=== PATIENT | female | born 1955 | race Caucasian/White ===

== ENCOUNTER 2018-02-05 01:43 | Emergency (ER) | payer OTHER ==
[~2018-02-05] VITALS: Ht 152.4 cm; Wt 68.0 kg
[~2018-02-05 01:43] MED LIST: DEXILANT60 MG PO
--- OUTSIDE RECORDS SUMMARY | 2018-02-05 01:46 | XMS REPORT | Clinical Summary ---
Author Author [facility] Organization [facility] Address Unknown Phone Unavailable Care Team Providers Care Early Morning Name Role Phone Javad Wagner MD PCP Allergies Active Allergy Reactions Severity Noted Date Comments Penicillins Hives High 06/10/2012 Rash Current Medications Prescription Sig. Disp. Refills Start End Date Status Date amLODIPine (NORVASC) 5 mg Take 1 tablet (5 mg 30 tablet 11 11/16/19 11/16/19 Active tabletIndications: total) by mouth daily. 18 19 Essential hypertension ergocalciferol (VITAMIN Take 1 capsule (50,000 4 capsule 1 12/20/19 12/20/19 Active D2) 50,000 unit Units total) by mouth 18 19 capsuleIndications: once a week. Vitamin D deficiency aspirin (ECOTRIN) 81 MG Take 81 mg by mouth Active enteric coated tablet daily. esomeprazole (NexIUM) 40 Take 1 capsule (40 mg 90 capsule 1 01/21/20 01/21/20 Active MG capsuleIndications: total) by mouth daily 18 19 Gastroesophageal reflux before breakfast. disease without esophagitis VITAMIN D2 50,000 unit Take 50,000 Units by 0 09/22/20 12/20/19 Discontin capsule mouth once a week. 17 18 ued FLUCELVAX QUAD [id number], TO BE ADMINISTERED BY 0 08/25/20 10/20/20 Discontin PF, 60 mcg (15 mcg x PHARMACIST FOR 17 17 ued 4)/0.5 mL syringe IM IMMUNIZATION Injection PROCTOSOL HC 2.5 % rectal APPLY TO AFFECTED RECTAL 0 10/08/20 Discontin cream AREA TWICE A DAY 17 18 ued ranitidine (ZANTAC) 150 Take 150 mg by mouth 2 2 09/15/20 10/20/20 Discontin MG tablet (two) times a day. 17 17 ued ranitidine (ZANTAC) 150 Take 1 capsule (150 mg 60 capsule 11 10/20/20 11/16/19 Discontin MG capsule total) by mouth 2 (two) 17 18 ued times a day. amLODIPine (NORVASC) 10 Take 0.5 tablets (5 mg 3 tablet 0 11/11/19 11/16/19 Discontin mg tablet total) by mouth daily for 18 18 ued 5 days. famotidine (PEPCID) 20 MG Take 1 tablet (20 mg 60 tablet 11 12/22/19 01/29/20 Discontin tabletIndications: total) by mouth 2 (two) 18 18 ued Gastroesophageal reflux times a day. disease with esophagitis pyridoxine, vitamin B6, Take 100 mg by mouth 01/21/20 Discontin (B-6) 100 MG tablet daily. 18 ued GAMMA-AMINOBUTYRIC ACID, 325 mg. 02/01/20 Discontin BULK, MISC 18 ued MULTIVITAMIN,STRESS Take by mouth. 02/02/20 Discontin FORMULA (STRESS/BIOTIN 18 ued ORAL) lamoTRIgine (LaMICtal) 25 Take 1 tablet (25 mg 01/21/20 01/29/20 Discontin MG tabletIndications: total) by mouth daily. 18 18 ued Bipolar affective disorder, remission status unspecified famotidine (PEPCID) 20 MG Take 20 mg by mouth 2 02/02/20 Discontin tablet (two) times a day. 18 ued Active Problems Problem Noted Date Dyspepsia 01/11/2018 Other dysphagia 01/11/2018 Atypical chest pain 12/22/2017 Gastroesophageal reflux disease with esophagitis 12/22/2017 Palpitations 11/16/2017 Essential hypertension 11/16/2017 Gastroesophageal reflux disease 10/20/2017 Vitamin D deficiency 10/20/2017 Hormone imbalance 10/20/2017 Screening, lipid 10/20/2017 Pain of right lower extremity 10/20/2017 Resolved Problems Problem Noted Date Resolved Date History of suicide attempt 10/20/2017 11/16/2017 Encounters Date Type Specialty Care Team Description 02/01/2018 Office Visit Family Medicine Chad Wagner MD Esophageal dysphagia (Primary Dx); Gastroesophageal reflux disease, esophagitis presence not specified 01/31/2018 [facility] Encounter disease with esophagitis; Dyspepsia; Other dysphagia 01/31/2018 Anesthesia Gastroenterology Primo Butt MD Event 01/31/2018 Procedure Pass Gastroenterology 01/31/2018 Surgery Gastroenterology José Miguel Godinez MD ESOPHAGOGASTRODUODENOSCOP Y (EGD) with bx 01/24/2018 Hospital Radiology José Miguel Godinez MD Gastroesophageal reflux Encounter disease with esophagitis; Dyspepsia; Other dysphagia 01/24/2018 Telephone Gastroenterology Mary Shannon LPN 01/20/2018 Office Visit Family Medicine Chad Wagner MD Routine check-up (Primary Dx); Bipolar affective disorder, remission status unspecified; Post-menopausal; Gastroesophageal reflux disease without esophagitis 01/11/2018 Office Visit Gastroenterology José Miguel Godinez MD Gastroesophageal reflux disease with esophagitis (Primary Dx); Dyspepsia; Other dysphagia 12/22/2017 Office Visit Family Medicine Chad Wagner MD Gastroesophageal reflux disease with esophagitis (Primary Dx); Atypical chest pain; Essential hypertension 12/20/2017 Orders Only Family Medicine Chad Wagner MD Vitamin D deficiency (Primary Dx) 12/17/2017 Orders Only Family Medicine Chad Wagner MD 11/16/2017 Office Visit Family Chad Pool MD Essential hypertension (Primary Dx); Palpitations 11/11/2017 Emergency Emergency Medicine Andrey Pickard Secondary hypertension (Primary Dx) 11/03/2017 Telephone Family Chad Pool MD 10/20/2017 Office Visit Family Chad Pool MD Gastroesophageal reflux disease, esophagitis presence not specified (Primary Dx); Vitamin D deficiency; Hormone imbalance; Screening, lipid; Pain of right lower extremity; History of suicide attempt after 02/04/2017 Family History Medical History Relation Name Comments Hypertension Father Heart disease Mother Hypertension Mother Kidney disease Mother No Known Problems Sister Relation Name Status Comments Father Alive Mother Alive Sister Alive Social History Tobacco Use Types Packs/Day Years Used Date Never Smoker Smokeless Tobacco: Never Used Alcohol Use Drinks/Week oz/Week Comments No Sex Assigned at Date Recorded Not on file Last Filed Vital Signs Vital Sign Reading Time Taken Blood Pressure 117/80 02/01/2018 11:14 AM CDT Pulse 64 02/01/2018 11:14 AM CDT Temperature 36.8 C (98.2 F) 02/01/2018 11:14 AM CDT Respiratory Rate 20 02/01/2018 11:14 AM CDT Oxygen Saturation 99% 02/01/2018 11:14 AM CDT Inhaled Oxygen - - Concentration Weight 67.1 kg (148 lb) 02/01/2018 11:14 AM CDT Height 152.4 cm (5') 02/01/2018 11:14 AM CDT Body Mass Index 28.9 02/01/2018 11:14 AM CDT Plan of Treatment Date Type Specialty Care Team Description 02/14/2018 Appoint[place] [address] [place] [address] 02/25/2018 Office Visit Gastroenterology José Miguel Godinez MD [address] [facility] [address] [place] [address] [phone] 04/27/2018 Office Visit Cardiology JoseGwendolyn Kimble MD [address] [facility] [address] [place] [address] Health Maintenance Due Date Last Done Comments MAMMOGRAM 07/09/2019 07/09/2017 PAP SMEAR 08/09/2020 08/09/2017 COLONOSCOPY 11/08/2024 11/08/2014 ZOSTER VACCINE Completed 11/08/2013 INFLUENZA VACCINE Completed 09/08/2017 Procedures Procedure Name Priority Date/Time Associated Diagnosis Comments ESOPHAGOGASTRODUODENOSCOP 01/31/2018 Gastroesophageal reflux Y (EGD) with bx 7:30 AM CDT disease with esophagitis after 02/04/2017 Results * Surgical pathology request (01/31/2018 10:06 AM) Component Value Ref Range Surgical pathology report See link below for PDF Lab Report Result status This is Final Report to [id number] Specimen Performing Laboratory [facility] DEPARTMENT OF PATHOLOGY AND GENOMIC MEDICINE [address] [place] [id number] * [place] Esophagram Complete (01/24/2018 11:34 AM) Specimen Performing Laboratory [address] [address] Narrative PROCEDURE:FL ESOPHAGRAM COMPLETE CLINICAL HISTORY:K21.0 Gastro-esophageal reflux disease with esophagitis, R10.13 Epigastric pain, dysphagia COMPARISON:None. TECHNIQUE: Patient was given air crystals as well as thick and thin barium for a double contrast examination of the esophagus. Only an esophagram was performed as requested. A total kV of96, mA of2.4, and fluoroscopic time of1.3 minutes was used for the procedure. The DAP (dose absorbed product) is: 3 mGy-cm^2. Number of fluoroscopic spot images: 30. FINDINGS: Following administration of barium orally a normal swallowing mechanism is demonstrated. No hiatus hernia is seen. Minimal GE reflux is present. IMPRESSION: Minimal GE reflux. [id number] . Procedure Note Hm Interface, Radiology Results Incoming - 01/24/2018 12:30 PM CDT PROCEDURE: FL ESOPHAGRAM COMPLETE CLINICAL HISTORY: K21.0 Gastro-esophageal reflux disease with esophagitis, R10.13 Epigastric pain, dysphagia COMPARISON: None. TECHNIQUE: Patient was given air crystals as well as thick and thin barium for a double contrast examination of the esophagus. Only an esophagram was performed as requested. A total kV of 96, mA of 2.4, and fluoroscopic time of 1.3 minutes was used for the procedure. The DAP (dose absorbed product) is: 3 mGy-cm^2. Number of fluoroscopic spot images: 30. FINDINGS: Following administration of barium orally a normal swallowing mechanism is demonstrated. No hiatus hernia is seen. Minimal GE reflux is present. IMPRESSION: Minimal GE reflux. [id number] . * POC glycosylated hemoglobin (Hb A1C) (01/20/2018 9:48 AM) Component Value Ref Range POC Hemoglobin A1C 5.1 % Specimen Performing Laboratory Blood * LIPID PANEL WITH REFLEX TO DIRECT LDL (12/17/2017 9:11 AM) Component Value Ref Range Cholesterol, total 206 (H) <200 mg/dL HDL cholesterol 66 >50 mg/dL Triglycerides 90 <150 mg/dL LDL cholesterol 121 (H) mg/dL (calc) calculated Comment: Reference range: <100 Desirable range <100 mg/dL for patients with CHD or diabetes and <70 mg/dL for diabetic patients with known heart disease. LDL-C is now calculated using the Raffi calculation, which is a validated novel method providing better accuracy than the Friedewald equation in the estimation of LDL-C. Jered MOTT et al. BLANCA. 2013;310(19): 4552-7075 (http://education.GBS.Crave.com/faq/UGJ148) Cholesterol/HDL ratio 3.1 <5.0 (calc) Non-HDL cholesterol 140 (H) <130 mg/dL (calc) Comment: For patients with diabetes plus 1 major ASCVD risk factor, treating to a non-HDL-C goal of <100 mg/dL (LDL-C of <70 mg/dL) is considered a therapeutic option. Specimen Performing Laboratory [facility] * Helicobacter pylori breath test (12/17/2017 9:11 AM) Component Value Ref Range H. pylori breath test NOT DETECTED NOT DETECTED Comment: Antimicrobials, proton pump inhibitors, and bismuth preparations are known to suppress H. pylori, and ingestion of these prior to H. pylori diagnostic testing may lead to false negative results. If clinically indicated, the test may be repeated on a new specimen obtained two weeks after discontinuing treatment. However, a positive result is still clinically valid. Specimen Performing Laboratory [facility] * Vitamin D 25 hydroxy level (12/17/2017 9:11 AM) Component Value Ref Range Vitamin D, 25-hydroxy 40 30 - 100 ng/mL Comment: Vitamin D Status 25-OH Vitamin D: Deficiency: <20 ng/mL Insufficiency: 20 - 29 ng/mL Optimal: > or=30 ng/mL For 25-OH Vitamin D testing on patients on D2-supplementation and patients for whom quantitation of D2 and D3 fractions is required, the QuestAssureD(TM) 25-OH VIT D, (D2,D3), LC/MS/MS is recommended: order code 75788 (patients >2yrs). For more information on this test, go to: http://education.better..Crave.com/faq/WDY838 (This link is being provided for informational/educational purposes only.) Specimen Performing Laboratory [facility] * CBC with platelet and differential (12/17/2017 9:11 AM) Only the most recent of 2 results within the time period is included. Component Value Ref Range WBC 5.4 3.8 - 10.8 Thousand/uL RBC 4.87 3.80 - 5.10 Million/uL HGB 14.9 11.7 - 15.5 g/dL HCT 43.8 35.0 - 45.0 % MCV 89.9 80.0 - 100.0 fL MCH 30.6 27.0 - 33.0 pg MCHC 34.0 32.0 - 36.0 g/dL RDW 12.1 11.0 - 15.0 % Platelet count 274 140 - 400 Thousand/uL MPV 11.1 7.5 - 12.5 fL Neutrophils, absolute 3,386 1,500 - 7,800 cells/uL Lymphocytes, absolute 1,577 850 - 3,900 cells/uL Monocytes, absolute 308 200 - 950 cells/uL Eosinophils, absolute 97 15 - 500 cells/uL Basophils, absolute 32 0 - 200 cells/uL Neutrophils 62.7 % Lymphocytes 29.2 % Monocytes 5.7 % Eosinophils 1.8 % Basophils + RC 0.6 % Specimen Performing Laboratory [facility] * Thyroid stimulating hormone (12/17/2017 9:11 AM) Component Value Ref Range TSH 1.46 0.40 - 4.50 mIU/L Specimen Performing Laboratory [facility] * Comprehensive metabolic panel (12/17/2017 9:11 AM) Only the most recent of 2 results within the time period is included. Component Value Ref Range Glucose 88 65 - 99 mg/dL Comment: Fasting reference interval BUN, whole blood 14 7 - 25 mg/dL Creatinine 0.66 0.50 - 0.99 mg/dL Comment: For patients >49 years of age, the reference limit for Creatinine is approximately 13% higher for people identified as -Eritrean. EGFR Non-Afr. Eritrean 93 > OR=60 mL/min/1.73m2 EGFR 108 > OR=60 mL/min/1.73m2 BUN/creatinine ratio NOT APPLICABLE 6 - 22 (calc) Sodium 139 135 - 146 mmol/L Potassium 4.4 3.5 - 5.3 mmol/L Chloride 105 98 - 110 mmol/L CO2 26 20 - 31 mmol/L Calcium 9.7 8.6 - 10.4 mg/dL Protein 7.1 6.1 - 8.1 g/dL Albumin, S 4.4 3.6 - 5.1 g/dL Globulin, total 2.7 1.9 - 3.7 g/dL (calc) Albumin/globulin ratio 1.6 1.0 - 2.5 (calc) Total bilirubin 0.5 0.2 - 1.2 mg/dL Alkaline phosphatase 86 33 - 130 U/L AST 23 10 - 35 U/L ALT 27 6 - 29 U/L Specimen Performing Laboratory [facility] * ECG ED Preliminary Interpretation - NOT AN ORDER (11/11/2017 12:01 PM) Swathi Pickard MD 11/11/2017 12:01 PM ECG ED Preliminary Interpretation - Not an Order Performed by: ZANE PICKARD Authorized by: ZANE PICKARD ECG reviewed by ED Physician in the absence of a cosmetic sales advisor: yes Interpretation: Interpretation: normal Rate: ECG rate:74 ECG rate assessment: normal Rhythm: Rhythm: sinus rhythm Ectopy: Ectopy: none QRS: QRS axis:Normal Conduction: Conduction: normal ST segments: ST segments:Normal T waves: T waves: normal * Estimated GFR (11/11/2017 9:44 AM) Component Value Ref Range GFR Non Af Amer >90 mL/min/1.73 m2 GFR Af Amer >90 mL/min/1.73 m2 Comment: Chronic kidney disease: <60 mL/min/1.73m2 Kidney failure: <15 mL/min/1.73m2 The estimated GFR is calculated from the IDMS-traceable Modification of Diet in Renal Disease Equation. The accuracy of the calculation is poor when the creatinine is normal. Calculated values >90 mL/min/1.73m2 are not reported. This equation has not been validated in children (<18 years), women, the elderly (>70 years), or ethnic groups other than Caucasians and Americans. Specimen Performing Laboratory Plasma specimen [facility] PATHOLOGY AND [employer] [address] [place] [address] * Troponin (11/11/2017 9:44 AM) Component Value Ref Range Troponin <0.300 0.000 - 0.300 ng/mL Comment: 0.30 - 1.49 ng/ml May indicate increased risk of acute coronary syndrome. >=1.5 ng/ml Consistent with acute myocardial infarction. The diagnostic value of a single normal or non-diagnostic result is questionable. Serial samples at 2-6 hour intervals are required to rule out acute myocardial injury. Specimen Performing Laboratory Plasma specimen [facility] DEPARTMENT OF PATHOLOGY AND [employer] [address] [place] [address] * B natriuretic peptide (11/11/2017 9:44 AM) Component Value Ref Range BNP 10 0 - 100 pg/mL Specimen Performing Laboratory Blood [facility] DEPARTMENT OF PATHOLOGY AND GENOMIC MEDICINE [address] [place] [address] * Creatine kinase, total (CPK) (11/11/2017 9:44 AM) Component Value Ref Range Creatine kinase 218 (H) 26 - 192 U/L Specimen Performing Laboratory Plasma specimen [facility] DEPARTMENT OF PATHOLOGY AND GENOMIC MEDICINE [address] [place] [address] * XR Chest 2 Vw (11/11/2017 9:33 AM) [facility] [address] [place] [address] Narrative EXAMINATION:XR CHEST 2 VW CLINICAL HISTORY:Chest Pain COMPARISON:None IMPRESSION: The lungs are clear. The mediastinal contours and cardiac silhouette are unremarkable. Atherosclerotic disease. The bones are unremarkable. [facility]-[id number] Procedure Note Hm Interface, Radiology Results Incoming - 11/11/2017 9:37 AM HEALTHCARE SPECIALIST EXAMINATION: XR CHEST 2 VW CLINICAL HISTORY: Chest Pain COMPARISON: None IMPRESSION: The lungs are clear. The mediastinal contours and cardiac silhouette are unremarkable. Atherosclerotic disease. The bones are unremarkable. [facility]-[id number] * ECG 12 lead (11/11/2017 9:09 AM) Component Value Ref Range Ventricular rate 74 Atrial rate 74 LA interval 162 QRSD interval 74 QT interval 384 QTC interval 426 P axis 1 72 QRS axis 1 27 T wave axis 38 EKG impression Normal sinus rhythm-Normal ECG-No previous ECGs available- Specimen Performing Laboratory [facility] [address] [place] [address] after 02/04/2017 Insurance Payer Benefit Subscriber ID Type Phone Address Plan / Group [employer] xxxxxxxxx O [facility]
--- OUTSIDE RECORDS SUMMARY | 2018-02-05 01:46 | XMS REPORT ---
Author Author [facility] Address Unknown Phone Unavailable Care Team Providers Care Economic Forecaster Name Role Phone KATHY ALAN Unavailable Unavailable HANNAH HUANG Unavailable Unavailable Problems This patient has no known problems. Allergies, Adverse Reactions, Alerts This patient has no known allergies or adverse reactions. Medications This patient has no known medications. Results Test Description Test Time Test Comments Text Results Atomic Results Result Comments MRI BRAIN WO [place] [address] Patient Name: JULIO PEOPLES MR #: [id number] : 1955 Age/Sex: 62/F Req #: [id number] Adm Physician: KATHY ALAN MD Ordered by: JAMES MENA MD Report #: [id number] Location: MED/SURG Room/Bed: [facility] ____ Procedure: [id number] MRI/MRI BRAIN WO Exam Date: 09/11/17 Exam Time: 0955 REPORT STATUS: Signed Examination: MRI BRAIN WITHOUT CONTRAST History: Syncope Comparison studies: Head CT performed September 10, 2017. Technique: Sagittal T2; axial DWI, FLAIR, GRE or SWI, T1, Coronal FLAIR. Intravenous contrast: None Findings: Scalp: No abnormal signal. No masses. Bone marrow: Normal in signal intensity. Brain volume: Adequate for age. No volume loss. Ventricles: Normal in size and configuration. No hydrocephalus. Extra-axial spaces : No abnormalities. Parenchyma: No masses, hemorrhage, or acute or chronic vascular insults. Suprasellar and sellar region: No abnormalities. Craniocervical junction: No abnormalities. The foramen magnum is patent. No Chiari malformations. Vessels: Normal flow-voids in the arteries and sinuses. Additional findings:Mild inflammatory mucosal thickening of the left ethmoid air cells. IMPRESSION: No acute intracranial abnormalities. No change from prior head CT performed September 10, 2017 when accounting for differences in technique. Signed by: Dr. Dede Ricardo M.D. on 09/11/2017 11:22 AM Dictated By: DEDE LAWTON MD 112 Transcribed By: LOY on 09/11/171121 COPY TO: JAMES MENA MD CHEST SINGLE (PORTABLE) [place] [address] Patient Name: JULIO PEOPLES MR #: [id number] : 1955 Age/Sex: 62/F Req #: [id number] Adm Physician: Ordered by: JAMES MENA MD Report #: [id number] Location: ER Room/Bed: Procedure: [id number] DX/CHEST SINGLE (PORTABLE) Exam Date: 09/10/17 Exam Time: 2200 REPORT STATUS: Signed CHEST SINGLE ( PORTABLE), 09/10/2017 9:58 PM Technique: CHEST SINGLE (PORTABLE) Comparison: 07/28/2017. Clinical history: Syncope Findings: Unremarkable appearance of the heart, mediastinum, lungs and pleural spaces. Impression: 1. Lines/Tubes: None 2. No acute abnormality. Signed by : Dr Ya Quarles MD on 09/10/2017 10:27 PM Dictated By: YA QUARLES MD 26 Transcribed By: LOY on 09/10/172226 COPY TO: JAMES MENA MD CT BRAIN WO [place] [address] Patient Name: JULIO PEOPLES MR #: [id number] : 1955 Age/Sex: 62/F Req #: [id number] Adm Physician: Ordered by: JAMES MENA MD Report #: [id number] Location: ER Room/Bed: Procedure: [id number] CT/CT BRAIN WO Exam Date: Exam Time: REPORT STATUS: Signed EXAMINATION: Head CT without contrast. HISTORY: Syncope. COMPARISON:None. TECHNIQUE: Multidetector axial images were obtained from the foramen magnum to the vertex without contrast. The images were reconstructed using brain and bone algorithms. Thin section brain images were reformatted into coronal and sagittal planes. Intravenous contrast: None IMAGE QUALITY: Acceptable. FINDINGS: Skull/ scalp: No abnormality. Parenchyma: No abnormal density. No acute hemorrhage, mass or acute major vascular territorial infarct. Arteries: No density suggestive of thrombosis. Dural sinuses: No abnormal density suggestive of thrombosis. Ventricles: No hydrocephalus or displacement. Extra-axial spaces: No abnormal density. Brain volume: Normal for age. Craniocervical junction: No mass, Chiari malformation, or basilar invagination. Sella: No mass. Paranasal/ mastoid sinuses: Imaged portions unremarkable. IMPRESSION: No intracranial abnormality. Signed by: Dr. Helen Amador M.D. on 2016 9:43 PM Dictated By: HELEN AMADOR MD 42 Transcribed By: LOY on 09/10/172142 COPY TO: JAMES MENA MD CT ABDOMEN/PELVIS W [place] [address] Patient Name: JULIO PEOPLES MR #: [id number] : 1955 Age/Sex: 62/F Req # : [id number] Adm Physician: Ordered by: JAMES MENA MD Report # : [id number] Location: ER Room/Bed: Procedure: [id number] CT/CT ABDOMEN/PELVIS W Exam Date: 09/10/17 Exam Time: 2099 REPORT STATUS: Signed EXAM: CT ABDOMEN/PELVIS W DATE : 09/10/2017 8:57 PM INDICATION: Syncope, pain in esophagus, prior EGD and biopsy COMPARISON: None TECHNIQUE: The abdomen and pelvis were scanned using a multidetector helical scanner. Coronal and sagittal reformations were obtained. Routine protocol performed. IV Contrast: 100 ml Isovue 370 FINDINGS: LOWER THORAX: No consolidations LIVER/BILIARY: Hepatic steatosis with peripheral wedge-shaped enhancement in segment 7 which may be perfusional.. No ductal dilatation. GALLBLADDER: Unremarkable SPLEEN: Unremarkable PANCREAS: Unremarkable ADRENALS: No nodules KIDNEYS: Symmetric perfusion. No enhancing masses. No hydronephrosis. GI TRACT: There is slight irregular thickening and enhancement of the gastric cardia ( image 11). No evidence of bowel obstruction. Normal appendix. VESSELS: Unremarkable PERITONEUM/RETROPERITONEUM: No free air or fluid LYMPH NODES: No lymphadenopathy REPRODUCTIVE ORGANS/BLADDER: Unremarkable BONES: Moderate L4-S1 facet arthrosis. IMPRESSION: 1. Mild thickening/ enhancement of the gastric cardia. Correlate with recent EGD. 2. No acute abnormality in the abdomen or pelvis. Signed by: Dr Ya Quarles MD on 10:03 PM Dictated By: YA QUARLES MD 02 Transcribed By: LOY on 09/10/172202 COPY TO: JAMES MENA MD CHEST SINGLE (PORTABLE) [place] [address] Patient Name: JULIO PEOPLES MR #: [id number] : 1955 Age/Sex: 62/F Req #: [id number] Adm Physician: Ordered by: HANNAH HUANG MD Report # : [id number] Location: ER Room/Bed: Procedure: [id number] DX/CHEST SINGLE (PORTABLE) Exam Date: 07/28/17 Exam Time: 904 REPORT STATUS: Signed PROCEDURE: CHEST SINGLE ( PORTABLE) COMPARISON: None. INDICATIONS: CHEST PAIN MID STERNUM TODAY FINDINGS: LUNGS: No consolidations or edema. PLEURA: No effusions or pneumothorax. HEART T MEDIASTINUM: The heart is within normal size-limits. BONES T SOFT TISSUES: No acute findings. CONCLUSION: No acute thoracic abnormality. Dictated by: Tom Freitas M.D. on 07/28/2017 at 10:04 Electronically approved by: Tom Freitas M.D. on 07/28/2017 at 10:04 Dictated By: TOM FREITAS MD 03 Transcribed By: EMILI on 07/28/171003 COPY TO: HANNAH HUANG MD
== END 2018-02-05 02:35 | disposition home or self-care (01) ==
LOC: FSED 01:43
DX: K21.0 Gastro-esophageal reflux disease with esophagitis (principal); I10 Essential (primary) hypertension
CPT/HCPCS: 99282

== ENCOUNTER 2019-05-20 16:32 | Emergency (ER) | payer MEDICARE, OTHER ==
[~2019-05-20] VITALS: Ht 180.3 cm; Wt 68.0 kg
--- OUTSIDE RECORDS SUMMARY | 2019-05-20 16:40 | XMS REPORT | Clinical Summary ---
Author Author [facility] Organization [facility] Address Unknown Phone Unavailable Care Team Providers Care Instrument Repairer Name Role Phone Chad Wagner MD PCP Allergies Comments Active Allergy Reactions Severity Noted Date Latex, Natural Rubber Esomeprazole Magnesium Rash High 11/18/2018 Cefdinir Rash High 07/25/2018 Rash Rash Penicillins Hives High 06/10/2012 Ranitidine Mood disorder Ranitidine Hcl Palpitations Low 04/01/2018 Sertraline Rash Low 12/29/2018 Medications End Date Status Medication Sig Dispensed Refills Start Date Active GAMMA-AMINOBUTYRIC ACID, Take 1 0 BULK, MISC capsule by mouth every evening. Active multivitamin with Take 1 tablet 0 minerals (HAIR,SKIN AND by mouth NAILS) tablet daily. Active benztropine (COGENTIN) 1 TAKE 1 TABLET 0 MG tablet BY MOUTH AT 8 BEDTIME FOR EPS PROPHYLAXIS. Active b complex vitamins Take 1 0 capsule capsule by mouth daily. 12/13/2019 Active ergocalciferol (VITAMIN Take 1 12 capsule 3 D2) 50,000 unit capsule capsule 9 (50,000 Units total) by mouth once a week. 12/14/2019 Active ezetimibe (ZETIA) 10 mg Take 1 tablet 30 tablet 11 tabletIndications: Mixed (10 mg total) 9 hyperlipidemia by mouth daily. Active ginkgo biloba 40 mg Take 60 mg by 0 tablet mouth every morning. Active MAGNESIUM ORAL Take by mouth 0 every other day. Active omega-3 fatty acids (FISH Take by mouth 0 OIL CONCENTRATE ORAL) every morning. Active sertraline (ZOLOFT) 50 MG TAKE 1/2 0 03/25/201 tablet TABLET BY 9 MOUTH EVERY BEDTIME Active traZODone (DESYREL) 50 MG TAKE 1/2 0 tablet TABLET AT 9 BEDTIME FOR SLEEP. 02/03/2020 Active potassium chloride Take 1 tablet 60 tablet 1 (K-DUR) 20 MEQ CR (20 mEq 9 tabletIndications: total) by Hypokalemia mouth 2 (two) times a day. 10/12/2018 Discontinued amLODIPine (NORVASC) 5 mg Take 1 tablet 30 tablet 11 tabletIndications: (5 mg total) 8 Essential hypertension by mouth daily. 06/10/2018 Discontinued perphenazine 2 MG tablet Take 1 tablet 1 by mouth 3 8 (three) times a day. 05/24/2018 Discontinued aspirin (ECOTRIN) 81 MG Take 81 mg by 0 enteric coated tablet mouth daily. 11/16/2018 Discontinued pravastatin (PRAVACHOL) TAKE 1 TABLET 30 tablet 0 40 MG tablet BY MOUTH 8 EVERY DAY 06/17/2018 pantoprazole (PROTONIX) TAKE 1 TABLET 30 tablet 0 40 MG EC tablet (40 MG TOTAL) 8 BY MOUTH DAILY FOR 30 DAYS. 11/16/2018 Discontinued perphenazine 4 MG tablet Take 4 mg by 0 mouth 3 (three) times a day. TAKEN AT : MORNING, 1PM, AND 6PM 11/16/2018 Discontinued benztropine (COGENTIN) 2 Take 2 mg by 0 MG tablet mouth nightly - one time. 06/20/2018 cefdinir (OMNICEF) 300 MG Take 1 20 capsule 0 capsuleIndications: Ear capsule (300 8 infection, Lymphadenitis mg total) by mouth 2 (two) times a day for 10 days. 06/20/2018 indomethacin SR (INDOCIN Take 1 20 capsule 0 SR) 75 mg CR capsule (75 8 capsuleIndications: mg total) by Lymphadenitis mouth 2 (two) times a day with meals for 10 days. 07/26/2018 Discontinued esomeprazole (NexIUM) 40 Take 1 30 capsule 11 MG capsuleIndications: capsule (40 8 Gastroesophageal reflux mg total) by disease without mouth daily esophagitis before breakfast. 12/08/2018 Discontinued amLODIPine (NORVASC) 5 mg Take 1 tablet 90 tablet 3 12/06/201 tabletIndications: (5 mg total) 8 Essential hypertension by mouth daily for 90 days. 10/24/2018 doxycycline (VIBRAMYCIN) Take 1 6 capsule 0 100 MG capsule capsule (100 8 mg total) by mouth 2 (two) times a day for 3 days. 12/08/2018 Discontinued azelastine (ASTELIN) 137 1 spray into 30 mL 12 mcg (0.1 %) nasal each nostril 9 sprayIndications: Nasal 2 (two) times congestion a day. Use in each nostril as directed 04/05/2019 Discontinued perphenazine 4 MG tablet Take 4 mg by 0 mouth daily. 9 TAKEN AT : MORNING, 1PM, AND 6PM 11/18/2018 Discontinued benztropine (COGENTIN) 2 Take 0.5 0 MG tablet tablets (1 mg 9 total) by mouth nightly - one time. 11/18/2018 Discontinued [id number] Administer 2 5 mL 0 nium (CORTISPORIN-TC) drops to the 9 3.3-3-10-0.5 mg/mL right ear drops,suspensionIndicatio every 6 (six) ns: Impacted cerumen of hours. right ear 12/29/2018 Discontinued ascorbic acid/collagen Take 1 tablet 0 hydr (COLLAGEN PLUS by mouth. VITAMIN C ORAL) 11/29/2018 [id number] Administer 3 0.91 mL 0 (CORTISPORIN) drops into 9 3.5-10,000-1 both ears 3 mg/mL-unit/mL-% otic (three) times solution a day for 10 days. 12/23/2018 Discontinued ibuprofen (ADVIL,MOTRIN) Take 1 tablet 20 tablet 0 600 MG tablet (600 mg 9 total) by mouth every 6 (six) hours as needed for mild pain for up to 30 days. 11/26/2018 acetaminophen-codeine Take 1 tablet 5 tablet 0 (TYLENOL WITH CODEINE #3) by mouth 9 300-30 mg per tablet every 4 (four) hours as needed for moderate pain for up to 2 days. 12/29/2018 Discontinued azelastine (ASTELIN) 137 1 spray into 90 mL 3 mcg (0.1 %) nasal each nostril 9 sprayIndications: Nasal 2 (two) times congestion a day. Use in each nostril as directed 03/08/2019 amLODIPine (NORVASC) 5 mg Take 1 tablet 90 tablet 3 tabletIndications: (5 mg total) 9 Essential hypertension by mouth daily for 90 days. 01/11/2019 keTOROlac (TORadol) 10 mg Take 1 tablet 20 tablet 0 tablet (10 mg total) 9 by mouth every 6 (six) hours as needed for moderate pain for up to 5 days. Active Problems Problem Noted Date Hernia, hiatal 12/14/2018 Overview: Added automatically from request for surgery [id number] Acute intractable headache 12/13/2018 Nasal congestion 11/16/2018 Cyst of left kidney 06/29/2018 Ovarian mass 06/29/2018 Chest pain 04/25/2018 Impacted cerumen of right ear 03/01/2018 Dyspepsia 01/11/2018 Oropharyngeal dysphagia 01/11/2018 Atypical chest pain 12/22/2017 Gastroesophageal reflux disease with esophagitis 12/22/2017 Palpitations 11/16/2017 Essential hypertension 11/16/2017 Vitamin D deficiency 10/20/2017 Hormone imbalance 10/20/2017 Screening, lipid 10/20/2017 Pain of right lower extremity 10/20/2017 Resolved Problems Problem Noted Date Resolved Date Hiatal hernia 02/25/2018 03/15/2019 Gastroesophageal reflux disease 10/20/2017 03/15/2019 Encounters Care Team Description Date Type Specialty Chad Wagner MD Visual changes (Primary Dx) 04/26/2019 Office Visit Family Medicine Dmitri Lopez MD Hernia, hiatal (Primary Dx); Gastroesophageal reflux disease with esophagitis 04/05/2019 Office Visit General Surgery Chad aWgner MD Essential hypertension (Primary Dx); Dehydration; Screening for endocrine disorder; Mixed hyperlipidemia 04/05/2019 Office Visit Family Medicine Elizabeth Vivas MA 03/30/2019 Telephone General Surgery Ninoska Spears RN 03/30/2019 Telephone Access Ninoska Spears RN 03/30/2019 Nurse Triage Access Dmitri Lopez MD Gastroesophageal reflux disease, esophagitis presence not specified 03/21/2019 Hospital Radiology Encounter Dmitri Lopez MD Surgery follow-up examination (Primary Dx); Essential hypertension; Hernia, hiatal; Gastroesophageal reflux disease with esophagitis 03/15/2019 Office Visit General Surgery Elizabeth Vivas MA Gastroesophageal reflux disease, esophagitis presence not specified (Primary Dx) 03/15/2019 Orders Only General Surgery Chad Wagner MD Hypokalemia 02/28/2019 Refill Family Medicine Al Bennett MD 02/10/2019 Transcribe Access Orders Chad Wagner MD Hypokalemia (Primary Dx) 02/03/2019 Office Visit Family Medicine William Jacobson DO Medication side effect, initial encounter (Primary Dx) 01/28/2019 [facility] Tele[facility] General Surgery Dmitri Lopez MD Gastroesophageal reflux disease with esophagitis (Primary Dx); Hiatal hernia 01/18/2019 Office Visit General Surgery Chad Wagner MD Anxiety and depression (Primary Dx); Behavior disturbance 01/17/2019 Office Visit Family Medicine Maryjane Rodgers MA 01/16/2019 Telephone General Surgery Coleman Márquez CRNA 01/05/2019 Anesthesia General Surgery Event Dmitri Lopez MD LAPAROSCOPIC PARAESOPHAGEAL HERNIA REPAIR WITH LINX, INTRA- OPERATIVE ENDOSCOPY. 01/05/2019 Surgery General Surgery Dmitri Lopez MD Gastroesophageal reflux disease with esophagitis; Hernia, hiatal; Essential hypertension 01/05/2019 Hospital General Surgery - Encounter 01/06/2019 Dmitri Lopez MD 12/29/2018 Hospital Radiology Encounter Dmitri Lopez MD Preoperative testing (Primary Dx) 12/29/2018 Pre-Admit Pre-Admission Testing Testing Appointment Doreen Wiggins MA 12/27/2018 Telephone Family Medicine Chad Wagner MD Other complicated headache syndrome (Primary Dx) 12/23/2018 Office Visit Family Medicine Chad Wagner MD Acute intractable headache, unspecified headache type 12/21/2018 Hospital Radiology Encounter Dmitri Lopez MD Hernia, hiatal (Primary Dx); Gastroesophageal reflux disease with esophagitis; Essential hypertension; Hiatal hernia 12/14/2018 Office Visit General Surgery Chad Wagner MD Mixed hyperlipidemia (Primary Dx) 12/14/2018 Orders Only Family Medicine Chad Wagner MD Acute intractable headache, unspecified headache type (Primary Dx); Essential hypertension; Lipid screening; Screening for endocrine disorder 12/13/2018 Office Visit Family Medicine Sheri Soto MA 12/13/2018 Refill Internal Medicine Sheri Soto MA Nasal congestion; Essential hypertension 12/08/2018 Telephone Internal Medicine Al Bennett MD Examination following surgery (Primary Dx) 12/07/2018 Office Visit Obstetrics and Gynecology Al Bennett MD 11/30/2018 Telephone Obstetrics and Gynecology Al Bennett MD 11/29/2018 Telephone Obstetrics and Gynecology Jesse Ortiz MD 11/24/2018 Anesthesia Event Al Bennett MD HYSTEROSCOPY, WITH DILATION AND CURETTAGE W/ TRUECLEAR POLYPECTOMY 11/24/2018 Surgery Al Bennett MD 11/24/2018 Hospital Encounter Reagan Patel MD Cyst of left kidney 11/22/2018 Office Visit Urology Al Bennett MD Uterine polyp (Primary Dx) 11/18/2018 Office Visit Obstetrics and Gynecology Sheri Soto MA 11/18/2018 Telephone Internal Medicine Chad Wagner MD Nasal congestion (Primary Dx); Impacted cerumen of right ear; Essential hypertension; Bipolar 1 disorder (HCC) 11/16/2018 Office Visit Family Medicine Al Bennett MD 10/25/2018 Telephone Obstetrics and Gynecology Al Bennett MD 10/24/2018 Telephone Obstetrics and Gynecology Al Bennett MD Thickened endometrium 10/21/2018 Ancillary Obstetrics and Gynecology Procedure Al Bennett MD Thickened endometrium (Primary Dx); Uterine polyp 10/21/2018 Procedure visit Obstetrics and Gynecology Sheri Soto MA Essential hypertension 10/12/2018 Refill Internal Medicine Chad Wagner MD Cyst of left kidney (Primary Dx) 09/05/2018 Orders Only Family Medicine Doreen Wiggins MA 09/05/2018 Telephone Family Medicine Al Bennett MD 08/24/2018 Hospital Radiology Encounter Al Bennett MD 08/24/2018 Hospital Radiology Encounter Daryl Burkett MD 08/24/2018 Anesthesia Gastroenterology Event Kaden Irvin MD EGD, EGD WITH SEXTON 08/24/2018 Surgery Gastroenterology Kaden Irvin MD 08/24/2018 Hospital Gastroenterology Encounter Al Bennett MD Thickened endometrium (Primary Dx) 08/23/2018 Office Visit Obstetrics and Gynecology Al Bennett MD 08/22/2018 Telephone Obstetrics and Gynecology Delma Shine MA 08/19/2018 Telephone Obstetrics and Gynecology Dlema Shine MA 08/19/2018 Telephone Obstetrics and Gynecology Al Bennett MD Ovarian mass; Left ovarian cyst; Breast pain, right 08/17/2018 Hospital Radiology Encounter Al Bennett MD Breast pain 08/17/2018 Hospital Radiology Encounter Al Bennett MD Ovarian mass; Left ovarian cyst; Breast pain, right 08/17/2018 Hospital Radiology Encounter Doreen Wiggins MA 07/27/2018 Telephone Family Medicine Chad Wagner MD Muscle spasm (Primary Dx); Impacted cerumen of right ear 07/26/2018 Office Visit Family Medicine Al Bennett MD Breast pain (Primary Dx) 07/23/2018 Transcribe Access Orders Al Bennett MD Left ovarian cyst (Primary Dx); Ovarian mass; Breast pain, right; Cervical cancer screening 07/22/2018 Office Visit Obstetrics and Gynecology José Miguel Godinez MD Gastroesophageal reflux disease with esophagitis (Primary Dx); Gastroesophageal reflux disease, esophagitis presence not specified; Dyspepsia; Hiatal hernia 07/01/2018 Office Visit Gastroenterology Chad Wagner MD Ovarian mass (Primary Dx); Gastroesophageal reflux disease without esophagitis; Benign cyst of left kidney 06/29/2018 Office Visit Family Medicine Robbi Sal PA-C de Ochoa, Christopher Jon, MD Generalized abdominal pain (Primary Dx) 06/28/2018 Emergency Emergency Medicine Jewels Belcher RN 06/28/2018 Nurse Triage Access Harrison Dangelo MA 06/14/2018 Orders Only General Surgery Chad Wagner MD Ear infection (Primary Dx); Lymphadenitis 06/10/2018 Office Visit Family Medicine Doreen Wiggins MA Behavior concern (Primary Dx); Memory loss 06/10/2018 Telephone Family Medicine Antonia Bergeron MA 06/07/2018 Telephone General Surgery Dmitri Lopez MD Gastroesophageal reflux disease with esophagitis (Primary Dx); Hiatal hernia; Essential hypertension; Palpitations 05/24/2018 Office Visit General Surgery after 05/19/2018 Family History Medical History Relation Name Comments Hypertension Father Heart disease Mother Hypertension Mother Kidney disease Mother No Known Problems Sister Relation Name Status Comments Father Alive Maternal Grandfather Maternal Grandmother Mother Alive Paternal Grandfather Paternal Grandmother Sister Alive Social History Date Tobacco Use Types Packs/Day Years Used Never Smoker Smokeless Tobacco: Never Used Tobacco Cessation: Counseling Given: No Alcohol Use Drinks/Week oz/Week Comments No Sex Assigned at Date Recorded Not on file Industry Job Start Date Occupation Not on file Not on file Not on file Travel End Travel History Travel Start No recent travel history available. Last Filed Vital Signs Time Taken Vital Sign Reading 04/26/2019 12:41 PM CDT Blood Pressure 108/66 04/26/2019 12:41 PM CDT Pulse 71 04/26/2019 12:41 PM CDT Temperature 37.1 C (98.7 F) 04/26/2019 12:41 PM CDT Respiratory Rate 20 04/26/2019 12:41 PM CDT Oxygen Saturation 97% - Inhaled Oxygen - Concentration 04/26/2019 12:41 PM CDT Weight 62.8 kg (138 lb 6.4 oz) 04/26/2019 12:41 PM CDT Height 152.4 cm (5') 04/26/2019 12:41 PM CDT Body Mass Index 27.03 Plan of Treatment Care Team Description Date [place] [address] [place] [address] 05/24/2019 Office Visit Family Medicine Dmitri Lopez MD [address] [facility] [address] [place] [address] 07/03/2019 Office Visit General Surgery Nish Hung MD [address] [facility] [address] [place] [id number] 09/20/2019 Office Visit Ophthalmology Health Maintenance Due Date Last Done Comments SHINGLES VACCINES (#1) 2003 65+ PNEUMOCOCCAL VACCINE 2018 (1 of 2 - PCV13) INFLUENZA VACCINE 06/08/2019 09/08/2017 BREAST CANCER SCREENING 08/17/2020 08/17/2018, 08/17/2018, 07/09/2017 COLONOSCOPY SCREENING 11/08/2024 11/08/2014 Implants Device Identifier Shelf Expiration Date Model / Serial / Lot Implanted Type Area Manufactur er 02/22/2019 FGS 0312 / / [id number] Capsule Ph W/ Ds [place]xton - [id number] Surgical N/A: N/A GIVEN Implanted: Qty: 1 on 08/24/2018 by Implants; IMAGING Kaden Irvin MD Expanders; Extenders; Surgical Wires 05/30/2022 [id number] / / [id number] Linx Reflux Mangmt System 14 Bead - Surgical N/A: N/A TORAX [id number] Implants; MEDICAL Implanted: 01/06/2019 (Quantity not Expanders; INC on file) Extenders; Surgical Wires Procedures Comments Procedure Name Priority Date/Time Associated Diagnosis PHOSPHORUS LEVEL Routine 04/05/2019 Dehydration 12:13 PM CDT MAGNESIUM LEVEL Routine 04/05/2019 Dehydration 12:13 PM CDT THYROID STIMULATING Routine 04/05/2019 Essential hypertension HORMONE 12:13 PM CDT Screening for endocrine disorder HEMOGLOBIN A1C Routine 04/05/2019 Screening for endocrine 12:13 PM CDT disorder LIPID PANEL WITH REFLEX Routine 04/05/2019 Mixed hyperlipidemia TO DIRECT LDL 12:13 PM CDT CBC WITH PLATELET AND Routine 04/05/2019 Essential hypertension DIFFERENTIAL 12:13 PM CDT Dehydration Screening for endocrine disorder COMPREHENSIVE METABOLIC Routine 04/05/2019 Essential hypertension PANEL 12:13 PM CDT Dehydration Screening for endocrine disorder FL GISELLEI W MANIB Routine 03/21/2019 Gastroesophageal reflux 8:30 AM CDT disease, esophagitis presence not specified BASIC METABOLIC PANEL Routine 02/13/2019 Hypokalemia 10:32 AM CDT GRAM STAIN STAT 01/28/2019 2:34 PM CDT URINE CULTURE STAT 01/28/2019 2:34 PM CDT ESTIMATED GFR STAT 01/28/2019 1:45 PM CDT TROPONIN STAT 01/28/2019 1:45 PM CDT B NATRIURETIC PEPTIDE STAT 01/28/2019 1:45 PM CDT CREATINE KINASE, TOTAL STAT 01/28/2019 (CPK) 1:45 PM CDT MAGNESIUM LEVEL STAT 01/28/2019 1:45 PM CDT COMPREHENSIVE METABOLIC STAT 01/28/2019 PANEL 1:45 PM CDT PHOSPHORUS LEVEL STAT 01/28/2019 1:45 PM CDT URINALYSIS SCREEN AND STAT 01/28/2019 MICROSCOPY, WITH REFLEX 1:45 PM CDT TO CULTURE PARTIAL THROMBOPLASTIN STAT 01/28/2019 TIME (PTT) 1:45 PM CDT PROTHROMBIN TIME WITH INR STAT 01/28/2019 1:45 PM CDT HC COMPLETE BLD COUNT STAT 01/28/2019 W/AUTO DIFF 1:45 PM CDT INSERTION, LINX 01/05/2019 Gastroesophageal reflux ANTIREFLUX DEVICE, 10:40 AM [employer] disease with esophagitis LAPAROSCOPIC Hernia, hiatal XR CHEST 2 VW Routine 12/29/2018 Preoperative testing 3:20 PM [employer] HC COMPLETE BLD COUNT Routine 12/29/2018 Preoperative testing W/AUTO DIFF 2:50 PM [employer] ECG 12-LEAD Routine 12/29/2018 Preoperative testing 2:47 PM [employer] MRI BRAIN WO CONTRAST Routine 12/21/2018 Acute intractable 2:43 PM [employer] headache, unspecified headache type SEDIMENTATION RATE Routine 12/13/2018 Acute intractable 9:15 AM [employer] headache, unspecified headache type Essential hypertension C-REACTIVE PROTEIN Routine 12/13/2018 Acute intractable 9:15 AM [employer] headache, unspecified headache type Essential hypertension THYROID STIMULATING Routine 12/13/2018 Acute intractable HORMONE 9:15 AM [employer] headache, unspecified headache type Screening for endocrine disorder Essential hypertension LIPID PANEL WITH REFLEX Routine 12/13/2018 Acute intractable TO DIRECT LDL 9:15 AM [employer] headache, unspecified headache type Lipid screening CBC WITH PLATELET AND Routine 12/13/2018 Acute intractable DIFFERENTIAL 9:15 AM [employer] headache, unspecified headache type Screening for endocrine disorder COMPREHENSIVE METABOLIC Routine 12/13/2018 Acute intractable PANEL 9:15 AM [employer] headache, unspecified headache type Screening for endocrine disorder SURGICAL PATHOLOGY Routine 11/24/2018 REQUEST 12:32 PM [employer] AR AN ELECTIVE Routine 11/24/2018 SUPRAGLOTTIC AIRWAY 12:29 PM [employer] Procedure Note - Jesse Ortiz MD - 11/24/2018 12:29 PM [employer] ANESTHESIA INTUBATION Date/Time: 11/24/2018 12:16 PM Performed by: Jesse Ortiz MD Authorized by: Jesse Ortiz MD Location: OR Urgency: Elective Difficult Airway: No Anesthesio logist: Jesse Ortiz MD Preoxygena milly with 100% O2: Yes C-spine Precaution s Maintained Throughout : Yes Mask Ventilatio n: Easy mask Final Airway Type: Supraglott ic airway Final LMA: Unique LMA Size: 4 Number of Attempts at Approach: 1 HYSTEROSCOPY, WITH 11/24/2018 UTERINE POLYPS, THICKENED DILATION AND CURETTAGE OF 12:00 PM [employer] ENDOMETRIUM UTERUS N84.0, N85.00 Special Needs Spoke with Inderjit regarding TureClear machine. He will have it here by . HGB & HCT I-STAT Routine 11/24/2018 10:50 AM [employer] US GUIDED INTRAOPERATIVE Routine 10/21/2018 Thickened endometrium 11:16 AM [employer] SURGICAL PATHOLOGY Routine 10/21/2018 Thickened endometrium REQUEST 11:00 AM [employer] Uterine polyp TISSUE, SPECIMEN A Routine 10/21/2018 11:00 AM [employer] SURGICAL PATHOLOGY Routine 08/24/2018 REQUEST 7:42 AM CDT ESOPHAGOGASTRODUODENOSCOP 08/24/2018 CHEST PAIN, HEARTBURN, Y (EGD) 7:15 AM CDT HIATAL HERNIA, DYSPHAGIA ECG 12-LEAD Routine 08/24/2018 6:32 AM CDT US PELVIC TRANSABDOMINAL Routine 08/17/2018 Ovarian mass 10:33 AM CDT Left ovarian cyst Breast pain, right US PELVIC TRANSVAGINAL Routine 08/17/2018 Ovarian mass 10:33 AM CDT Left ovarian cyst Breast pain, right US BREAST COMPLETE Routine 08/17/2018 Breast pain BILATERAL 9:40 AM CDT MAMMO BREAST DIAGNOSTIC Routine 08/17/2018 Ovarian mass TOMOSYNTHESIS BILATERAL 9:12 AM CDT Left ovarian cyst Breast pain, right CHLAMYDIA/N. GONORRHOEAE Routine 07/22/2018 RNA, TMA 12:25 PM CDT HPV MRNA E6/E7 REFLEX Routine 07/22/2018 HPV 16, 18/45 (REFLEX) 12:25 PM CDT THINPREP TIS PAP Routine 07/22/2018 12:25 PM CDT PAP W/AGE BASED SCREENING Routine 07/22/[address]/NG 12:25 PM CDT Left ovarian cyst Breast pain, right Cervical cancer screening ECG ED PRELIMINARY Routine 06/28/2018 INTERPRETATION 5:[address] ABDOMEN PELVIS W STAT 06/28/2018 CONTRAST 4:49 PM CDT ZZESTIMATED GFR STAT 06/28/2018 3:00 PM CDT TROPONIN STAT 06/28/2018 3:00 PM CDT CREATINE KINASE, TOTAL STAT 06/28/2018 (CPK) 3:00 PM CDT LIPASE LEVEL STAT 06/28/2018 3:00 PM CDT COMPREHENSIVE METABOLIC STAT 06/28/2018 PANEL 3:00 PM CDT URINALYSIS SCREEN AND STAT 06/28/2018 MICROSCOPY, WITH REFLEX 3:00 PM CDT TO CULTURE PARTIAL THROMBOPLASTIN STAT 06/28/2018 TIME (PTT) 3:00 PM CDT PROTHROMBIN TIME WITH INR STAT 06/28/2018 3:00 PM CDT HC COMPLETE BLD COUNT STAT 06/28/2018 W/AUTO DIFF 3:00 PM CDT URINE CULTURE STAT 06/28/2018 3:00 PM CDT ECG 12-LEAD STAT 06/28/2018 2:22 PM CDT AMB REFERRAL TO GENERAL Routine 05/24/2018 Gastroesophageal reflux SURGERY 5:29 PM CDT disease with esophagitis Hiatal hernia after 05/19/2018 Results * LIPID PANEL WITH REFLEX TO DIRECT LDL (04/05/2019 12:13 PM CDT) Only the most recent of 2 results within the time period is included. Pathologist Juan C Cholesterol, 176 <200 mg/dL [facility] [place] HDL cholesterol 49 (L) >50 mg/dL [facility] [place] Triglycerides 171 (H) <150 mg/dL [facility] [place] LDL cholesterol 100 (H) mg/dL (calc) [facility] calculated Comment: DI[facility]NOST[facility] Reference range: <100 [place] Desirable range <100 mg/dL for primary prevention; <70 mg/dL for patients with CHD or diabetic patients with > or=2 CHD risk factors. LDL-C is now calculated using the Raffi calculation, which is a validated novel method providing better accuracy than the Friedewald equation in the estimation of LDL-C. Jered SS et al. BLANCA. 2013;310(04): 2571-9638 (http://education.nothingGrinder.GID Group/faq/UUT864) Cholesterol/HDL 3.6 <5.0 (calc) [facility] [place] Non-HDL 127 <130 mg/dL (calc) [facility] cholesterol Comment: DIAGNOSTICS For patients with diabetes [place] plus 1 major ASCVD risk factor, treating to a non-HDL-C goal of <100 mg/dL (LDL-C of <70 mg/dL) is considered a therapeutic option. Specimen Narrative Performed At FASTING:NO [facility] FASTING: NO Resulting Agency Comment Performing Organization Information: Site ID: [id number] Name: [facility] Address: [address] [place] [id number] Director: Lisa Mcghee Performing Organization Address City/State/Zipcode Phone Number [facility] [place] [phone] * CBC with platelet and differential (04/05/2019 12:13 PM CDT) Only the most recent of 5 results within the time period is included. WBC 8.0 3.8 - 10.8 [facility] Thousand/[facility]L [facility] [place] RBC 4.67 3.80 - 5.10 [facility] Million/uL [facility] [place] HGB 15.1 11.7 - 15.5 g/dL [facility] [place] HCT 42.8 35.0 - 45.0 % [facility] [place] MCV 91.6 80.0 - 100.0 fL [facility] [place] MCH 32.3 27.0 - 33.0 pg [facility] [place] MCHC 35.3 32.0 - 36.0 g/dL [facility] [place] RDW 13.2 11.0 - 15.0 % [facility] [place] Platelet count 235 140 - 400 [facility] Thousand/uL [facility] [place] MPV 11.7 7.5 - 12.5 fL [facility] [place] Neutrophils, 5,760 1,500 - 7,800 [facility] absolute cells/uL [facility] [place] Lymphocytes, 1,568 850 - 3,900 cells/uL [facility] [place] Monocytes, 424 200 - 950 cells/uL [facility] [place] Eosinophils, 200 15 - 500 cells/uL [facility] absolute [facility] [place] Basophils, 48 0 - 200 cells/uL [facility] [place] Neutrophils 72 % [facility] Lymphocytes 19.6 % [facility] Monocytes 5.3 % [facility] [place] Eosinophils 2.5 % [facility] [place] Basophils + RC 0.6 % [facility] C[facility]R [place] Specimen Blood Narrative Performed At FASTING:NO [facility] FASTING: NO Resulting Agency Comment Performing Organization Information: Site ID: A Name: [facility] Address: [address] [place] [address] Director: Lias Mcghee Performing Organization Address City/[facility] Phone Number [facility] [place] [address] * Thyroid stimulating hormone (04/05/2019 12:13 PM CDT) Only the most recent of 2 results within the time period is included. TSH 1.09 0.40 - 4.50 mIU/L [facility] [place] Specimen Blood Narrative Performed At FASTING:NO [facility] FASTING: NO Resulting Agency Comment Performing Organization Information: Site ID: A Name: [facility] Address: [address] [place] [address] Director: Lisa Mcghee Performing Organization Address [facility] Phone Number [facility] [place] [address] * Phosphorus level (04/05/2019 12:13 PM CDT) Only the most recent of 2 results within the time period is included. Phosphorus 3.9 2.1 - 4.3 mg/dL [facility] [place] Specimen Blood Narrative Performed At FASTING:NO [facility] FASTING: NO Resulting Agency Comment Performing Organization Information: Site ID: A Name: [facility] Address: [address] [place] [phone] Director: Lisa Mcghee Performing Organization Address [facility] Phone Number [facility] [place] [address] * Magnesium level (04/05/2019 12:13 PM CDT) Only the most recent of 2 results within the time period is included. Magnesium 2.4 1.5 - 2.5 mg/dL [facility] [place] Specimen Blood Narrative Performed At FASTING:NO [facility] FASTING: NO Resulting Agency Comment Performing Organization Information: Site ID: [facility] Name: [facility] Address: [address] [place] [phone] Director: Lisa Mcghee Performing Organization Address [facility] Phone Number ZACHARIAH [facility] [address] [phone] * Hemoglobin A1c (04/05/2019 12:13 PM CDT) Hemoglobin A1C 4.9 <5.7 % of total Hgb [facility] Comment: DIAGNOSTICS For the purpose of screening [place] for the presence of diabetes: <5.7% Consistent with the absence of diabetes 5.7-6.4%Consistent with increased risk for diabetes (predi abetes) > or=6.5%Consistent with diabetes This assay result is consistent with a decreased risk of diabetes. Currently, no consensus exists regarding use of hemoglobin A1c for diagnosis of diabetes in children. According to [place] Diabetes Association (ADA) guidelines, hemoglobin A1c <7.0% represents optimal control in non- diabetic patients. Different metrics may apply to specific patient populations. Standards of Medical Care in Diabetes(ADA). Specimen Blood Narrative Performed At FASTING:NO [facility] FASTING: NO Resulting Agency Comment Performing Organization Information: Site ID: [facility] Name: [facility] Address: [address] [place] [phone] Director: Lisa Mcghee Performing Organization Address [facility] Phone Number [facility] [address] [address] * Comprehensive metabolic panel (04/05/2019 12:13 PM CDT) Only the most recent of 4 results within the time period is included. Glucose 86 65 - 139 mg/dL [facility] Comment: DIAGNOSTICS Non-fasting [place] reference interval BUN, whole 8 7 - 25 mg/dL [facility] blood CÜR [place] Creatinine 0.56 0.50 - 0.99 mg/dL [facility] Comment: DIAGNOSTICS For patients >49 years of age, [place] the reference limit for Creatinine is approximately 13% higher for people identified as -[place]. EGFR Non-Afr. 98 > OR=60 [facility] [place] mL/min/1.73m2 [facility] EGFR 113 > OR=60 [facility] [place] mL/min/1.73m2 DIAGNOSTICS [place] BUN/creatinine NOT APPLICABLE 6 - 22 (calc) [facility] ratio DIAGNOSTICS [place] Sodium 137 135 - 146 mmol/L [facility] [place] Potassium 4.5 3.5 - 5.3 mmol/L [facility] [place] Chloride 103 98 - 110 mmol/L [facility] DIAGNOSTICS [place] CO2 27 20 - 32 mmol/L [facility] [place] Calcium 9.6 8.6 - 10.4 mg/dL [facility] [place] Protein 6.7 6.1 - 8.1 g/dL [facility] [place] Albumin, S 4.1 3.6 - 5.1 g/dL [facility] [place] Globulin, total 2.6 1.9 - 3.7 g/dL [facility] (calc) DIAGNOSTICS [place] Albumin/globuli 1.6 1.0 - 2.5 (calc) [facility] n ratio DIAGNOSTICS [place] Total bilirubin 0.5 0.2 - 1.2 mg/dL [facility] DIAGNOSTICS [place] Alkaline 90 33 - 130 U/L [facility] phosphatase [facility] AST 29 10 - 35 U/L [facility] DIAGNOSTICS [place] ALT 42 (H) 6 - 29 U/L [facility] DIAGNOSTICS [place] Specimen Blood Narrative Performed At FASTING:NO [facility] FASTING: NO Resulting Agency Comment Performing Organization Information: Site ID: RGA Name: [facility] Address: [address] [place] [phone] Director: Lisa Mcghee Performing Organization Address City/State/Zipcode Phone Number [facility] [place] [address] * FL UGI W KUB (03/21/2019 8:30 AM CDT) Specimen Narrative Performed At EXAMINATION:FL UGI W KUB [facility] CLINICAL HISTORY:K21.9 Gastro-esophageal reflux disease without esophagitis, Esophageal reflux COMPARISON:None. TECHNIQUE: Single contrast upper GI series was performed with barium. Total fluoroscopy time: 1 minute 11 seconds Total number of fluoroscopic images: 7 FINDINGS: The esophagus demonstrates normal contour and distention. No mucosal abnormality was seen. A Linx device at the GE junction is at appropriate position. During the initial swallows, part of the contrast immediately traversed the Linx device and passed into the stomach. A little less than half of the swallowed bolus remained above the Linx device in the distal esophagus. There were frequent tertiary nonpropulsive contractions, and some to and fro movement of the contrast within the mid to distal esophagus. Transient substernal discomfort was reported by the patient, which then passed, but this did not correspond with the tertiary contractions. The patient had one additional swallow of contrast, with most of this also remaining in the esophagus, and only small volume intermittent jets of contrast passing Linx device to the stomach. During approximately 3 minutes of subsequent intermittent fluoroscopy, the esophageal contrast remained without significant passage into the stomach. The contrast that passed into the stomach readily passed the pylorus into the duodenum. Upright chest radiographs were then obtained 5 minutes and 10 minutes after the fluoroscopic portion of the examination. At 5 minutes, there was a persistent contrast column approximately 10 cm above the Linx device. At 10 minutes, nearly the entire esophageal contrast passed into the stomach and proximal small bowel. IMPRESSION: Appropriate position of Linx device, with moderate liquid contrast retention in the esophagus and delay in esophageal emptying of 10 to 15 minutes as detailed above. [id number] Procedure Note Hm Interface, Radiology Results Incoming - 03/21/2019 9:55 AM CDT EXAMINATION: FL UGI W KUB CLINICAL HISTORY: K21.9 Gastro-esophageal reflux disease without esophagitis, Esophageal reflux COMPARISON: None. TECHNIQUE: Single contrast upper GI series was performed with barium. Total fluoroscopy time: 1 minute 11 seconds Total number of fluoroscopic images: 7 FINDINGS: The esophagus demonstrates normal contour and distention. No mucosal abnormality was seen. A Linx device at the GE junction is at appropriate position. During the initial swallows, part of the contrast immediately traversed the Linx device and passed into the stomach. A little less than half of the swallowed bolus remained above the Linx device in the distal esophagus. There were frequent tertiary nonpropulsive contractions, and some to and fro movement of the contrast within the mid to distal esophagus. Transient substernal discomfort was reported by the patient, which then passed, but this did not correspond with the tertiary contractions. The patient had one additional swallow of contrast, with most of this also remaining in the esophagus, and only small volume intermittent jets of contrast passing Linx device to the stomach. During approximately 3 minutes of subsequent intermittent fluoroscopy, the esophageal contrast remained without significant passage into the stomach. The contrast that passed into the stomach readily passed the pylorus into the duodenum. Upright chest radiographs were then obtained 5 minutes and 10 minutes after the fluoroscopic portion of the examination. At 5 minutes, there was a persistent contrast column approximately 10 cm above the Linx device. At 10 minutes, nearly the entire esophageal contrast passed into the stomach and proximal small bowel. IMPRESSION: Appropriate position of Linx device, with moderate liquid contrast retention in the esophagus and delay in esophageal emptying of 10 to 15 minutes as detailed above. [id number] Performing Organization Address City/State/Zipcode Phone Number [facility] [address] [place] [address] * Basic metabolic panel (02/13/2019 10:32 AM CDT) Glucose 91 65 - 139 mg/dL [facility] Comment: DIAGNOSTICS Non-fasting [place] reference interval BUN, whole 6 (L) 7 - 25 mg/dL [facility] blood DIAGNOSTICS [place] Creatinine 0.78 0.50 - 0.99 mg/dL [facility] Comment: DIAGNOSTICS For patients >49 years of age, [place] the reference limit for Creatinine is approximately 13% higher for people identified as -[place]. EGFR Non-Afr. 80 > OR=60 [facility] [place] mL/min/1.73m2 [facility] EGFR 92 > OR=60 [facility] [place] mL/min/1.73m2 DIAGNOSTICS [place] BUN/creatinine 8 6 - 22 (calc) [facility] ratio DIAGNOSTICS [place] Sodium 141 135 - 146 mmol/L [facility] [place] Potassium 4.8 3.5 - 5.3 mmol/L [facility] [place] Chloride 105 98 - 110 mmol/L [facility] [place] CO2 27 20 - 32 mmol/L [facility] [place] Calcium 9.6 8.6 - 10.4 mg/dL [facility] DIAGNOSTICS [place] Specimen Blood Narrative Performed At FASTING:NO [facility] FASTING: NO Resulting Agency Comment Performing Organization Information: Site ID: RGA Name: [facility] Address: [address] [place] [address] Director: Lisa Mcghee Performing Organization Address [facility]/Zipcode Phone Number [facility] [address] [address] * Gram stain (01/28/2019 2:34 PM CDT) Pathologist [facility] Gram stain No WBC's or organisms seen. [place] result Comment: ROMAN CATHOLIC Specimen Information HOSPITAL Specimen Source: Urine Specimen Site: Clean catch Specimen Urine Performing Organization Address City/[facility]/Zipcode Phone Number [facility] DEPARTMENT OF [address] [place] [address] PATHOLOGY AND GENOMIC MEDICINE [address] * Urine culture (01/28/2019 2:34 PM CDT) Only the most recent of 2 results within the time period is included. [facility] Urine culture Mixed rodolfo <=10-3 col/cc [place] isolate Comment: ROMAN CATHOLIC Specimen Information HOSPITAL Specimen Source: Urine Specimen Site: Clean catch Specimen Urine Performing Organization Address City/[facility] Phone Number [facility] DEPARTMENT [address] [place] [address] PATHOLOGY AND [facility] MEDICINE [address] * Urinalysis screen and microscopy, with reflex to culture (01/28/2019 1:45 PM CDT) Only the most recent of 2 results within the time period is included. Specimen site Clean catch [facility] Color, UA Colorless [facility] Appearance, UA Clear [facility] Specific 1.001 1.001 - 1.035 [place] gravity, UA [facility] pH, UA 7.0 5.0 - 8.5 [facility] Protein, UA Negative Negative [facility] Glucose, UA Negative Negative [facility] Ketones, UA Negative Negative [facility] Bilirubin, UA Negative Negative [facility] Blood, UA Negative Negative [facility] Nitrite, UA Negative Negative [facility] Urobilinogen, Negative <2.0 [facility] Leukocyte Trace (A) Negative [place] esterase, [facility] WBC, UA None seen 0 - 4 /HPF [facility] RBC, UA 0-5 0 - 5 /HPF [facility] Bacteria, UA Trace None seen [facility] Yeast, UA None seen [facility] Yeast with None seen [place] [facility] Specimen Urine Performing Organization Address City/[facility]/Zipcode Phone Number [facility] DEPARTMENT [address] [place] [id number] PATHOLOGY AND GENOMIC MEDICINE [address] * Estimated GFR (01/28/2019 1:45 PM CDT) [facility] Estimated GFR >=90 mL/min/1.73 m2 [place] Comment: [facility] Reji[facility]UnitsNov[facility] Cent[facility] rpretation G1 >=90 Normal or high G2 60-89Mildly decreased [id number] Mildly to moderately decreased [id number] Moderately to severely decreased G4 15-29Severely decreased G5 <15Kidney failure The eGFR was calculated using the Chronic Kidney Disease Epidemiology Collaboration (CKD-EPI) equation. Interpretation is based on recommendations of the National Kidney Foundation-Kidney Disease Outcomes Quality Initiative (NKF-KDOQI) published in 2014. Specimen Plasma specimen Performing Organization Address [facility] Phone Number [address] [place] [address] PATHOLOGY AND [facility] MEDICINE [address] * Troponin (01/28/2019 1:45 PM CDT) Only the most recent of 2 results within the time period is included. [facility] Troponin <0.300 0.000 - 0.300 ng/mL [place] Comment: [facility] 0.30 - 1.49 [facility] ng/mlMay indicate increased risk of acute coronary syndrome. >=1.5 ng/ml Consistent with acute myocardial infarction. The diagnostic value of a single normal or non-diagnostic result is questionable.Serial samples at 2-6 hour intervals are required to rule out acute myocardial injury. Specimen Plasma specimen Performing Organization Address [facility] Phone Number [address] [place] [address] PATHOLOGY AND [facility] MEDICINE [address] * Partial thromboplastin time, activated (01/28/2019 1:45 PM CDT) Only the most recent of 2 results within the time period is included. [facility] PTT 34.5 23.0 - 36.0 sec [place] Comment: [facility] PTT therapeutic range for [facility] unfractionated heparin is 61.0-112.0 seconds which corresponds to Anti-Xa 0.3-0.7 U/ml. Specimen Blood Performing Organization Address [facility]/Zipcode Phone Number [facility] DEPARTMENT OF [address] [place] [address] [place] [address] PATHOLOGY AND GENOMIC MEDICINE [address] * Prothrombin time with INR (01/28/2019 1:45 PM CDT) Only the most recent of 2 results within the time period is included. Prothrombin 13.5 11.5 - 14.5 sec [facility] INR 1.1 [place] Comment: [facility] [employer] Normalized [facility] Ratio (INR) is a therapeutic monitoring tool for patients who are stable on oral anticoagulant therapy. An INR of 2.0-3.0 is suggested for deep vein thrombosis/pulmonary embolism. Specimen Blood Performing Organization Address [facility] Phone Number [facility] DEPARTMENT [address] [place] [address] PATHOLOGY AND [facility] MEDICINE [address] * B natriuretic peptide (01/28/2019 1:45 PM CDT) BNP 15 0 - 100 pg/mL [facility] Specimen Blood Performing Organization Address [facility] Phone Number [address] [place] [address] PATHOLOGY AND [facility] MEDICINE [address] * Creatine kinase, total (CPK) (01/28/2019 1:45 PM CDT) Only the most recent of 2 results within the time period is included. Creatine kinase 159 26 - 192 U/L [facility] Specimen Plasma specimen Performing Organization Address [facility] Phone Number [address] [place] [address] PATHOLOGY AND [facility] MEDICINE [address] * XR Chest 2 Vw (12/29/2018 3:20 PM [facility] [employer]) Specimen Narrative Performed At EXAMINATION:XR CHEST 2 VW HM [facility] CLINICAL HISTORY:Z01.818 Encounter for other preprocedural examination, PREOP COMPARISON:April 25, 2018 chest IMPRESSION: No acute abnormality 2 view chest The lungs are clear. The heart is not enlarged. Atherosclerotic changes in the aorta Mild scoliotic curvature of the spine [id number] Procedure Note Hm Interface, Radiology Results Incoming - 12/29/2018 3:32 PM [facility] [employer] EXAMINATION: XR CHEST 2 VW CLINICAL HISTORY: Z01.818 Encounter for other preprocedural examination, PREOP COMPARISON: April 25, 2018 chest IMPRESSION: No acute abnormality 2 view chest The lungs are clear. The heart is not enlarged. Atherosclerotic changes in the aorta Mild scoliotic curvature of the spine [id number] Performing Organization Address [facility] Phone Number [facility] [address] [place] [address] * ECG 12 lead (12/29/2018 2:47 PM [facility] [employer]) Only the most recent of 3 results within the time period is included. Ventricular 71 [facility] rate Atrial rate 71 [facility] AR interval 178 [facility] QRSD interval 72 [facility] QT interval 410 [facility] QTC interval 445 [facility] P axis 1 72 [facility] QRS axis 1 36 [facility] T wave axis 39 [facility] EKG impression Normal sinus rhythm-Low [facility] voltage QRS-Borderline ECG-In automated comparison with ECG of 24-AUG-2018 06:32,-aberrant conduction is no longer present- Specimen Narrative Performed At Performing Organization Address [facility] Phone Number [facility] MUSE [address] [place] [address] * MRI Brain Wo Contrast (12/21/2018 2:43 PM [facility] [employer]) Specimen Narrative Performed At EXAMINATION: MRI BRAIN WO CONTRAST [facility] CLINICAL HISTORY: R51 Headache, intractable headache COMPARISON:None TECHNIQUE: Multiplanar and multisequence MRI imaging of the brain was obtained without contrast. FINDINGS: No T2 or T2 FLAIR signal abnormalities identified. No susceptibility identified to suggest hemosiderin deposition from prior hemorrhage. No restricted diffusion identified to indicate recent infarct. No intra or extra-axial fluid collections identified. No mass, mass effect, or midline shift is seen. The basal ganglia, thalami, midbrain, melissa and cervicomedullary junction are unremarkable. The ventricles and sulci are unremarkable for patient's age.Sella turcica is normal in appearance. The basal cisterns are patent. The calvarium appears intact. The major intracranial vascular flow voids are present. The orbital contents are symmetric and unremarkable. The paranasal sinuses are unremarkable. The mastoid air cells and middle ear cavities are clear. IMPRESSION: No anatomic or acute intracranial abnormality identified. [facility]-[id number] Procedure Note Hm Interface, Radiology Results Incoming - 12/21/2018 2:48 PM [facility] [employer] EXAMINATION: MRI BRAIN WO CONTRAST CLINICAL HISTORY: R51 Headache, intractable headache COMPARISON: None TECHNIQUE: Multiplanar and multisequence MRI imaging of the brain was obtained without contrast. FINDINGS: No T2 or T2 FLAIR signal abnormalities identified. No susceptibility identified to suggest hemosiderin deposition from prior hemorrhage. No restricted diffusion identified to indicate recent infarct. No intra or extra-axial fluid collections identified. No mass, mass effect, or midline shift is seen. The basal ganglia, thalami, midbrain, melissa and cervicomedullary junction are unremarkable. The ventricles and sulci are unremarkable for patient's age. Sella turcica is normal in appearance. The basal cisterns are patent. The calvarium appears intact. The major intracranial vascular flow voids are present. The orbital contents are symmetric and unremarkable. The paranasal sinuses are unremarkable. The mastoid air cells and middle ear cavities are clear. IMPRESSION: No anatomic or acute intracranial abnormality identified. [facility]-[id number] Performing Organization Address [facility] Phone Number [facility] [address] [place] [address] * Sedimentation rate (12/13/2018 9:15 AM [facility] [employer]) Sedimentation 19 < OR=30 mm/h [employer] [place] Specimen Blood Narrative Performed At FASTING:YES [facility] FASTING: YES Resulting Agency Comment Performing Organization Information: Site ID: RGA Name: [facility] Address: [address] [place] [address] Director: Lisa Mcghee Performing Organization Address [facility] Phone Number [facility] [place] [address] [place] [address] * C-reactive protein (12/13/2018 9:15 AM [facility] [employer]) CRP 4.0 <8.0 mg/L ZACHARIAH CÜR [place] Specimen Blood Narrative Performed At FASTING:YES [facility] FASTING: YES Resulting Agency Comment Performing Organization Information: Site ID: RGA Name: [facility] Address: [address] [place] [address] Director: Lisa Mcghee Performing Organization Address City/[facility]/Zipcode Phone Number ZACHARIAH [facility] [place] [address] [place], [place] [id number] * Surgical pathology request (11/24/2018 12:32 PM [facility] [employer]) Only the most recent of 3 results within the time period is included. Pathologist [facility] DEPARTMENT OF PATHOLOGY AND GENOMIC MEDICINE Surgical See link below for PDF Lab [facility] pathology Report DEPARTMENT OF report PATHOLOGY AND GENOMIC MEDICINE Result status This is Final Report for [facility] [id number] DEPARTMENT OF PATHOLOGY AND GENOMIC MEDICINE Specimen Performing Organization Address [facility] [facility] [place] Phone Number [facility] DEPARTMENT OF [address] [place] [address] [place] [address] PATHOLOGY AND GENOMIC MEDICINE * HGB & HCT I-Stat (11/24/2018 10:50 AM WELDER FIRST CLASS) Pathologist [facility] Hematocrit, 46.0 36.0 - 50.0 % [facility] Hemoglobin, 15.6 (H) 11.0 - 15.0 g/dL [facility] Specimen Plasma specimen Performing Organization Address [facility] [place] Phone Number [facility] DEPARTMENT OF [address] [place] [address] [place] [address] PATHOLOGY AND GENOMIC MEDICINE [address] * US Guided Intraoperative (10/21/2018 11:16 AM [facility] [employer]) Specimen Narrative Performed At [facility] ENDO ULTRASOUND GUIDED ENDOMETRIAL BIOPSY UTERUS: 6.1 X 2.8 X 3.8CM ENDO: 2.8MM POLYPS SEEN IN ENDOMETRIUM RIGHT OVARY SEEN LEFT OVARY SEEN LS Performing Organization Address City/[facility]/Zipcode Phone Number [facility] [address] [place] [address] * TISSUE, SPECIMEN A (10/21/2018 11:00 AM [facility] FIRST CLASS) Pathologist [facility] Source Comment: Endometrium [facility] Procedure Comment: Biopsy [facility] Gross Comment: [facility] description: EMB, received in formalin, [facility] verified as to the patient's name and consists of transparent mucus and soft tissue forming a loose aggregate measuring 0.5 x 0.5 x 0.1 cm. May not survive processing.TS, one block. CW 10/24/2018 Gross exam(s) performed at: [address] [address] Riverboat Captain: LISA MCGHEE MD Micro Comment: [facility] description Microscopic examination [facility] supports the above diagnosis. Diagnosis Comment: [facility] Strips of benign endometrial [facility] lining epithelium with isolated glands and stroma. No evidence of malignancy. 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 Specimen Resulting Agency Comment Performing Organization Information: Site ID: [id number] Name: [facility], Address: [address] [place], [place] [id number] Director: Lisa Mcghee MD Performing Organization Address City/State/Zipcode Phone Number [facility] [place] [phone] [facility] * US Pelvic Transabdominal (08/17/2018 10:33 AM CDT) Specimen Narrative Performed At EXAMINATION:US PELVIC TRANSABDOMINAL HM [facility] CLINICAL HISTORY:N83.9 Noninflammatory disorder of ovaryfallopian tube and broad ligamentunspecified, N83.202 Unspecified ovarian cystleft side, small left ovarian cyst seen on CT 11 mm. COMPARISON:None. TECHNIQUE:Transabdominal and endovaginal sonographic images of the pelvis were obtained. Grayscale, color Doppler, and spectral waveform analysis of the ovarian vessels was performed. FINDINGS: Atrophy of the uterus is seen. There is no evidence of uterine mass. The uterus measures 6.6 x 3 x 4.5 cm.. A small amount of free fluid is seen within the endometrial cavity. 2 nonvascular echogenic structures are seen within the fundal region of the endometrial cavity with the larger one measuring approximately 0.7 x 0.5 x 1 cm. The endometrial stripe is otherwise unremarkable and measures 4 mm. An approximately 1.5 x 1.1 x 1 cm left ovarian cyst is seen. Scattered calcifications are seen of the ovaries. The ovaries otherwise unremarkable.. The right ovary measures 2.2 x 0.9 x 1.4 cm. Normal Doppler flow was present. The left ovary measures 2.9 x 1.2 x 1.3 cm. Normal Doppler flow was present. There is no fluid in the pelvic cul-de-sac. Impression: 2 nonvascular echogenic structures within the fundal region of the endometrial cavity. Endometrial polyps are a consideration. Recommend clinical correlation and appropriate follow-up. Nonspecific small free fluid within the endometrial cavity. Approximately 1.5 cm left ovarian cyst. Unremarkable exam otherwise. [id number] Procedure Note Hm Interface, Radiology Results Incoming - 08/17/2018 11:41 AM CDT EXAMINATION: US PELVIC TRANSABDOMINAL CLINICAL HISTORY: N83.9 Noninflammatory disorder of ovary fallopian tube and broad ligament unspecified, N83.202 Unspecified ovarian cyst left side, small left ovarian cyst seen on CT 11 mm. COMPARISON: None. TECHNIQUE:Transabdominal and endovaginal sonographic images of the pelvis were obtained. Grayscale, color Doppler, and spectral waveform analysis of the ovarian vessels was performed. FINDINGS: Atrophy of the uterus is seen. There is no evidence of uterine mass. The uterus measures 6.6 x 3 x 4.5 cm.. A small amount of free fluid is seen within the endometrial cavity. 2 nonvascular echogenic structures are seen within the fundal region of the endometrial cavity with the larger one measuring approximately 0.7 x 0.5 x 1 cm. The endometrial stripe is otherwise unremarkable and measures 4 mm. An approximately 1.5 x 1.1 x 1 cm left ovarian cyst is seen. Scattered calcifications are seen of the ovaries. The ovaries otherwise unremarkable.. The right ovary measures 2.2 x 0.9 x 1.4 cm. Normal Doppler flow was present. The left ovary measures 2.9 x 1.2 x 1.3 cm. Normal Doppler flow was present. There is no fluid in the pelvic cul-de-sac. Impression: 2 nonvascular echogenic structures within the fundal region of the endometrial cavity. Endometrial polyps are a consideration. Recommend clinical correlation and appropriate follow-up. Nonspecific small free fluid within the endometrial cavity. Approximately 1.5 cm left ovarian cyst. Unremarkable exam otherwise. [id number] Performing Organization Address City/State/Zipcode Phone Number [facility] [address] [place] [address] * US Pelvic Transvaginal (08/17/2018 10:33 AM CDT) Specimen Narrative Performed At EXAMINATION:US PELVIC TRANSVAGINAL RADIBANNER CLINICAL HISTORY:N83.9 Noninflammatory disorder of ovaryfallopian tube and broad ligamentunspecified, N83.202 Unspecified ovarian cystleft side, small left ovarian cyst seen on CT 11 mm. COMPARISON:None. TECHNIQUE:Transabdominal and endovaginal sonographic images of the pelvis were obtained. Grayscale, color Doppler, and spectral waveform analysis of the ovarian vessels was performed. FINDINGS: Atrophy of the uterus is seen. There is no evidence of uterine mass. The uterus measures 6.6 x 3 x 4.5 cm.. A small amount of free fluid is seen within the endometrial cavity. 2 nonvascular echogenic structures are seen within the fundal region of the endometrial cavity with the larger one measuring approximately 0.7 x 0.5 x 1 cm. The endometrial stripe is otherwise unremarkable and measures 4 mm. An approximately 1.5 x 1.1 x 1 cm left ovarian cyst is seen. Scattered calcifications are seen of the ovaries. The ovaries otherwise unremarkable.. The right ovary measures 2.2 x 0.9 x 1.4 cm. Normal Doppler flow was present. The left ovary measures 2.9 x 1.2 x 1.3 cm. Normal Doppler flow was present. There is no fluid in the pelvic cul-de-sac. Renal survey demonstrates no evidence of hydronephrosis. Impression: 2 nonvascular echogenic structures within the fundal region of the endometrial cavity. Endometrial polyps are a consideration. Recommend clinical correlation and appropriate follow-up. Nonspecific small free fluid within the endometrial cavity. Approximately 1.5 cm left ovarian cyst. Unremarkable exam otherwise. [id number] Procedure Note Interface, Radiology Results Incoming - 08/17/2018 11:41 AM CDT EXAMINATION: US PELVIC TRANSVAGINAL CLINICAL HISTORY: N83.9 Noninflammatory disorder of ovary fallopian tube and broad ligament unspecified, N83.202 Unspecified ovarian cyst left side, small left ovarian cyst seen on CT 11 mm. COMPARISON: None. TECHNIQUE:Transabdominal and endovaginal sonographic images of the pelvis were obtained. Grayscale, color Doppler, and spectral waveform analysis of the ovarian vessels was performed. FINDINGS: Atrophy of the uterus is seen. There is no evidence of uterine mass. The uterus measures 6.6 x 3 x 4.5 cm.. A small amount of free fluid is seen within the endometrial cavity. 2 nonvascular echogenic structures are seen within the fundal region of the endometrial cavity with the larger one measuring approximately 0.7 x 0.5 x 1 cm. The endometrial stripe is otherwise unremarkable and measures 4 mm. An approximately 1.5 x 1.1 x 1 cm left ovarian cyst is seen. Scattered calcifications are seen of the ovaries. The ovaries otherwise unremarkable.. The right ovary measures 2.2 x 0.9 x 1.4 cm. Normal Doppler flow was present. The left ovary measures 2.9 x 1.2 x 1.3 cm. Normal Doppler flow was present. There is no fluid in the pelvic cul-de-sac. Renal survey demonstrates no evidence of hydronephrosis. Impression: 2 nonvascular echogenic structures within the fundal region of the endometrial cavity. Endometrial polyps are a consideration. Recommend clinical correlation and appropriate follow-up. Nonspecific small free fluid within the endometrial cavity. Approximately 1.5 cm left ovarian cyst. Unremarkable exam otherwise. [id number] Performing Organization Address City/State/Zipcode Phone Number [facility] [address] [place] [address] * US Breast Complete Bilateral (08/17/2018 9:40 AM CDT) Specimen Addenda Addendum by Torres Burgos MD on 08/24/2018 5:23 PM ADDENDUM #1 Addendum: Previous outside mammograms from September 2017 and August 2015 are now available for comparison. There is no significant interval change identified. IMPRESSION: Benign. No finding is seen to suggest breast carcinoma. Clinical follow-up is recommended for the right breast pain. Annual mammography is recommended. BI-RADS 2:BENIGN Narrative Performed At PROCEDURE: MAMMO BREAST DIAGNOSTIC TOMOSYNTHESIS BILATERAL, US BREAST COMPLETE RADIBANNER BILATERAL Computer aided detection was utilized for the interpretation of the digital diagnostic mammogram with tomosynthesis. Bilateral real-time whole breast sonography included all four quadrants and the retroareolar regions under close supervision by the radiologist. HISTORY:The patient reports pain in the right outer breast. COMPARISON EXAMS: No prior exams are currently available for comparison. DENSITY:The breast tissue is heterogeneously dense, which may obscure small masses. FINDINGS: Bilateral diagnostic mammogram was performed with tomosynthesis.There are scattered benign-appearing calcifications. The breast tissue in the upper outer quadrants is dense and nodular. There are multiple oval masses with obscured margins bilaterally, which may represent cysts. Bilateral breast ultrasound exam was performed. There are multiple small scattered simple and mildly complicated cysts and grouped microcysts in both breasts, which correspond with the mammographic findings and measure 1.6 cm and less. There is no solid suspicious mass. The patient indicates the area of pain at the lower outer right breast 8:00 position, and a small 6 mm simple cyst is seen at this site. The patient also indicates pain during scanning over multiple cysts in the upper outer right breast at the 10:00 position. IMPRESSION: Probably benign. To document stability in the appearance of both breasts, follow-up bilateral diagnostic mammogram and ultrasound exam is recommended in six months. Clinical follow-up is recommended for the right breast pain. Comparison to the previous outside mammograms would be helpful to evaluate stability of the appearance. We will attempt to obtain the prior outside mammograms for comparison. If these exams are received, an addendum will be added to this report at that time. These exam results and recommendation were discussed with the patient and she was instructed to follow-up with her physician. BI-RADS 3:PROBABLY BENIGN.Short interval follow-up or continued surveillance mammography. This facility is accredited by the [employer] for Mammography. A negative x-ray report should not delay biopsy if a dominant or clinically suspicious mass is present.Not all cancers are identified by x-ray. [id number] Performing Organization Address City/State/Zipcode Phone Number [facility] [address] [place] [address] * Mammo Breast Diagnostic Tomosynthesis Bilateral (08/17/2018 9:12 AM CDT) Specimen Addenda Addendum by Torres Burgos MD on 08/24/2018 5:23 PM ADDENDUM #1 Addendum: Previous outside mammograms from September 2017 and August 2015 are now available for comparison. There is no significant interval change identified. IMPRESSION: Benign. No finding is seen to suggest breast carcinoma. Clinical follow-up is recommended for the right breast pain. Annual mammography is recommended. BI-RADS 2:BENIGN Narrative Performed At PROCEDURE: MAMMO BREAST DIAGNOSTIC TOMOSYNTHESIS BILATERAL, US BREAST COMPLETE DANIEL BILATERAL Computer aided detection was utilized for the interpretation of the digital diagnostic mammogram with tomosynthesis. Bilateral real-time whole breast sonography included all four quadrants and the retroareolar regions under close supervision by the radiologist. HISTORY:The patient reports pain in the right outer breast. COMPARISON EXAMS: No prior exams are currently available for comparison. DENSITY:The breast tissue is heterogeneously dense, which may obscure small masses. FINDINGS: Bilateral diagnostic mammogram was performed with tomosynthesis.There are scattered benign-appearing calcifications. The breast tissue in the upper outer quadrants is dense and nodular. There are multiple oval masses with obscured margins bilaterally, which may represent cysts. Bilateral breast ultrasound exam was performed. There are multiple small scattered simple and mildly complicated cysts and grouped microcysts in both breasts, which correspond with the mammographic findings and measure 1.6 cm and less. There is no solid suspicious mass. The patient indicates the area of pain at the lower outer right breast 8:00 position, and a small 6 mm simple cyst is seen at this site. The patient also indicates pain during scanning over multiple cysts in the upper outer right breast at the 10:00 position. IMPRESSION: Probably benign. To document stability in the appearance of both breasts, follow-up bilateral diagnostic mammogram and ultrasound exam is recommended in six months. Clinical follow-up is recommended for the right breast pain. Comparison to the previous outside mammograms would be helpful to evaluate stability of the appearance. We will attempt to obtain the prior outside mammograms for comparison. If these exams are received, an addendum will be added to this report at that time. These exam results and recommendation were discussed with the patient and she was instructed to follow-up with her physician. BI-RADS 3:PROBABLY BENIGN.Short interval follow-up or continued surveillance mammography. This facility is accredited by the [employer] for Mammography. A negative x-ray report should not delay biopsy if a dominant or clinically suspicious mass is present.Not all cancers are identified by x-ray. [id number] Performing Organization Address City/State/Zipcode Phone Number DANIEL [address] [place] [address] * HPV mRNA E6/E7 REFLEX HPV 16, 18/45 (07/22/2018 12:25 PM CDT) Pathologist [facility] HPV mRNA e6/e7 Not Detected Not Detected [facility] Comment: DIAGNOSTICS This test was performed using [place] the APTIMA HPV Assay ([employer] This assay detects E6/E7 viral messenger RNA (mRNA) from 14 high-risk HPV types (16,18,31,33,35,39,45,51,52,56 ,58,59,66,68). The analytical performance characteristics of this assay have been determined by [employer]. The modifications have not been cleared or approved by the FDA. This assay has been validated pursuant to the CLIA regulations and is used for clinical purposes. Specimen Resulting Agency Comment Performing Organization Information: Site ID: [id number] [facility]: [facility] Address: [address] [place] [id number] Director: Lisa Mcghee Performing Organization Address City/[facility]/Zipcode Phone Number [facility] [address] [address] * PAP W/AGE BASED SCREENING PLUS CT/NG (07/22/2018 12:25 PM CDT) Pathologist [facility] Comment Comment: [facility] This order for age-based DIAGNOSTICS-MIAN cervical cancer and STI ING II screening follows ACOG guidelines(PB 168, 140, RDG541). See individual assays for performing site location. Specimen Swab Resulting Agency Comment Performing Organization Information: Site ID: [id number] Name: [facility] Address: [address] [place] [id number] Director: Dr. Cirilo Eddy Performing Organization Address City/[facility]/Zipcode Phone Number [facility] [place] [address] II * CHLAMYDIA/N. GONORRHOEAE RNA, [facility] (07/22/2018 12:25 PM CDT) Pathologist [facility] Chlamydia NOT DETECTED NOT DETECTED [facility] trachomatis DIAGNOSTICS RNA, [facility] Neisseria NOT DETECTED NOT DETECTED [facility] gonorrhoeae DIAGNOSTICS RNA, [facility] (Always Comment: [facility] message) This test was performed using DIAGNOSTICS the APTIMA COMBO2 Assay [place] ([employer] The analytical performance characteristics of this assay, when used to test [employer] specimens have been determined by [employer]. Specimen Resulting Agency Comment Performing Organization Information: Site ID: [id number] Name: [facility] Address: [address] [place] [id number] Director: Lisa Mcghee Performing Organization Address [facility] [place] [address] * THINPREP TIS PAP (07/22/2018 12:25 PM CDT) Clinical None given [facility] information DIAGNOSTICS [place] Date of last NONE GIVEN [facility] menstrual DIAGNOSTICS period [place] Prev. pap: NONE GIVEN [facility] [place] Prev. bx: NONE GIVEN [facility] [place] Source None given [facility] [place] Statement of Comment: [facility] adequacy Satisfactory for evaluation. DIAGNOSTICS Endocervical/transformation [place] zone component present. Interpretation/ Comment: [facility] result: Negative for intraepithelial DIAGNOSTICS lesion or malignancy. [place] Atrophic pattern; predominantly parabasal cells Comment Comment: [facility] This Pap test has been DIAGNOSTICS evaluated with computer VALLE assisted technology. [employer] Comment: [facility] t KXJ, CT(ASCP) DIAGNOSTICS CT screening location: [place] [address] Comment Comment: [facility] EXPLANATORY NOTE: DIAGNOSTICS The Pap is a screening test PELAHATCHIE for cervical cancer. It is not a diagnostic test and is subject to false negative and false positive results. It is most reliable when a satisfactory sample, regularly obtained, is submitted with relevant clinical findings and history, and when the Pap result is evaluated along with historic and current clinical information. Specimen Resulting Agency Comment Performing Organization Information: Site ID: [id number] Name: [facility] Address: [address] [place] [phone] Director: Lisa Mcghee Performing Organization Address [facility] [address] * ECG ED Preliminary Interpretation - NOT AN ORDER (06/28/2018 5:45 PM CDT) Narrative Performed At Nav Graham MD 06/28/2018 11:19 PM ECG ED Preliminary Interpretation - Not an Order Performed by: ROBBI SAL Authorized by: ROBBI SAL ECG reviewed by ED Physician in the absence of a profile grinder: yes Previous ECG: Previous ECG:Unavailable Interpretation: Interpretation: normal Rate: ECG rate:71 ECG rate assessment: normal Rhythm: Rhythm: sinus rhythm QRS: QRS axis:Normal QRS intervals:Normal Conduction: Conduction: normal ST segments: ST segments:Normal T waves: T waves: normal * CT Abdomen Pelvis W Contrast (06/28/2018 4:49 PM CDT) Specimen Narrative Performed At EXAMINATION:CT ABDOMEN PELVIS W CONTRAST RADIANT CLINICAL HISTORY: 62 yearsFemale abdominal pain TECHNIQUE: Multiple axial images of the abdomen and pelvis were obtained following intravenous administration of iodinated contrast. Sagittal and coronal computerized reformatted images were also obtained. CT imaging was performed with iterative reconstruction techniques and/or automated exposure control to reduce radiation dose. COMPARISON:None. Findings: The liver demonstrates mild diffuse fatty infiltration. The spleen appears normal in size and texture. The adrenal glands pancreas and gallbladder appear within normal limits. The kidneys are not obstructed no calculi are identified. A small anterior lower pole cyst on the left measuring 3 to 4 mm is present not definitively characterized but without worrisome features. The appendix appears normal. There are no inflammatory changes identified involving bowel. The uterus and ovaries appear within normal limits. A small follicle associated with the left ovary measuring 11 to 12 mm is noted. There is a large volume of stool present in the colon. There is a mild scoliosis of the lumbar spine convex to the left IMPRESSION: 1. Diffuse fatty infiltration of the liver mild in degree. 2. No acute findings in the abdomen or pelvis are identified. 3. Moderately large volume of stool present in the colon 4. Small approximately 11 to 12 mm follicle left ovary. [id number] Procedure Note Interface, Radiology Results [facility] - 06/28/2018 5:06 PM CDT EXAMINATION: CT ABDOMEN PELVIS W CONTRAST CLINICAL HISTORY: 62 yearsFemale abdominal pain TECHNIQUE: Multiple axial images of the abdomen and pelvis were obtained following intravenous administration of iodinated contrast. Sagittal and coronal computerized reformatted images were also obtained. CT imaging was performed with iterative reconstruction techniques and/or automated exposure control to reduce radiation dose. COMPARISON: None. Findings: The liver demonstrates mild diffuse fatty infiltration. The spleen appears normal in size and texture. The adrenal glands pancreas and gallbladder appear within normal limits. The kidneys are not obstructed no calculi are identified. A small anterior lower pole cyst on the left measuring 3 to 4 mm is present not definitively characterized but without worrisome features. The appendix appears normal. There are no inflammatory changes identified involving bowel. The uterus and ovaries appear within normal limits. A small follicle associated with the left ovary measuring 11 to 12 mm is noted. There is a large volume of stool present in the colon. There is a mild scoliosis of the lumbar spine convex to the left IMPRESSION: 1. Diffuse fatty infiltration of the liver mild in degree. 2. No acute findings in the abdomen or pelvis are identified. 3. Moderately large volume of stool present in the colon 4. Small approximately 11 to 12 mm follicle left ovary. [id number] Performing Organization Address City/[facility]/Zipcode Phone Number DANIEL [address] [place] [address] * Estimated GFR (06/28/2018 3:00 PM CDT) GFR Non Af Amer >90 mL/min/1.[address] [facility] DEPARTMENT OF PATHOLOGY AND GENOMIC MEDICINE GFR Af Amer >90 mL/min/1.[address] [facility] Comment: DEPARTMENT OF Chronic kidney disease: <60 PATHOLOGY AND mL/min/1.73m2 GENOMIC Kidney failure: <15 MEDICINE mL/min/1.73m2 The estimated GFR is calculated from the IDMS-traceable Modification of Diet in Renal Disease Equation. The accuracy of the calculation is poor when the creatinine is normal. Calculated values >90 mL/min/1.73m2 are not reported. This equation has not been validated in children (<18 years), women, the elderly (>70 years), or ethnic groups other than Caucasians and Americans. Specimen Plasma specimen Performing Organization Address [facility] Phone Number [address] [place] [address] PATHOLOGY AND GENOMIC MEDICINE * Lipase level (06/28/2018 3:00 PM CDT) Lipase 44 13 - 60 U/L [facility] DEPARTMENT OF PATHOLOGY AND ETARGET [facility] Specimen Plasma specimen Performing Organization Address [facility] Phone Number [address] [place] [address] PATHOLOGY AND GENOMIC MEDICINE * Ambulatory referral to General Surgery (05/24/2018 5:29 PM CDT) after 05/19/2018 Insurance Type Payer Benefit Subscriber ID Effective Phone Address Plan / Dates Group Medicare MEDICARE MEDICARE xxxxxxxxxxx 2015-P [place], PART A AND resent [place] B Commercial COMMERCIAL MISC MISC xxxxxxxxxx 2018- COMMERCIAL Present Advance Directives Patient has advance care planning documents, and code status on file. For more i nformation, please contact: Leonadr Mustafa [address] [place] [address] Date Inactivated Comments Code Status Date Activated 01/06/2019 5:56 PM Full Code 01/05/2019 4:08 PM Code Status decision reached by: Patient
--- OUTSIDE RECORDS SUMMARY | 2019-05-20 16:44 | XMS REPORT | Continuity of Care Document ---
Author Author [facility] Organization [facility] Address Unknown Phone Unavailable Care Team Providers Care Director Of Training Name Role Phone [employer] Unavailable Unavailable Problems Problem Status Onset Date Classification Date Reported Comments Source Gastro-esophageal reflux disease without esophagitis 11/17/2018 05/02/2019 [facility] UNK Active 08/10/2018 [facility] Poisoning by other antipsychotics and neuroleptics, intentional self-harm, initial encounter 02/25/2018 05/21/2018 [facility] INTENTIONAL OVERDOSE Active 02/11/2018 [facility] SCREENING MAMMOGRAM Active 08/23/2017 [facility] Z12.31 - ENCNTR SCREEN MAMMOGRAM FOR MA Active 02/24/2017 [facility] [place] Discharge Diagnosis: SOB 01/02/2017 01/05/2017 [facility] SLURRED SPEECH Active 01/01/2017 [facility] M25.571 - PAIN IN RIGHT ANKLE AND JOINTS Active 10/23/2016 [facility] M25.561 - PAIN IN RIGHT KNEE Active 01/13/2016 [facility] [place] Bipolar affective disorder Active 11/08/2015 Problem 05/02/2019 [facility] Dysphagia Resolved Problem 05/02/2019 [facility] GERD (Confirmed) Resolved Problem 05/02/2019 [facility] Hiatal hernia Resolved Problem 05/02/2019 [facility] HTN with goal to be determined(Confirmed) Active Problem 05/02/2019 [facility] Dysphagia, unspecified 05/02/2019 [facility] Diaphragmatic hernia without obstruction or gangrene 05/02/2019 [facility] Chest pain, unspecified 05/02/2019 [facility] Heartburn 05/02/2019 [facility] Obesity, unspecified 05/02/2019 [facility] Body mass index 32.0-32.9, adult 05/02/2019 [facility] Allergy status to penicillin 05/02/2019 [facility] Slurred speech 05/21/2018 [facility] Bipolar disorder, unspecified 05/21/2018 [facility] Underdosing of other antipsychotics and neuroleptics, initial encounter 05/21/2018 [facility] Essential hypertension 05/21/2018 [facility] Patient's intentional underdosing of medication regimen for other reason 05/21/2018 [facility] Chronic meniscal tear of knee Active Problem 09/23/2017 [facility] Acute right ankle pain Active Problem 09/23/2017 [facility] Right knee pain Active Problem 09/23/2017 [facility] Depression with anxiety Active Problem 09/23/2017 [facility] Other chest pain Active Problem 09/23/2017 [facility] Anxiety disorder, unspecified Active Problem 09/23/2017 [facility] Anxiety Active Problem 09/23/2017 [facility] Obesity Active Problem 09/23/2017 [facility] Gastroesophageal reflux disease without esophagitis Active Problem 09/23/2017 [facility] Short-term memory loss Active Problem 09/23/2017 [facility] BMI 30.0-30.9,adult Active Problem 09/23/2017 [facility] Atrophic vaginitis Active Problem 09/23/2017 [facility] Hormone disturbance Active Diagnosis 05/22/2017 [facility] Low vitamin D level Active Problem 09/23/2017 [facility] Hyperlipidemia Active Problem 09/23/2017 [facility] Osteoporosis screening Active Diagnosis 08/11/2017 [facility] Breast cancer screening Active Diagnosis 08/11/2017 [facility] Breast cancer screening Active Diagnosis 01/09/2017 [facility] Syncope Active Problem 02/05/2018 [facility] UTI Active Problem 02/05/2018 [facility] Medications Medication Details Route Status Patient Instructions Ordering Provider Order Date Source Unknown Home Medication 10 mg=, PO, Daily, Refill(s) 0 Active 10/13/2018 [facility] Vitamin B6 PO, Daily, 0 Refill(s) Active 10/13/2018 [facility] Gingko Biloba oral tablet 60 mg=, PO, Daily, 0 Refill(s) Active 10/13/2018 [facility] Vitamin B12 PO, Daily, 0 Refill(s) Active 10/13/2018 [facility] Multiple Vitamins oral tablet 1 tab, PO, Daily, # 30 tab, 0 Refill(s) Active 10/13/2018 [facility] Unknown Home Medication 500 mg=, PO, Daily, Refill(s) 0 Active 10/13/2018 [facility] perphenazine 4 mg oral tablet 8 mg=2 tab, PO, QPM, 0 Refill(s) Active 10/13/2018 [facility] Esomeprazole 40 mg, PO, Daily, 0 Refill(s) No Longer Active 09/20/2018 [facility] perphenazine 4 mg oral tablet 4 mg=1 tab, PO, Daily, 0 Refill(s) Active 09/20/2018 [facility] benztropine mesylate 2 MG Oral Tablet 2 mg=1 tab, PO, Bedtime, 0 Refill(s) Active 09/20/2018 [facility] Amlodipine 5 mg, PO, Daily, 0 Refill(s) Active 02/12/2018 [facility] Ergocalciferol 1 capsule Orally Active 80775 UNIT Orally once a week [facility] 09/22/2017 [facility] Sucralfate 10 ml Orally Active 1 GM/10ML Orally once a day as needed [facility] 07/28/2017 [facility] Sucralfate 10 ml Orally Active 1 GM/10ML Orally once a day as needed [facility] 07/28/2017 [facility] Pantoprazole Sodium 1 tablet Orally Active 40 MG Orally Once a day [facility] 07/13/2017 [facility] Omeprazole 1 capsule Orally Active 40 MG Orally Once a day [facility] 03/02/2017 [facility] Ergocalciferol 1 capsule Orally Active 10808 UNIT Orally Once a week [facility] 01/11/2017 [facility] Meloxicam 1 tablet Orally Active 15 MG Orally Once a day [facility] 10/21/2016 [facility] Ergocalciferol 1 capsule Orally Active 08497 UNIT Orally Once a week [facility] 07/10/2016 [facility] Ergocalciferol 1 capsule Orally Active 87445 UNIT Orally Once a week [facility] 05/19/2016 [facility] Meloxicam 1 tablet Orally Active 15 MG Orally Once a day [facility] 01/13/2016 [facility] Ergocalciferol 1 capsule Orally Active 92270 UNIT Orally once a week [facility] 09/13/2015 [facility] Atorvastatin Calcium 1 tablet Orally Active 40 mg Orally Once a day [facility] 09/13/2015 [facility] Atorvastatin Calcium 1 tablet Orally Active 40 mg Orally Once a day [facility] Seroquel 1 tablet at bedtime Orally Active 25 MG Orally Once a day [facility] Ergocalciferol 1 capsule Orally Active 12309 UNIT Orally Once a week [facility] Escitalopram Oxalate 1 tablet Orally Active 5 MG Orally Once a day [facility] Atorvastatin Calcium 1 tablet Orally Active 40 mg Orally Once a day [facility] Levsin 1 tablet before meals as needed Orally Active 0.125 MG Orally [facility] Pantoprazole Sodium 1 tablet Orally Active 40 MG Orally Once a day [facility] Pantoprazole Sodium 1 tablet Orally Active 40 MG Orally Once a day [facility] Levsin 1 tablet before meals as needed Orally Active 0.125 MG Orally [facility] Escitalopram Oxalate 1 tablet Orally Active 5 MG Orally Once a day [facility] Omeprazole 1 capsule Orally Active 40 MG Orally Once a day [facility] Benztropine Mesylate 1 tablet Orally Active 0.5 MG Orally twice a day (bid) [facility] Risperidone 1 tablet Orally Active 2 MG Orally twice a day (bid) [facility] Resperal 1 tablet Orally Active 5-1.25-5-5 MG/5ML Orally daily [facility] Dexlansoprazole (Dexilant) 60 Mg Hector. Daily Active THERAPEUTIC INTERCHANGE WITH PROTONIX PER [facility] Allergies, Adverse Reactions, Alerts Substance Category Reaction Severity Reaction type Status Date Reported Comments Source N.K.D.A. Adverse Reaction Info Not Available Adverse Reaction Active 05/12/2016 [facility] Penicillin HIVES Mild Allergy to Substance Active 07/28/2017 [facility] penicillin Adverse Reaction rash Adverse Reaction Active 09/21/2017 [facility] penicillins Assertion Drug allergy Active [facility] Ranitidine Hydrochloride<sup>1</sup> Assertion Drug allergy Active rash [facility] Bandaids Assertion Drug allergy Active [facility] Immunizations No Data Provided for This Section Results Order Name Results Value Reference Range Date Interpretation Comments Source DRUG SCREEN U Opiate Scr Negative *NA* (02/11/18 6:23 PM) Negative 02/11/2018 [facility] DRUG SCREEN UDS Note See Note *NA* (02/11/18 6:23 PM) 02/11/2018 [facility] DRUG SCREEN U Phencyc Scr Negative *NA* (02/11/18 6:23 PM) Negative 02/11/2018 [facility] DRUG SCREEN U Cocaine Scr Negative *NA* (02/11/18 6:23 PM) Negative 02/11/2018 [facility] DRUG SCREEN U Cannab Scr Negative *NA* (02/11/18 6:23 PM) Negative 02/11/2018 [facility] DRUG SCREEN U Benzodia Scr Negative *NA* (02/11/18 6:23 PM) Negative 02/11/2018 [facility] DRUG SCREEN U Amph Scr Negative *NA* (02/11/18 6:23 PM) Negative 02/11/2018 [facility] DRUG SCREEN U Ramona Scr Negative *NA* (02/11/18 6:23 PM) Negative 02/11/2018 [facility] URINE AND STOOL UA Urobilinogen <=1.0 mg/dL 0.1 - 1.0 02/11/2018 [facility] URINE AND STOOL UA Color Colorless 02/11/2018 [facility] URINE AND STOOL UA Blood Negative (02/11/18 6:23 PM) Negative 02/11/2018 [facility] URINE AND STOOL UA Sq Epi Occasional /LPF Few /LPF 02/11/2018 [facility] URINE AND STOOL UA Protein Negative mg/dL Negative mg/dL 02/11/2018 [facility] URINE AND STOOL UA pH 6.0 5.0 - 8.0 02/11/2018 [facility] URINE AND STOOL UA Spec Grav 1.001 <=1.030 02/11/2018 [facility] URINE AND STOOL UA Glucose Negative mg/dL Negative mg/dL 02/11/2018 [facility] URINE AND STOOL UA Ketones Negative mg/dL Negative mg/dL 02/11/2018 [facility] URINE AND STOOL UA WBC <1 0 - 5 02/11/2018 [facility] URINE AND STOOL UA RBC 2 0 - 2 02/11/2018 [facility] URINE AND STOOL UA Turbidity Clear (02/11/18 6:23 PM) Clear 02/11/2018 [facility] URINE AND STOOL UA Bili Negative *NA* (02/11/18 6:23 PM) Negative 02/11/2018 [facility] URINE AND STOOL UA Leuk Est Trace *ABN* (02/11/18 6:23 PM) Negative 02/11/2018 [facility] URINE AND STOOL UA Nitrite Negative (02/11/18 6:23 PM) Negative 02/11/2018 [facility] Culture: Urine <10,000 CFU/mL Skin Shani 02/11/2018 [facility] ELECTROLYTES AGAP 6.6 10.0 - 20.0 02/11/2018 [facility] ELECTROLYTES Globulin 3.9 2.7 - 4.2 02/11/2018 [facility] ELECTROLYTES B/C Ratio 11 6 - 25 02/11/2018 [facility] ELECTROLYTES A/G Ratio 0.9 0.7 - 1.6 02/11/2018 [facility] ELECTROLYTES eGFR 99 02/11/2018 Result Comment: The eGFR is calculated using the CKD-EPI formula. In most young, healthy individuals the eGFR will be >90 mL/min/1.73m2. The eGFR declines with age. An eGFR of 60-89 may be normal in some populations, particularly the elderly, for whom the CKD-EPI formula has not been extensively validated. Use of the eGFR is not recommended in the following populations:

Individuals with unstable creatinine concentrations, including patients and those with serious co-morbid conditions.

Patients with extremes in muscle mass or diet.

The data above are obtained from the National Kidney Disease Education Program (NKDEP) which additionally recommends that when the eGFR is used in patients with extremes of body mass index for purposes of drug dosing, the eGFR should be multiplied by the estimated BMI. [facility] ELECTROLYTES AST 16 0 - 37 02/11/2018 [facility] ELECTROLYTES Bili Total 0.3 0.2 - 1.3 02/11/2018 [facility] ELECTROLYTES Alk Phos 100 39 - 136 02/11/2018 [facility] ELECTROLYTES Albumin Lvl 3.7 3.5 - 5.0 02/11/2018 [facility] ELECTROLYTES ALT 26 0 - 65 02/11/2018 [facility] ELECTROLYTES Total Protein 7.6 6.4 - 8.4 02/11/2018 [facility] ELECTROLYTES Calcium Lvl 9.1 8.5 - 10.5 02/11/2018 [facility] ELECTROLYTES CO2 29 24 - 32 02/11/2018 [facility] ELECTROLYTES Sodium Lvl 139 135 - 145 02/11/2018 [facility] ELECTROLYTES Chloride Lvl 107 95 - 109 02/11/2018 [facility] ELECTROLYTES Potassium Lvl 3.6 3.5 - 5.1 02/11/2018 [facility] ELECTROLYTES Creatinine Lvl 0.57 0.50 - 1.40 02/11/2018 [facility] ELECTROLYTES Glucose Lvl 83 70 - 99 02/11/2018 [facility] BUN 6 7 - 22 02/11/2018 [facility] HEMATOLOGY MPV 9.0 7.4 - 10.4 02/11/2018 [facility] HEMATOLOGY RDW 12.9 11.5 - 14.5 02/11/2018 [facility] HEMATOLOGY Platelet 215 133 - 450 02/11/2018 [facility] MCH 31.2 27.0 - 31.0 02/11/2018 [facility] MCHC 34.2 32.0 - 36.0 02/11/2018 [facility] Hgb 14.8 12.0 - 16.0 02/11/2018 [facility] Hct 43.2 36.0 - 48.0 02/11/2018 [facility] WBC 6.4 3.7 - 10.4 02/11/2018 [facility] RBC 4.75 4.20 - 5.40 02/11/2018 [facility] MCV 91.1 80.0 - 98.0 02/11/2018 [facility] Lymphocytes 30.3 20.0 - 40.0 02/11/2018 [facility] Segs 61.9 45.0 - 75.0 02/11/2018 [facility] Monocytes 4.8 2.0 - 12.0 02/11/2018 [facility] Eosinophils 2.4 0.0 - 4.0 02/11/2018 [facility] Lymphocytes # 1.9 1.0 - 5.5 02/11/2018 [facility] Basophils 0.6 0.0 - 1.0 02/11/2018 [facility] Segs-Bands # 4.0 1.5 - 8.1 02/11/2018 [facility] Monocytes # 0.3 0.0 - 0.8 02/11/2018 [facility] Eosinophils # 0.2 0.0 - 0.5 02/11/2018 [facility] Acetaminoph Lvl 5 10 - 20 02/11/2018 [facility] TOXICOLOGY Ethanol Lvl <3 02/11/2018 [facility] TOXICOLOGY Etoh (%) <0.003 02/11/2018 [facility] Salicylate Lvl <1.7 0.0 - 30.0 02/11/2018 [facility] Serum or plasma creatine kinase MB measurement (mass/volume) Serum or plasma creatine kinase MB measurement (mass/volume) 1.40 0.00 - 5.00 09/11/2017 [facility] Serum or plasma creatine kinase measurement (enzymatic activity/volume) Serum or plasma creatine kinase measurement (enzymatic activity/volume) 176 29 - 168 09/11/2017 [facility] Troponin I measurement by highly sensitive enzyme immunoassay Troponin I measurement by highly sensitive enzyme immunoassay 0.023 0 - 0.300 09/11/2017 [facility] Automated urine sediment leukocyte count by microscopy (number/high power field) Automated urine sediment leukocyte count by microscopy (number/high power field) <20 0 - 5 09/10/2017 [facility] Bacteria detection in urine sediment by light microscopy Bacteria detection in urine sediment by light microscopy FEW NONE 09/10/2017 [facility] Epithelial cells detection in urine sediment by light microscopy Epithelial cells detection in urine sediment by light microscopy RARE NONE 09/10/2017 [facility] Erythrocytes detection in urine sediment by light microscopy Erythrocytes detection in urine sediment by light microscopy <5 0 - 5 09/10/2017 [facility] Specific gravity of Urine by Test strip Specific gravity of Urine by Test strip 1.010 1.010 - 1.025 09/10/2017 [facility] Urine clarity Urine clarity CLEAR CLEAR 09/10/2017 [facility] Urine color determination Urine color determination YELLOW YELLOW 09/10/2017 [facility] Urine erythrocytes detection Urine erythrocytes detection NEGATIVE NEGATIVE 09/10/2017 [facility] Urine glucose detection Urine glucose detection NEGATIVE NEGATIVE 09/10/2017 [facility] Urine ketones detection by automated test strip Urine ketones detection by automated test strip NEGATIVE NEGATIVE 09/10/2017 [facility] Urine leukocyte esterase detection by dipstick Urine leukocyte esterase detection by dipstick 2+ NEGATIVE 09/10/2017 [facility] Urine nitrite detection Urine nitrite detection NEGATIVE NEGATIVE 09/10/2017 [facility] Urine pH measurement by automated test strip Urine pH measurement by automated test strip 8 5 - 7 09/10/2017 [facility] Urine protein measurement by test strip (mass/volume) Urine protein measurement by test strip (mass/volume) NEGATIVE NEGATIVE 09/10/2017 [facility] Urine total bilirubin measurement (mass/volume) Urine total bilirubin measurement (mass/volume) NEGATIVE NEGATIVE 09/10/2017 [facility] Urine urobilinogen measurement by test strip (mass/volume) Urine urobilinogen measurement by test strip (mass/volume) 0.2 0.2 - 1 09/10/2017 [facility] Automated blood basophil count (count/volume) Automated blood basophil count (count/volume) 0.0 0.0 - 0.1 09/10/2017 [facility] Automated blood basophil count as percentage of total leukocytes Automated blood basophil count as percentage of total leukocytes 0.4 0.0 - 1.0 09/10/2017 [facility] Automated blood eosinophil count Automated blood eosinophil count 0.2 0.0 - 0.4 09/10/2017 [facility] Automated blood eosinophil count as percentage of total leukocytes Automated blood eosinophil count as percentage of total leukocytes 2.4 0.0 - 6.0 09/10/2017 [facility] Automated blood hematocrit (volume fraction) Automated blood hematocrit (volume fraction) 41.3 34.2 - 44.1 09/10/2017 [facility] Automated blood lymphocyte count as percentage ot total leukocytes Automated blood lymphocyte count as percentage ot total leukocytes 28.3 18.0 - 39.1 09/10/2017 [facility] Automated blood monocyte count as percentage of total leukocytes Automated blood monocyte count as percentage of total leukocytes 5.9 4.4 - 11.3 09/10/2017 [facility] Automated blood neutrophil count Automated blood neutrophil count 5.0 2.1 - 6.9 09/10/2017 [facility] Automated blood platelet count (count/volume) Automated blood platelet count (count/volume) 231 140 - 360 09/10/2017 [facility] Automated blood segmented neutrophil count as percentage of total leukocytes Automated blood segmented neutrophil count as percentage of total leukocytes 62.9 38.7 - 80.0 09/10/2017 [facility] Automated erythrocyte mean corpuscular hemoglobin (mass per erythrocyte) Automated erythrocyte mean corpuscular hemoglobin (mass per erythrocyte) 32.0 28 - 32 09/10/2017 [facility] Automated erythrocyte mean corpuscular hemoglobin concentration measurement (mass/volume) Automated erythrocyte mean corpuscular hemoglobin concentration measurement (mass/volume) 34.6 31 - 35 09/10/2017 [facility] Automated erythrocyte mean corpuscular volume Automated erythrocyte mean corpuscular volume 92.4 81 - 99 09/10/2017 [facility] Blood erythrocytes automated count (number/volume) Blood erythrocytes automated count (number/volume) 4.47 3.6 - 5.1 09/10/2017 [facility] Blood hemoglobin measurement (moles/volume) Blood hemoglobin measurement (moles/volume) 14.3 12.0 - 16.0 09/10/2017 [facility] Blood leukocytes automated count (number/volume) Blood leukocytes automated count (number/volume) 7.99 4.8 - 10.8 09/10/2017 [facility] Blood lymphocytes count (number/volume) Blood lymphocytes count (number/volume) 2.3 1.0 - 3.2 09/10/2017 [facility] Blood monocytes automated count (number/volume) Blood monocytes automated count (number/volume) 0.5 0.2 - 0.8 09/10/2017 [facility] Estimated glomerular filtration rate (GFR) determination Estimated glomerular filtration rate (GFR) determination >60 60 09/10/2017 [facility] Glucose measurement Glucose measurement 91 74 - 118 09/10/2017 [facility] Plasma globulin measurement (mass/volume) Plasma globulin measurement (mass/volume) 4.1 2.3 - 3.5 09/10/2017 [facility] Serum or plasma alanine aminotransferase measurement (enzymatic activity/volume) Serum or plasma alanine aminotransferase measurement (enzymatic activity/volume) 31 0 - 55 09/10/2017 [facility] Serum or plasma albumin measurement (mass/volume) Serum or plasma albumin measurement (mass/volume) 3.8 3.5 - 5.0 09/10/2017 [facility] Serum or plasma albumin/globulin mass ratio Serum or plasma albumin/globulin mass ratio 0.9 0.8 - 2.0 09/10/2017 [facility] Serum or plasma alkaline phosphatase measurement (enzymatic activity/volume) Serum or plasma alkaline phosphatase measurement (enzymatic activity/volume) 91 40 - 150 09/10/2017 [facility] Serum or plasma anion gap Serum or plasma anion gap 15.6 8 - 16 09/10/2017 [facility] Serum or plasma calcium measurement (mass/volume) Serum or plasma calcium measurement (mass/volume) 9.0 8.4 - 10.2 09/10/2017 [facility] Serum or plasma carbon dioxide, total measurement (moles/volume) Serum or plasma carbon dioxide, total measurement (moles/volume) 23 22 - 29 09/10/2017 [facility] Serum or plasma chloride measurement (moles/volume) Serum or plasma chloride measurement (moles/volume) 107 98 - 107 09/10/2017 [facility] Serum or plasma creatinine measurement (mass/volume) Serum or plasma creatinine measurement (mass/volume) 0.78 0.57 - 1.11 09/10/2017 [facility] Serum or plasma potassium measurement (moles/volume) Serum or plasma potassium measurement (moles/volume) 4.6 3.5 - 5.1 09/10/2017 [facility] Serum or plasma protein measurement (mass/volume) Serum or plasma protein measurement (mass/volume) 7.9 6.5 - 8.1 09/10/2017 [facility] Serum or plasma sodium measurement (moles/volume) Serum or plasma sodium measurement (moles/volume) 141 136 - 145 09/10/2017 [facility] Serum or plasma total bilirubin measurement (mass/volume) Serum or plasma total bilirubin measurement (mass/volume) 0.3 0.2 - 1.2 09/10/2017 [facility] Serum or plasma urea nitrogen measurement (mass/volume) Serum or plasma urea nitrogen measurement (mass/volume) 12 7 - 26 09/10/2017 [facility] Serum or plasma urea nitrogen/creatinine mass ratio Serum or plasma urea nitrogen/creatinine mass ratio 15 6 - 25 09/10/2017 [facility] Red Cell Distribution Width 12.9 11.7 - 14.4 09/10/2017 [facility] IM GRANULOCYTES % 0.1 0.0 - 1.0 09/10/2017 [facility] Absolute Immature Granulocyte (auto 0.01 0 - 0.1 09/10/2017 [facility] Aspartate Amino Transf (AST/SGOT) 32 5 - 34 09/10/2017 [facility] Activated partial thromboplastin time (aPTT) in platelet poor plasma bycoagulation assay Activated partial thromboplastin time (aPTT) in platelet poor plasma bycoagulation assay 28.7 23.8 - 35.5 07/28/2017 [facility] INR in Platelet poor plasma by Coagulation assay INR in Platelet poor plasma by Coagulation assay 0.87 07/28/2017 [facility] Prothrombin time (PT) in platelet poor plasma by coagulation assay Prothrombin time (PT) in platelet poor plasma by coagulation assay 12.3 11.9 - 14.5 07/28/2017 [facility] B-Type Natriuretic Peptide 15.7 0 - 100 07/28/2017 [facility] CARDIAC ENZYMES CK MB Index 0.5 0.0 - 2.5 01/02/2017 [facility] CARDIAC ENZYMES Total CK 343 12 - 191 01/02/2017 [facility] CARDIAC ENZYMES Troponin-I 0.03 0.00 - 0.40 01/02/2017 [facility] CARDIAC ENZYMES CK MB 1.6 0.5 - 3.6 01/02/2017 [facility] ELECTROLYTES CO2 25 24 - 32 01/02/2017 [facility] ELECTROLYTES Calcium Lvl 8.9 8.5 - 10.5 01/02/2017 [facility] ELECTROLYTES AGAP 13.7 10.0 - 20.0 01/02/2017 [facility] ELECTROLYTES eGFR 100 01/02/2017 Result Comment: The eGFR is calculated using the CKD-EPI formula. In most young, healthy individuals the eGFR will be >90 mL/min/1.73m2. The eGFR declines with age. An eGFR of 60-89 may be normal in some populations, particularly the elderly, for whom the CKD-EPI formula has not been extensively validated. Use of the eGFR is not recommended in the following populations:

Individuals with unstable creatinine concentrations, including patients and those with serious co-morbid conditions.

Patients with extremes in muscle mass or diet.

The data above are obtained from the National Kidney Disease Education Program (NKDEP) which additionally recommends that when the eGFR is used in patients with extremes of body mass index for purposes of drug dosing, the eGFR should be multiplied by the estimated BMI. [facility] ELECTROLYTES Creatinine Lvl 0.55 0.50 - 1.40 01/02/2017 [facility] ELECTROLYTES BUN 12 7 - 22 01/02/2017 [facility] ELECTROLYTES Glucose Lvl 88 70 - 99 01/02/2017 [facility] ELECTROLYTES Chloride Lvl 108 95 - 109 01/02/2017 [facility] ELECTROLYTES Potassium Lvl 3.7 3.5 - 5.1 01/02/2017 [facility] ELECTROLYTES Sodium Lvl 143 135 - 145 01/02/2017 [facility] HEMATOLOGY PTT 29.0 22.9 - 35.8 01/02/2017 [facility] HEMATOLOGY INR 0.96 0.85 - 1.17 01/02/2017 [facility] PT 13.0 12.0 - 14.7 01/02/2017 [facility] Hct 41.4 36.0 - 48.0 01/02/2017 [facility] Hgb 14.2 12.0 - 16.0 01/02/2017 [facility] RBC 4.50 4.20 - 5.40 01/02/2017 [facility] WBC 7.3 3.7 - 10.4 01/02/2017 [facility] MPV 9.6 7.4 - 10.4 01/02/2017 [facility] Platelet 188 133 - 450 01/02/2017 [facility] MCHC 34.4 32.0 - 36.0 01/02/2017 [facility] RDW 13.2 11.5 - 14.5 01/02/2017 [facility] MCH 31.6 27.0 - 31.0 01/02/2017 [facility] MCV 92.0 80.0 - 98.0 01/02/2017 [facility] Lymphocytes 31.9 20.0 - 40.0 01/02/2017 [facility] HEMATOLOGY Segs 57.4 45.0 - 75.0 01/02/2017 [facility] Monocytes # 0.5 0.0 - 0.8 01/02/2017 [facility] HEMATOLOGY Eosinophils # 0.2 0.0 - 0.5 01/02/2017 [facility] HEMATOLOGY Segs-Bands # 4.2 1.5 - 8.1 01/02/2017 [facility] HEMATOLOGY Monocytes 6.9 2.0 - 12.0 01/02/2017 [facility] HEMATOLOGY Basophils 0.5 0.0 - 1.0 01/02/2017 [facility] HEMATOLOGY Lymphocytes # 2.3 1.0 - 5.5 01/02/2017 [facility] HEMATOLOGY Eosinophils 3.3 0.0 - 4.0 01/02/2017 [facility] Pathology Reports No Data Provided for This Section Diagnostic Reports Report Value Date Source Breast Mammo Scrn CHASE incl CAD MA BILATERAL DIGITAL SCREENING MAMMOGRAM WITH CAD: 09/17/2017 CLINICAL: /Routine. Current study was evaluated with a Computer Aided Detection (CAD) system. COMPARISON:Comparison is made to exams dated: 06/19/2014 mammogram, 04/26/2013 mammogram, and 07/09/2011 mammogram - [place]. TECHNIQUE: Mammographic views were obtained using digital acquisition. [employer] Version 1.3 was utilized for computer aided detection. There are scattered fibroglandular densities in both breasts. FINDINGS: There are benign appearing calcifications and masses in both breasts. No significant masses, calcifications, or other findings are seen in either breast. There has been no significant interval change. IMPRESSION: BENIGN RECOMMENDATION:There is no mammographic evidence of malignancy. A 1 year screening mammogram is recommended.(09/18/2018) This exam was interpreted at [id number] for [facility]. Cortez conde/carrierad:09/17/2017 15:56:37 Talent Acquisition Lead(s): Vonda Wilson [facility] letter sent: BI-RADS 1/2 Mammogram BI-RADS: 2 Benign 09/17/2017 [facility] Ankle 3 views DX EXAM: Ankle 3 views DX HISTORY: M25.571 Pain in right ankle and joints of right foot COMPARISON: 12/25/2016 3 views of the right ankle. IMPRESSION: 1. Interval callus formation without residual fracture lucency of the distal fibular fracture. Mild residual soft tissue swelling. 2. Linear focus of mineralization along the medial aspect of the base of the right medial malleolus which may represent stripping of the medial retinaculum, unchanged. 3. No new abnormality. Small plantar calcaneal spur again noted. 02/01/2017 [facility] Chest 2 views DX Clinical Indication: Dyspnea Comparison: June 04, 2008 FINDINGS: The PA and lateral chest radiographs shows normal lung volumes without interstitial or airspace opacities, pleural effusions or pneumothorax. The cardiomediastinal contours are normal for the age of the patient with aortic tortuosity. There are degenerative changes in the spine. IMPRESSION: No chest radiographic evidence of acute cardiopulmonary disease. SL: 82 01/02/2017 [facility] Ankle 3 views DX EXAMINATION: Right ankle 3 views HISTORY: Distal right fibula fracture; FINDINGS: 3 view nonweightbearing examination of the right ankle is performed and compared to 11/26/2016. Oblique, nondisplaced fracture of the distal right fibula is redemonstrated, best visualized in the lateral projection. There is also a linear focus of mineralization along the medial aspect of the base of the medial malleolus which may represent stripping of the medial retinaculum, similar to the prior examination. There are no new fractures or dislocations. The ankle mortise is symmetric. There is no widening of the distal tibiofibular syndesmosis. The joint spaces are normal. There is a plantar calcaneal spur. IMPRESSION: 1. Oblique, nondisplaced distal right fibular fracture redemonstrated without appreciable interval change. 2. Linear focus of mineralization along the medial aspect of the base of the right medial malleolus which may represent stripping of the medial retinaculum, also not definitely changed. 12/25/2016 [facility] Ankle 3 views DX EXAMINATION: Right ankle 3 views HISTORY: M25.571 Pain in right ankle and joints of right foot; right distal fibular fracture FINDINGS: 3 view nonweightbearing examination of the right ankle is performed without comparison. There is persistent soft tissue swelling at the right ankle. Oblique, mildly displaced fracture of the distal fibula is redemonstrated with unchanged mild posterior displacement of the distal fracture fragment, best visualized on the lateral projection. There is also unchanged linear foci of mineralization along the medial aspect of the base of the medial malleolus which may represent stripping of the medial retinaculum, unchanged. The ankle mortise is symmetric. There is no widening of the distal tibiofibular syndesmosis. The joint spaces are normal. There is a small plantar calcaneal spur. Our no radiopaque foreign bodies. IMPRESSION: 1. Oblique, mildly displaced fracture of the distal right fibula redemonstrated with unchanged mild posterior displacement of the distal fracture fragment. 2. Unchanged linear foci of mineralization along the medial aspect of the base of the right medial malleolus which may represent stripping of the medial retinaculum, unchanged. 3. Persistent soft tissue swelling at the right ankle. 11/26/2016 [facility] Ankle 3 views DX EXAMINATION: Right ankle 3 views HISTORY: Distal right fibula fracture FINDINGS: 3 view nonweightbearing examination of the right ankle is performed and compared to 10/21/2016. There is an oblique fracture of the distal fibula extending distally to the level of the tibial plafond redemonstrated, only visualized on the lateral view. There is 3 mm of posterior displacement along the proximal aspect of the fracture site, possibly new displacement compared to the prior examination versus difference in projection. Linear foci of mineralization is redemonstrated along the medial aspect of the base of the medial malleolus, which again may represent stripping of the medial retinaculum, but is unchanged. There is soft tissue swelling at the ankle. The mortise is symmetric. There is no widening of the distal tibiofibular syndesmosis. The joint spaces are normal. There is a small plantar calcaneal spur. IMPRESSION: 1. Oblique fracture of the distal right fibula extending distally near the level of the tibial plafond, only visualized on the lateral view. There is 3 mm of posterior displacement along the proximal aspect of the fracture site, possibly new displacement compared to the prior examination versus difference in projection. 2. Redemonstration of linear foci of mineralization along the medial aspect of the base of the right medial malleolus which may represent stripping of the medial retinaculum, but is unchanged. Recommend correlation with focal point tenderness within this region. 10/29/2016 [facility] Ankle 3 views DX EXAMINATION: Right ankle 3 views HISTORY: Right ankle pain status post fall; distal right fibula fracture FINDINGS: 3 view nonweightbearing examination of the right ankle is performed without comparison. There is a nondisplaced, oblique fracture involving the distal fibula extending distally near the level of the tibial plafond, only visualized on the lateral view. There is also mineralization noted along the medial aspect of the base of the medial malleolus which may represent stripping of the medial retinaculum. There are no additional fractures or dislocations identified. The ankle mortise is symmetric. There is no widening of the distal tibiofibular syndesmosis. Soft tissue swelling is noted anteriorly, medially, and laterally at the ankle. There is a plantar calcaneal spur. The joint spaces are normal. IMPRESSION: 1. Nondisplaced, oblique fracture involving the distal right fibula extending distally near the level of the tibial plafond, only visualized on the lateral view. 2. Mineralization noted along the medial aspect of the base of the medial malleolus which may represent stripping of the medial retinaculum. 3. Soft tissue swelling noted anteriorly, medially, and laterally at the right ankle. 10/21/2016 [facility] Knee 1-2 Views Bilateral DX EXAMINATION: Bilateral knees 1 to 2 views each. HISTORY: Bilateral knee pain; right knee osteoarthritis; left knee medial compartment joint space narrowing FINDINGS: Frontal weightbearing view of both knees and lateral views of each knee are performed and compared to 01/23/2016. There are no fractures. There is mild medial and patellofemoral compartment, bicompartmental right knee osteoarthritis with a small right knee effusion. There is minimal medial joint space narrowing of the left knee with normal lateral and patellofemoral joint spaces. There is no left knee effusion. IMPRESSION: 1. Mild medial and patellofemoral compartment, bicompartmental right knee arthritis with a small right knee effusion. 2. Minimal medial compartment joint space narrowing of the left knee. 06/18/2016 [facility] Knee wo contrast MRI Exam: MRI of the right knee without contrast Reason for Exam: M23.91 Unspecified internal derangement of right knee Comparison Exam: Right knee x-ray 01/23/2016 Technique: Multiplanar and multisequence imaging was performed of the right knee. Proton density weighted images were acquired without injection of gadolinium IV. Discussion: Bones and marrow: No acute bony abnormalities identified. No destructive intraosseous lesions. Medial compartment: Complex tear seen within the body of the medial meniscus with mild displacement against the medial collateral ligament. Overall, the medial collateral ligament appears intact. The articulating cartilage and subchondral bone are unremarkable. Intercondylar notch: Anterior cruciate ligament and posterior cruciate ligament are intact. The meniscal roots are also intact. Lateral compartment: No acute tear seen within the lateral meniscus. The articulating cartilage and subchondral bone are unremarkable. The lateral collateral ligament complex and popliteal tendon appear intact. Anterior compartment: Mild chondromalacia seen within the medial patellar facet. Physiologic amount of fluid seen within the suprapatellar fossa. Extensor mechanisms: The patella tendon and quadriceps tendon are intact. Posterior compartment: Posterior compartment is unremarkable. No Daniel's cyst identified Impression: 1. Complex tear seen within the body of the medial meniscus with mild displacement against the medial collateral ligament. 02/07/2016 [facility] Knee 3 Views Bilateral DX EXAM: Knee 3 Views Bilateral DX HISTORY: pain in right knee, pain in left knee COMPARISON: None 3 views of each knee. No fracture. No dislocation. Trace right effusion. Mild medial tibiofemoral joint space narrowing on the right. IMPRESSION: Degenerative change as above. 01/23/2016 [facility] Digital Mammo Screening [place] [facility] - DIGITAL MAMMO SCREENING CHASE MA BILATERAL DIGITAL SCREENING MAMMOGRAM WITH CAD: 08/16/2015 CLINICAL: Routine. Current study was evaluated with a Computer Aided Detection (CAD) system. Comparison is made to exams dated: 07/09/2011 mammogram, 04/26/2013 mammogram and 06/19/2014 mammogram - [place]. The tissue of both breasts is heterogeneously dense, which could obscure detection of small masses. Multiple bilateral circumscribed masses are present which is a benign pattern. Note is made that diagnostic imaging is still advised for any true palpable abnormality. There are benign calcifications in the left breast. No significant masses, calcifications, or other findings are seen in either breast. There has been no significant interval change. IMPRESSION: BENIGN There is no mammographic evidence of malignancy. A 1 year screening mammogram is recommended. Rolo talavera/carrierad:08/23/2015 07:24:33 Talent Acquisition Lead: [facility] This exam was dictated and interpreted by [id number] for THALIA Fiore. letter sent: Normal exam Mammogram BI-RADS: 2 Benign 08/16/2015 [facility] Consultation Notes No Data Provided for This Section Discharge Summaries No Data Provided for This Section History and Physicals No Data Provided for This Section Vital Signs Vital Sign Value Date Comments Source Systolic (mm Hg) 129 10/13/2018 [facility] Diastolic (mm Hg) 85 10/13/2018 [facility] Temperature Oral (F) 97.6 F 10/13/2018 [facility] Heart Rate 72 10/13/2018 [facility] Respitory Rate 17 10/13/2018 [facility] BMI Calculated 32.38 10/12/2018 [facility] Weight 72.727 10/12/2018 [facility] Height 149.86 cm 10/12/2018 [facility] Height 152.4 cm 06/10/2018 [facility] BMI Calculated 29.36 06/10/2018 [facility] Weight 68.182 06/10/2018 [facility] Temperature Oral (F) 98.1 F 02/12/2018 [facility] Systolic (mm Hg) 112 02/12/2018 [facility] Diastolic (mm Hg) 74 02/12/2018 [facility] Heart Rate 85 02/12/2018 [facility] Respitory Rate 18 02/12/2018 [facility] Respitory Rate 16 02/12/2018 [facility] Systolic (mm Hg) 99 02/12/2018 [facility] Diastolic (mm Hg) 50 02/12/2018 [facility] Heart Rate 68 02/12/2018 [facility] Temperature Oral (F) 98.4 F 02/12/2018 [facility] Systolic (mm Hg) 100 02/12/2018 [facility] Diastolic (mm Hg) 67 02/12/2018 [facility] Temperature Oral (F) 98 F 02/12/2018 [facility] Heart Rate 75 02/12/2018 [facility] Respitory Rate 14 02/12/2018 [facility] BMI Calculated 28.38 02/11/2018 [facility] Weight 65.909 02/11/2018 [facility] Height 152.4 cm 02/11/2018 [facility] Weight 149.7 09/21/2017 [facility] Height 60 09/21/2017 [facility] Temperature Oral (F) 97.7 F 09/21/2017 [facility] Heart Rate 66 09/21/2017 [facility] Diastolic (mm Hg) 92 09/21/2017 [facility] Systolic (mm Hg) 144 09/21/2017 [facility] Weight 150.0 08/10/2017 [facility] Height 60 08/10/2017 [facility] Temperature Oral (F) 98.1 F 08/10/2017 [facility] Heart Rate 80 08/10/2017 [facility] Diastolic (mm Hg) 76 08/10/2017 [facility] Systolic (mm Hg) 107 08/10/2017 [facility] Weight 149.5 07/28/2017 [facility] Height 60 07/28/2017 [place] Temperature Oral (F) 98.6 F 07/28/2017 [facility] Heart Rate 61 07/28/2017 [facility] Diastolic (mm Hg) 88 07/28/2017 [facility] Systolic (mm Hg) 144 07/28/2017 [facility] Weight 152.7 07/13/2017 [facility] Height 60 07/13/2017 [facility] Temperature Oral (F) 97.8 F 07/13/2017 [facility] Heart Rate 73 07/13/2017 [facility] Diastolic (mm Hg) 85 07/13/2017 [facility] Systolic (mm Hg) 125 07/13/2017 [facility] Weight 153.9 05/21/2017 [facility] Height 60 05/21/2017 [facility] Temperature Oral (F) 98.5 F 05/21/2017 [facility] Heart Rate 83 05/21/2017 [facility] Diastolic (mm Hg) 87 05/21/2017 [facility] Systolic (mm Hg) 146 05/21/2017 [facility] Weight 155.9 03/02/2017 [facility] Height 60 03/02/2017 [facility] Temperature Oral (F) 98.1 F 03/02/2017 [facility] Heart Rate 61 03/02/2017 [facility] Diastolic (mm Hg) 82 03/02/2017 [facility] Systolic (mm Hg) 128 03/02/2017 [facility] Weight 159.2 01/13/2017 [facility] Height 60 01/13/2017 [facility] Temperature Oral (F) 98.0 F 01/13/2017 [facility] Heart Rate 66 01/13/2017 [facility] Diastolic (mm Hg) 76 01/13/2017 [facility] Systolic (mm Hg) 109 01/13/2017 [facility] Weight 160.1 01/08/2017 [facility] Height 60 01/08/2017 [facility] Temperature Oral (F) 97.8 F 01/08/2017 [facility] Heart Rate 66 01/08/2017 [facility] Diastolic (mm Hg) 81 01/08/2017 [facility] Systolic (mm Hg) 128 01/08/2017 [facility] Temperature Oral (F) 97.9 F 01/02/2017 [facility] Heart Rate 66 01/02/2017 [facility] Respitory Rate 14 01/02/2017 [facility] Systolic (mm Hg) 122 01/02/2017 [facility] Diastolic (mm Hg) 89 01/02/2017 [facility] Systolic (mm Hg) 130 01/02/2017 [facility] Diastolic (mm Hg) 73 01/02/2017 [facility] Height 149.86 cm 01/02/2017 [facility] Heart Rate 64 01/02/2017 [facility] Respitory Rate 18 01/02/2017 [facility] Systolic (mm Hg) 137 01/02/2017 [facility] Diastolic (mm Hg) 79 01/02/2017 [facility] Temperature Oral (F) 97.6 F 01/02/2017 [facility] BMI Calculated 32.38 01/02/2017 [facility] Weight 72.727 01/02/2017 [facility] Weight 165.3 10/21/2016 [facility] Height 60 10/21/2016 [facility] Temperature Oral (F) 98.1 F 10/21/2016 [facility] Heart Rate 84 10/21/2016 [facility] Diastolic (mm Hg) 84 10/21/2016 [facility] Systolic (mm Hg) 121 10/21/2016 [facility] Weight 163.2 07/10/2016 [facility] Height 60 07/10/2016 [facility] Temperature Oral (F) 98.1 F 07/10/2016 [facility] Heart Rate 76 07/10/2016 [facility] Diastolic (mm Hg) 82 07/10/2016 [facility] Systolic (mm Hg) 144 07/10/2016 [facility] Weight 163.1 05/12/2016 [facility] Height 60 05/12/2016 [facility] Temperature Oral (F) 98.0 F 05/12/2016 [facility] Heart Rate 80 05/12/2016 [facility] Diastolic (mm Hg) 85 05/12/2016 [facility] Systolic (mm Hg) 129 05/12/2016 [facility] Weight 164.2 03/09/2016 [facility] Height 60 03/09/2016 [facility] Temperature Oral (F) 98.6 F 03/09/2016 [facility] Heart Rate 77 03/09/2016 [facility] Diastolic (mm Hg) 90 03/09/2016 [facility] Systolic (mm Hg) 130 03/09/2016 [facility] Weight 164.3 01/13/2016 [facility] Height 60 01/13/2016 [facility] Temperature Oral (F) 98.4 F 01/13/2016 [facility] Heart Rate 76 01/13/2016 [facility] Diastolic (mm Hg) 84 01/13/2016 [facility] Systolic (mm Hg) 129 01/13/2016 [facility] Weight 165.4 01/08/2016 [facility] Height 60 01/08/2016 [facility] Temperature Oral (F) 98.6 F 01/08/2016 [facility] Heart Rate 76 01/08/2016 [facility] Diastolic (mm Hg) 84 01/08/2016 [facility] Systolic (mm Hg) 137 01/08/2016 [facility] Weight 158.6 09/13/2015 [facility] Height 60 09/13/2015 [facility] Temperature Oral (F) 98.6 F 09/13/2015 [facility] Heart Rate 85 09/13/2015 [facility] Diastolic (mm Hg) 83 09/13/2015 [facility] Systolic (mm Hg) 119 09/13/2015 [facility] Encounters Location Location Details Encounter Type Encounter Number Reason For Visit Attending Provider ADM Date DC Date Status Source [facility] [place] patient here for NITISH [id number] 08/14/2015 08/14/2015 [facility] New patient here for NITISH [id number] 08/14/2015 08/14/2015 [facility] New patient here for NITISH [id number] 08/14/2015 08/14/2015 [facility] New patient here for NITISH [id number] 08/14/2015 08/14/2015 [facility] New patient here for NITISH [id number] 08/14/2015 08/14/2015 [facility] New patient here for NITISH [id number] 08/14/2015 08/14/2015 [facility] New patient here for WWE [id number] 08/14/2015 08/14/2015 [facility] New patient here for WWE [id number] 08/14/2015 08/14/2015 [facility] New patient here for WWE [id number] 08/14/2015 08/14/2015 [facility] New patient here for WWE [id number] 08/14/2015 08/14/2015 [facility] New patient here for WWE [id number] 08/14/2015 08/14/2015 [facility] New patient here for WWE [id number] 08/14/2015 08/14/2015 [facility] [place] [facility] [id number] Marybelsophia Daviesmar 08/16/2015 08/17/2015 [facility] patient to follow up on labs [id number] 09/13/2015 09/13/2015 [facility] patient to follow up on labs [id number] 09/13/2015 09/13/2015 [facility] patient to follow up on labs [id number] 09/13/2015 09/13/2015 [facility] patient to follow up on labs [id number] 09/13/2015 09/13/2015 [facility] patient to follow up on labs [id number] 09/13/2015 09/13/2015 [facility] patient to follow up on labs [id number] 09/13/2015 09/13/2015 [facility] patient to follow up on labs [id number] 09/13/2015 09/13/2015 [facility] patient to follow up on labs [id number] 09/13/2015 09/13/2015 [facility] patient to follow up on labs [id number] 09/13/2015 09/13/2015 [facility] patient to follow up on labs [id number] 09/13/2015 09/13/2015 [facility] patient to follow up on labs [id number] 09/13/2015 09/13/2015 [facility] patient to follow up on labs [id number] 09/13/2015 09/13/2015 [facility] patient here to follow up on medication [id number] 01/08/2016 01/08/2016 [facility] patient here to follow up on medication [id number] 01/08/2016 01/08/2016 [facility] patient here to follow up on medication [id number] 01/08/2016 01/08/2016 [facility] patient here to follow up on medication [id number] 01/08/2016 01/08/2016 [facility] patient here to follow up on medication [id number] 01/08/2016 01/08/2016 [facility] patient here to follow up on medication [id number] 01/08/2016 01/08/2016 [facility] patient here to follow up on medication [id number] 01/08/2016 01/08/2016 [facility] patient here to follow up on medication [id number] 01/08/2016 01/08/2016 [facility] patient here to follow up on medication [id number] 01/08/2016 01/08/2016 [facility] patient here to follow up on medication [id number] 01/08/2016 01/08/2016 [facility] patient here to follow up on medication [id number] 01/08/2016 01/08/2016 [facility] Patient here with Right knee pain [id number] 01/13/2016 01/13/2016 [facility] Patient here with Right knee pain [id number] 01/13/2016 01/13/2016 [facility] Patient here with Right knee pain [id number] 01/13/2016 01/13/2016 [facility] Patient here with Right knee pain [id number] 01/13/2016 01/13/2016 [facility] Patient here with Right knee pain [id number] 01/13/2016 01/13/2016 [facility] Patient here with Right knee pain [id number] 01/13/2016 01/13/2016 [facility] Patient here with Right knee pain [id number] 01/13/2016 01/13/2016 [facility] Patient here with Right knee pain [id number] 01/13/2016 01/13/2016 [facility] Patient here with Right knee pain [id number] 01/13/2016 01/13/2016 [facility] Patient here with Right knee pain [id number] 01/13/2016 01/13/2016 [facility] [place] [facility] [id number] Stevan Knutson 01/23/2016 01/24/2016 [facility] [place] [facility] [place] [facility] [id number] Stevan Knutson 02/07/2016 02/08/2016 [facility] [place] [facility] patient here to follow up [id number] 03/09/2016 03/09/2016 [facility] patient here to follow up [id number] 03/09/2016 03/09/2016 [facility] patient here to follow up [id number] 03/09/2016 03/09/2016 [facility] patient here to follow up [id number] 03/09/2016 03/09/2016 [facility] patient here to follow up [id number] 03/09/2016 03/09/2016 [facility] patient here to follow up [id number] 03/09/2016 03/09/2016 [facility] patient here to follow up [id number] 03/09/2016 03/09/2016 [facility] patient here to follow up [id number] 03/09/2016 03/09/2016 [facility] patient here to follow up [id number] 03/09/2016 03/09/2016 [facility] patient here to follow up with cholesterol; and vit d [id number] 05/12/2016 05/12/2016 [facility] patient here to follow up with cholesterol; and vit d [id number] 05/12/2016 05/12/2016 [facility] patient here to follow up with cholesterol; and vit d [id number] 05/12/2016 05/12/2016 [facility] patient here to follow up with cholesterol; and vit d [id number] 05/12/2016 05/12/2016 [facility] patient here to follow up with cholesterol; and vit d [id number] 05/12/2016 05/12/2016 [facility] patient here to follow up with cholesterol; and vit d [id number] 05/12/2016 05/12/2016 [facility] patient here to follow up with cholesterol; and vit d [id number] 05/12/2016 05/12/2016 [facility] patient here to follow up with cholesterol; and vit d [id number] 05/12/2016 05/12/2016 [facility] Unknown [id number] 05/19/2016 05/19/2016 [facility] Unknown [id number] 05/19/2016 05/19/2016 [facility] Unknown [id number] 05/19/2016 05/19/2016 [facility] Unknown [id number] 05/19/2016 05/19/2016 [facility] Unknown [id number] 05/19/2016 05/19/2016 [facility] Unknown [id number] 05/19/2016 05/19/2016 [facility] Unknown [id number] 05/19/2016 05/19/2016 [facility] [place] [facility] [id number] Stevan Knutson 06/18/2016 06/19/2016 [facility] patient here to go over medications [id number] 07/10/2016 07/10/2016 [facility] patient here to go over medications [id number] 07/10/2016 07/10/2016 [facility] patient here to go over medications [id number] 07/10/2016 07/10/2016 [facility] patient here to go over medications [id number] 07/10/2016 07/10/2016 [facility] patient here to go over medications [id number] 07/10/2016 07/10/2016 [facility] patient here to go over medications [id number] 07/10/2016 07/10/2016 [facility] update flu vaccination [id number] 08/31/2016 08/31/2016 [facility] update flu vaccination [id number] 08/31/2016 08/31/2016 [facility] update flu vaccination [id number] 08/31/2016 08/31/2016 [facility] update flu vaccination [id number] 08/31/2016 08/31/2016 [facility] update flu vaccination [id number] 08/31/2016 08/31/2016 [facility] Patient here with right ankle pain [id number] 10/21/2016 10/21/2016 [facility] Patient here with right ankle pain [id number] 10/21/2016 10/21/2016 [facility] Patient here with right ankle pain [id number] 10/21/2016 10/21/2016 [facility] Patient here with right ankle pain [id number] 10/21/2016 10/21/2016 [facility] [place] [facility] [id number] Marybel Tigre 10/21/2016 10/22/2016 [facility] [place] [facility] [place] [facility] [id number] Stevan Knutson 10/29/2016 10/30/2016 [facility] [place] [facility] [place] [facility] [id number] Stevan Knutson 11/26/2016 11/27/2016 [facility] [place] [facility] [place] [facility] [id number] Stevan Knutson 12/25/2016 12/26/2016 [facility] [place] [facility] Emergency [id number] Sivan Friedman 01/02/2017 01/02/2017 [facility] physical and labs [id number] 01/08/2017 01/08/2017 [facility] physical and labs [id number] 01/08/2017 01/08/2017 [facility] physical and labs [id number] 01/08/2017 01/08/2017 [facility] Unknown [id number] 01/11/2017 01/11/2017 [facility] Unknown [id number] 01/11/2017 01/11/2017 [facility] patient here for a follow up [id number] 01/13/2017 01/13/2017 [facility] [place] [facility] [id number] Stevan Knutson 02/01/2017 02/02/2017 [facility] Room [id number] HANNAH HUANG MD 07/28/2017 07/28/2017 [facility] Discharged Inpatient (obs) [id number] KATHY ALAN MD 09/11/2017 09/11/2017 [facility] Outpatient [id number] Marybel Tirge 09/17/2017 09/18/2017 [facility] Departed Emergency Room [id number] JON CAMILO MD 02/05/2018 02/05/2018 [facility] Emergency [id number] Enrique Sadaf 02/11/2018 02/12/2018 [facility] Outpatient [id number] Dmitri Lopez 06/15/2018 06/15/2018 [facility] Bed[facility] Outpatient [id number] Kaden Irvin 10/13/2018 10/13/2018 [facility] Procedures Procedure Code Date Perfomer Comments Source Magnetic resonance imaging of brain without contrast [id number] 09/11/2017 [facility] Esophagogastroduodenoscopy [id number] 09/10/2017 [facility] Computed tomography of brain without radiopaque contrast [id number] 09/10/2017 [facility] Computed tomography of abdomen and pelvis with contrast [id number] 09/10/2017 [facility] Esophagogastroduodenoscopy [id number] 06/03/2015 [facility] Tubal ligation [id number] 11/08/1980 [facility] Colonoscopy [id number] [facility] Delivery care<sup>1</sup> [id number] vaginal delivery x, 1976, 1977, 1981 [facility] Esophagogastroduodenoscopy [id number] [facility] Assessment and Plan No Data Provided for This Section Plan of Care Plan of Care Date Source Discharge Date 02/05/18 2:35am Disposition HOME, SELF-CARE Condition at Discharge Stable Forms Provided Work/School Excuse Prescriptions See Medication Section Referrals NEVIN JORDAN M.D. Address: [address] [place] [address] [phone] Additional Instructions/Education Use positioning with whichever pillows you have available to find a position of comfort. You may take a dose of Pepcid tonight. Call tomorrow to schedule a follow up appt with your doctor to discuss possible medication adjustment if symtpoms continue. 02/05/2018 [facility] Social History Social History Date Source Social History TypeResponse Substance Abuse Use: None. Alcohol Never Smoking Status Never smoker; Exposure to Tobacco Smoke None; Cigarette Smoking Last 365 Days No; Reg Smoking Cessation Counseling No entered on: 10/13/18 10/12/2018 [facility] Social History Problem Response Recorded Date/Time Onset Date Status Hx Psychiatric Problems No 09/11/2017 1:39am Not Applicable Not Applicable Hx Eating Disorder No 09/11/2017 1:39am Not Applicable Not Applicable Hx Substance Use Disorder No 09/11/2017 1:39am Not Applicable Not Applicable Hx Depression Y - Antidepressants x2-3 weeks, no longer takes medication 09/11/2017 1:39am Not Applicable Not Applicable Hx Alcohol Use No 09/11/2017 1:39am Not Applicable Not Applicable Hx Substance Use Treatment No 09/11/2017 1:39am Not Applicable Not Applicable Hx Physical Abuse No 09/11/2017 1:39am Not Applicable Not Applicable Smoking Status Start Date Stop Date Never Smoker 02/05/2018 [facility] Social History ElementQualifiersDate Reported Tobacco Use: . Are you a: never smoker January 13, 2017 Use of recreational / street drugs? . Answer: No January 13, 2017 Alcohol Screening: . Points: 0, Interpretation: Negative January 13, 2017 Smoke Exposure: . Second Hand Smoke Exposure: No January 13, 2017 Do you have pets? . Status: No January 13, 2017 Marital Status: . January 13, 2017 Caffeine intake? . Status: No January 13, 2017 New since last visit: none. January 13, 2017 Do you exercise? . Answer: No January 13, 2017 Do you drink alcohol? . Status: No January 13, 2017 01/13/2017 [facility] Social History TypeResponse Smoking Status Never smoker; Exposure to Tobacco Smoke None; Cigarette Smoking Last 365 Days No; Reg Smoking Cessation Counseling No 01/02/2017 [facility] Family History Value Date Source QualifierDescriptionCommentDate Reported Maternal Grandmother Comment not available January 13, 2017 Paternal Grandmother Comment not available January 13, 2017 Siblings Comment not available January 13, 2017 Maternal Grandfather Comment not available January 13, 2017 Children Comment not available January 13, 2017 Father alive Comment not available January 13, 2017 Paternal Grandfather Comment not available January 13, 2017 Mother alive bad kidney, small heart attack January 13, 2017 Other: Comment not available January 13, 2017 01/14/2017 [facility] QualifierDescriptionCommentDate Reported Maternal Grandmother Comment not available Jul 10, 2016 Paternal Grandmother Comment not available Jul 10, 2016 Siblings Comment not available Jul 10, 2016 Maternal Grandfather Comment not available Jul 10, 2016 Children Comment not available Jul 10, 2016 Father alive Comment not available Jul 10, 2016 Paternal Grandfather Comment not available Jul 10, 2016 Mother alive bad kidney, small heart attack Jul 10, 2016 Other: Comment not available Jul 10, 2016 07/11/2016 [facility] Advance Directives Order Name Results Value Date Source Advance Directives Advance Directives Directive Response Recorded Date/Time Does the patient have an advance directive? No 09/11/17 1:39am If yes, is advance directive on file with [facility]? No 07/28/17 8:59am If not on file with [facility] will patient provide a copy? No 07/28/17 8:59am 02/05/2018 [facility] Functional Status No Data Provided for This Section
--- OUTSIDE RECORDS SUMMARY | 2019-05-20 16:45 | XMS REPORT | Summary of Care ---
Author Author [facility] Organization [facility] Address Unknown Phone Unavailable Encounter HQ Milly(FIN) [id number] Date(s): 06/15/18 - 06/15/18 [facility] [address] [place] [address]- [phone] Attending Physician: Physician, Non Associated MD Referring Physician: Dmitri Lopez MD Vital Signs Most recent to 1 oldest [Reference Range]: Height 152.4 cm (06/10/18 2:01 PM) Weight 68.182 kg (06/10/18 2:01 PM) Body Mass Index 29.36 m2 (06/10/18 2:01 PM) Problem List Condition Effective Dates Status Health Status Informant Bipolar affective 2016 Active disorder(Confirmed) Dysphagia(Confirmed) Resolved GERD Resolved (gastroesophageal reflux disease)(Confirmed) Hiatal Resolved hernia(Confirmed) HTN (hypertension) Active with goal to be determined(Confirmed ) Allergies, Adverse Reactions, Alerts Substance Reaction Severity Status penicillins Active Ranitidine Hydrochloride1 Active Bandaids Active 1rash Medications No data available for this section Results No data available for this section Immunizations No data available for this section Procedures Procedure Date Related Diagnosis Body Site Status Esophagogastroduodenoscopy 09/10/17 Completed Esophagogastroduodenoscopy 06/03/15 Completed Tubal ligation 1980 Completed Colonoscopy Completed Delivery care1 Completed Esophagogastroduodenoscopy Completed 1vaginal delivery x, 1976, 1977, 1981 Social History Social History Type Response Substance Abuse Use: None. Alcohol Never Smoking Status Never smoker; Exposure to Tobacco Smoke None; Cigarette Smoking Last 365 Days No; Reg Smoking Cessation Counseling No entered on: 10/13/18 Assessment and Plan No data available for this section
--- OUTSIDE RECORDS SUMMARY | 2019-05-20 16:46 | XMS REPORT | Summary of Care ---
Author Author [facility] Organization [facility] Address Unknown Phone Unavailable Encounter HQ Milly(MARLA) [id number] Date(s): 02/11/18 - 02/12/18 [facility] [address] [place] [address]- [phone] Encounter Diagnosis Poisoning by other antipsychotics and neuroleptics, intentional self-harm, initi al encounter (Final) - 02/24/18 Slurred speech (Final) - Bipolar disorder, unspecified (Final) - Underdosing of other antipsychotics and neuroleptics, initial encounter (Final) - Essential (primary) hypertension (Final) - Patient's intentional underdosing of medication regimen for other reason (Final) - Discharge Disposition: DC/TF To Psych Hosp Attending Physician: Enrique Talavera MD Vital Signs 1 2 3 Most recent to oldest [Reference Range]: 152.4 cm (02/11/18 4:00 PM) Height 98.1 DegF (02/12/18 11:35 AM) 98.4 DegF (02/12/18 7:20 AM) 98 DegF (02/12/18 3:52 AM) Temperature Oral [96.4-99.1 DegF] 112/74 mmHg (02/12/18 11:35 AM) 99/50 mmHg (02/12/18 7:20 AM) 100/67 mmHg (02/12/18 3:52 AM) Blood Pressure [90-140/60-90 mmHg] 18 BRMIN (02/12/18 11:35 AM) 16 BRMIN (02/12/18 7:20 AM) 14 BRMIN (02/12/18 3:52 AM) Respiratory Rate [14-20 BRMIN] 85 bpm (02/12/18 11:35 AM) 68 bpm (02/12/18 7:20 AM) 75 bpm (02/12/18 3:52 AM) Peripheral Pulse Rate [60-100 bpm] 65.909 kg (02/11/18 4:00 PM) Weight 28.38 m2 (02/11/18 4:00 PM) Body Mass Index Problem List No data available for this section Allergies, Adverse Reactions, Alerts Substance Reaction Severity Status penicillins Active Medications amLODIPine 5 mg, PO, Daily, 0 Refill(s) Start Date: 02/12/18 Status: Ordered Results ELECTROLYTES Most recent to 1 oldest [Reference Range]: Sodium Lvl [135-145 139 mEq/L mEq/L] (02/11/18 5:32 PM) Potassium Lvl 3.6 mEq/L [3.5-5.1 mEq/L] (02/11/18 5:32 PM) Chloride Lvl [95-109 107 mEq/L mEq/L] (02/11/18 5:32 PM) CO2 [24-32 mEq/L] 29 mEq/L (02/11/18 5:32 PM) AGAP [10.0-20.0 6.6 mEq/L mEq/L] *LOW* (02/11/18 5:32 PM) CHEM PANEL Most recent to 1 oldest [Reference Range]: Creatinine Lvl 0.57 mg/dL [0.50-1.40 mg/dL] (02/11/18 5:32 PM) eGFR 99 mL/min/1.73m2 1 *NA* (02/11/18 5:32 PM) BUN [7-22 mg/dL] 6 mg/dL *LOW* (02/11/18 5:32 PM) B/C Ratio [6-25] 11 (02/11/18 5:32 PM) Glucose Lvl [70-99 83 mg/dL mg/dL] (02/11/18 5:32 PM) Total Protein 7.6 g/dL [6.4-8.4 g/dL] (02/11/18 5:32 PM) Albumin Lvl [3.5-5.0 3.7 g/dL g/dL] (02/11/18 5:32 PM) Globulin [2.7-4.2 3.9 g/dL g/dL] (02/11/18 5:32 PM) A/G Ratio [0.7-1.6] 0.9 (02/11/18 5:32 PM) Calcium Lvl 9.1 mg/dL [8.5-10.5 mg/dL] (02/11/18 5:32 PM) ALT [0-65 unit/L] 26 unit/L (02/11/18 5:32 PM) AST [0-37 unit/L] 16 unit/L (02/11/18 5:32 PM) Alk Phos [39-136 100 unit/L unit/L] (02/11/18 5:32 PM) Bili Total [0.2-1.3 0.3 mg/dL mg/dL] (02/11/18 5:32 PM) 1Result Comment: The eGFR is calculated using the [...] from the National Kidney Disease Education Program ( NKDEP) which additionally recommends that when the eGFR is used in patients with extremes of body mass index for purposes of drug dosing, the eGFR should be mul tiplied by the estimated BMI. DRUG SCREEN Most recent to 1 oldest [Reference Range]: U Amph Scr Negative [Negative] *NA* (02/11/18 6:23 PM) U Ramona Scr Negative [Negative] *NA* (02/11/18 6:23 PM) U Benzodia Scr Negative [Negative] *NA* (02/11/18 6:23 PM) U Cocaine Scr Negative [Negative] *NA* (02/11/18 6:23 PM) U Opiate Scr Negative [Negative] *NA* (02/11/18 6:23 PM) U Phencyc Scr Negative [Negative] *NA* (02/11/18 6:23 PM) U Cannab Scr Negative [Negative] *NA* (02/11/18 6:23 PM) UDS Note See Note *NA* (02/11/18 6:23 PM) TOXICOLOGY Most recent to 1 oldest [Reference Range]: Acetaminoph Lvl 5 ug/ml [10-20 ug/ml] *LOW* (02/11/18 5:32 PM) Salicylate Lvl <1.7 mg/dL [0.0-30.0 mg/dL] (02/11/18 5:32 PM) Etoh (%) <.003 % *NA* (02/11/18 5:32 PM) Ethanol Lvl <3 mg/dL *NA* (02/11/18 5:32 PM) URINE AND STOOL Most recent to 1 oldest [Reference Range]: UA Turbidity [Clear] Clear (02/11/18 6:23 PM) UA Color Colorless *NA* (02/11/18 6:23 PM) UA pH [5.0-8.0] 6.0 (02/11/18 6:23 PM) UA Spec Grav 1.001 [<=1.030] (02/11/18 6:23 PM) UA Glucose [Negative Negative mg/dL mg/dL] *NA* (02/11/18 6:23 PM) UA Blood [Negative] Negative (02/11/18 6:23 PM) UA Ketones [Negative Negative mg/dL mg/dL] *NA* (02/11/18 6:23 PM) UA Protein [Negative Negative mg/dL mg/dL] (02/11/18 6:23 PM) UA Urobilinogen <=1.0 mg/dL [0.1-1.0 mg/dL] *NA* (02/11/18 6:23 PM) UA Bili [Negative] Negative *NA* (02/11/18 6:23 PM) UA Leuk Est Trace [Negative] *ABN* (02/11/18 6:23 PM) UA Nitrite Negative [Negative] (02/11/18 6:23 PM) UA WBC [0-5 /HPF] <1 /HPF (02/11/18 6:23 PM) UA RBC [0-2 /HPF] 2 /HPF (02/11/18 6:23 PM) UA Sq Epi [Few /LPF] Occasional /LPF *NA* (02/11/18 6:23 PM) HEMATOLOGY Most recent to 1 oldest [Reference Range]: WBC [3.7-10.4 K/CMM] 6.4 K/CMM (02/11/18 5:32 PM) RBC [4.20-5.40 4.75 M/CMM M/CMM] (02/11/18 5:32 PM) Hgb [12.0-16.0 g/dL] 14.8 g/dL (02/11/18 5:32 PM) Hct [36.0-48.0 %] 43.2 % (02/11/18 5:32 PM) MCV [80.0-98.0 fL] 91.1 fL (02/11/18 5:32 PM) MCH [27.0-31.0 pg] 31.2 pg *HI* (02/11/18 5:32 PM) MCHC [32.0-36.0 34.2 g/dL g/dL] (02/11/18 5:32 PM) RDW [11.5-14.5 %] 12.9 % (02/11/18 5:32 PM) MPV [7.4-10.4 fL] 9.0 fL (02/11/18 5:32 PM) Platelet [133-450 215 K/CMM K/CMM] (02/11/18 5:32 PM) Segs [45.0-75.0 %] 61.9 % (02/11/18 5:32 PM) Lymphocytes 30.3 % [20.0-40.0 %] (02/11/18 5:32 PM) Monocytes [2.0-12.0 4.8 % %] (02/11/18 5:32 PM) Eosinophils [0.0-4.0 2.4 % %] (02/11/18 5:32 PM) Basophils [0.0-1.0 0.6 % %] (02/11/18 5:32 PM) Segs-Bands # 4.0 K/CMM [1.5-8.1 K/CMM] (02/11/18 5:32 PM) Lymphocytes # 1.9 K/CMM [1.0-5.5 K/CMM] (02/11/18 5:32 PM) Monocytes # [0.0-0.8 0.3 K/CMM K/CMM] (02/11/18 5:32 PM) Eosinophils # 0.2 K/CMM [0.0-0.5 K/CMM] (02/11/18 5:32 PM) Microbiology Reports TEST: Culture: Urine STATUS: Auth (Verified) BODY SITE: SOURCE: Urine, Clean Catch COLLECTED DATE/TIME: 02/11/18 6:23 PM FINAL REPORT <10,000 CFU/mL Skin Shani Immunizations No data available for this section Procedures No data available for this section Social History Social History Type Response Smoking Status Never smoker; Ready to change: No; Concerns about tobacco use in household: No; Exposure to Tobacco Smoke None; Cigarette Smoking Last 365 Days No; Reg Smoking Cessation Counseling No entered on: 02/11/18 Assessment and Plan No data available for this section
--- OUTSIDE RECORDS SUMMARY | 2019-05-20 16:46 | XMS REPORT | Summary of Care ---
Author Author [facility] [place] Organization [facility] [place] Address Unknown Phone Unavailable Encounter HQ Senthil_anthony([facility]) [id number] Date(s): 08/16/15 - 08/16/15 [facility] [place] [address] [place] [address] [facility] [phone] Discharge Disposition: Home Attending Physician: Marybel Landeros MD Vital Signs No data available for this section Problem List No data available for this section Allergies, Adverse Reactions, Alerts No data available for this section Medications No data available for this section Results No data available for this section Immunizations No data available for this section Procedures No data available for this section Social History No data available for this section Assessment and Plan No data available for this section
--- OUTSIDE RECORDS SUMMARY | 2019-05-20 16:46 | XMS REPORT | Summary of Care ---
Author Author [facility] [place] Organization [facility] [place] Address Unknown Phone Unavailable Encounter HQ Encntr_alias(FIN) [id number] Date(s): 06/18/16 - 06/18/16 [facility] [place] [address] [place] [address] [phone] Discharge Disposition: Home or Self Care Attending Physician: Stevan Knutson MD Vital Signs No data available for [...]
--- OUTSIDE RECORDS SUMMARY | 2019-05-20 16:46 | XMS REPORT | Summary of Care ---
Author Author [facility] [place] Organization [facility] [place] Address Unknown Phone Unavailable Encounter HQ Encntr_alias(FIN) [id number] Date(s): 02/07/16 - 02/07/16 [facility] [place] [address] [place] [address]- [facility] [phone] Discharge Disposition: Home Attending Physician: Stevan Knutson MD Vital Signs [...]
--- OUTSIDE RECORDS SUMMARY | 2019-05-20 16:46 | XMS REPORT | Summary of Care ---
Author Author [facility] [place] Organization [facility] [place] Address Unknown Phone Unavailable Encounter HQ Encntr_alias(FIN) [id number] Date(s): 01/23/16 - 01/23/16 [facility] [place] [address] [place] [address]- [facility] [phone] Discharge Disposition: Home Attending Physician: Stevan Knutson [...]
--- OUTSIDE RECORDS SUMMARY | 2019-05-20 16:46 | XMS REPORT | Summary of Care ---
Author Author [facility] Organization [facility] Address Unknown Phone Unavailable Encounter HQ Kariner_ramosteddy(FIN) [id number] Date(s): 09/17/17 - 09/17/17 [facility] [address] [place] [address]- [phone] Discharge Disposition: Home or Self Care Attending Physician: Marybel Landeros MD Referring Physician: Marybel Landeros MD Vital Signs No data available for this section Problem List No data available for this section Allergies, Adverse Reactions, Alerts Substance Reaction Severity Status penicillins Active Medications No data available for this section Results No data available for this section Immunizations No data available for this section Procedures No data available for this section Social History Social History Type Response Smoking Status Never smoker; Exposure to Tobacco Smoke None; Cigarette Smoking Last 365 Days No; Reg Smoking Cessation Counseling No Assessment and Plan No data available for this section
--- OUTSIDE RECORDS SUMMARY | 2019-05-20 16:46 | XMS REPORT | Summary of Care ---
Author Author [facility] Organization [facility] Address Unknown Phone Unavailable Encounter DAIANA Atkins(MARLA) [id number] Date(s): 10/13/18 - 10/13/18 [facility] [address] [place] [address]- [phone] Encounter Diagnosis Gastro-esophageal reflux disease without esophagitis (Final) - 11/16/18 Dysphagia, unspecified (Final) - Diaphragmatic hernia without obstruction or gangrene (Final) - Chest pain, unspecified (Final) - Heartburn (Final) - Obesity, unspecified (Final) - Body mass index (BMI) 32.0-32.9, adult (Final) - Allergy status to penicillin (Final) - Discharge Disposition: Home or Self Care Attending Physician: Kaden Irvin MD Referring Physician: Kaden Irvin MD Vital Signs Most recent to 1 oldest [Reference Range]: Height 149.86 cm (10/12/18 3:02 PM) Temperature Oral 97.6 DegF [96.4-99.1 DegF] (10/13/18 10:21 AM) Blood Pressure 129/85 mmHg [90-140/60-90 mmHg] (10/13/18 10:21 AM) Respiratory Rate 17 BRMIN [14-20 BRMIN] (10/13/18 10:21 AM) Peripheral Pulse 72 bpm Rate [60-100 bpm] (10/13/18 10:21 AM) Weight 72.727 kg (10/12/18 3:02 PM) Body Mass Index 32.38 m2 (10/12/18 3:02 PM) Problem List Condition Effective Dates Status Health Status Informant Bipolar affective 2016 Active disorder(Confirmed) Dysphagia(Confirmed) Resolved GERD Resolved (gastroesophageal reflux disease)(Confirmed) Hiatal Resolved hernia(Confirmed) HTN (hypertension) Active with goal to be determined(Confirmed ) Allergies, Adverse Reactions, Alerts Substance Reaction Severity Status penicillins Active Ranitidine Hydrochloride1 Active Bandaids Active 1rash Medications benztropine 2 mg oral tablet 2 mg=1 tab, PO, Bedtime, 0 Refill(s) Start Date: 09/20/18 Status: Ordered esomeprazole 40 mg, PO, Daily, 0 Refill(s) Start Date: 09/20/18 Stop Date: 10/13/18 Status: Completed Gingko Biloba oral tablet 60 mg=, PO, Daily, 0 Refill(s) Start Date: 10/13/18 Status: Ordered Multiple Vitamins oral tablet 1 tab, PO, Daily, # 30 tab, 0 Refill(s) Start Date: 10/13/18 Status: Ordered perphenazine 4 mg oral tablet 4 mg=1 tab, PO, Daily, 0 Refill(s) Start Date: 09/20/18 Status: Ordered perphenazine 4 mg oral tablet 8 mg=2 tab, PO, QPM, 0 Refill(s) Start Date: 10/13/18 Status: Ordered Unknown Home Medication 10 mg=, PO, Daily, Refill(s) 0 Start Date: 10/13/18 Status: Ordered Unknown Home Medication 500 mg=, PO, Daily, Refill(s) 0 Start Date: 10/13/18 Status: Ordered Vitamin B12 PO, Daily, 0 Refill(s) Start Date: 10/13/18 Status: Ordered Vitamin B6 PO, Daily, 0 Refill(s) Start Date: 10/13/18 Status: Ordered Results No data available for this section [...]
--- OUTSIDE RECORDS SUMMARY | 2019-05-20 16:47 | XMS REPORT ---
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 Active Problem Anxiety disorder, unspecified F41.9 Active Problem Other chest pain R07.89 Active Problem Depression with anxiety F41.8 Active Problem Anxiety F41.9 Active Problem Obesity (BMI 30-39.9) E66.9 Active Problem Gastroesophageal reflux disease without esophagitis K21.9 Active Problem Short-term memory loss R41.3 Active Problem Obesity E66.9 Active Problem Hyperlipidemia E78.5 Active Problem Low vitamin D level E55.9 Active Problem BMI 30.0-30.9,adult Z68.30 Active Problem Atrophic vaginitis N95.2 Active Medications Medication Code System Code Instructions Start Date End Date Status Dosage Ergocalciferol [facility] [id number] UNIT Orally once a week Sep 22, 2017 Oct 22, 2017 Active 1 capsule Results No Known Results Summary Purpose [employer] Submission
--- OUTSIDE RECORDS SUMMARY | 2019-05-20 16:47 | XMS REPORT | Summary of Care ---
Author Author [facility] [place] Organization [facility] [place] Address Unknown Phone Unavailable Encounter HQ Encntr_alias(FIN) [id number] Date(s): 11/26/16 - 11/26/16 [facility] [place] [address] [place] [address] [phone] Discharge Disposition: Home or Self Care Attending [...]
--- OUTSIDE RECORDS SUMMARY | 2019-05-20 16:47 | XMS REPORT | Summary of Care ---
Author Author [facility] [place] Organization [facility] [place] Address Unknown Phone Unavailable Encounter HQ Encntr_alias(FIN) [id number] Date(s): 10/29/16 - 10/29/16 [facility] [place] [address] [place] [address] [phone] Discharge Disposition: Home or Self Care Attending [...]
--- OUTSIDE RECORDS SUMMARY | 2019-05-20 16:47 | XMS REPORT | Summary of Care ---
Author Author [facility] [place] Organization [facility] [place] Address Unknown Phone Unavailable Encounter HQ Encntr_alias(FIN) [id number] Date(s): 12/25/16 - 12/25/16 [facility] [place] [address] [place] [address]- [phone] Discharge Disposition: Home or Self Care Attending [...]
--- OUTSIDE RECORDS SUMMARY | 2019-05-20 16:47 | XMS REPORT ---
Author Author Marybel Landeros Organization [employer] Address Unknown Phone Unavailable Care Team Providers Care Knot Bumper Name Role Phone Marybel Landeros Unavailable Allergies, Adverse Reactions, Alerts Substance Reaction Event Type penicillin rash Drug Allergy Problems Problem Type Condition Code Onset Dates Condition Status Problem Chronic meniscal tear of knee M23.209 Active Problem Acute right ankle pain M25.571 Active Problem Right knee pain M25.561 Active Problem Depression with anxiety F41.8 Active Problem Other chest pain R07.89 Active Problem Anxiety disorder, unspecified F41.9 Active Problem Anxiety F41.9 Active Problem Obesity (BMI 30-39.9) E66.9 Active Problem Gastroesophageal reflux disease without esophagitis K21.9 Active Problem Short-term memory loss R41.3 Active Problem BMI 30.0-30.9,adult Z68.30 Active Problem Atrophic vaginitis N95.2 Active Assessment Hormone disturbance E34.9 Active Problem Low vitamin D level E55.9 Active Problem Obesity E66.9 Active Problem Hyperlipidemia E78.5 Active Medications Medication Code System Code Instructions Start Date End Date Status Dosage Atorvastatin Calcium [facility] [id number] 40 mg Orally Once a day Active 1 tablet Seroquel [facility] [address]-80 25 MG Orally Once a day Active 1 tablet at bedtime Ergocalciferol [facility] [id number] [address]5726 UNIT Orally Once a week Active 1 capsule Omeprazole [facility] [address]-16 40 MG Orally Once a day March 02, 2017 Active 1 capsule Vital Signs Date/Time: May 21, 2017 BMI 30.05 Index Weight 153.9 lbs Height 60 in Temperature 98.5 F Cardiac Monitoring Heart Rate 83 /min Blood Pressure Diastolic 87 mm Hg Blood Pressure Systolic 146 mm Hg Results No Known Results Summary Purpose [employer] Submission
--- OUTSIDE RECORDS SUMMARY | 2019-05-20 16:47 | XMS REPORT | Summary of Care ---
Author Author [facility] [place] Organization [facility] [place] Address Unknown Phone Unavailable Encounter HQ Kariner_anthony([facility]) [id number] Date(s): 10/21/16 - 10/21/16 [facility] [place] [address] [place] [phone] Discharge Disposition: Home or Self Care Attending Physician: Marybel Landeros MD Vital Signs [...]
--- OUTSIDE RECORDS SUMMARY | 2019-05-20 16:47 | XMS REPORT | Summary of Care ---
Author Author [facility] [place] Organization [facility] [place] Address Unknown Phone Unavailable Encounter HQ Encntr_alias(FIN) [id number] Date(s): 02/01/17 - 02/01/17 [facility] [place] [address] [place] [address]- [phone] Discharge Disposition: Home or Self Care Attending [...]
--- OUTSIDE RECORDS SUMMARY | 2019-05-20 16:47 | XMS REPORT | Summary of Care ---
Author Author [facility] Organization [facility] Address Unknown Phone Unavailable Encounter DAIANA Atkins(MARLA) [id number] Date(s): 01/02/17 - 01/02/17 [facility] [address] [place] [address]- Discharge Diagnosis: SOB (shortness of breath) Discharge Disposition: Home or Self Care Attending Physician: Sivan Friedman MD Vital Signs 1 2 3 Most recent to oldest [Reference Range]: 149.86 cm (01/02/17 1:23 AM) Height 97.9 DegF (01/02/17 4:22 AM) 97.6 DegF (01/02/17 1:23 AM) Temperature Oral [96.4-99.1 DegF] 122/89 mmHg (01/02/17 4:22 AM) 130/73 mmHg (01/02/17 2:07 AM) 137/79 mmHg (01/02/17 1:23 AM) Blood Pressure [90-140/60-90 mmHg] 14 BRMIN (01/02/17 4:22 AM) 18 BRMIN (01/02/17 1:23 AM) Respiratory Rate [14-20 BRMIN] 66 bpm (01/02/17 4:22 AM) 64 bpm (01/02/17 1:23 AM) Peripheral Pulse Rate [60-100 bpm] 72.727 kg (01/02/17 1:23 AM) Weight 32.38 m2 (01/02/17 1:23 AM) Body Mass Index Problem List No data available for this section Allergies, Adverse Reactions, Alerts Substance Reaction Severity Status penicillins Active Medications No data available for this section Results ELECTROLYTES Most recent to 1 oldest [Reference Range]: Sodium Lvl [135-145 143 mEq/L mEq/L] (01/02/17 3:10 AM) Potassium Lvl 3.7 mEq/L [3.5-5.1 mEq/L] (01/02/17 3:10 AM) Chloride Lvl [95-109 108 mEq/L mEq/L] (01/02/17 3:10 AM) CO2 [24-32 mEq/L] 25 mEq/L (01/02/17 3:10 AM) AGAP [10.0-20.0 13.7 mEq/L mEq/L] (01/02/17 3:10 AM) CHEM PANEL Most recent to 1 oldest [Reference Range]: Creatinine Lvl 0.55 mg/dL [0.50-1.40 mg/dL] (01/02/17 3:10 AM) eGFR 100 mL/min/1.73m2 1 *NA* (01/02/17 3:10 AM) BUN [7-22 mg/dL] 12 mg/dL (01/02/17 3:10 AM) Glucose Lvl [70-99 88 mg/dL mg/dL] (01/02/17 3:10 AM) Calcium Lvl 8.9 mg/dL [8.5-10.5 mg/dL] (01/02/17 3:10 AM) 1Result Comment: The eGFR is calculated using [...] be mul tiplied by the estimated BMI. CARDIAC ENZYMES Most recent to 1 oldest [Reference Range]: Total CK [12-191 343 unit/L unit/L] *HI* (01/02/17 3:10 AM) CK MB [0.5-3.6 1.6 ng/mL ng/mL] (01/02/17 3:10 AM) CK MB Index 0.5 [0.0-2.5] (01/02/17 3:10 AM) Troponin-I 0.03 ng/mL [0.00-0.40 ng/mL] (01/02/17 3:10 AM) HEMATOLOGY Most recent to 1 oldest [Reference Range]: WBC [3.7-10.4 K/CMM] 7.3 K/CMM (01/02/17 3:10 AM) RBC [4.20-5.40 4.50 M/CMM M/CMM] (01/02/17 3:10 AM) Hgb [12.0-16.0 g/dL] 14.2 g/dL (01/02/17 3:10 AM) Hct [36.0-48.0 %] 41.4 % (01/02/17 3:10 AM) MCV [80.0-98.0 fL] 92.0 fL (01/02/17 3:10 AM) MCH [27.0-31.0 pg] 31.6 pg *HI* (01/02/17 3:10 AM) MCHC [32.0-36.0 34.4 g/dL g/dL] (01/02/17 3:10 AM) RDW [11.5-14.5 %] 13.2 % (01/02/17 3:10 AM) Platelet [133-450 188 K/CMM K/CMM] (01/02/17 3:10 AM) MPV [7.4-10.4 fL] 9.6 fL (01/02/17 3:10 AM) Segs [45.0-75.0 %] 57.4 % (01/02/17 3:10 AM) Lymphocytes 31.9 % [20.0-40.0 %] (01/02/17 3:10 AM) Monocytes [2.0-12.0 6.9 % %] (01/02/17 3:10 AM) Eosinophils [0.0-4.0 3.3 % %] (01/02/17 3:10 AM) Basophils [0.0-1.0 0.5 % %] (01/02/17 3:10 AM) Segs-Bands # 4.2 K/CMM [1.5-8.1 K/CMM] (01/02/17 3:10 AM) Lymphocytes # 2.3 K/CMM [1.0-5.5 K/CMM] (01/02/17 3:10 AM) Monocytes # [0.0-0.8 0.5 K/CMM K/CMM] (01/02/17 3:10 AM) Eosinophils # 0.2 K/CMM [0.0-0.5 K/CMM] (01/02/17 3:10 AM) PT [12.0-14.7 13.0 seconds seconds] (01/02/17 3:10 AM) INR [0.85-1.17] 0.96 (01/02/17 3:10 AM) PTT [22.9-35.8 29.0 seconds seconds] (01/02/17 3:10 AM) Immunizations No data available for this section Procedures No data available for this section Social History Social History Type Response Smoking Status Never smoker; Exposure to Tobacco Smoke None; Cigarette Smoking Last 365 Days No; Reg Smoking Cessation Counseling No Assessment and Plan No data available for this section
--- OUTSIDE RECORDS SUMMARY | 2019-05-20 16:47 | XMS REPORT ---
Author Author Marybel Landeros Organization [employer] Address Unknown Phone Unavailable Care Team Providers Care Radio Communications Superintendent Name Role Phone Marybel Landeros Unavailable Allergies, Adverse Reactions, Alerts Substance Reaction Event Type penicillin rash Drug Allergy Problems Problem Type Condition Code Onset Dates Condition Status Problem Right knee pain M25.561 Active Problem Acute right ankle pain M25.571 Active Problem Chronic meniscal tear of knee M23.209 Active Problem Anxiety disorder, unspecified F41.9 Active Assessment BMI 30.0-30.9,adult Z68.30 Active Problem Other chest pain R07.89 Active Problem Depression with anxiety F41.8 Active Problem Anxiety F41.9 Active Problem Obesity (BMI 30-39.9) E66.9 Active Problem Gastroesophageal reflux disease without esophagitis K21.9 Active Problem Short-term memory loss R41.3 Active Assessment Low vitamin D level E55.9 Active Assessment Hyperlipidemia E78.5 Active Assessment Obesity (BMI 30-39.9) E66.9 Active Assessment Depression with anxiety F41.8 Active Problem Obesity E66.9 Active Problem Hyperlipidemia E78.5 Active Assessment Gastroesophageal reflux disease without esophagitis K21.9 Active Problem Low vitamin D level E55.9 Active Problem BMI 30.0-30.9,adult Z68.30 Active Problem Atrophic vaginitis N95.2 Active Medications Medication Code System Code Instructions Start Date End Date Status Dosage Escitalopram Oxalate ND 00507963112 5 MG Orally Once a day Active 1 tablet Atorvastatin Calcium ND 55460030046 40 mg Orally Once a day Active 1 tablet Levsin [facility] 18464926399 0.125 MG Orally Active 1 tablet before meals as needed Pantoprazole Sodium ND 38332223302 40 MG Orally Once a day Active 1 tablet Vital Signs Date/Time: Sep 21, 2017 BMI 29.23 Index Weight 149.7 lbs Height 60 in Temperature 97.7 F Cardiac Monitoring Heart Rate 66 /min Blood Pressure Diastolic 92 mm Hg Blood Pressure Systolic 144 mm Hg Results No Known Results Summary Purpose eClinicalWorks Submission
--- OUTSIDE RECORDS SUMMARY | 2019-05-20 16:48 | XMS REPORT ---
Author Author Marybel Landeros Organization [employer] Address Unknown Phone Unavailable Care Team Providers Care High Worker Name Role Phone Marybel Landeros Unavailable Allergies, [...] Problem Short-term memory loss R41.3 Active Assessment Osteoporosis screening Z13.820 Active Assessment Breast cancer screening Z12.31 Active Problem Obesity E66.9 Active Problem Hyperlipidemia E78.5 Active Assessment Well woman exam Z01.419 Active Problem Low vitamin D level E55.9 Active Problem BMI 30.0-30.9,adult Z68.30 Active Problem Atrophic vaginitis N95.2 Active Medications Medication Code System Code Instructions Start Date End Date Status Dosage Pantoprazole Sodium [facility] 09011092909 40 MG Orally Once a day Active 1 tablet Sucralfate [facility] 37029528616 1 GM/10ML Orally once a day as needed Jul 28, 2017 Aug 27, 2017 Active 10 ml Escitalopram Oxalate ND 25991595399 5 MG Orally Once a day Active 1 tablet Atorvastatin Calcium ND 79109843059 40 mg Orally Once a day Active 1 tablet Levsin [facility] 99765954992 0.125 MG Orally Active 1 tablet before meals as needed Vital Signs Date/Time: Aug 10, 2017 BMI 29.29 Index Weight 150.0 lbs Height 60 in Temperature 98.1 F Cardiac Monitoring Heart Rate 80 /min Blood Pressure Diastolic 76 mm Hg Blood Pressure Systolic 107 mm Hg Results No Known Results Summary Purpose eClinicalWorks Submission
--- OUTSIDE RECORDS SUMMARY | 2019-05-20 16:48 | XMS REPORT ---
Author Author Marybel Landeros [facility] eClinicalWorks Address Unknown Phone Unavailable Care Team Providers Care Computer Project Manager Name Role Phone Marybel Landeros Unavailable Allergies, Adverse Reactions, Alerts Substance Reaction Event Type penicillin rash Drug Allergy Problems Problem Type Condition Code Onset Dates Condition Status Problem Chronic meniscal tear of knee M23.209 Active Problem Acute right ankle pain M25.571 Active Problem Right knee pain M25.561 Active Problem Depression with anxiety F41.8 Active Assessment BMI 30.0-30.9,adult Z68.30 Active Problem [...] Assessment Depression with anxiety F41.8 Active Problem BMI 30.0-30.9,adult Z68.30 Active Problem Atrophic vaginitis N95.2 Active Assessment Gastroesophageal reflux disease without esophagitis K21.9 Active Problem Low vitamin D level E55.9 Active Problem Obesity E66.9 Active Problem Hyperlipidemia E78.5 Active Medications Medication Code System Code Instructions Start Date End Date Status Dosage Atorvastatin Calcium [facility] [address]-30 40 mg Orally Once a day Active 1 tablet Ergocalciferol [facility] 13281244117 59907 UNIT Orally Once a week Active 1 capsule Seroquel [facility] [address]-26 25 MG Orally Once a day Active 1 tablet at bedtime Pantoprazole Sodium [facility] [address]-99 40 MG Orally Once a day Jul 13, 2017 Active 1 tablet Omeprazole [facility] [address]-15 40 MG Orally Once a day Inactive 1 capsule Vital Signs Date/Time: Jul 13, 2017 BMI 29.82 Index Weight 152.7 lbs Height 60 in Temperature 97.8 F Cardiac Monitoring Heart Rate 73 /min Blood Pressure Diastolic 85 mm Hg Blood Pressure Systolic 125 mm Hg Results No Known Results Summary Purpose eClinicalWorks Submission
--- OUTSIDE RECORDS SUMMARY | 2019-05-20 16:48 | XMS REPORT ---
Author Author Marybel Landeros Organization [employer] Address Unknown Phone Unavailable Care Team Providers Care Drum Drier Operator Name Role Phone Marybel Landeros Unavailable Allergies, Adverse Reactions, Alerts Substance Reaction Event Type N.K.D.A. Info Not Available Non Drug Allergy Encounters Encounter Location Date Patient here with Right knee pain [facility] January 13, 2016 New patient here for WWE [facility] Aug 14, 2015 patient to follow up on labs [facility] Sep 13, 2015 patient here to follow up on medication [facility] January 08, 2016 Problems Problem Type Condition ICD-9 Code Onset Dates Condition Status Problem Low vitamin D level E55.9 Active Problem Atrophic vaginitis N95.2 Active Problem Hyperlipidemia E78.5 Active Assessment Right knee pain M25.561 Active Assessment Hyperlipidemia E78.5 Active Problem BMI 30.0-30.9,adult Z68.30 Active Problem Obesity E66.9 Active Medications Medication Code System Code Instructions Start Date End Date Status Dosage Atorvastatin Calcium [facility] [address]-48 40 mg Orally Once a day Sep 13, 2015 Active 1 tablet Meloxicam [facility] [address]-46 15 MG Orally Once a day January 13, 2016 March 13, 2016 Active 1 tablet Social History Social History Element Qualifiers Date Reported Tobacco Use: . Are you a: never smoker January 13, 2016 Use of recreational / street drugs? . Answer: No January 13, 2016 Alcohol Screening: . Points: 0, Interpretation: Negative January 13, 2016 Do you have pets? . Status: No January 13, 2016 Marital Status: . January 13, 2016 Caffeine intake? . Status: Yes January 13, 2016 New since last visit: none. January 13, 2016 Do you exercise? . Answer: No January 13, 2016 Do you drink alcohol? . Status: No January 13, 2016 Vital Signs Date/Time: January 13, 2016 Weight 164.3 lbs Height 60 in Temperature 98.4 F Cardiac Monitoring Heart Rate 76 /min Blood Pressure Diastolic 84 mm Hg Blood Pressure Systolic 129 mm Hg Summary Purpose eClinicalWorks Submission
--- OUTSIDE RECORDS SUMMARY | 2019-05-20 16:48 | XMS REPORT ---
Author Author Marybel Landeros Organization [employer] Address Unknown Phone Unavailable Care Team Providers Care Rumper Name Role Phone Marybel Landeros Unavailable Allergies, Adverse Reactions, Alerts Substance Reaction Event Type N.K.D.A. Info Not Available Non Drug Allergy Encounters Encounter Location Date Patient here with Right knee pain [facility] January 13, 2016 patient here to follow up [facility] March 09, 2016 New patient here for WWE [facility] Aug 14, 2015 patient to follow up on labs [facility] Sep 13, 2015 patient here to follow up on medication [facility] January 08, 2016 Problems Problem Type Condition ICD-9 Code Onset Dates Condition Status Assessment Right knee pain M25.561 Active Assessment Hyperlipidemia E78.5 Active Assessment Low vitamin D level E55.9 Active Assessment Chronic meniscal tear of knee M23.209 Active Problem Chronic meniscal tear of knee M23.209 Active Problem Hyperlipidemia E78.5 Active Problem Right knee pain M25.561 Active Problem BMI 30.0-30.9,adult Z68.30 Active Problem Obesity E66.9 Active Problem Low vitamin D level E55.9 Active Problem Atrophic vaginitis N95.2 Active Medications Medication Code System Code Instructions Start Date End Date Status Dosage Atorvastatin Calcium [facility] [address]-67 40 mg Orally Once a day Sep 13, 2015 Active 1 tablet Meloxicam [facility] [address]-84 15 MG Orally Once a day January 13, 2016 March 13, 2016 Active 1 tablet Social History Social History Element Qualifiers Date Reported Tobacco Use: . Are you a: never smoker March 09, 2016 Use of recreational / street drugs? . Answer: No March 09, 2016 Alcohol Screening: . Points: 0, Interpretation: Negative March 09, 2016 Do you have pets? . Status: No March 09, 2016 Marital Status: . March 09, 2016 Caffeine intake? . Status: Yes March 09, 2016 New since last visit: none. March 09, 2016 Do you exercise? . Answer: No March 09, 2016 Do you drink alcohol? . Status: No March 09, 2016 Vital Signs Date/Time: March 09, 2016 Weight 164.2 lbs Height 60 in Temperature 98.6 F Cardiac Monitoring Heart Rate 77 /min Blood Pressure Diastolic 90 mm Hg Blood Pressure Systolic 130 mm Hg Summary Purpose eClinicalWorks Submission
--- OUTSIDE RECORDS SUMMARY | 2019-05-20 16:48 | XMS REPORT ---
Author Author Marybel Landeros Organization [employer] Address Unknown Phone Unavailable Care Team Providers Care Pharmacist In Charge Name Role Phone TigreMarybel CP Unavailable Allergies, Adverse Reactions, Alerts Substance Reaction Event Type N.K.D.A. Info Not Available Non Drug Allergy Encounters Encounter Location Date New patient here for WWE [facility] Aug 14, 2015 patient to follow up on labs [facility] Sep 13, 2015 patient here to follow up on medication [facility] January 08, 2016 Problems Problem Type Condition ICD-9 Code Onset Dates Condition Status Assessment Obesity E66.9 Active Assessment Low vitamin D level E55.9 Active Assessment BMI 30.0-30.9,adult Z68.30 Active Problem Low vitamin D level E55.9 Active Problem Atrophic vaginitis N95.2 Active Problem Hyperlipidemia E78.5 Active Assessment Annual physical exam Z00.00 Active Assessment Hyperlipidemia E78.5 Active Problem BMI 30.0-30.9,adult Z68.30 Active Problem Obesity E66.9 Active Medications Medication Code System Code Instructions Start Date End Date Status Dosage Atorvastatin Calcium [facility] [address]-66 40 mg Orally Once a day Sep 13, 2015 Active 1 tablet Social History Social History Element Qualifiers Date Reported Tobacco Use: . Are you a: never smoker January 08, 2016 Use of recreational / street drugs? . Answer: No January 08, 2016 Alcohol Screening: . Points: 0, Interpretation: Negative January 08, 2016 Do you have pets? . Status: No January 08, 2016 Marital Status: . January 08, 2016 Caffeine intake? . Status: Yes January 08, 2016 New since last visit: none. January 08, 2016 Do you exercise? . Answer: No January 08, 2016 Do you drink alcohol? . Status: No January 08, 2016 Vital Signs Date/Time: January 08, 2016 Weight 165.4 lbs Height 60 in Temperature 98.6 F Cardiac Monitoring Heart Rate 76 /min Blood Pressure Diastolic 84 mm Hg Blood Pressure Systolic 137 mm Hg Summary Purpose eClinicalWorks Submission
--- OUTSIDE RECORDS SUMMARY | 2019-05-20 16:48 | XMS REPORT ---
Author Author Marybel Landeros [facility] eClinicalWorks Address Unknown Phone Unavailable Care Team Providers Care Java Lead Developer Name Role Phone Marybel Landeros Unavailable Allergies, [...] Instructions Start Date End Date Status Dosage Sucralfate [facility] [address]-77 1 GM/10ML Orally once a day as needed Jul 28, 2017 Aug 27, 2017 Active 10 ml Pantoprazole Sodium [facility] [address]-17 40 MG Orally Once a day Active 1 tablet Seroquel [facility] [address]-69 25 MG Orally Once a day Active 1 tablet at bedtime Levsin [facility] [address]-92 0.125 MG Orally Active 1 tablet before meals as needed Escitalopram Oxalate [facility] [address]-03 5 MG Orally Once a day Active 1 tablet Atorvastatin Calcium [facility] [address]-48 40 mg Orally Once a day Active 1 tablet Vital Signs Date/Time: Jul 28, 2017 BMI 29.19 Index Weight 149.5 lbs Height 60 in Temperature 98.6 F Cardiac Monitoring Heart Rate 61 /min Blood Pressure Diastolic 88 mm Hg Blood Pressure Systolic 144 mm Hg Results No Known Results Summary Purpose eClinicalWorks Submission
--- OUTSIDE RECORDS SUMMARY | 2019-05-20 16:48 | XMS REPORT ---
Author Author Marybel Landeros Organization [employer] Address Unknown Phone Unavailable Care Team Providers Care General Farm Hand Name Role Phone Tigre, Marybel CP Unavailable Allergies, Adverse Reactions, Alerts Substance Reaction Event Type N.K.D.A. Info Not Available Non Drug Allergy Encounters Encounter Location Date New patient here for WWE [facility] Aug 14, 2015 patient to follow up on labs [facility] Sep 13, 2015 Problems Problem Type Condition ICD-9 Code Onset Dates Condition Status Assessment Atrophic vaginitis N95.2 Active Problem Low vitamin D level E55.9 Active Problem Atrophic vaginitis N95.2 Active Problem Hyperlipidemia E78.5 Active Assessment Hyperlipidemia E78.5 Active Assessment Low vitamin D level E55.9 Active Problem BMI 30.0-30.9,adult Z68.30 Active Problem Obesity E66.9 Active Medications Medication Code System Code Instructions Start Date End Date Status Dosage [facility]ifer[facility] [address]-95 98469 UNIT Orally once a week Sep 13, 2015 Dec 12, 2015 Active [address] [facility] [address]-10 40 mg Orally Once a day Sep 13, 2015 Active 1 tablet Social History Social History Element Qualifiers Date Reported Tobacco Use: . Are you a: never smoker Sep 13, 2015 Use of recreational / street drugs? . Answer: No Sep 13, 2015 Do you have pets? . Status: No Sep 13, 2015 Marital Status: . Sep 13, 2015 Caffeine intake? . Status: Yes Sep 13, 2015 New since last visit: none. Sep 13, 2015 Do you exercise? . Answer: No Sep 13, 2015 Do you drink alcohol? . Status: No Sep 13, 2015 Vital Signs Date/Time: Sep 13, 2015 Weight 158.6 lbs Height 60 in Temperature 98.6 F Cardiac Monitoring Heart Rate 85 /min Blood Pressure Diastolic 83 mm Hg Blood Pressure Systolic 119 mm Hg Summary Purpose eClinicalWorks Submission
--- OUTSIDE RECORDS SUMMARY | 2019-05-20 16:49 | XMS REPORT ---
Author Author Marybel Landeros Organization [employer] Address Unknown Phone Unavailable Care Team Providers Care Retirement Specialist Name Role Phone Marybel Landeros Unavailable Encounters Encounter Location Date Patient here with Right knee pain [facility] January 13, 2016 patient here to follow up [facility] March 09, 2016 patient here to follow up with cholesterol; and vit d [facility] May 12, 2016 Unknown [facility] May 19, 2016 New patient here for WWE [facility] Aug 14, 2015 patient to follow up on labs [facility] Sep 13, 2015 patient here to follow up on medication [facility] January 08, 2016 patient here to go over medications [facility] Jul 10, 2016 update flu vaccination [facility] Aug 31, 2016 Problems Problem Type Condition ICD-9 Code Onset Dates Condition Status Problem Chronic meniscal tear of knee M23.209 Active Problem Hyperlipidemia E78.5 Active Problem Right knee pain M25.561 Active Problem BMI 30.0-30.9,adult Z68.30 Active Problem Obesity E66.9 Active Problem Low vitamin D level E55.9 Active Problem Atrophic vaginitis N95.2 Active Social History Social History Element Qualifiers Date Reported Tobacco Use: . Are you a: never smoker Jul 10, 2016 Use of recreational / street drugs? . Answer: No Jul 10, 2016 Alcohol Screening: . Points: 0, Interpretation: Negative Jul 10, 2016 Smoke Exposure: . Second Hand Smoke Exposure: No Jul 10, 2016 Do you have pets? . Status: No Jul 10, 2016 Marital Status: . Jul 10, 2016 Caffeine intake? . Status: No Jul 10, 2016 New since last visit: none. Jul 10, 2016 Do you exercise? . Answer: No Jul 10, 2016 Do you drink alcohol? . Status: No Jul 10, 2016 Summary Purpose eClinicalWorks Submission
--- OUTSIDE RECORDS SUMMARY | 2019-05-20 16:49 | XMS REPORT ---
Author Author Marybel Landeros [facility] eClinicalWorks Address Unknown Phone Unavailable Care Team Providers Care Site Leasing Agent Name Role Phone Marybel Landeros Unavailable Allergies, Adverse Reactions, Alerts Substance Reaction Event Type penicillin rash Drug Allergy Encounters Encounter Location Date Patient here with Right knee pain [facility] January 13, 2016 patient here to follow up [facility] March 09, 2016 patient here to follow up with cholesterol; and vit d [facility] May 12, 2016 Unknown [facility] May 19, 2016 New patient here for WWE [facility] Aug 14, 2015 patient to follow up on labs [facility] Sep 13, 2015 patient here to follow up on medication [facility] January 08, 2016 patient here to go over medications [facility] Jul 10, 2016 Problems Problem Type Condition ICD-9 Code Onset Dates Condition Status Assessment Hyperlipidemia E78.5 Active Assessment Low vitamin D level E55.9 Active Problem Chronic meniscal tear of knee M23.209 Active Problem Hyperlipidemia E78.5 Active Problem Right knee pain M25.561 Active Problem BMI 30.0-30.9,adult Z68.30 Active Problem Obesity E66.9 Active Problem Low vitamin D level E55.9 Active Problem Atrophic vaginitis N95.2 Active Medications Medication Code System Code Instructions Start Date End Date Status Dosage [facility]ropine [facility] [address]-09 0.5 MG Orally twice a day (bid) Active 1 tablet [facility] [address]-05 52436 UNIT Orally Once a week Jul 10, 2016 Oct 08, 2016 Active 1 capsule Risperidone [facility] [address]-84 2 MG Orally twice a day (bid) Active 1 tablet Atorvastatin Calcium [facility] [address]-85 40 mg Orally Once a day Active 1 tablet Social History Social History [...] alcohol? . Status: No Jul 10, 2016 Family history Qualifier Description Comment Date Reported Maternal Grandmother Comment not available Jul [...] Other: Comment not available Jul 10, 2016 Vital Signs Date/Time: Jul 10, 2016 Weight 163.2 lbs Height 60 in Temperature 98.1 F Cardiac Monitoring Heart Rate 76 /min Blood Pressure Diastolic 82 mm Hg Blood Pressure Systolic 144 mm Hg Summary Purpose eClinicalWorks Submission
--- OUTSIDE RECORDS SUMMARY | 2019-05-20 16:49 | XMS REPORT ---
Author Author Marybel Landeros Organization e[employer] Address Unknown Phone Unavailable Care Team Providers Care Room Clerk Name Role Phone Marybel Landeros Unavailable Encounters Encounter Location Date Patient here with Right knee pain [facility] January 13, 2016 patient here to follow up [facility] March 09, 2016 patient here to follow up with cholesterol; and vit d [facility] May 12, 2016 Unknown [facility] May 19, 2016 New patient here for WWE [facility] Aug 14, 2015 patient to follow up on labs [facility] Sep 13, 2015 patient here to follow up on medication [facility] January 08, 2016 Problems Problem [...] Start Date End Date Status Dosage Ergocalciferol [facility] [address]-44 97564 UNIT Orally Once a week May 19, 2016 Jun 18, 2016 Active 1 capsule Social History Social History Element Qualifiers Date Reported Tobacco Use: . Are you a: never smoker May 12, 2016 Use of recreational / street drugs? . Answer: No May 12, 2016 Alcohol Screening: . Points: 0, Interpretation: Negative May 12, 2016 Smoke Exposure: . Second Hand Smoke Exposure: No May 12, 2016 Do you have pets? . Status: No May 12, 2016 Marital Status: . May 12, 2016 Caffeine intake? . Status: Yes May 12, 2016 New since last visit: none. May 12, 2016 Do you exercise? . Answer: No May 12, 2016 Do you drink alcohol? . Status: No May 12, 2016 Summary Purpose eClinicalWorks Submission
--- OUTSIDE RECORDS SUMMARY | 2019-05-20 16:49 | XMS REPORT ---
Author Author Marybel Landeros [facility] eClinicalWorks Address Unknown Phone Unavailable Care Team Providers Care Band Salvager Name Role Phone Marybel Landeros Unavailable Allergies, Adverse Reactions, Alerts Substance Reaction Event Type penicillin rash Drug Allergy Encounters Encounter Location Date Patient here with Right knee pain [facility] January 13, 2016 patient here to follow up [facility] March 09, 2016 patient here to follow up with cholesterol; and vit d [facility] May 12, 2016 Unknown [facility] May 19, 2016 New patient here for WWE [facility] Aug 14, 2015 physical and labs [facility] January 08, 2017 patient to follow up on labs [facility] Sep 13, 2015 patient here to follow up on medication [facility] January 08, 2016 Patient here with right ankle pain [facility] Oct 21, 2016 patient here to go over medications [facility] Jul 10, 2016 update flu vaccination [facility] Aug 31, 2016 Problems Problem Type Condition ICD-9 Code Onset Dates Condition Status Problem Obesity E66.9 Active Problem Atrophic vaginitis N95.2 Active Problem BMI 30.0-30.9,adult Z68.30 Active Problem Obesity (BMI 30-39.9) E66.9 Active Problem Acute right ankle pain M25.571 Active Problem Anxiety F41.9 Active Problem Hyperlipidemia E78.5 Active Problem Low vitamin D level E55.9 Active Problem Right knee pain M25.561 Active Problem Chronic meniscal tear of knee M23.209 Active Assessment Obesity (BMI 30-39.9) E66.9 Active Assessment Low vitamin D level E55.9 Active Assessment Hyperlipidemia E78.5 Active Assessment BMI 30.0-30.9,adult Z68.30 Active Assessment Breast cancer screening Z12.39 Active Assessment Anxiety F41.9 Active Assessment Annual physical exam Z00.00 Active Medications Medication Code System Code Instructions Start Date End Date Status D[facility] [address]-15 25 MG Orally Once a day Active 1 tablet at bedtime Risperidone [facility] [address]-82 2 MG Orally twice a day (bid) Active 1 tablet Benztropine Mesylate [facility] [address]-42 0.5 MG Orally twice a day (bid) Active 1 tablet Atorvastatin Calcium [facility] [address]-26 40 mg Orally Once a day Active 1 tablet Social History Social History Element Qualifiers Date Reported Tobacco Use: . Are you a: never smoker January 08, 2017 Use of recreational / street drugs? . Answer: No January 08, 2017 Alcohol Screening: . Points: 0, Interpretation: Negative January 08, 2017 Smoke Exposure: . Second Hand Smoke Exposure: No January 08, 2017 Do you have pets? . Status: No January 08, 2017 Marital Status: . January 08, 2017 Caffeine intake? . Status: No January 08, 2017 New since last visit: none. January 08, 2017 Do you exercise? . Answer: No January 08, 2017 Do you drink alcohol? . Status: No January 08, 2017 Vital Signs Date/Time: January 08, 2017 Weight 160.1 lbs Height 60 in Temperature 97.8 F Cardiac Monitoring Heart Rate 66 /min Blood Pressure Diastolic 81 mm Hg Blood Pressure Systolic 128 mm Hg Summary Purpose eClinicalWorks Submission
--- OUTSIDE RECORDS SUMMARY | 2019-05-20 16:49 | XMS REPORT ---
Author Author Marybel Landeros Organization eClinicalWorks Address Unknown Phone Unavailable Care Team Providers Care Outbound Sales Consultant Name Role Phone Marybel Landeros Unavailable Allergies, Adverse Reactions, Alerts Substance Reaction Event Type N.K.D.A. Info Not Available Non Drug Allergy Encounters Encounter Location Date Patient here with Right knee pain [facility] January 13, 2016 patient here to follow up [facility] March 09, 2016 patient here to follow up with cholesterol; and vit d [facility] May 12, 2016 New patient here for WWE [facility] Aug 14, 2015 patient to follow up on labs [facility] Sep 13, 2015 patient here to follow up on medication [facility] January 08, 2016 Problems Problem Type Condition ICD-9 Code Onset Dates Condition Status Assessment Chronic meniscal tear of knee M23.209 Active Assessment Hyperlipidemia E78.5 Active Assessment Low vitamin D level E55.9 Active Problem Chronic meniscal tear of knee M23.209 Active Problem Hyperlipidemia E78.5 Active Problem Right knee pain M25.561 Active Problem BMI 30.0-30.9,adult Z68.30 Active Problem Obesity E66.9 Active Problem Low vitamin D level E55.9 Active Problem Atrophic vaginitis N95.2 Active Medications Medication Code System Code Instructions Start Date End Date Status Dosage Resperal Unknown 0 5-1.25-5-5 MG/5ML Orally daily Active 1 tablet [facility]or[facility]atin [facility] [address]-26 40 mg Orally Once a day Active [...] alcohol? . Status: No May 12, 2016 Vital Signs Date/Time: May 12, 2016 Weight 163.1 lbs Height 60 in Temperature 98.0 F Cardiac Monitoring Heart Rate 80 /min Blood Pressure Diastolic 85 mm Hg Blood Pressure Systolic 129 mm Hg Summary Purpose eClinicalWorks Submission
--- OUTSIDE RECORDS SUMMARY | 2019-05-20 16:49 | XMS REPORT ---
Author Author Marybel Landeros [facility] eClinicalWorks Address Unknown Phone Unavailable Care Team Providers Care Early Intervention Specialist Name Role Phone Marybel Landeros Unavailable Allergies, Adverse Reactions, Alerts Substance Reaction Event Type penicillin rash Drug Allergy Encounters Encounter Location Date Patient here with Right knee pain [facility] January 13, 2016 patient here to follow up [facility] March 09, 2016 patient here to follow up with cholesterol; and vit d [facility] May 12, 2016 Unknown [facility] May 19, 2016 New patient here for WWE [facility] Aug 14, 2015 patient to follow up on labs [facility] Sep 13, 2015 patient here to follow up on medication [facility] January 08, 2016 Patient here with right ankle pain [facility] Oct 21, 2016 patient here to go over medications [facility] Jul 10, 2016 update flu vaccination [facility] Aug 31, 2016 Problems Problem Type Condition ICD-9 Code Onset Dates Condition Status Problem Obesity E66.9 Active Assessment Acute right ankle pain M25.571 Active Problem Right knee pain M25.561 Active Problem Chronic meniscal tear of knee M23.209 Active Problem Acute right ankle pain M25.571 Active Problem Atrophic vaginitis N95.2 Active Problem BMI 30.0-30.9,adult Z68.30 Active Problem Hyperlipidemia E78.5 Active Problem Low vitamin D level E55.9 Active Medications Medication Code System Code Instructions Start Date End Date Status Dosage Atorvastatin Calcium [facility] [address]-11 40 mg Orally Once a day Active 1 tablet Benztropine Mesylate [facility] [address]-60 0.5 MG Orally twice a day (bid) Active 1 tablet Meloxicam [facility] [address]-98 15 MG Orally Once a day Oct 21, 2016 Nov 20, 2016 Active 1 tablet Risperidone [facility] [address]-76 2 MG Orally twice a day (bid) Active 1 tablet Social History Social History Element Qualifiers Date Reported Tobacco Use: . Are you a: never smoker Oct 21, 2016 Use of recreational / street drugs? . Answer: No Oct 21, 2016 Alcohol Screening: . Points: 0, Interpretation: Negative Oct 21, 2016 Smoke Exposure: . Second Hand Smoke Exposure: No Oct 21, 2016 Do you have pets? . Status: No Oct 21, 2016 Marital Status: . Oct 21, 2016 Caffeine intake? . Status: No Oct 21, 2016 New since last visit: none. Oct 21, 2016 Do you exercise? . Answer: No Oct 21, 2016 Do you drink alcohol? . Status: No Oct 21, 2016 Vital Signs Date/Time: Oct 21, 2016 Weight 165.3 lbs Height 60 in Temperature 98.1 F Cardiac Monitoring Heart Rate 84 /min Blood Pressure Diastolic 84 mm Hg Blood Pressure Systolic 121 mm Hg Summary Purpose eClinicalWorks Submission
--- OUTSIDE RECORDS SUMMARY | 2019-05-20 16:50 | XMS REPORT ---
Author Author Marybel Landeros Organization eClinicalWorks Address Unknown Phone Unavailable Care Team Providers Care Rn Manager Name Role Phone Marybel Landeros Unavailable Encounters Encounter Location Date Patient here with Right knee pain [facility] January 13, 2016 patient here to follow up [facility] March 09, 2016 patient here to follow up with cholesterol; and vit d [facility] May 12, 2016 Unknown [facility] May 19, 2016 New patient here for WWE [facility] Aug 14, 2015 physical and labs [facility] January 08, 2017 patient to follow up on labs [facility] Sep 13, 2015 Unknown [facility] January 11, 2017 patient here to follow up on medication [facility] January 08, 2016 Patient here with right ankle pain [facility] Oct 21, 2016 patient here to go over medications [facility] Jul 10, 2016 update flu vaccination [facility] Aug 31, 2016 Problems Problem Type Condition [...] Chronic meniscal tear of knee M23.209 Active Medications Medication Code System Code Instructions Start Date End Date Status Dosage Ergocalciferol [facility] [address]-36 42293 UNIT Orally Once a week January 11, 2017 February 10, 2017 Active 1 capsule Social History Social History [...] alcohol? . Status: No January 08, 2017 Summary Purpose eClinicalWorks Submission
--- OUTSIDE RECORDS SUMMARY | 2019-05-20 16:50 | XMS REPORT ---
Author Author Marybel Landeros [facility] eClinicalWorks Address Unknown Phone Unavailable Care Team Providers Care Binder Technician Name Role Phone Marybel Landeros Unavailable Allergies, Adverse Reactions, Alerts Substance Reaction Event Type penicillin rash Drug Allergy Encounters Encounter Location Date Patient here with Right knee pain [facility] January 13, 2016 patient here to follow up [facility] March 09, 2016 patient here to follow up with cholesterol; and vit d [facility] May 12, 2016 Unknown [facility] May 19, 2016 New patient here for WWE [facility] Aug 14, 2015 patient to follow up on labs [facility] Sep 13, 2015 patient here to follow up on medication [facility] January 08, 2016 Patient here with right ankle pain [facility] Oct 21, 2016 patient here to go over medications [facility] Jul 10, 2016 update flu vaccination [facility] Aug 31, 2016 patient here for a follow up [facility] January 13, 2017 physical and labs [facility] January 08, 2017 Unknown [facility] January 11, 2017 Problems Problem Type Condition ICD-9 Code Onset Dates Condition Status Problem BMI 30.0-30.9,adult Z68.30 Active Problem Low vitamin D level E55.9 Active Problem Atrophic vaginitis N95.2 Active Problem Anxiety F41.9 Active Problem Obesity (BMI 30-39.9) E66.9 Active Problem Short-term memory loss R41.3 Active Problem Chronic meniscal tear of knee M23.209 Active Problem Hyperlipidemia E78.5 Active Problem Acute right ankle pain M25.571 Active Problem Right knee pain M25.561 Active Assessment Short-term memory loss R41.3 Active Assessment Anxiety F41.9 Active Assessment Low vitamin D level E55.9 Active Assessment Obesity (BMI 30-39.9) E66.9 Active Assessment Hyperlipidemia E78.5 Active Assessment BMI 30.0-30.9,adult Z68.30 Active Problem Obesity E66.9 Active Medications Medication Code System Code Instructions Start Date End Date Status Dosage Seroquel [facility] [address]-04 25 MG Orally Once a day Active 1 tablet at bedtime Atorvastatin Calcium [facility] [address]-41 40 mg Orally Once a day Active 1 tablet Ergocalciferol [facility] [address]-56 54773 UNIT Orally Once a week January 11, [...] alcohol? . Status: No January 13, 2017 Family history Qualifier Description Comment Date Reported Maternal Grandmother Comment not available January [...] Other: Comment not available January 13, 2017 Vital Signs Date/Time: January 13, 2017 Weight 159.2 lbs Height 60 in Temperature 98.0 F Cardiac Monitoring Heart Rate 66 /min Blood Pressure Diastolic 76 mm Hg Blood Pressure Systolic 109 mm Hg Summary Purpose eClinicalWorks Submission
--- OUTSIDE RECORDS SUMMARY | 2019-05-20 16:50 | XMS REPORT ---
Author Author [facility] Address Unknown Phone Unavailable Care Team Providers Care Fruit Rancher Name Role Phone KATHY ALAN Unavailable Unavailable Macrina HUANG Unavailable Unavailable Problems This patient has no known problems. Allergies, Adverse Reactions, Alerts This patient has no known allergies or adverse reactions. Medications This patient has no known medications. Results Test Description Test Time Test Comments Text Results Atomic Results Result Comments MRI BRAIN WO [place] [address] Patient Name: JULIO PEOPLES MR #: [id number] : 1955 Age/Sex: 62/F Req #: [id number] [facility] Physician: KATHY ALAN MD Ordered by: JAMES MENA MD Report #: [id number] Location: MED/SURG Room/Bed: [facility] Procedure: [id number] MRI/MRI BRAIN WO Exam Date: 09/11/17 Exam [...] in size and configuration. No hydrocephalus. Extra-axial spaces: No abnormalities. Parenchyma: No masses, hemorrhage, or [...] TO: JAMES MENA MD CHEST SINGLE (PORTABLE) [place] [address] Patient Name: JULIO PEOPLES MR #: [id number] : 1955 Age/Sex: 62/F Req #: [id number] Adm Physician: Ordered by: JAMES MENA MD Report #: [id number] Location: ER Room/Bed: Procedure: [id number] DX/CHEST SINGLE (PORTABLE) Exam Date: 09/10/17 Exam Time: 2200 REPORT STATUS: Signed CHEST SINGLE (PORTABLE), 09/10/2017 9:58 PM Technique: CHEST SINGLE (PORTABLE) Comparison: 07/28/2017. Clinical history: Syncope Findings: Unremarkable appearance of the heart, mediastinum, lungs and pleural spaces. Impression: 1. Lines/Tubes: None 2. No acute abnormality. Signed by: Dr Ya Quarles MD on 09/10/2017 10:27 PM Dictated By: YA QUARLES MD 26 Transcribed By: LOY on 09/10/172226 COPY TO: JAMES MENA MD CT BRAIN WO [place] [address] Patient Name: JULIO PEOPLES MR #: [id number] : 1955 Age/Sex: 62/F Req #: [id number] Adm Physician: Ordered by: JAMES MENA MD Report #: [id number] Location: ER Room/Bed: Procedure: [id number] CT/CT BRAIN WO Exam Date: Exam Time: REPORT STATUS: Signed EXAMINATION: Head CT without contrast. HISTORY:Syncope. COMPARISON:None. TECHNIQUE: Multidetector axial images were obtained from the foramen magnum to the vertex without contrast. The images were reconstructed using brain and bone algorithms. Thin section brain images were reformatted into coronal and sagittal planes. Intravenous contrast: None IMAGE QUALITY: Acceptable. FINDINGS: Skull/scalp: No abnormality. Parenchyma: No abnormal density. No acute hemorrhage, mass or acute major vascular territorial infarct. Arteries: No density suggestive of thrombosis. Dural sinuses: No abnormal density suggestive of thrombosis. Ventricles: No hydrocephalus or displacement. Extra-axial spaces: No abnormal density. Brain volume: Normal for age. Craniocervical junction: No mass, Chiari malformation, or basilar invagination. Sella: No mass. Paranasal/mastoid sinuses: Imaged portions unremarkable. IMPRESSION: No intracranial abnormality. Signed by: Dr. Helen Amador M.D. on 09/10/2017 9:43 PM Dictated By: HELEN AMADOR MD 42 Transcribed By: LOY on 09/10/172142 COPY TO: JAMES MENA MD CT ABDOMEN/PELVIS W [place] [address] Patient Name: JULIO PEOPLES MR #: [id number] : 1955 Age/Sex: 62/F Req #: [id number] Adm Physician: Ordered by: JAMES MENA MD Report #: [id number] Location: ER Room/Bed: Procedure: [id number] CT/CT ABDOMEN/PELVIS W Exam Date: 09/10/17 Exam Time: 2100 REPORT STATUS: Signed EXAM: CT ABDOMEN/PELVIS W DATE: 09/10/2017 8:57 PM INDICATION: Syncope, pain in esophagus, prior EGD and biopsy COMPARISON: None TECHNIQUE: The abdomen and pelvis were scanned using a multidetector helical scanner. Coronal and sagittal reformations were obtained. Routine protocol performed. IV Contrast: 100 ml Isovue 370 FINDINGS: LOWER THORAX: No consolidations LIVER/BILIARY: Hepatic steatosis with peripheral wedge- shaped enhancement in segment 7 which may be perfusional.. No ductal dilatation. GALLBLADDER: Unremarkable SPLEEN: Unremarkable PANCREAS: Unremarkable ADRENALS: No nodules KIDNEYS: Symmetric perfusion. No enhancing masses. No hydronephrosis. GI TRACT: There is slight irregular thickening and enhancement of the gastric cardia (image 11). No evidence of bowel obstruction. Normal appendix. VESSELS: Unremarkable PERITONEUM/RETROPERITONEUM: No free air or fluid LYMPH NODES: No lymphadenopathy REPRODUCTIVE ORGANS/BLADDER: Unremarkable BONES: Moder ate L4-S1 facet arthrosis. IMPRESSION: 1. Mild thickening/enhancement of the gastric cardia. Correlate with recent EGD. 2. No acute abnormality in the abdomen or pelvis. Signed by: Dr Ya Quarles MD on 09/10/2017 10:03 PM Dictated By: YA QUARLES MD 02 Transcribed By: LOY on 09/10/172202 COPY TO: JAMES MENA MD CHEST SINGLE (PORTABLE) [place] [address] Patient Name: JULIO PEOPLES MR #: [id number] : 1955 Age/Sex: 62/F Req #: [id number] Adm Physician: Ordered by: HANNAH HUANG MD Report #: [id number] Location: ER Room/Bed: Procedure: [id number] DX/CHEST SINGLE (PORTABLE) Exam Date: 07/28/17 Exam Time: 904 REPORT STATUS: Signed PROCEDURE: CHEST SINGLE (PORTABLE) COMPARISON: None. INDICATIONS: CHEST PAIN MID STERNUM [...]
--- OUTSIDE RECORDS SUMMARY | 2019-05-20 16:50 | XMS REPORT ---
Author Author Marybel Landeros [facility] eClinicalWorks Address Unknown Phone Unavailable Care Team Providers Care Apparel Machinery Instructor Name Role Phone Marybel Landeros Unavailable Allergies, Adverse Reactions, Alerts Substance Reaction Event Type penicillin rash Drug Allergy Problems Problem Type Condition Code Onset Dates Condition Status Problem Chronic meniscal tear of knee M23.209 Active Problem Acute right ankle pain M25.571 Active Problem Right knee pain M25.561 Active Problem Depression with anxiety F41.8 Active Assessment Depression with anxiety F41.8 Active Problem Other chest pain R07.89 Active Assessment Obesity (BMI 30-39.9) E66.9 Active Assessment BMI 30.0-30.9,adult Z68.30 Active Problem Anxiety disorder, unspecified F41.9 Active Problem Anxiety F41.9 Active Problem Obesity (BMI 30-39.9) E66.9 Active Problem Gastroesophageal reflux disease without esophagitis K21.9 Active Problem Short-term memory loss R41.3 Active Assessment Hyperlipidemia E78.5 Active Assessment Gastroesophageal reflux disease without esophagitis K21.9 Active Assessment Short-term memory loss R41.3 Active Assessment Low vitamin D level E55.9 Active Problem BMI 30.0-30.9,adult Z68.30 Active Problem Atrophic vaginitis N95.2 Active Assessment Other chest pain R07.89 Active Problem Low vitamin D level E55.9 Active Problem Obesity E66.9 Active Problem Hyperlipidemia E78.5 Active Medications Medication Code System Code Instructions Start Date End Date Status Dosage Atorvastatin Calcium [facility] [address]-03 40 mg Orally Once a day Active 1 tablet Seroquel [facility] [address]-11 25 MG Orally Once a day Active 1 tablet at bedtime Omeprazole [facility] [address]-02 40 MG Orally Once a day March 02, 2017 Active 1 capsule Vital Signs Date/Time: March 02, 2017 BMI 30.44 Index Weight 155.9 lbs Height 60 in Temperature 98.1 F Cardiac Monitoring Heart Rate 61 /min Blood Pressure Diastolic 82 mm Hg Blood Pressure Systolic 128 mm Hg Results No Known Results Summary Purpose eClinicalWorks Submission
[2019-05-20] MEDS ORDERED: AMLODIPINE BESYL5 MG PO (18:32)
[2019-05-20] MEDS ORDERED: SERTRALINE HCL50 MG PO (18:32)
[2019-05-20] MEDS ORDERED: ZETIA10 MG PO (18:32)
--- NOTE | 2019-05-20 18:37 | Diagnostic Imaging Report ---
CT BRAIN WO HISTORY: Headaches COMPARISON: Report from MRI brain 09/11/[address] 09/10/2017 TECHNIQUE: Noncontrast axial scans were obtained from skull base to the vertex. Coronal and sagittal reconstructions obtained from the axial data. One or more of the following dose reduction techniques were used: Automated exposure control, adjustment of the mA and/or kV according to patient size, and/or utilization of iterative reconstruction technique. DISCUSSION: Scalp/Skull: Unremarkable. Brain sulci: Appropriate for patient's age. Ventricles: Normal in size and configuration. No hydrocephalus. Extra-axial spaces: No masses or fluid collections. Parenchyma: Mild carotid siphon calcifications are present. No mass, hemorrhage, or large vascular territory acute infarct. Dural sinuses: No abnormal densities. Sellar/Suprasellar region: Intact. Skull base: Intact. Incidental findings: None. IMPRESSION: No acute intracranial abnormalities. Signed by: Dr. Tony Will M.D. on 05/20/2019 6:34 PM
== END 2019-05-20 18:52 | disposition home or self-care (01) ==
LOC: ER 16:32
DX: G44.221 Chronic tension-type headache, intractable (principal); F41.9 Anxiety disorder, unspecified; F32.9 Major depressive disorder, single episode, unspecified; K21.9 Gastro-esophageal reflux disease without esophagitis
CPT/HCPCS: 70450; 99283

== ENCOUNTER 2019-09-18 18:57 | Emergency (ER) | payer MEDICARE, OTHER ==
[~2019-09-18] VITALS: Ht 180.3 cm; Wt 68.0 kg
[~2019-09-18 18:57] MED LIST changes: +AMLODIPINE BESYL5 MG PO; +SERTRALINE HCL50 MG PO; +ZETIA10 MG PO
[2019-09-18] MEDS ORDERED: KETOROLAC TROMETHAMINE 30 MG/ML VIAL IV ONE (19:26)
[2019-09-18] MEDS ORDERED: DIAZEPAM 5 MG TAB PO ONE (19:30)
[2019-09-18 19:40] LABS: BASOPHILS % 0.3 % (0.0-1.0); EOSINOPHILS # (AUTO) 0.2 (0.0-0.4); EOSINOPHILS % 3.5 % (0.0-6.0); HEMATOCRIT 41.4 % (34.2-44.1); HEMOGLOBIN 14.1 g/dL (12.0-16.0); LYMPHOCYTES # (AUTO) 1.8 (1.0-3.2); LYMPHOCYTES % 27.6 % (18.0-39.1); MEAN CORPUSCULAR HEMOGLOBIN 31.8 pg (28-32); MEAN CORPUSCULAR HGB CONC 34.1 g/dL (31-35); MEAN CORPUSCULAR VOLUME 93.5 fL (81-99); MONOCYTES # (AUTO) 0.3 (0.2-0.8); MONOCYTES % 4.7 % (4.4-11.3); NEUTROPHILS # (AUTO) 4.2 (2.1-6.9); NEUTROPHILS % 63.6 % (38.7-80.0); PLATELET COUNT 234 x10e3/uL (140-360); RED BLOOD COUNT 4.43 x10e6/uL (3.6-5.1); RED CELL DISTRIBUTION WIDTH 12.4 % (11.7-14.4)
[2019-09-18 19:57] LABS: ALANINE AMINOTRANSFERASE 17 IU/L (0-55); ALBUMIN 3.6 g/dL (3.5-5.0); ALBUMIN/GLOBULIN RATIO 1.2 (0.8-2.0); ALKALINE PHOSPHATASE 92 IU/L (40-150); ANION GAP 10.5 mmol/L (8-16); BLOOD UREA NITROGEN 9 mg/dL (7-26); BUN/CREATININE RATIO 12 (6-25); CALCIUM 9.1 mg/dL (8.4-10.2); CARBON DIOXIDE 27 mmol/L (22-29); CHLORIDE 106 mmol/L (98-107); CREATINE KINASE 162 IU/L (29-168); CREATININE, SERUM 0.73 mg/dL (0.57-1.11); EST GLOMERULAR FILTRATION RATE > 60 ML/MIN (60-); GLUCOSE 127 mg/dL (74-118); POTASSIUM 3.5 mmol/L (3.5-5.1); SODIUM 140 mmol/L (136-145)
--- NOTE | 2019-09-18 20:36 | Diagnostic Imaging Report ---
CT BRAIN WO HISTORY: Fall COMPARISON: Head CT 05/20/2019 Technique: Noncontrast axial scans were obtained from skull base to the vertex. Coronal and sagittal reconstructions obtained from the axial data. One or more of the following dose reduction techniques were used: Automated exposure control, adjustment of the mA and/or kV according to patient size, and/or utilization of iterative reconstruction technique. DISCUSSION: Scalp/Skull: Unremarkable. Brain sulci: Mildly prominent. Ventricles: Compensatory dilatation. Extra-axial spaces: No masses or fluid collections. Carotid siphon calcifications are present. Parenchyma: No abnormal densities. No masses, hemorrhage, or large vascular territory acute infarct. Dural sinuses: No abnormal densities. Sellar/Suprasellar region: Intact. Skull base: Intact. Incidental findings: None. IMPRESSION: 1. No acute intracranial abnormalities. 2. Mild generalized cerebral volume loss. Signed by: Dr. Tony Will M.D. on 09/18/2019 8:32 PM
--- NOTE | 2019-09-18 20:38 | Diagnostic Imaging Report ---
EXAMINATION: PA and lateral views of the chest. COMPARISON: None CLINICAL HISTORY: Fall DISCUSSION: Lines/tubes: None. Lungs: The lungs are well inflated and clear. No pneumonia or pulmonary edema. Pleura: No pleural effusion or pneumothorax. Heart and mediastinum: The cardiomediastinal silhouette is normal. Bones and soft tissues: No acute bony abnormalities. IMPRESSION: No acute cardiopulmonary abnormalities. Signed by: Dr. Nish Lynch M.D. on 09/18/2019 8:34 PM
--- NOTE | 2019-09-18 20:41 | Diagnostic Imaging Report ---
CT CERVICAL SPINE WO HISTORY: Fall COMPARISON: Concurrent head CT TECHNIQUE: CT of the cervical spine without contrast. Sagittal and coronal reformations were created. One or more of the following dose reduction techniques were used: Automated exposure control, adjustment of the mA and/or kV according to patient size, and/or utilization of iterative reconstruction technique. FINDINGS: Cervical lordosis is straightened. There is no significant scoliosis or subluxation. No fractures, compression deformity, or destructive osseous lesions are seen. The craniocervical junction is intact. No gross spinal canal masses are seen. The paravertebral and paraspinal soft tissues are unremarkable. Mild to moderate multilevel spondylotic changes are most prominent at C5-C6 and C6-C7. There is at least mild canal stenosis at C5-C6 due to posterior disc osteophyte complex. Multilevel bilateral e foraminal stenoses due to uncovertebral and facet arthrosis are present - moderate on the right at C4-C5, C5-C6, and C6-C7. IMPRESSION: 1. No acute osseous abnormalities. 2. Mild to moderate multilevel spondylosis, most prominent at C5-C6 and C6-C7. Signed by: Dr. Tony Will M.D. on 09/18/2019 8:38 PM
[2019-09-18 21:15] VITALS: BP 112/76
== END 2019-09-18 21:17 | disposition home or self-care (01) ==
LOC: ER 18:57
DX: R42 Dizziness and giddiness (principal); S06.0X0A Concussion without loss of consciousness, initial encounter; S40.211A Abrasion of right shoulder, initial encounter; W18.30XA Fall on same level, unspecified, initial encounter
CPT/HCPCS: 36415; 70450; 71046; 72125; 80053; 82550; 82553; 84484; 85025; 93005; 96374; 99284; J1885

== ENCOUNTER 2020-04-13 06:53 | Emergency (ER) | payer MEDICARE, OTHER ==
[~2020-04-13] VITALS: Ht 149.9 cm; Wt 56.7 kg
--- OUTSIDE RECORDS SUMMARY | 2020-04-13 06:57 | XMS REPORT | Continuity of Care Document ---
Author Author Rosibel Agosto [employer], JULIO Harden [employer] Address Unknown Phone Unavailable Care Team Providers Care Dial Painter Name Role Phone [id number] Information Exchange Unavailable Un available Problems Problem Status Onset Date Classification Date Reported Comments Source Gastro-esophageal reflux disease without esophagitis 11/17/2018 05/02/2019 [facility] UNK Active 1 [facility] Poisoning by other antipsychotics and ne uroleptics, intentional self-harm, initial encounter 02/25/2018 05/21/2018 [facility] INTENTIONAL OVERDOSE Active 02/11/2018 [facility] SCREENING MAMMOGRAM Active 08/23/2017 [facility] Z12.31 - ENCNTR SCREEN MAMMOGRAM FOR MA Active 02/24/2017 ML Salgado Discharge Diagnosis: SOB (shortness of breath) 01/02/2017 01/05/2017 [facility] SLURRED SPEECH Active 01/01/2017 [facility] M25.571 - PAIN IN RIGHT ANKLE AND JOINTS [facility]25.561 - PAIN IN RIGHT KNEE A ctive 01/13/2016 ML Salgado Bipolar disorder (disorder) Ac tive 11/08/2015 Problem 05/02/2019 [facility] Dysphagia (disorder) Resolved Problem 05/02/2019 [facility] Gastroesophageal reflux disease (disorder) Resolved Problem 05/02/2019 [facility] Hiatal hernia (disorder) Resol devyn Problem [facility] Hypertensive disorder, systemic arterial (disorder) Active Problem 05/02/2019 [facility] Dysphagia, unspecified 05/02/2019 [facility] Diaphragmatic hernia without obstruction or gangrene 05/02/2019 [facility] Chest pain, unspecified 05/02/2019 [facility] Heartburn 05/02/2019 [facility] Obesity, unspecified 05/02/2019 [facility] Body mass index (BMI) 32.0-32.9, adult 05/02/2019 [facility] Allergy status to penicillin 05/02/2019 [facility] Slurred speech 05/21/2018 [facility] Bipolar disorder, unspecified 05/21/2018 [facility] Underdosing of other antipsychotics and neuroleptics, initial encounter 05/21/2018 [facility] Essential (primary) hypertension 05/21/2018 [facility] Patient's intentional underdosing of med ication regimen for other reason 05/21/2018 [facility] Right knee pain Active Problem 09/23/2017 [facility] Acute right ankle pain Active Problem 09/23/2017 [facility] Chronic meniscal tear of knee Active Problem [facility] Anxiety disorder, unspecified Active Problem [facility] Other chest pain Active Problem 09/23/2017 [facility] Depression with anxiety Active Problem 09/23/2017 [facility] Anxiety Active Problem 09/23/2017 [facility] Obesity (BMI 30-39.9) Active Problem 09/23/2017 [facility] Gastroesophageal reflux disease without esophagitis Active Problem 09/23/2017 [facility] Short-term memory loss Active Problem 09/23/2017 [facility] Obesity Active Problem 09/23/2017 [facility] Hyperlipidemia Active Problem 09/23/2017 [facility] Low vitamin D level Active Problem 09/23/2017 [facility] BMI 30.0-30.9,adult Active Problem 09/23/2017 [facility] Atrophic vaginitis Active Problem 09/23/2017 [facility] Hormone disturbance Active Diagnosis 05/22/2017 [facility] Osteoporosis screening Active Diagnosis 08/11/2017 [facility] Breast cancer screening Active Diagnosis 08/11/2017 [facility] Breast cancer screening Active Diagnosis 01/09/2017 [facility] Medications Medication Details Route Status Patient Instructions Ordering Provider Order Date Source Unknown Home Medication 10 mg =, PO, Daily, Refill(s) 0 Active 10/13/2018 [facility] Vitamin B6 PO, Daily, 0 Refill (s) Active 10/13/2018 [facility] Gingko Biloba oral tablet 60 m g =, PO, Daily, 0 Refill(s) Active 10/13/2018 [facility] Vitamin B12 PO, Daily, 0 Refil l(s) Active 10/13/2018 [facility] Multiple Vitamins oral tablet 1 tab, PO, Daily, # 30 tab, 0 Refill(s) Active 10/13/2018 [facility] Unknown Home Medication 500 mg =, PO, Daily, Refill(s) 0 Active 10/13/2018 [facility] perphenazine 4 mg oral tablet 8 mg = 2 tab, PO, QPM, 0 Refill(s) Active 10/13/2018 [facility] Esomeprazole 40 mg, PO, Daily, 0 Refill(s) No Longer Active 09/20/2018 [facility] perphenazine 4 mg oral tablet 4 mg = 1 tab, PO, Daily, 0 Refill(s) Active 09/20/2018 [facility] benztropine mesylate 2 MG Oral Tablet 2 mg = 1 tab, PO, Bedtime, 0 Refill(s) Active 09/20/2018 [facility] Amlodipine 5 mg, PO, Daily, 0 Refill(s) Active 02/12/2018 [facility] Ergocalciferol 1 capsule Orally Active 28956 UNIT Orally once a week [facility] 09/22/2017 [facility] Sucralfate 10 ml Orally Active 1 GM/10ML Orally once a day as needed [facility] 07/28/2017 [facility] Sucralfate 10 ml Orally Active 1 GM/10ML Orally once a day as needed [facility] 07/28/2017 [facility] Pantoprazole Sodium 1 tablet Orally Active 40 MG Orally Once a day [facility] 07/13/2017 [facility] Omeprazole 1 capsule Orally Active 40 MG Orally Once a day [facility] 03/02/2017 [facility] Ergocalciferol 1 capsule Orally Active 86275 UNIT Orally Once a week [facility] 01/11/2017 [facility] Meloxicam 1 tablet Orally Active 15 MG Orally Once a day [facility] 10/21/2016 [facility] Ergocalciferol 1 capsule Orally Active 86719 UNIT Orally Once a week [facility] 07/10/2016 [facility] Ergocalciferol 1 capsule Orally Active 76619 UNIT Orally Once a week [facility] 05/19/2016 [facility] Meloxicam 1 tablet Orally Active 15 MG Orally Once a day [facility] 01/13/2016 [facility] Ergocalciferol 1 capsule Orally Active 98738 UNIT Orally once a week [facility] 09/13/2015 [facility] Atorvastatin Calcium 1 tablet Orally Active 40 mg Orally Once a day [facility] 09/13/2015 [facility] Atorvastatin Calcium 1 tablet Orally Active 40 mg Orally Once a day [facility] Seroquel 1 tablet at bedtime Orally Active 25 MG Orally Once a day [facility] Ergocalciferol 1 capsule Orally Active 43410 UNIT Orally Once a week [facility] Omeprazole 1 capsule Orally Active 40 MG Orally Once a day [facility] Escitalopram Oxalate 1 tablet Orally Active 5 MG Orally Once a day [facility] Atorvastatin Calcium 1 tablet Orally Active 40 mg Orally Once a day [facility] Levsin 1 tablet before meals a s needed Orally Active 0.125 MG Orally [facility] Pantoprazole Sodium 1 tablet Orally Active 40 MG Orally Once a day [facility] Pantoprazole Sodium 1 tablet Orally Active 40 MG Orally Once a day [facility] Levsin 1 tablet before meals a s needed Orally Active 0.125 MG Orally [facility] Escitalopram Oxalate 1 tablet Orally Active 5 MG Orally Once a day [facility] Benztropine Mesylate 1 tablet Orally Active 0.5 MG Orally twice a day (bid) [facility] Risperidone 1 tablet Orally Active 2 MG Orally twice a day (bid) [facility] Resperal 1 tablet Orally Active 5-1.25-5-5 MG/5ML Orall y daily [facility] Allergies, Adverse Reactions, Alerts Substance Category Reaction Severity Reaction type Status Date Reported Comments Source N.K.D.A. Adverse Reaction Info Not Available Adverse Reaction Active 05/12/2016 [facility] penicillin Adverse Reaction rash Adverse Reaction Active 09/21/2017 [facility] penicillins Assertion Drug allergy Active [facility] Ranitidine Hydrochloride<sup>1</sup> Assertion Drug aller gy Active rash [facility] Bandaids Assertion Drug allergy Active [facility] Immunizations No Data Provided for This Section Results Order Name Results Value Reference Range Date Interpretation Comments Source DRUG SCREEN U Opiate Scr Nega tive *NA* (02/11/18 6:23 PM) Negative 02/11/2018 [facility] DRUG SCREEN UDS Note See Note *NA* (02/11/18 6:23 PM) 02/11/2018 [facility] DRUG SCREEN U Phencyc Scr Nega tive *NA* (02/11/18 6:23 PM) Negative 02/11/2018 [facility] DRUG SCREEN U Cocaine Scr Nega tive *NA* (02/11/18 6:23 PM) Negative 02/11/2018 [facility] DRUG SCREEN U Cannab Scr Nega tive *NA* (02/11/18 6:23 PM) Negative 02/11/2018 [facility] DRUG SCREEN U Benzodia Scr Nega tive *NA* (02/11/18 6:23 PM) Negative 02/11/2018 [facility] DRUG SCREEN U Amph Scr Nega tive *NA* (02/11/18 6:23 PM) Negative 02/11/2018 [facility] DRUG SCREEN U Ramona Scr Nega tive *NA* (02/11/18 6:23 PM) Negative 02/11/2018 [facility] URINE AND STOOL UA Urobilinogen <=1.0 mg/dL 0.1 - 1.0 02/11/2018 [facility] URINE AND STOOL UA Color Colorless 02/11/2018 [facility] URINE AND STOOL UA Blood Negative (02/11/18 6:23 PM) Negative 02/11/2018 [facility] URINE AND STOOL UA Sq Epi Occasional /LPF Few /LPF 02/11/2018 [facility] URINE AND STOOL UA Protein Negative mg/dL Negative mg/dL 02/11/2018 [facility] URINE AND STOOL UA pH 6.0 5.0 - 8.0 02/11/2018 [facility] URINE AND STOOL UA Spec Grav 1.001 <=1.030 02/11/2018 [facility] URINE AND STOOL UA Glucose Negative mg/dL Negative mg/dL 02/11/2018 [facility] URINE AND STOOL UA Ketones Negative mg/dL Negative mg/dL 02/11/2018 [facility] URINE AND STOOL UA WBC <1 0 - 5 02/11/2018 [facility] URINE AND STOOL UA RBC 2 0 - 2 02/11/2018 [facility] URINE AND STOOL UA Turbidity Clear (02/11/18 6:23 PM) Clear 02/11/2018 [facility] URINE AND STOOL UA Bili Negative *NA* (02/11/18 6:23 PM) Negative 02/11/2018 [facility] URINE AND STOOL UA Leuk Est Trace *ABN* (02/11/18 6:23 PM) Negative 02/11/2018 [facility] URINE AND STOOL UA Nitrite Negative (02/11/18 6:23 PM) Negative 02/11/2018 [facility] Culture: Urine <10,000 CFU/mL Skin Shani 02/11/2018 [facility] ELECTROLYTES AGAP 6.6 10.0 - 20.0 02/11/2018 [facility] ELECTROLYTES Globulin 3.9 2.7 - 4.2 02/11/2018 [facility] ELECTROLYTES B/C Ratio 11 6 - 25 02/11/2018 [facility] ELECTROLYTES A/G Ratio 0.9 0.7 - 1.6 02/11/2018 [facility] ELECTROLYTES eGFR 99 02/11/2018 Result Comment: [...] should be multiplied by the estimated BMI. [facility] ELECTROLYTES AST 16 0 - 37 02/11/2018 [facility] ELECTROLYTES Bili Total 0.3 0.2 - 1.3 02/11/2018 [facility] ELECTROLYTES Alk Phos 100 39 - 136 02/11/2018 [facility] ELECTROLYTES Albumin Lvl 3.7 3.5 - 5.0 02/11/2018 [facility] ELECTROLYTES ALT 26 0 - 65 02/11/2018 [facility] ELECTROLYTES Total Protein 7.6 6.4 - 8.4 02/11/2018 [facility] ELECTROLYTES Calcium Lvl 9.1 8.5 - 10.5 02/11/2018 [facility] ELECTROLYTES CO2 29 24 - 32 02/11/2018 [facility] ELECTROLYTES Sodium Lvl 139 135 - 145 02/11/2018 [facility] ELECTROLYTES Chloride Lvl 107 95 - 109 02/11/2018 [facility] ELECTROLYTES Potassium Lvl 3.6 3.5 - 5.1 02/11/2018 [facility] ELECTROLYTES Creatinine Lvl 0.5 7 0.50 - 1.40 02/11/2018 [facility] ELECTROLYTES Glucose Lvl 83 70 - 99 02/11/2018 [facility] BUN 6 7 - 22 02/11/2018 [facility] HEMATOLOGY MPV 9.0 7.4 - 10.4 02/11/2018 [facility] HEMATOLOGY RDW 12.9 11.5 - 14.5 02/11/2018 [facility] HEMATOLOGY Platelet 215 133 - 450 02/11/2018 [facility] HEMATOLOGY MCH 31.2 27.0 - 31.0 02/11/2018 [facility] HEMATOLOGY MCHC 34.2 32.0 - 36.0 02/11/2018 [facility] HEMATOLOGY Hgb 14.8 12.0 - 16.0 02/11/2018 [facility] HEMATOLOGY Hct 43.2 36.0 - 48.0 02/11/2018 [facility] HEMATOLOGY WBC 6.4 3.7 - 10.4 02/11/2018 [facility] HEMATOLOGY RBC 4.75 4.20 - 5.40 02/11/2018 [facility] HEMATOLOGY MCV 91.1 80.0 - 98.0 02/11/2018 [facility] HEMATOLOGY Lymphocytes 30.3 20.0 - 40.0 02/11/2018 [facility] HEMATOLOGY Segs 61.9 45.0 - 75.0 02/11/2018 [facility] HEMATOLOGY Monocytes 4.8 2.0 - 12.0 02/11/2018 [facility] HEMATOLOGY Eosinophils 2.4 0.0 - 4.0 02/11/2018 [facility] HEMATOLOGY Lymphocytes # 1.9 1.0 - 5.5 02/11/2018 [facility] HEMATOLOGY Basophils 0.6 0.0 - 1.0 02/11/2018 [facility] HEMATOLOGY Segs-Bands # 4.0 1.5 - 8.1 02/11/2018 [facility] HEMATOLOGY Monocytes # 0.3 0.0 - 0.8 02/11/2018 [facility] HEMATOLOGY Eosinophils # 0.2 0.0 - 0.5 02/11/2018 [facility] TOXICOLOGY Acetaminoph Lvl 5 10 - 20 02/11/2018 [facility] TOXICOLOGY Ethanol Lvl <3 02/11/2018 [facility] TOXICOLOGY Etoh (%) <0.003 02/11/2018 [facility] TOXICOLOGY Salicylate Lvl <1.7 0.0 - 30.0 02/11/2018 [facility] CARDIAC ENZYMES CK MB Index 0.5 0.0 - 2.5 01/02/2017 [facility] CARDIAC ENZYMES Total CK 343 12 - 191 01/02/2017 [facility] CARDIAC ENZYMES Troponin-I 0.03 0.00 - 0.40 01/02/2017 [facility] CARDIAC ENZYMES CK MB 1.6 0.5 - 3.6 01/02/2017 [facility] ELECTROLYTES CO2 25 24 - 32 01/02/2017 [facility] ELECTROLYTES Calcium Lvl 8.9 8.5 - 10.5 01/02/2017 [facility] ELECTROLYTES AGAP 13.7 10.0 - 20.0 01/02/2017 [facility] ELECTROLYTES eGFR 100 01/02/2017 Result Comment: [...] should be multiplied by the estimated BMI. [facility] ELECTROLYTES Creatinine Lvl 0.5 5 0.50 - 1.40 01/02/2017 [facility] ELECTROLYTES BUN 12 7 - 22 01/02/2017 [facility] ELECTROLYTES Glucose Lvl 88 70 - 99 01/02/2017 [facility] ELECTROLYTES Chloride Lvl 108 95 - 109 01/02/2017 [facility] ELECTROLYTES Potassium Lvl 3.7 3.5 - 5.1 01/02/2017 [facility] ELECTROLYTES Sodium Lvl 143 135 - 145 01/02/2017 [facility] PTT 29.0 22.9 - 35.8 01/02/2017 [facility] INR 0.96 0.85 - 1.17 01/02/2017 [facility] PT 13.0 12.0 - 14.7 01/02/2017 [facility] Hct 41.4 36.0 - 48.0 01/02/2017 [facility] Hgb 14.2 12.0 - 16.0 01/02/2017 [facility] RBC 4.50 4.20 - 5.40 01/02/2017 [facility] WBC 7.3 3.7 - 10.4 01/02/2017 [facility] MPV 9.6 7.4 - 10.4 01/02/2017 [facility] Platelet 188 133 - 450 01/02/2017 [facility] MCHC 34.4 32.0 - 36.0 01/02/2017 [facility] RDW 13.2 11.5 - 14.5 01/02/2017 [facility] MCH 31.6 27.0 - 31.0 01/02/2017 [facility] HEMATOLOGY MCV 92.0 80.0 - 98.0 01/02/2017 [facility] Lymphocytes 31.9 20.0 - 40.0 01/02/2017 [facility] Segs 57.4 45.0 - 75.0 01/02/2017 [facility] Monocytes # 0.5 0.0 - 0.8 01/02/2017 [facility] Eosinophils # 0.2 0.0 - 0.5 01/02/2017 [facility] Segs-Bands # 4.2 1.5 - 8.1 01/02/2017 [facility] Monocytes 6.9 2.0 - 12.0 01/02/2017 [facility] Basophils 0.5 0.0 - 1.0 01/02/2017 [facility] Lymphocytes # 2.3 1.0 - 5.5 01/02/2017 [facility] Eosinophils 3.3 0.0 - 4.0 01/02/2017 [facility] Pathology Reports No Data Provided for This Section Diagnostic Reports Report Value Date Source Breast Mammo Scrn CHASE incl CAD MA BILATERAL DIGITAL SCREENING MAMMOGRAM WITH CAD: 09/17/2017 CLINICAL: /Routine. Current study was evaluated with a Computer Aided Detection (CAD) system. COMPARISON:Comparison is made to exams dated: 06/19/2014 mammogram, 04/26/2013 mammogram, and 07/09/2011 mammogram - [facility]. TECHNIQUE: Mammographic views were obtained using digital acquisition. Diagnostic [employer] Version 1.3 was utilized for computer aided [...] is recommended.(09/18/2018) This exam was interpreted at [id number] for [facility]. Cortez conde/gold:09/17/2017 15:56:37 Purification Director(s): Vonda Wilson [facility] letter sent: BI-RADS 1/2 Mammogram BI-RADS: 2 Benign 09/17/2017 [facility] Ankle 3 views DX EXAM: Ankle 3 views DX HISTORY: M25.571 Pain in right ankle and joints of right foot COMPARISON: 12/25/2016 3 views of the right ankle. IMPRESSION: 1. Interval callus formation without res idual fracture lucency of the distal fibular fracture. Mild residual soft tissue swelling. 2. Linear focus of mineralization along the medial aspect of the base of the right medial malleolus which may represent stripping of the medial retinaculum, unchanged. 3. No new abnormality. Small plantar oly caneal spur again noted. 02/01/2017 ML Salgado Chest 2 views DX Clinical So cation: Dyspnea Comparison: June 04, 2008 FINDINGS: The PA and lateral chest radiographs shows normal lung volumes without interstitial or airspace opacities, pleural effusions or pneumothorax. The cardiomediastinal contours are normal for the age of the patient with aortic tortuosity. There are degenerative changes in the spine. IMPRESSION: No chest radiographic evidence of acute cardiopulmonary disease. SL: 82 01/02/2017 [facility] Ankle 3 views DX EXAMINATION: Right [...] spur. IMPRESSION: 1. Oblique, nondisplaced distal right fi bular fracture redemonstrated without appreciable interval change. 2. Linear focus of mineralization along the medial aspect of the base of the right medial malleolus which may represent stripping of the medial retinaculum, also not definitely changed. 12/25/2016 ML Salgado Ankle 3 views DX EXAMINATION: [...] fracture fragment. 2. Unchanged linear foci of mineralizati on along the medial aspect of the base of the right medial malleolus which may represent stripping of the medial retinaculum, unchanged. 3. Persistent soft tissue swelling at th e right ankle. 11/26/2016 ML Salgado Ankle 3 [...] projection. 2. Redemonstration of linear foci of min eralization along the medial aspect of the base [...] are normal. IMPRESSION: 1. Nondisplaced, oblique fracture involv ing the distal right fibula extending distally near the level of the tibial plafond, only visualized on the lateral view. 2. Mineralization noted along the medial aspect of the base of the medial malleolus which may represent stripping of the medial retinaculum. 3. Soft tissue swelling noted anteriorly , medially, and laterally at the right ankle. 10/21/2016 ML Salgado Knee 1-2 Views Bilateral DX EX AMINATION: Bilateral knees 1 to 2 views each. [...] effusion. IMPRESSION: 1. Mild medial and patellofemoral compar tment, bicompartmental right knee arthritis with a small right knee effusion. 2. Minimal medial compartment joint spac e narrowing of the left knee. 06/18/2016 ML [...] ML Salgado Knee 3 Views Bilateral DX EXAM : Knee 3 Views Bilateral DX HISTORY: pain in right knee, pain in left knee COMPARISON: None 3 views of each knee. No fracture. No di slocation. Trace right effusion. Mild medial tibiofemoral joint [...] mammogram, 04/26/2013 mammogram and 06/19/2014 mammogram - [facility]. The tissue of both breasts is heterogeneously [...] 1 year screening mammogram is recommended. Rolo talavera/gold:08/23/2015 07:24:33 Purification Director: Genet Chan [facility] This exam was dictated and interpreted by [id number] for Aakash Fiore. letter sent: Normal exam Mammogram BI-RADS: 2 Benign 08/16/2015 ML Salgado Consultation Notes No Data Provided for This Section Discharge Summaries No Data Provided for This Section History and Physicals No Data Provided for This Section Vital Signs Vital Sign Value Date Comments Source Systolic (mm Hg) 129 10/13/2018 [facility] Diastolic (mm Hg) 85 10/13/2018 [facility] Temperature Oral (F) 97.6 F 10/13/2018 [facility] Heart Rate 72 10/13/2018 [facility] Respitory Rate 17 10/13/2018 [facility] BMI Calculated 32.38 10/12/2018 [facility] Weight 72.727 10/12/2018 [facility] Height 149.86 cm 10/12/2018 [facility] Height 152.4 cm 06/10/2018 [facility] BMI Calculated 29.36 06/10/2018 [facility] Weight 68.182 06/10/2018 [facility] Temperature Oral (F) 98.1 F 02/12/2018 [facility] Systolic (mm Hg) 112 02/12/2018 [facility] Diastolic (mm Hg) 74 02/12/2018 [facility] Heart Rate 85 02/12/2018 [facility] Respitory Rate 18 02/12/2018 [facility] Respitory Rate 16 02/12/2018 [facility] Systolic (mm Hg) 99 02/12/2018 [facility] Diastolic (mm Hg) 50 02/12/2018 [facility] Heart Rate 68 02/12/2018 [facility] Temperature Oral (F) 98.4 F 02/12/2018 [facility] Systolic (mm Hg) 100 02/12/2018 [facility] Diastolic (mm Hg) 67 02/12/2018 [facility] Temperature Oral (F) 98 F 02/12/2018 [facility] Heart Rate 75 02/12/2018 [facility] Respitory Rate 14 02/12/2018 [facility] BMI Calculated 28.38 02/11/2018 [facility] Weight 65.909 02/11/2018 [facility] Height 152.4 cm 02/11/2018 [facility] Weight 149.7 09/21/2017 [facility] Height 60 1 11/21/2016 [facility] Temperature Oral (F) 97.7 F 09/21/2017 [facility] Heart Rate 66 09/21/2017 [facility] Diastolic (mm Hg) 92 09/21/2017 [facility] Systolic (mm Hg) 144 09/21/2017 [facility] Weight 150.0 08/10/2017 [facility] Height 60 1 [facility] Temperature Oral (F) 98.1 F 08/10/2017 [facility] Heart Rate 80 08/10/2017 [facility] Diastolic (mm Hg) 76 08/10/2017 [facility] Systolic (mm Hg) 107 08/10/2017 [facility] Weight 149.5 07/28/2017 [facility] Primary Height 60 0 07/28/2017 [facility] Temperature Oral (F) 98.6 F 07/28/2017 [facility] Heart Rate 61 07/28/2017 [facility] Diastolic (mm Hg) 88 07/28/2017 [facility] Systolic (mm Hg) 144 07/28/2017 [facility] Weight 152.7 07/13/2017 [facility] Height 60 0 07/13/2017 [facility] Temperature Oral (F) 97.8 F 07/13/2017 [facility] Heart Rate 73 07/13/2017 [facility] Diastolic (mm Hg) 85 07/13/2017 [facility] Systolic (mm Hg) 125 07/13/2017 [facility] Weight 153.9 05/21/2017 [facility] Height 60 0 05/21/2017 [facility] Temperature Oral (F) 98.5 F 05/21/2017 [facility] Heart Rate 83 05/21/2017 [facility] Diastolic (mm Hg) 87 05/21/2017 [facility] Systolic (mm Hg) 146 05/21/2017 [facility] Weight 155.9 03/02/2017 [facility] Height 60 0 03/02/2017 [facility] Temperature Oral (F) 98.1 F 03/02/2017 [facility] Heart Rate 61 03/02/2017 [facility] Diastolic (mm Hg) 82 03/02/2017 [facility] Systolic (mm Hg) 128 03/02/2017 [facility] Weight 159.2 01/13/2017 [facility] Height 60 0 01/13/2017 [facility] Temperature Oral (F) 98.0 F 01/13/2017 [facility] Heart Rate 66 01/13/2017 [facility] Diastolic (mm Hg) 76 01/13/2017 [facility] Systolic (mm Hg) 109 01/13/2017 [facility] Weight 160.1 01/08/2017 [facility] Primary Height 60 0 01/08/2017 [facility] Temperature Oral (F) 97.8 F 01/08/2017 [facility] Heart Rate 66 01/08/2017 [facility] Diastolic (mm Hg) 81 01/08/2017 [facility] Systolic (mm Hg) 128 01/08/2017 [facility] Temperature Oral (F) 97.9 F 01/02/2017 [facility] Heart Rate 66 01/02/2017 [facility] Respitory Rate 14 01/02/2017 [facility] Systolic (mm Hg) 122 01/02/2017 [facility] Diastolic (mm Hg) 89 01/02/2017 [facility] Systolic (mm Hg) 130 01/02/2017 [facility] Diastolic (mm Hg) 73 01/02/2017 [facility] Height 149.86 cm 01/02/2017 [facility] Heart Rate 64 01/02/2017 [facility] Respitory Rate 18 01/02/2017 [facility] Systolic (mm Hg) 137 01/02/2017 [facility] Diastolic (mm Hg) 79 01/02/2017 [facility] Temperature Oral (F) 97.6 F 01/02/2017 [facility] BMI Calculated 32.38 01/02/2017 [facility] Weight 72.727 01/02/2017 [facility] Weight 165.3 10/21/2016 [facility] Height 60 1 12/22/2015 [facility] Temperature Oral (F) 98.1 F 10/21/2016 [facility] Heart Rate 84 10/21/2016 [facility] Diastolic (mm Hg) 84 10/21/2016 [facility] Systolic (mm Hg) 121 10/21/2016 [facility] Weight 163.2 07/10/2016 [facility] Primary Height 60 0 07/10/2016 [facility] Temperature Oral (F) 98.1 F 07/10/2016 [facility] Heart Rate 76 07/10/2016 [facility] Diastolic (mm Hg) 82 07/10/2016 [facility] Systolic (mm Hg) 144 07/10/2016 [facility] Weight 163.1 05/12/2016 [facility] Primary Height 60 0 05/12/2016 [facility] Temperature Oral (F) 98.0 F 05/12/2016 [facility] Heart Rate 80 05/12/2016 [facility] Diastolic (mm Hg) 85 05/12/2016 [facility] Systolic (mm Hg) 129 05/12/2016 [facility] Weight 164.2 03/09/2016 [facility] Primary Height 60 0 03/09/2016 [facility] Temperature Oral (F) 98.6 F 03/09/2016 [facility] Heart Rate 77 03/09/2016 [facility] Diastolic (mm Hg) 90 03/09/2016 [facility] Systolic (mm Hg) 130 03/09/2016 [facility] Weight 164.3 01/13/2016 [facility] Primary Height 60 0 01/13/2016 [facility] Temperature Oral (F) 98.4 F 01/13/2016 [facility] Heart Rate 76 01/13/2016 [facility] Diastolic (mm Hg) 84 01/13/2016 [facility] Systolic (mm Hg) 129 01/13/2016 [facility] Weight 165.4 01/08/2016 [facility] Primary Height 60 0 01/08/2016 [facility] Temperature Oral (F) 98.6 F 01/08/2016 [facility] Heart Rate 76 01/08/2016 [facility] Diastolic (mm Hg) 84 01/08/2016 [facility] Systolic (mm Hg) 137 01/08/2016 [facility] Weight 158.6 09/13/2015 [facility] Height 60 1 11/13/2014 [facility] Temperature Oral (F) 98.6 F 09/13/2015 [facility] Heart Rate 85 09/13/2015 [facility] Diastolic (mm Hg) 83 09/13/2015 [facility] Systolic (mm Hg) 119 09/13/2015 [facility] Primary Encounters Location Location Details Encounter Type Encounter Number Reason For Visit Attending Provider ADM Date DC Date Status Source [facility] Primary Care New patient here for WWE [id number] 08/14/2015 08/14/2015 [facility] Primary Care New patient here for WWE [id number] 08/14/2015 08/14/2015 [facility] Primary Care New patient here for WWE [id number] 08/14/2015 08/14/2015 [facility] Primary Care New patient here for WWE [id number] 08/14/2015 08/14/2015 [facility] Primary Care New patient here for WWE [id number] 08/14/2015 08/14/2015 [facility] Primary Care New patient here for WWE [id number] 08/14/2015 08/14/2015 [facility] Primary Care New patient here for WWE [id number] 08/14/2015 08/14/2015 [facility] Primary Care New patient here for WWE [id number] 08/14/2015 08/14/2015 [facility] Primary Care New patient here for WWE [id number] 08/14/2015 08/14/2015 [facility] Primary Care New patient here for WWE [id number] 08/14/2015 08/14/2015 [facility] Primary Care New patient here for WWE [id number] 08/14/2015 08/14/2015 [facility] Primary Care New patient here for WWE [id number] 08/14/2015 08/14/2015 [facility] [id number] Marybel Landeros 08/16/2015 08/17/2015 [facility] Primary Care patient to follow up on labs [id number] 09/13/2015 09/13/2015 [facility] Primary Care patient to follow up on labs [id number] 09/13/2015 09/13/2015 [facility] Primary Care patient to follow up on labs [id number] 09/13/2015 09/13/2015 [facility] Primary Care patient to follow up on labs [id number] 09/13/2015 09/13/2015 [facility] Primary Care patient to follow up on labs [id number] 09/13/2015 09/13/2015 [facility] Primary Care patient to follow up on labs [id number] 09/13/2015 09/13/2015 [facility] Primary Care patient to follow up on labs [id number] 09/13/2015 09/13/2015 [facility] Primary Care patient to follow up on labs [id number] 09/13/2015 09/13/2015 [facility] Primary Care patient to follow up on labs [id number] 09/13/2015 09/13/2015 [facility] Primary Care patient to follow up on labs [id number] 09/13/2015 09/13/2015 [facility] Primary Care patient to follow up on labs [id number] 09/13/2015 09/13/2015 [facility] Primary Care patient to follow up on labs [id number] 09/13/2015 09/13/2015 [facility] Primary Care patient here to follow up on medication [id number] 01/08/2016 01/08/2016 [facility] Primary Care patient here to follow up on medication [id number] 01/08/2016 01/08/2016 [facility] Primary Care patient here to follow up on medication [id number] 01/08/2016 01/08/2016 [facility] Primary Care patient here to follow up on medication [id number] 01/08/2016 01/08/2016 [facility] Primary Care patient here to follow up on medication [id number] 01/08/2016 01/08/2016 [facility] Primary Care patient here to follow up on medication [id number] 01/08/2016 01/08/2016 [facility] Primary Care patient here to follow up on medication [id number] 01/08/2016 01/08/2016 [facility] Primary Care patient here to follow up on medication [id number] 01/08/2016 01/08/2016 [facility] Primary Care patient here to follow up on medication [id number] 01/08/2016 01/08/2016 [facility] Primary Care patient here to follow up on medication [id number] 01/08/2016 01/08/2016 [facility] Primary Care patient here to follow up on medication [id number] 01/08/2016 01/08/2016 [facility] Primary Care Patient here with Right knee pain [id number] 01/13/2016 01/13/2016 [facility] Primary Care Patient here with Right knee pain [id number] 01/13/2016 01/13/2016 [facility] Primary Care Patient here with Right knee pain [id number] 01/13/2016 01/13/2016 [facility] Primary Care Patient here with Right knee pain [id number] 01/13/2016 01/13/2016 [facility] Primary Care Patient here with Right knee pain [id number] 01/13/2016 01/13/2016 [facility] Primary Care Patient here with Right knee pain [id number] 01/13/2016 01/13/2016 [facility] Primary Care Patient here with Right knee pain [id number] 01/13/2016 01/13/2016 [facility] Primary Care Patient here with Right knee pain [id number] 01/13/2016 01/13/2016 [facility] Primary Care Patient here with Right knee pain [id number] 01/13/2016 01/13/2016 [facility] Primary Care Patient here with Right knee pain [id number] 01/13/2016 01/13/2016 [facility] [id number] Stevan Knutson 01/23/2016 01/24/2016 THALIA Salgado [facility] [id number] Stevan Knutson 02/07/2016 02/08/2016 [facility] Primary Care patient here to follow up [id number] 03/09/2016 03/09/2016 [facility] Primary Care patient here to follow up [id number] 03/09/2016 03/09/2016 [facility] Primary Care patient here to follow up [id number] 03/09/2016 03/09/2016 [facility] Primary Care patient here to follow up [id number] 03/09/2016 03/09/2016 [facility] Primary Care patient here to follow up [id number] 03/09/2016 03/09/2016 [facility] Primary Care patient here to follow up [id number] 03/09/2016 03/09/2016 [facility] Primary Care patient here to follow up [id number] 03/09/2016 03/09/2016 [facility] Primary Care patient here to follow up [id number] 03/09/2016 03/09/2016 [facility] Primary Care patient here to follow up [id number] 03/09/2016 03/09/2016 [facility] Primary Care patient here to follow up with cholesterol; and vit d [id number] 05/12/2016 05/12/2016 [facility] Primary Care patient here to follow up with cholesterol; and vit d [id number] 05/12/2016 05/12/2016 [facility] Primary Care patient here to follow up with cholesterol; and vit d [id number] 05/12/2016 05/12/2016 [facility] Primary Care patient here to follow up with cholesterol; and vit d [id number] 05/12/2016 05/12/2016 [facility] Primary Care patient here to follow up with cholesterol; and vit d [id number] 05/12/2016 05/12/2016 [facility] Primary Care patient here to follow up with cholesterol; and vit d [id number] 05/12/2016 05/12/2016 [facility] Primary Care patient here to follow up with cholesterol; and vit d [id number] 05/12/2016 05/12/2016 [facility] Primary Care patient here to follow up with cholesterol; and vit d [id number] 05/12/2016 05/12/2016 [facility] Care Unknown [id number] 05/19/20 16 05/19/2016 [facility] Care Unknown [id number] 05/19/20 16 05/19/2016 [facility] Care Unknown [id number] 05/19/20 16 05/19/2016 [facility] Care Unknown [id number] 05/19/20 16 05/19/2016 [facility] Care Unknown [id number] 05/19/20 16 05/19/2016 [facility] Care Unknown [id number] 05/19/20 16 05/19/2016 [facility] Care Unknown [id number] 05/19/20 16 05/19/2016 [facility] [id number] Stevan Zenia 06/18/2016 06/19/2016 [facility] Primary Care patient here to go over medications [id number] 07/10/2016 07/10/2016 [facility] Primary Care patient here to go over medications [id number] 07/10/2016 07/10/2016 [facility] Primary Care patient here to go over medications [id number] 07/10/2016 07/10/2016 [facility] Primary Care patient here to go over medications [id number] 07/10/2016 07/10/2016 [facility] Primary Care patient here to go over medications [id number] 07/10/2016 07/10/2016 [facility] Primary Care patient here to go over medications [id number] 07/10/2016 07/10/2016 [facility] Care update flu vaccination [id number] 08/31/2016 08/31/2016 [facility] Care update flu vaccination [id number] 08/31/2016 08/31/2016 [facility] Primary Care update flu vaccination [id number] 08/31/2016 08/31/2016 [facility] Primary Care update flu vaccination [id number] 08/31/2016 08/31/2016 [facility] Primary Care update flu vaccination [id number] 08/31/2016 08/31/2016 [facility] Primary Care Patient here with right ankle pain [id number] 10/21/2016 10/21/2016 [facility] Primary Care Patient here with right ankle pain [id number] 10/21/2016 10/21/2016 [facility] Primary Care Patient here with right ankle pain [id number] 10/21/2016 10/21/2016 [facility] Primary Care Patient here with right ankle pain [id number] 10/21/2016 10/21/2016 [facility] [id number] Marybel Tigre 10/21/2016 10/22/2016 [facility] [place] [facility] [id number] Stevan Knutson 10/29/2016 10/30/2016 [facility] [place] [facility] [id number] Stevan Knutson 11/26/2016 11/27/2016 [facility] [place] [facility] [place] [facility] [id number] Stevan Knutson 12/25/2016 12/26/2016 [facility] [place] Emergency [id number] Sivan Friedman 01/02/2017 01/02/2017 [facility] Primary Care physical and labs [id number] 01/08/2017 01/08/2017 [facility] Primary Care physical and labs [id number] 01/08/2017 01/08/2017 [facility] Primary Care physical and labs [id number] 01/08/2017 01/08/2017 [facility] Primary Care Unknown [id number] 01/12/2001/11/2017 [facility] Care Unknown [id number] 01/12/2001/11/2017 [facility] Primary Care patient here for a follow up [id number] 01/13/2017 01/13/2017 [facility] [id number] Stevan Knutson 02/01/2017 02/02/2017 [facility] Outpatient [id number] Marybel Daviesmar 09/17/2017 09/18/2017 [facility] Emergency [id number] Enrique Talavera 02/11/2018 02/12/2018 [facility] Bed[facility] Outpatient [id number] Dmitri Lopez 06/15/2018 06/15/2018 [facility] Bed[facility] Outpatient [id number] Kaden Irvin 10/13/2018 10/13/2018 [facility] Procedures Procedure Code Date Perfomer Comments Source Tubal ligation [id number] 11/08/1980 [facility] Colonoscopy [id number] [facility] Delivery care<sup>1</sup> [phone] vaginal de livery x, 1976, 1977, 1981 [facility] Esophagogastroduodenoscopy [phone] [facility] Assessment and Plan No Data Provided for This Section Plan of Care No Data Provided for This Section Social History Social History Date Source Social History TypeResponse Substance Abuse Use: None. Alcohol Never Smoking Status Never smoker; Exposure to Tobacco Smoke None; Cigarette Smoking Last 365 Days No; Reg Smoking Cessation Counseling No entered on: 10/13/18 10/12/2018 [facility] Social History ElementQualifiersDate Rep orted Tobacco Use: . Are you a: never [...] . Status: No January 13, 2017 01/13/2017 [facility] Social History TypeResponse Smoking Status Never smoker; Exposure to Tobacco Smoke None; Cigarette Smoking Last 365 Days No; Reg Smoking Cessation Counseling No 01/02/2017 [facility] Family History Value Date S ource QualifierDescriptionCommentDate Reported Maternal Grandmother Comment not available [...] Comment not available January 13, 2017 01/14/2017 [facility] Primary QualifierDescriptionCommentDate Reported Maternal Grandmother Comment not [...] Comment not available Jul 10, 2016 07/11/2016 [facility] Primary Advance Directives No Data Provided for This Section Functional Status No Data Provided for This Section
--- OUTSIDE RECORDS SUMMARY | 2020-04-13 06:57 | XMS REPORT | Clinical Summary ---
Author Author [facility] Organization [facility] Address Unknown Phone Unavailable Care Team Providers Care Airflight Attendants Supervisor Name Role Phone Chad Wagner MD PCP Allergies Comments Active Allergy Reactions Severity Noted Date Latex, Natural Rubber Esomeprazole Magnesium Rash High 019 Cefdinir Rash High 07/25/2018 Other reaction(s): rash Penicillin 09/21/2017 Rash Rash Penicillins Hives High 06/10/2012 Ranitidine Mood disorder Ranitidine Hcl Palpitations Low 04/01/2018 Sertraline Rash Low 12/29/2018 Medications End Date Status Medication Sig Dispensed Refills Start Date Active multivit-min/ferrous Take by 0 fumarate (MULTI VITAMIN mouth. ORAL) Active niacin 500 MG tablet Take 500 mg 0 by mouth daily with breakfast. Active amLODIPine (NORVASC) 5 mg Take 1 tablet 90 tablet 1 tabletIndications: (5 mg total) 0 Essential hypertension by mouth daily. 06/22/2019 Discontinued GAMMA-AMINOBUTYRIC ACID, Take 1 0 BULK, MISC capsule by mouth every evening. 05/26/2019 Discontinued (Med List Clean up) multivitamin with Take 1 tablet 0 minerals (HAIR,SKIN AND by mouth NAILS) tablet daily. 06/22/2019 Discontinued benztropine (COGENTIN) 1 TAKE 1 TABLET 0 10/20 MG tablet BY MOUTH AT 8 BEDTIME FOR EPS PROPHYLAXIS. 06/22/2019 Discontinued b complex vitamins Take 1 0 capsule capsule by mouth daily. 10/09/2019 Discontinued ergocalciferol (VITAMIN Take 1 12 capsule 3 D2) 50,000 unit capsule capsule 9 (50,000 Units total) by mouth once a week. 08/11/2019 Discontinued (Reorder) ezetimibe (ZETIA) 10 mg Take 1 tablet 30 tablet 11 tabletIndications: Mixed (10 mg total) 9 hyperlipidemia by mouth daily. 06/22/2019 Discontinued ginkgo biloba 40 mg Take 60 mg by 0 tablet mouth every morning. 06/22/2019 Discontinued MAGNESIUM ORAL Take by mouth 0 every other day. 05/26/2019 Discontinued (Med List Clean up) omega-3 fatty acids (FISH Take by mouth 0 OIL CONCENTRATE ORAL) every morning. 06/22/2019 Discontinued sertraline (ZOLOFT) 50 MG TAKE 1/2 0 /2 tablet TABLET BY 9 MOUTH EVERY BEDTIME 05/26/2019 Discontinued (Med List Clean up) traZODone (DESYREL) 50 MG TAKE 1/2 0 01/06 tablet TABLET AT 9 BEDTIME FOR SLEEP. 05/26/2019 Discontinued (Med List Clean up) potassium chloride Take 1 tablet 60 tablet 1 02/03 (K-DUR) 20 MEQ CR (20 mEq 9 tabletIndications: total) by Hypokalemia mouth 2 (two) times a day. 02/13/2020 Discontinued (Reorder) amLODIPine (NORVASC) 5 mg TAKE 1 TABLET 3 tablet BY MOUTH 9 EVERY DAY FOR 90 DAYS 07/06/2019 Discontinued (Discontinued b y another clinician) SUMAtriptan (IMITREX) 25 Take 1 tablet 9 tablet 1 MG tabletIndications: (25 mg total) 9 Intractable migraine by mouth once without aura and with as needed for status migrainosus migraine for up to 1 dose. 07/06/2019 Discontinued (Discontinued b y another clinician) topiramate (TOPAMAX) 25 Take 1 tablet 60 tablet 1 MG tabletIndications: (25 mg total) 9 Intractable migraine by mouth 2 without aura and with (two) times a status migrainosus day. 09/04/2019 Discontinued atorvastatin (LIPITOR) 40 atorvastatin 0 MG tablet 40 mg tablet 09/04/2019 Discontinued magnesium oxide 250 mg Take 250 mg 0 magnesium tablet by mouth daily. 09/04/2019 Discontinued omega-3s/dha/epa/fish oil Take by 0 (OMEGA 3 ORAL) mouth. 09/04/2019 Discontinued B infantis/B ani/B cici/B Take by 0 bifid (PROBIOTIC mouth. DIGESTIVE CARE ORAL) 09/04/2019 Discontinued SUMAtriptan (IMITREX) 25 Take 1 tablet 9 tablet 3 MG tabletIndications: (25 mg total) 9 Intractable migraine by mouth once without aura and with as needed for status migrainosus migraine for up to 1 dose. 08/28/2019 Discontinued (Side effects) ezetimibe (ZETIA) 10 mg Take 1 tablet 30 tablet 11 tabletIndications: Mixed (10 mg total) 9 hyperlipidemia by mouth every morning. 09/04/2019 Discontinued topiramate (TOPAMAX) 25 0 MG tablet 9 10/09/2019 Discontinued multivitamin with Take 1 tablet 0 minerals tablet by mouth daily. 02/13/2020 Discontinued (Side effects) ezetimibe (ZETIA) 10 mg Take 10 mg by 0 tablet mouth daily. Active Problems Problem Noted Date History of repair of hiatal hernia 10/09/2019 Hernia, hiatal 12/14/2018 Overview: [id number] Acute intractable headache 12/13/2018 Nasal congestion 11/16/2018 Cyst of left kidney 06/29/2018 Ovarian mass 06/29/2018 Chest pain 04/25/2018 Impacted cerumen of right ear 03/01/2018 Dyspepsia 01/11/2018 Oropharyngeal dysphagia 01/11/2018 Atypical chest pain 12/22/2017 Gastroesophageal reflux disease with esophagitis Palpitations 11/16/2017 Essential hypertension 11/16/2017 Vitamin D deficiency 10/20/2017 Hormone imbalance 10/20/2017 Pure hypercholesterolemia 10/20/2017 Pain of right lower extremity 10/20/2017 Encounters Care Team Description Date Type Specialty Kenzie Woodward MA Suicidal ideation (Primary Dx); Evaluation by psychiatric service required 04/05/2020 Telephone Internal Medicine Doreen Wiggins MA 03/07/2020 Telephone Family Medicine Doreen Wiggins MA 02/15/2020 Telephone Family Medicine Chad Wagner MD Essential hypertension (Primary Dx) 02/13/2020 Telephone Family Medicine Consult 02/13/2020 Travel Chad Wagner MD 02/13/2020 Refill Internal Medicine Chad Wagner MD 12/01/2019 Telephone Family Medicine Cathy Chakraborty MD Palpitations (Primary Dx); Sleep apnea in adult; Essential hypertension; Pure hypercholesterolemia 10/16/2019 Office Visit Cardiology Dmitri Lopez MD History of repair of hiatal hernia (Prim andrew Dx); Gastroesophageal reflux disease with esophagitis 10/09/2019 Office Visit General Surgery Elizabeth Vivas MA 09/20/2019 Telephone General Surgery Daron Verduzco MD Chamsi-Pasha, Mohammed, MD Palpitations (Primary Dx); Family history of early CAD; Essential hypertension; Pure hypercholesterolemia 09/04/2019 Office Visit Cardiology Chad Wagner MD Worm infestation (Primary Dx); Suspected exposure to benzene 08/28/2019 Office Visit Family Medicine Emily Tillman RN 08/23/2019 Telephone Access Emily Tillman RN 08/23/2019 Nurse Triage Access Paty Rao MA Mixed hyperlipidemia 08/11/2019 Refill Family Medicine Chad Wagner MD Needs flu shot (Primary Dx); Encounter for immunization 07/20/2019 Office Visit Family Medicine Tenisha Driscoll MD Intractable migraine without aura and wi th status migrainosus 07/14/2019 Refill Neurology Chad Wagner MD Long-term use of high-risk medication (P rimary Dx); Intractable migraine without aura and with status migrainosus; Mixed hyperlipidemia; Essential hypertension 07/06/2019 Office Visit Family Medicine Deborah Roman MA 07/05/2019 Telephone Neurology Tenisha Driscoll MD Intractable migraine without aura and wi th status migrainosus (Primary Dx); Chronic tension-type headache, intractable; Eye pain, bilateral 06/22/2019 Office Visit Neurology Deborah Roman MA 06/22/2019 Telephone Neurology Dmitri Lpoez MD Hernia, hiatal (Primary Dx); Gastroesophageal reflux disease, esophagitis presence not specified 06/21/2019 Office Visit General Surgery Dmitri Lopez MD Reflux esophagitis 06/21/2019 Hospital Radiology Encounter Doreen Wiggins MA Essential hypertension (Primary Dx) 06/21/2019 Telephone Family Medicine Elizabeth Vivas MA 06/20/2019 Telephone General Surgery Elizabeth Vivas MA Reflux esophagitis (Primary Dx) 06/19/2019 Orders Only General Surgery Doreen Wiggins MA 06/06/2019 Telephone Family Medicine Chad Wagner MD Intractable migraine without aura and wi th status migrainosus (Primary Dx); Visual changes 05/26/2019 Office Visit Family Medicine Chad Wagner MD Visual changes (Primary Dx) 04/26/2019 Office Visit Family Medicine after 04/13/2019 Immunizations Name Administration Dates Next Due FLUBLOK QUAD PF 07/20/2019 Pneumococcal Conjugate 03/24/2019 13-Valent Family History Medical History Relation Name Comments Hypertension Father Heart disease Maternal Grandmother Heart disease Mother Hypertension Mother Kidney disease Mother No Known Problems Sister Relation Name Status Comments Father Alive Maternal Grandfather Maternal Grandmother Mother Alive Paternal Grandfather Paternal Grandmother Sister Alive Social History Date Tobacco Use Types Packs/Day Years Used Never Smoker Smokeless Tobacco: Never Used Tobacco Cessation: Counseling Given: No Drinks/Week oz/Week Comments Alcohol Use No Sex Assigned at Date Recorded Female 04/01/2020 6:59 AM CDT Industry Job Start Date Occupation Not on file Not on file Not on file Travel End Travel History Travel Start No recent travel history available. 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 Pulse 36.7 C (98 F) 10/09/2019 11:23 AM MAGNETIC TAPE TYPEWRITER OPERATOR Temperature 20 08/28/2019 10:51 AM CDT Respiratory Rate 98% 08/28/2019 10:51 AM CDT Oxygen Saturation - - Inhaled Oxygen Concentration 56.7 kg (125 lb) 02/13/2020 3:05 PM CDT Weight 152.4 cm (5') 02/13/2020 3:05 PM CDT Height 24.41 02/13/2020 3:05 PM CDT Body Mass Index Plan of Treatment Health Maintenance Due Date Last Done Comments SHINGLES VACCINES (#1) 2003 65+ PNEUMOCOCCAL VACCINE 03/24/2020 03/24/2019 (2 of 2 - PPSV23) INFLUENZA VACCINE 06/08/2020 07/20/2019, 09/08/2017 BREAST CANCER SCREENING 08/17/2020 08/17/2018, 08/17/2018, 07/09/2017 COLONOSCOPY SCREENING 11/08/2024 11/08/2014 Implants Device Identifier Shelf Expiration Date Model / Serial / L ot Implanted Type Area Manufactur er 02/22/2019 FGS [id number] / / [id number] Capsule Ph W/ Ds [place] - [id number] Surgical N/A: N/A GIVEN Implanted: Qty: 1 on 08/24/2018 by Implants; GIRMA Kaden Lara MD at [facility] Expanders; HOSPITAL Extenders; Surgical Wires 05/30/2022 [id number] / / [id number] Linx Reflux Mangmt System 14 Bead - Surgical N/A: N/A TORAX [id number] Implants; MEDICAL Implanted: 01/06/2019 at [facility] Expanders; [facility] (Quantity not on file) Extenders; Surgical Wires Procedures Comments Procedure Name Priority Date/Time Associated Diag nosis CV CARDIAC EVENT MONITOR Routine 10/04/2019 TEST IN QUESTION - NO Routine 09/13/2019 TEST FOR CONTAINER 3:01 PM MAGNETIC TAPE TYPEWRITER OPERATOR OVA & PARASITES, Routine 09/13/2019 CONCENTRATED EXAMINATION 3:01 PM MAGNETIC TAPE TYPEWRITER OPERATOR VA AND PARASITES, STOOL, Routine 09/13/2019 Worm infestation CONC/PERM SMEAR, 2 SPEC 3:01 PM MAGNETIC TAPE TYPEWRITER OPERATOR ECG 12-LEAD Routine 09/04/2019 Family history of early 10:12 AM CDT CAD BENZENE, BLOOD Routine 08/28/2019 Suspected expos ure to 11:28 AM CDT benzene FLUBLOK QUAD PF (0.5ML Routine 07/20/2019 Encount er for SYRINGE) 4:40 PM CDT immunization URINALYSIS, COMPLETE, Routine 07/06/2019 Essentia l hypertension WITH REFLEX TO CULTURE 3:23 PM CDT THYROID STIMULATING Routine 07/06/2019 Long-term use of HORMONE 3:09 PM CDT high-risk medicatio n CBC WITH PLATELET AND Routine 07/06/2019 Long-ter m use of DIFFERENTIAL 3:09 PM CDT high-risk medicatio n COMPREHENSIVE METABOLIC Routine 07/06/2019 Long-t erm use of PANEL 3:09 PM CDT high-risk medicatio n Mixed hyperlipidemia LIPID PANEL WITH REFLEX Routine 07/06/2019 Long-t erm use of TO DIRECT LDL 3:09 PM CDT high-risk medicatio n Mixed hyperlipidemia ZZFL UGI W KUB Routine 06/21/2019 Reflux esophagi tis 8:45 AM CDT after 04/13/2019 Results * CV Cardiac event monitor (10/04/2019) Narrative Performed At This result has an attachment that is n ot available. * OVA AND PARASITES, STOOL CONC/PERM SMEAR, 2 SPEC (09/13/2019 3:01 PM MAGNETIC TAPE TYPEWRITER OPERATOR) Ova & parasites Comment: [employer] concentrated OVA AND PARASITES, DIAGNOSTICS exam CONC/PERM SMEAR, 2 SPEC [place] MICRO NUMBER: [id number] TEST STATUS: FINAL SPECIMEN SOURCE: STOOL SPECIMEN QUALITY: INADEQUATE CONCENTRATION 1: Test not performed. No suitable specimen received. TRICHROME 1: Test not performed. CONCENTRATION 2: Test not performed. TRICHROME 2: Test not performed. Routine Ova and Parasite exam may not detect some parasites that occasionally cause diarrheal illness. Test code(s) 38557 (Cryptosporidium Ag., DFA) and/or 51789 (Cyclospora and Isospora Exam) may be ordered to detect these parasites. For additional information, please refer to https://education.[employer] Access[employer]/faq/KGJ592 (This link is being provided for informational/ educational purposes only.) Specimen Stool Resulting Agency Comment Performing Organization Information: Site ID: [id number] Name: [facility] Lab Address: [address] [place] [phone] Director: Cirilo Eddy Performing Organization Address City/State/Zipcode Ph one Number [id number] [address] 7[address] * TEST IN QUESTION - NO TEST FOR CONTAINER (09/13/2019 3:01 PM MAGNETIC TAPE TYPEWRITER OPERATOR) TEST IN Comment: [facility] QUESTION - NO NO TEST(S) ARE INDICATED ON DIAGNOSTI CS TEST FOR THE REQUISITION FOR THE [place] CONTAINER FOLLOWING SPECIMEN(S). SPECIMEN(S) 1 TOTAL FIX STOOL [facility] RECEIVED: [facility] [place] Comment Comment: [facility] To prevent further delays in DIAGNOSTICS testing, please complete MACIAS information above and fax to [phone] to resolve this order. Specimen Resulting Agency Comment Performing Organization Information: Site ID: LISA Name: [facility] Address: [address] [place] [phone] Director: Cirilo Eddy Performing Organization Address [facility] one Number ZACHARIAH [employer] [facility] [place] [address] [place] [address] * Ova & parasites, concentrated examination (09/13/2019 3:01 PM MAGNETIC TAPE TYPEWRITER OPERATOR) Ova & parasites SEE NOTE [facility] concentrated Comment: DIAGNOSTICS exam OVA AND PARASITES, [facility] AND [facility] PERM SMEAR MICRO NUMBER: [id number] TEST STATUS: FINAL SPECIMEN SOURCE: STOOL SPECIMEN QUALITY: ADEQUATE CONCENTRATION 1: No ova or parasites seen TRICHROME 1: No ova or parasites seen Routine Ova and Parasite exam may not detect some parasites that occasionally cause diarrheal illness. Test code(s) 16334 (Cryptosporidium Ag., DFA) and/or 97588 (Cyclospora and Isospora Exam) may be ordered to detect these parasites. One negative sample does not necessarily rule out the presence of a parasitic infection. For additional information, please refer to https://education.Mad[employer].Spotie/faq/GZC014 (This link is being provided for informational/ educational purposes only.) NO COLLECTION DATE RECEIVED. WE HAVE USED THE DATE THE SPECIMEN WAS RECEIVED BY THIS LABORATORY THE COLLECTION DATE. IF THIS IS INCORRECT, PLEASE CONTACT CLIENT SERVICES. PHONE NUMBER: [phone] Specimen Resulting Agency Comment Performing Organization Information: Site ID: LISA Name: [facility] Address: [address] [place] [phone] Director: Cirilo Eddy Performing Organization Address [facility] one Number ZACHARIAH [employer] [place] [address] [place] [address] * ECG 12 lead (09/04/2019 10:12 AM CDT) Ventricular 65 [facility] rate Atrial rate 65 [facility] MT interval 166 [facility] QRSD interval 74 [facility] QT interval 404 [facility] QTC interval 420 [facility] P axis 1 80 [facility] QRS axis 1 74 [facility] T wave axis 66 [facility] MUSE EKG impression Normal sinus rhythm-Low [facility] voltage QRS-Borderline ECG-In automated comparison with ECG of 29-DEC-2018 14:47,-No significant change was found- Specimen Narrative Performed At This result has an attachment that is n ot available. Performing Organization Address City/[facility] Ph one Number [facility] MUSE [address] [place] [address] * BENZENE, BLOOD (08/28/2019 11:28 AM CDT) BENZENE, BLOOD None Detected mcg/mL [facility] Comment: Reporting Limit: 0.050 mcg/mL Following exposure to 25 ppm in air for 2 hours: Approximately 0.2 mcg/mL. Analysis by Headspace Gas Chromatography (GC) Specimen Blood Narrative Performed At COLLECTION KIT GIVEN TO PATIENT. PATIENT ADVISED TO Gera GRANT [facility] Resulting Agency Comment Performing Organization Information: Site ID: [id number] Name: [facility] Labs Address: [address] [place] [address] HANY Perez [phone] Director: Cirilo Ross PH.D, F-ABFT Performing Organization Address City/State/[facility] Ph one Number [facility] * Flublok Quad PF (0.5mL Syringe) (07/20/2019 4:40 PM CDT) * URINALYSIS, COMPLETE, WITH REFLEX TO CULTURE (07/06/2019 3:23 PM CDT) Color, UA YELLOW YELLOW [facility] [place] Appearance CLEAR CLEAR [facility] [place] Specific 1.017 1.001 - 1.035 [facility] gravity, urine [facility] [place] pH, urine 5.5 5.0 - 8.0 [facility] [place] Glucose, urine NEGATIVE NEGATIVE [facility] [place] Bilirubin, UA NEGATIVE NEGATIVE [facility] [place] Ketones, UA NEGATIVE NEGATIVE [facility] [place] Occult blood, NEGATIVE NEGATIVE [facility] urine [facility] [place] Protein, UA NEGATIVE NEGATIVE [facility] [place] Nitrite, UA NEGATIVE NEGATIVE [facility] [place] Leukocyte NEGATIVE NEGATIVE [facility] esterase, UA [facility] [place] WBC, UA NONE SEEN < OR = 5 /HPF [facility] [place] RBC, UA NONE SEEN < OR = 2 /HPF [facility] [place] Squamous NONE SEEN < OR = 5 /HPF [facility] epithelial DIAGNOSTICS cells, UA [place] Bacteria, UA NONE SEEN NONE SEEN /HPF [facility] [place] Hyaline casts, NONE SEEN NONE SEEN /LPF [facility] UA [facility] [place] Reflex NO CULTURE INDICATED [facility] [place] Specimen Resulting Agency Comment Performing Organization Information: Site ID: [id number] Name: [facility] Address: [address] [place] [phone] Director: Cirilo Eddy Performing Organization Address [facility] Ph one Number [facility] [place] [address] [place] [address] * LIPID PANEL WITH REFLEX TO DIRECT LDL (07/06/2019 3:09 PM CDT) Pathologist [facility] Cholesterol, 171 <200 mg/dL [facility] total [facility]AG[facility] [place] HDL cholesterol 55 >50 mg/dL [facility] [place] Triglycerides 152 (H) <150 mg/dL [facility] [place] LDL cholesterol 91 mg/dL (calc) [facility] calculated Comment: DIAGNOSTICS Reference range: <100 [place] Desirable range <100 mg/dL for primary prevention; <70 mg/dL for patients with CHD or diabetic patients with > or = 2 CHD risk factors. LDL-C is now calculated using the Raffi calculation, which is a validated novel method providing better accuracy than the Friedewald equation in the estimation of LDL-C. Jered MOTT et al. BLANCA. 2013;310(19): 4458-8290 (http://education.Cloudstaff.Spotie/faq/UDF244) Cholesterol/HDL 3.1 <5.0 (calc) [facility] ratio DIAGNOSTICS [place] Non-HDL 116 <130 mg/dL (calc) [facility] cholesterol Comment: DIAGNOSTICS For patients with diabetes [place] plus 1 major ASCVD risk factor, treating to a non-HDL-C goal of <100 mg/dL (LDL-C of <70 mg/dL) is considered a therapeutic option. Specimen Narrative Performed At FASTING:NO [facility] FASTING: NO Resulting Agency Comment Performing Organization Information: Site ID: [id number] Name: [facility] Address: [address] [place] [phone] Director: Cirilo Eddy Performing Organization Address [facility] one Number [facility] [place] [address] [place] [phone] * CBC with platelet and differential (07/06/2019 3:09 PM CDT) Pathologist [facility] WBC 5.4 3.8 - 10.8 [facility] Thousand/uL DIAGNOSTICS [place] RBC 4.49 3.80 - 5.10 [facility] Million/uL [facility]STICS [place] HGB 13.9 11.7 - 15.5 g/dL [facility] [place] HCT 41.2 35.0 - 45.0 % [facility] [place] MCV 91.8 80.0 - 100.0 fL [facility] [place] MCH 31.0 27.0 - 33.0 pg [facility] [place] MCHC 33.7 32.0 - 36.0 g/dL [facility] [place] RDW 11.9 11.0 - 15.0 % [facility] [place] Platelet count 218 140 - 400 [facility] Thousand/uL DIAGNOSTICS [place] MPV 11.3 7.5 - 12.5 fL [facility] [place] Neutrophils, 2,943 1,500 - 7,800 [facility] absolute cells/uL DI[facility]STICS [place] Lymphocytes, 1,868 850 - 3,900 cells/uL [facility] absolute [facility] [place] Monocytes, 362 200 - 950 cells/uL [facility] absolute [facility] [place] Eosinophils, 194 15 - 500 cells/uL [facility] absolute [facility] [place] Basophils, 32 0 - 200 cells/uL [facility] absolute [facility] [place] Neutrophils 54.5 % [facility] [place] Lymphocytes 34.6 % [facility] [place] Monocytes 6.7 % [facility] [place] Eosinophils 3.6 % [facility] [place] Basophils + RC 0.6 % [facility] [place] Specimen Blood Narrative Performed At FASTING:NO [facility] FASTING: NO Resulting Agency Comment Performing Organization Information: Site ID: [id number] Name: [facility] Address: [address] [place] [phone] Director: Cirilo Eddy Performing Organization Address City/[facility] Ph one Number [id number] [address] [address] * Thyroid stimulating hormone (07/06/2019 3:09 PM CDT) TSH 1.63 0.40 - 4.50 mIU/L [employer] [place] Specimen Blood Narrative Performed At FASTING:NO [facility] FASTING: NO Resulting Agency Comment Performing Organization Information: Site ID: [id number] Name: [facility] Address: [address] [place] [phone] Director: Cirilo Eddy Performing Organization Address City/[facility] Ph one Number [email or web address] [address] [phone] * Comprehensive metabolic panel (07/06/2019 3:09 PM CDT) Glucose 77 65 - 139 mg/dL [facility] Comment: DIAGNOSTICS Non-fasting [place] reference interval BUN 11 7 - 25 mg/dL [facility] [place] Creatinine 0.59 0.50 - 0.99 mg/dL [facility] Comment: DIAGNOSTICS For patients >49 years of age, [place] the reference limit for Creatinine is approximately 13% higher for people identified as -Samoan. EGFR Non-Afr. 96 > OR = 60 [facility] Samoan mL/min/1.73m2 DIAGNOSTICS [place] EGFR 111 > OR = 60 [facility] Samoan mL/min/1.73m2 [facility]ICS [place] BUN/creatinine NOT APPLICABLE 6 - 22 (calc) [facility] ratio [facility] [place] Sodium 142 135 - 146 mmol/L [facility] [place] Potassium 4.8 3.5 - 5.3 mmol/L [facility] [place] Chloride 107 98 - 110 mmol/L [facility] [place] CO2 28 20 - 32 mmol/L [facility] [place] Calcium 9.1 8.6 - 10.4 mg/dL [facility] [place] Protein 6.8 6.1 - 8.1 g/dL [facility] [place] Albumin, S 4.0 3.6 - 5.1 g/dL [facility] [place] Globulin, total 2.8 1.9 - 3.7 g/dL [facility] (calc) DIAGNOSTICS [place] Albumin/globuli 1.4 1.0 - 2.5 (calc) [facility] n ratio [facility]AGNOSTICS [place] Total bilirubin 0.3 0.2 - 1.2 mg/dL [facility] [place] Alkaline 99 33 - 130 U/L [facility] phosphatase [facility] [place] AST 17 10 - 35 U/L [facility] [place] ALT 18 6 - 29 U/L [facility] [place] Specimen Blood Narrative Performed At FASTING:NO [facility] FASTING: NO Resulting Agency Comment Performing Organization Information: Site ID: [id number] Name: [facility] Address: [address] [place] [phone] Director: Cirilo Eddy Performing Organization Address City/State/Zipcode Ph one Number [facility] [employer] [address] [phone] * FL UGBelle W ASHLYN (06/21/2019 8:45 AM CDT) Specimen Narrative Performed At EXAMINATION: FL UGI W KUB HM RADIANT CLINICAL HISTORY: K21.0 Gastro-esopha geal reflux disease with esophagitis, Esophageal reflux COMPARISON: March 21, 2019 FINDINGS: Barium was given barium now to swallow and the esophagus, stomach, and duodenum evaluated under fluoroscopy. The Linx device is in stable position a t the level of the GE junction. The esophagus dilates to normal without div erticula, obvious ulcerations, or suspicious filling defects. The GE junc tion is in normal position. Since the prior exam, there is improved in transit time of contrast through the GE junction with complete emptying of the contrast from the esophagus 4.5 min utes. The risks minimal greater tertiary nonpropulsive contractions of the esoph abigail before 4 minutes. No gastroesophageal reflux. The stomach is without obvious strictur e or diverticula. There is normal passage of contrast from the stomach into the d uodenum. IMPRESSION: Improved transit time of contrast from the esophagus into the stomach now only 4.5 minutes. No gastroesophageal reflux . Fluoroscopy time 3 minutes 52 seconds, 11 images obtained. [id number] Procedure Note Hm Interface, Radiology Results Incoming - 06/21/2019 11:15 AM CDT EXAMINATION: [place] UGI W KUB CLINICAL HISTORY: K21.0 Gastro-esophageal reflux disease with esophagitis, Esophageal reflux COMPARISON: March 21, 2019 FINDINGS: Barium was given barium now to swallow and the esophagus, stomach, and duodenum evaluated under fluoroscopy. The Linx device is in stable position at the level of the GE junction. The esophagus dilates to normal without diverticula, obvious ulcerations, or suspicious filling defects. The GE junction is in normal position. Since the prior exam, there is improved in transit time of contrast through the GE junction with complete emptying of the contrast from the esophagus 4.5 minutes. The risks minimal greater tertiary nonpropulsive contractions of the esophagus before 4 minutes. No gastroesophageal reflux. The stomach is without obvious stricture or diverticula. There is normal passage of contrast from the stomach into the duodenum. IMPRESSION: Improved transit time of contrast from the esophagus into the stomach now only 4.5 minutes. No gastroesophageal reflux. Fluoroscopy time 3 minutes 52 seconds, 11 images obtained. 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
--- OUTSIDE RECORDS SUMMARY | 2020-04-13 06:58 | XMS REPORT | Continuity of Care Document ---
Author Author [facility] t Organization [facility] Address [address] [place] [id number] Phone Unavailable Care Team Providers Care Nursing Tech Name Role Phone NONSTAFF PCP Unavailable Kenzie Woodward MA Attphys Unavailable Gera Wiggins MAantha Attphys Unavailable Kristy SHAVER, Javad Bonilla Attphys Mylene SHAVER, Cathy Attphys [phone] Jessica SHAVER, Claudio Rizvi Attphys Ortega BENNETT, Gale Johnson Attphys Unavailable JOSIAS TORO Attphys Unavailable Daron Verduzco MD Attphys Layne SOUSA, Emily Attphys Unavailable Gera Rao MA Attphys Unavailable Yamila SHAVER, Tenisha Attphys Deborah Roman MA Attphys Unavailable Gale MEJIA Attphys Unavailable Reed Irvin Attphys Physician, Associated Non Attphys Unavailable Julian Talavera Attphys Javad Landeros Attphys KATHY ALAN Attphys Unavailable Macrina HUANG Attphys Unavailable Gale Knutson Attphys Swetha Friedman Attphys KATHY ALAN Admphys Unavailable Payers Payer Name Policy Type Policy Number Effective Date Expiration Date Gail parra MEDICAREMEDICARE PART A AND [id number]-PresentKULDIP LERNER TXMedicare xxxxxxxxxxx 2015 00:00:00 Leonard Mustafa [employer] INSURANCEN[employer] LIFE [id number] xxxxxxxxxx 2 00:00:00 Leonard Mustafa Medicare A & B [id number] 2015 00:00:00 C [facility] Miscellaneous Hmo [id number] [facility] Other Medicare Replacement [id number] [facility] [place] [id number] 2017 00:00:00 [facility] Problems Condition Name Condition Details Condition Category Status Onset Date Resolution Date Last Treatment Date Treating Clinician Comments Source History of repair of hiatal hernia History of repair of hiatal h ernia Disease Active 2019-10-09 00:00:00 Ana Luisa Mustafa Acute intractable headache Acute intractable headache Disease Active 2018-12-13 00:00:00 Leonard cross Nasal congestion Nasal congestion Disease Active 2018-11-16 00:00:00 Leonard Mustafa UNK UNK Active 08/10/2018 [facility] Diagnosis Active 2018-08-10 00:00:00 2018-10-17 13:58:00 [facility] Cyst of left kidney Cyst of left kidney Disease Active 2018-06-29 00:00 :00 Leonard Mustafa Ovarian mass Ovarian mass Disease Active 2018-06-29 00:00:00 Leonard Mustafa Chest pain Chest pain Disease Active 2018-04-25 00:00:00 Leonard Mustafa Impacted cerumen of right ear Impacted cerumen of right ear Disease Active 2018-03-01 00:00:00 Leonard Mustafa INTENTIONAL OVERDOSE INTE NTIONAL OVERDOSE Active 02/11/2018 [facility] Diagnosis Active 2018-02-11 00:00:00 2018-03-22 11:13:00 [facility] Dyspepsia Dyspepsia Disease Active 2018-01-11 00:00:00 Leonard Mustafa Oropharyngeal dysphagia Oropharyngeal dysphagia Disease Active 2018-01-11 00:00:00 Leonard cross Atypical chest pain Atypical chest pain Disease Active 2017-12-22 00:00 :00 Leonard Mustafa Gastroesophageal reflux disease with esophagitis Gastr oesophageal reflux disease with esophagitis Disease Active 2017-12-22 00:00:00 Leonard Mustafa Palpitations Palpitations Disease Active 2017-11-16 00:00:00 Leonard Mustafa Essential hypertension Essential hypertension Disease Active 2017-11-16 00:00:[address] Vitamin D deficiency Vitamin D deficiency Disease Active 00:00:00 Leonard Mustafa Hormone imbalance Hormone imbalance Disease Active 2017-10-20 00:00:00 Leonard Mustafa Pure hypercholesterolemia Pure hypercholesterolemia Disease Ac tive 2017-10-20 00:00:[address] Pain of right lower extremity Pain of right lower extremity Disease Active 2017-10-20 00:00:00 Leonard Mustafa SCREENING MAMMOGRAM SCRE ENING MAMMOGRAM Active 08/23/2017 [facility] Active 2017-08-23 00:00:00 2017-09-17 15:27:00 Rosibel Agosto Z12.31 - ENCNTR SCREEN MAMMOGRAM FOR MA Z12.31 - ENCNTR SCREEN MAMMOGRAM FOR MA Active 02/24/2017 [facility] [place] Diagnosis Active 2017-02-24 00:01:00 2017-05-11 15:27:00 M johnathan Agosto SLURRED SPEECH SLUR RED SPEECH Active 01/01/2017 [facility] Active 2017-01-01 00:00:00 2017-01-02 03:07:00 Rosibel Agosto M25.571 - PAIN IN RIGHT ANKLE AND JOINTS M25.571 - PAIN IN RIGHT ANKLE AND JOINTS Active 10/23/2016 [facility] [place] Diagnosis Active 2016-10-23 00:01:00 2016-11-28 15:58:00 M johnathan Agosto M25.561 - PAIN IN RIGHT KNEE M 25.561 - PAIN IN RIGHT KNEE Active 01/13/2016 [facility] [place] Diagnosis Active 2016-01-13 00:0 1:00 2016-01-23 07:46:00 Rosibel Agosto Bipolar disorder (disorder) Bi polar disorder (disorder) Active 11/08/2015 Problem 05/02/2019 [facility] Problem Active 2015-11-08 00:00:00 2019-05-02 14:05:09 Rosibel Agosto Syncope Syncope Problem Active [facility] Urinary tract infection UTI (urinary tract infection) Problem Active [facility] Dysphagia, unspecified Dysp hagia, unspecified 05/02/2019 [facility] Problem 2019-05-02 14:05:09 [facility] Surendra Diaphragmatic hernia without obstruction or gangrene Diaphragmatic hernia without obstruction or gangrene 05/02/2019 [facility] Problem 2019-05-02 14:05:09 [facility] Chest pain, unspecified Ches t pain, unspecified 05/02/2019 [facility] Problem 2019-05-02 14:05:09 [facility] Heartburn Hear tburn 05/02/2019 [facility] Problem 2019-05-02 14:05:09 [facility] devi Obesity, unspecified Obes ity, unspecified 05/02/2019 [facility] Problem 2019-05-02 14:05:09 Al main Agosto Body mass index (BMI) 32.0-32.9, adult Body mass index (BMI) 32.0-32.9, adult 05/02/2019 [facility] Problem 2019-05-02 14:05:09 [facility] Allergy status to penicillin A llergy status to penicillin 05/02/2019 [facility] Problem 2019-05-02 14 :05:09 [facility] Slurred speech Slur red speech 05/21/2018 [facility] Problem 2018-05-21 12:17:37 [facility] Bipolar disorder, unspecified Bipolar disorder, unspecified 05/21/2018 [facility] Problem 2018-05-21 1 2:17:37 [facility] Underdosing of other antipsychotics and neuroleptics, initial encounter Underdosing of other antipsychotics and neuroleptics, initial encounter 05/21/2018 [facility] Problem 2018-05-21 12: 17:37 [facility] Essential (primary) hypertension Essential (primary) hypertension 05/21/2018 [facility] Problem 2018-05-21 12:17:37 [facility] Patient's intentional underdosing of medication regime n for other reason Patient's intentional underdosing of medication regimen for other reason 05/21/2018 [facility] Problem 2018-05-21 12:17:37 [facility] Dysphagia (disorder) Dysp hagia (disorder) Resolved Problem 05/02/2019 [facility] Problem Resolved 2019-05-02 14:05: 09 [facility] Gastroesophageal reflux disease (disorder) Gastroesophageal reflux disease (disorder) Resolved Problem 05/02/2019 [facility] Problem Resolved 2019-05-02 14:05:09 Ophelia mann Surendra Hiatal hernia (disorder) Hiat al hernia (disorder) Resolved Problem 05/02/2019 [facility] Problem Resolved 2019-05-02 14: 05:09 Rosibel Agosto Hypertensive disorder, systemic arterial (disorder) Hypertensive disorder, systemic arterial (disorder) Active Problem 05/02/2019 [facility] Problem Active 2019-05-02 14:05:09 Rosibel Agosto Right knee pain Righ t knee pain Active Problem 09/23/2017 [facility] Primary Problem Active 2017-09-23 03:45:07 Rosibel Agosto Acute right ankle pain Acut e right ankle pain Active Problem 09/23/2017 [facility] Primary Problem Active 2017-09-23 03: 45:07 Rosibel Agosto Chronic meniscal tear of knee Chronic meniscal tear of knee Active Problem 09/23/2017 [facility] Primary Problem Active 2017-09-23 03:45:07 Rosibel Agosto Anxiety disorder, unspecified Anxiety disorder, unspecified Active Problem 09/23/2017 [facility] Primary Problem Active 2017-09-23 03:45:07 Rosibel Agosto Other chest pain Othe r chest pain Active Problem 09/23/2017 [facility] Primary Problem Active 2017-09-23 03:45:07 Rosibel Agosto Depression with anxiety Depr ession with anxiety Active Problem 09/23/2017 [facility] Primary Problem Active 2017-09-23 03: 45:07 Rosibel Agosto Short-term memory loss Shor t-term memory loss Active Problem 09/23/2017 [facility] Primary Problem Active 2017-09-23 03: 45:07 Rosibel Agosto Hyperlipidemia Hype rlipidemia Active Problem 09/23/2017 [facility] Primary Problem Active 2017-09-23 03:45:07 Rosibel Agosto Low vitamin D level Low vitamin D level Active Problem 09/23/2017 [facility] Primary Problem Active 2017-09-23 03:45:07 Rosibel Agosto BMI 30.0-30.9,adult BMI 30.0-30.9,adult Active Problem 09/23/2017 [facility] Primary Problem Active 2017-09-23 03:45:07 Rosibel Agosto Atrophic vaginitis Atro phic vaginitis Active Problem 09/23/2017 [facility] Primary Problem Active 2017-09-23 03:45:07 Rosibel Agosto Hormone disturbance Horm one disturbance Active Diagnosis 05/22/2017 [place] [facility] Diagnosis Active 2017-05-22 02:45:4 0 [facility] Osteoporosis screening Oste oporosis screening Active Diagnosis 08/11/2017 [facility] Primary Diagnosis Active 2017-08-11 0 2:45:58 [facility] Breast cancer screening [facility] cancer screening Active Diagnosis 08/11/2017 [facility] Primary Diagnosis Active 2017-08-11 02:45:58 [facility] Breast cancer screening [facility] cancer screening Active Diagnosis 01/09/2017 [facility] Primary Diagnosis Active 2017-01-09 03:56:16 [facility] Gastro-esophageal reflux disease without esophagitis Gastro-esophageal reflux disease without esophagitis 11/17/2018 05/02/2019 [facility] Problem 2018-11-17 04:25:08 2019-05-02 14:05:09 2019-04 14:05:09 [facility] Poisoning by other antipsychotics and ne uroleptics, intentional self-harm, initial encounter Poisoning by oth er antipsychotics and neuroleptics, intentional self-harm, initial encounter 02/25/2018 05/21/2018 [facility] Problem 2018-02-25 03:14:33 2018-05-21 12:17:37 2018-05 12:17:37 [facility] Discharge Diagnosis: SOB (shortness of breath) Discharge Diagnosis: SOB (shortness of breath) 01/02/2017 01/05/2017 [facility] Problem 2017-01-02 06:00:00 2017-01-05 03:41:55 2017-01-05 03:41:55 [facility] Allergies, Adverse Reactions, Alerts Allergy Name Allergy Type Status Severity Reaction(s) Onset Date Inacti ve Date Treating Clinician Comments Source Peanuts Allergy to Substance Active 2019-09-18 00:00:00 [facility] Sertraline Propensity to adverse reactions to drug Active Rash 2018-12-29 00:00:00 Leonard henderson Esomeprazole Magnesium Propensity to adverse reactions to drug Active Rash 2018-11-18 00:00:00 Leonard Pennington odist Cefdinir Propensity to adverse reactions to drug Active Rash 2018-07-25 00:00:00 Leonard henderson Ranitidine Hcl Propensity to adverse reactions to drug Active Palpitations 2018-04-01 00:00:00 Mood disorder Leonard Meth odist Penicillin Propensity to adverse reactions to drug Active 2017-09-21 00:00:00 Other reaction(s): rash Leonard Mustafa penicillin penicillin Active rash 2017-09-21 00:00:00 [facility] Surendra Penicillin Allergy to Substance Active Mild HIVES 2017-07-28 00:00:00 [facility] N.K.BeauA. NThomas Active Info Not Available 2016-05-12 00:00:00 [facility] Surendra Penicillins Propensity to adverse reactions to drug Active Hives 2012-06-10 00:00:00 Rash Rash Leonard Dwyeris t Latex, Natural Rubber Propensity to adverse reactions to drug Active Leonard Mustafa Ranitidine Propensity to adverse reactions to drug Active [facility] penicillins penicillins Active [facility] Ranitidine Hydrochloride<sup>1</sup> Ranitidine Hydrochlorid e<sup>1</sup> Active [facility] Caroline carlson Bandaids Bandaids Active Nicholas Hanna Family History Family Member Diagnosis Comments Start Date Stop Date Source Natural father Hypertension Leonard Mustafa Maternal grandmother Heart disease [place] [facility] Natural mother Heart disease Leonard Mustafa Natural mother Hypertension Leonard Dwyerist Natural mother Kidney disease [place] [facility] Natural sister No Known Problems Gasper Mustafa Social History Social Habit Start Date Stop Date Quantity Comments Source Sex Assigned At F Gasper Mustafa Alcohol intake 2020-02-13 00:00:00 2020-02-13 00:00:00 Current non-drinker of alcohol (finding) Leonard Mustafa Social History 2018-10-12 21:09:29 2018-10-12 21:09:29 [facility] TobaccoUse: 2017-01-13 00:00:00 2017-01-13 00:00:00 [facility] Smoking Status Start Date Stop Date Source Social History [facility] Medications Ordered Medication Name Filled Medication Name Start Date Stop Da te Current Medication? Ordering Clinician Indication Dosage Frequency Signature (SIG) Comments Components Source niacin 500 MG tablet 2020-02-13 15:05:58 Yes 500mg QD Take 500 mg by mouth daily with breakfast. Leonard Meth odist multivit-min/ferrous fumarate (MULTI VITAMIN ORAL) 2020-02 11:18:41 Yes Take by mouth. Ana Luisa on [facility] ezetimibe (ZETIA) 10 mg tablet 2020-02-13 11:18:41 2020-02-13 00 :00:00 No 10mg QD Take 10 mg by mouth daily. Caroline Mustafa amLODIPine (NORVASC) 5 mg tablet 2020-02-13 00:00:00 Yes Essential hypertension 5mg QD Take 1 tablet (5 mg total) by mouth daily. Leonard Mustafa multivitamin with minerals tablet 2019-10-09 11:25:17 2018 00:00:00 No 1{tbl} QD Take 1 tablet by mouth daily. Leonard Mustafa atorvastatin (LIPITOR) 40 MG tablet 2019-09-04 11:15:0 3 2019-09-04 00:00:00 No atorvastatin 40 mg tablet Leonard Mustafa magnesium oxide 250 mg magnesium tablet 11:15:03 2019-09-04 00:00:00 No 250mg QD Take 250 mg by mouth daily. Leonard Mustafa omega-3s/dha/epa/fish oil (OMEGA 3 ORAL) 2019-08 11:15:03 2019-09-04 00:00:00 No Take by mouth. Leonard Mustafa B infantis/B ani/B cici/B bifid (PROBIOTIC DIGESTIVE CARE ORA L) 2019-09-04 11:15:03 2019-09-04 00:00:00 No Take by mouth. Leonard Mustafa ezetimibe (ZETIA) 10 mg tablet 2019-08-11 00:00:00 2019-08-09 00:00:00 No Mixed hyperlipidemia 10mg QD Take 1 tablet (10 m g total) by mouth every morning. Leonard Mustafa topiramate (TOPAMAX) 25 MG tablet 2019-07-18 00:00:00 2018 00:00:00 No Leonard Perkins thodi SUMAtriptan (IMITREX) 25 MG tablet 2019-07-06 00:00:00 201 07-18-28 00:00:00 No Intractable migraine without aura and with status migrainosus 25 mg Take 1 tablet (25 mg total) by mouth once as needed for migraine for up to 1 dose. Leonard Mustafa MAGNESIUM ORAL 2019-06-22 13:19:2019-06-22 00:00:00 No Q2D Take by mouth every other day. Leonard Mustafa ginkgo biloba 40 mg tablet 2019-06-22 13:19:2019-06-22 00:00: 00 No 60mg QD Take 60 mg by mouth every morning. Leonard Mustafa GAMMA-AMINOBUTYRIC ACID, BULK, MISC 2019-06-22 13:19:0 1 2019-06-22 00:00:00 No 1{capsule} QD Take 1 capsule by mouth every evening . Leonard uMstafa b complex vitamins capsule 2019-06-22 13:18:54 2019-06-22 00:00: 00 No 1{capsule} QD Take 1 capsule by mouth daily. Leonard Mustafa topiramate (TOPAMAX) 25 MG tablet 2019-06-22 00:00:00 2018 00:00:00 No Intractable migraine without aura and with status migrainosus 25 mg Q.5D Take 1 tablet (25 mg total) by mouth 2 (two) times a day. Leonard Mustafa multivitamin with minerals (HAIR,SKIN AND NAILS) tablet 2019-05-26 11:41:46 2019-05-26 00:00:00 No 1{tbl} QD Take 1 tablet by tyree th daily. Leonard Mustafa omega-3 fatty acids (FISH OIL CONCENTRATE ORAL) 2019-05-26 11:41:46 2019-05-26 00:00:00 No QD Take by mouth every morning. Leonard Mustafa SUMAtriptan (IMITREX) 25 MG tablet 2019-05-26 00:00:00 201 07-16-29 00:00:00 No Intractable migraine without aura and with status migrainosus 25 mg Take 1 tablet (25 mg total) by mouth once as needed for migraine for up to 1 dose. Leonard Mustafa amLODIPine (NORVASC) 5 mg tablet 2019-05-08 00:00:00 2020-02 00:00:00 No TAKE 1 TABLET BY MOUTH EVERY DAY FOR 90 DAYS Leonard Mustafa potassium chloride (K-DUR) 20 MEQ CR tablet 2018 00:00:00 2019-05-26 00:00:00 No Hypokalemia 20meq Q.5D Take 1 tablet (20 mEq total) by mouth 2 (two) times a day. Leonard Mustafa sertraline (ZOLOFT) 50 MG tablet 2019-01-30 00:00:00 2019-06 00:00:00 No TAKE 1/2 TABLET BY MOUTH EVERY BEDTIME Leonard Mustafa traZODone (DESYREL) 50 MG tablet 2019-01-16 00:00:00 2019-05 00:00:00 No TAKE 1/2 TABLET AT BEDTIME FOR SLEEP. Leonard Mustafa ezetimibe (ZETIA) 10 mg tablet 2018-12-14 00:00:00 4 00:00:00 No Mixed hyperlipidemia 10mg QD Take 1 tablet (10 mg total) by mouth daily. Leonard Mustafa ergocalciferol (VITAMIN D2) 50,000 unit capsule 2018-12-13 00:00:00 2019-10-09 00:00:00 No 01263A Q7D Take 1 capsule (50,000 Units total) by mouth once a week. Leonard Mustafa benztropine (COGENTIN) 1 MG tablet 2018-10-20 00:00:00 201 07-16-15 00:00:00 No TAKE 1 TABLET BY MOUTH AT BEDTIME FOR EP S PROPHYLAXIS. Leonard Mustafa Unknown Home Medication 2018-10-13 17:54:00 Yes 10 mg =, PO, Daily, Refill(s) 0 [facility] Vitamin B6 2018-10-13 17:53:00 Yes PO, Daily , 0 Refill(s) [facility] Gingko Biloba oral tablet 2018-10-13 17:53:00 Yes 60 mg =, PO, Daily, 0 Refill(s) [facility] Vitamin B12 2018-10-13 17:52:00 Yes PO, Reuben y, 0 Refill(s) [facility] Multiple Vitamins oral tablet 2018-10-13 17:52:00 Yes 1 tab, PO, Daily, # 30 tab, 0 Refill(s) [facility] Unknown Home Medication 2018-10-13 17:51:00 Yes 500 mg =, PO, Daily, Refill(s) 0 [facility] perphenazine 4 mg oral tablet 2018-10-13 17:48:00 Yes 8 mg = 2 tab, PO, QPM, 0 Refill(s) [facility] Esomeprazole 2018-09-20 20:36:00 No 40 mg, PO, Daily, 0 Refill(s) [facility] perphenazine 4 mg oral tablet 2018-09-20 20:35:00 Yes 4 mg = 1 tab, PO, Daily, 0 Refill(s) [facility] benztropine mesylate 2 MG Oral Tablet 2018-09-20 20:34:00 Y es 2 mg = 1 tab, PO, Bedtime, 0 Refill(s) [facility] Amlodipine 2018-02-12 16:24:00 Yes 5 mg, PO, Daily, 0 Refill(s) [facility] Escitalopram Oxalate 2017-09-22 03:45:37 Yes Marybel Tigre 1 tablet [facility] Atorvastatin Calcium 2017-09-22 03:45:37 Yes Marybel Tigre 1 tablet [facility] Levsin 2017-09-22 03:45:37 Yes Marybel Tigre 1 tablet before meals as needed [facility] Pantoprazole Sodium 2017-09-22 03:45:37 Yes Marybel Tigre 1 tablet [facility] Ergocalciferol 2017-09-22 00:00:00 Yes Marybel Tigre 1 capsule [facility] Atorvastatin Calcium 2017-07-29 02:45:39 Yes Marybel Tigre 1 tablet [facility] Seroquel 2017-07-29 02:45:39 Yes Marybel Tigre 1 t ablet at bedtime [facility] Pantoprazole Sodium 2017-07-29 02:45:39 Yes Marybel Tigre 1 tablet [facility] Levsin 2017-07-29 02:45:39 Yes Marybel Tigre 1 tablet before meals as needed [facility] Escitalopram Oxalate 2017-07-29 02:45:39 Yes Marybel Tigre 1 tablet [facility] Sucralfate 2017-07-28 00:00:00 Yes Marybel Tigre 1 0 ml [facility] Sucralfate 2017-07-28 00:00:00 Yes Marybel Tigre 1 0 ml [facility] Ergocalciferol 2017-07-14 02:45:40 Yes Marybel Tigre 1 capsule [facility] Omeprazole 2017-07-14 02:45:40 Yes Marybel Tigre 1 capsule [facility] Pantoprazole Sodium 2017-07-13 00:00:00 Yes Marybel Tigre 1 tablet [facility] Omeprazole 2017-03-02 00:00:00 Yes Marybel Tigre 1 capsule [facility] Ergocalciferol 2017-01-11 00:00:00 Yes Marybel Tigre 1 capsule [facility] Benztropine Mesylate 2017-01-09 03:56:16 Yes Marybel Tigre 1 tablet [facility] Risperidone 2017-01-09 03:56:16 Yes Marybel Tigre 1 tablet [facility] Meloxicam 2016-10-21 00:00:00 Yes Marybel Tigre 1 tablet [facility] Ergocalciferol 2016-07-10 00:00:00 Yes Marybel Tigre 1 capsule [facility] Ergocalciferol 2016-05-19 00:00:00 Yes Marybel Tigre 1 capsule [facility] Resperal 2016-05-13 02:48:50 [facility]00 Yes Marybel Tigre 1 tablet [facility] Ergocalciferol 2015-09-13 00:00:00 Yes Marybel Tigre 1 capsule [facility] Atorvastatin Calcium 2015-09-13 00:00:00 Yes Marybel Tigre 1 tablet [facility] Amlodipine Besylate 5 Mg Tablet Amlodipine Besylate 5 Mg Tablet Yes 5 Daily [facility] Ezetimibe (Zetia) 10 Mg Tablet Ezetimibe (Zetia) 10 Mg Tablet Yes 10 Daily [facility] Sertraline Hcl 50 Mg Tablet Sertraline Hcl 50 Mg Tablet Yes [address] [facility] Dexlansoprazole (Dexilant) 60 Mg Cap., 60 Mg Oral Dexlansoprazole (Dexilant) 60 Mg Cap., 60 Mg Oral 2019-05-20 00:00:00 No 60 Daily [facility] Immunizations Ordered Immunization Name Filled Immunization Name Date Status Comments Source FLUBLOK QUAD PF 2019-07-20 00:00:00 Completed Leonard Mustafa Pneumococcal Conjugate 13-Valent 2019-03-24 00:00:00 Compl eted Leonard Mustafa Vital Signs Vital Name Observation Time Observation Value Comments Source Systolic blood pressure 2020-02-13 15:05:00 132 mm[Hg] Leonard Mustafa Diastolic blood pressure 2020-02-13 15:05:00 80 mm[Hg] Leonard Mustafa Body height 2020-02-13 15:05:00 152.4 cm Leonard Mustafa Body weight 2020-02-13 15:05:00 56.7 kg Leonard Mustafa BMI 2020-02-13 15:05:00 24.41 kg/m2 [facility] Heart rate 2019-10-16 10:57:00 73 /min [place] [facility] Body temperature 2019-10-09 11:23:00 36.67 Kristen [place] [facility] Respiratory rate 2019-08-28 10:51:00 20 /min [place] [facility] Oxygen saturation in Arterial blood by Pulse oximetry 2018-11 10:51:00 98 /min [place] [facility] Systolic (mm Hg) 2018-10-13 16:21:00 Jelani rial Surendra Diastolic (mm Hg) 2018-10-13 16:21:00 [facility] [place] Temperature Oral (F) 2018-10-13 16:21:00 97.6 F [facility] [place] Heart Rate 2018-10-13 16:21:00 [facility] Respitory Rate 2018-10-13 16:21:00 [facility] [place] BMI Calculated 2018-10-12 21:02:00 [facility] [place] Weight 2018-10-12 21:02:00 [facility] [place] Height 2018-10-12 21:02:00 149.86 cm [facility] [place] Height 2018-06-10 19:01:00 152.4 cm [facility] BMI Calculated 2018-06-10 19:01:00 Memori al Su[facility] Weight 2018-06-10 19:01:00 [facility] Temperature Oral (F) 2018-02-12 16:35:00 98.1 F [facility] [place] Systolic (mm Hg) 2018-02-12 16:35:00 Jelani rial Surendra Diastolic (mm Hg) 2018-02-12 16:35:00 Mem o[facility] Heart Rate 2018-02-12 16:35:00 [facility] Respitory Rate 2018-02-12 16:35:00 Memori al [facility] Respitory Rate 2018-02-12 12:20:00 Memori al [facility] Systolic (mm Hg) 2018-02-12 12:20:00 Jelani rial [place] Diastolic (mm Hg) 2018-02-12 12:20:00 Mem orial Su[facility]ra Heart Rate 2018-02-12 12:20:00 [facility] Temperature Oral (F) 2018-02-12 12:20:00 98.4 F [facility] [place] Systolic (mm Hg) 2018-02-12 08:52:00 Jelani rial Surendra Diastolic (mm Hg) 2018-02-12 08:52:00 [facility] [place] Temperature Oral (F) 2018-02-12 08:52:00 98 F [facility] [place] Heart Rate 2018-02-12 08:52:00 [facility] [place] Respitory Rate 2018-02-12 08:52:00 Asia[facility] al [facility] BMI Calculated 2018-02-11 21:00:00 [facility] Weight 2018-02-11 21:00:00 [facility] Height 2018-02-11 21:00:00 152.4 cm [facility] Weight 2017-09-21 17:15:00 [facility] Height 2017-09-21 17:15:00 [facility] Temperature Oral (F) 2017-09-21 17:15:00 97.7 F [facility] Heart Rate 2017-09-21 17:15:00 [facility] Diastolic (mm Hg) 2017-09-21 17:15:00 [facility] Systolic (mm Hg) 2017-09-21 17:15:00 [facility] Weight 2017-08-10 19:30:00 [facility] Height 2017-08-10 19:30:00 [facility] Temperature Oral (F) 2017-08-10 19:30:00 98.1 F [facility] Heart Rate 2017-08-10 19:30:00 [facility] Diastolic (mm Hg) 2017-08-10 19:30:00 [facility] Systolic (mm Hg) 2017-08-10 19:30:00 Jelani [facility] Weight 2017-07-28 16:45:00 [facility] Height 2017-07-28 16:45:00 [facility] Temperature Oral (F) 2017-07-28 16:45:00 98.6 F [facility] Heart Rate 2017-07-28 16:45:00 [facility] Diastolic (mm Hg) 2017-07-28 16:45:00 [facility] Systolic (mm Hg) 2017-07-28 16:45:00 Jelani rial [facility] Weight 2017-07-13 18:45:00 [facility] Height 2017-07-13 18:45:00 [facility] Temperature Oral (F) 2017-07-13 18:45:00 97.8 F [facility] Heart Rate 2017-07-13 18:45:00 [facility] Diastolic (mm Hg) 2017-07-13 18:45:00 [facility] Systolic (mm Hg) 2017-07-13 18:45:00 Jelani [facility] Weight 2017-05-21 18:30:00 [facility] Height 2017-05-21 18:30:00 [facility] Temperature Oral (F) 2017-05-21 18:30:00 98.5 F [facility] Heart Rate 2017-05-21 18:30:00 [facility] Diastolic (mm Hg) 2017-05-21 18:30:00 [facility] Systolic (mm Hg) 2017-05-21 18:30:00 [facility] Weight 2017-03-02 18:15:00 [facility] Height 2017-03-02 18:15:00 [facility] Temperature Oral (F) 2017-03-02 18:15:00 98.1 F [facility] Heart Rate 2017-03-02 18:15:00 [facility] Diastolic (mm Hg) 2017-03-02 18:15:00 [facility] Systolic (mm Hg) 2017-03-02 18:15:00 Jelani [facility] Weight 2017-01-13 19:15:00 [facility] Height 2017-01-13 19:15:00 [facility] Temperature Oral (F) 2017-01-13 19:15:00 98.0 F [facility] Heart Rate 2017-01-13 19:15:00 [facility] Diastolic (mm Hg) 2017-01-13 19:15:00 [facility] Systolic (mm Hg) 2017-01-13 19:15:00 [facility] Weight 2017-01-08 20:15:00 [facility] Height 2017-01-08 20:15:00 [facility] Temperature Oral (F) 2017-01-08 20:15:00 97.8 F [facility] Heart Rate 2017-01-08 20:15:00 [facility] Diastolic (mm Hg) 2017-01-08 20:15:00 [facility] Systolic (mm Hg) 2017-01-08 20:15:00 [facility] Temperature Oral (F) 2017-01-02 10:22:00 97.9 F [facility] Heart Rate 2017-01-02 10:22:00 [facility] Respitory Rate 2017-01-02 10:22:00 [facility] Systolic (mm Hg) 2017-01-02 10:22:00 Jelani [facility] Diastolic (mm Hg) 2017-01-02 10:22:00 [facility] Systolic (mm Hg) 2017-01-02 08:07:00 [facility] Diastolic (mm Hg) 2017-01-02 08:07:00 [facility] Height 2017-01-02 07:23:00 149.86 cm [facility] Heart Rate 2017-01-02 07:23:00 [facility] Respitory Rate 2017-01-02 07:23:00 [facility] Systolic (mm Hg) 2017-01-02 07:23:00 [facility] Diastolic (mm Hg) 2017-01-02 07:23:00 [facility] Temperature Oral (F) 2017-01-02 07:23:00 97.6 F [facility] BMI Calculated 2017-01-02 07:23:00 [facility] Weight 2017-01-02 07:23:00 [facility] Weight 2016-10-21 15:45:00 [facility] Height 2016-10-21 15:45:00 [facility] Temperature Oral (F) 2016-10-21 15:45:00 98.1 F [facility] Heart Rate 2016-10-21 15:45:00 [facility] Diastolic (mm Hg) 2016-10-21 15:45:00 [facility] Systolic (mm Hg) 2016-10-21 15:45:00 [facility] Weight 2016-07-10 14:30:00 [facility] Height 2016-07-10 14:30:00 [facility] Temperature Oral (F) 2016-07-10 14:30:00 98.1 F [facility] Heart Rate 2016-07-10 14:30:00 [facility] Diastolic (mm Hg) 2016-07-10 14:30:00 [facility] Systolic (mm Hg) 2016-07-10 14:30:00 Jelani [facility] Weight 2016-05-12 14:00:00 [facility] Height 2016-05-12 14:00:00 [facility] Temperature Oral (F) 2016-05-12 14:00:00 98.0 F [facility] Heart Rate 2016-05-12 14:00:00 [facility] Diastolic (mm Hg) 2016-05-12 14:00:00 [facility] Systolic (mm Hg) 2016-05-12 14:00:00 Jelani [facility] Weight 2016-03-09 13:45:00 [facility] Height 2016-03-09 13:45:00 [facility] Temperature Oral (F) 2016-03-09 13:45:00 98.6 F [facility] Heart Rate 2016-03-09 13:45:00 [facility] Diastolic (mm Hg) 2016-03-09 13:45:00 [facility] Systolic (mm Hg) 2016-03-09 13:45:00 [facility] Weight 2016-01-13 14:30:00 [facility] Height 2016-01-13 14:30:00 [facility] Temperature Oral (F) 2016-01-13 14:30:00 98.4 F [facility] Heart Rate 2016-01-13 14:30:00 [facility] Diastolic (mm Hg) 2016-01-13 14:30:00 [facility] Systolic (mm Hg) 2016-01-13 14:30:00 Jelani rial [facility] Weight 2016-01-08 14:30:00 [facility] Height 2016-01-08 14:30:00 [facility] Temperature Oral (F) 2016-01-08 14:30:00 98.6 F [facility] Heart Rate 2016-01-08 14:30:00 [facility] Diastolic (mm Hg) 2016-01-08 14:30:00 [facility] Systolic (mm Hg) 2016-01-08 14:30:00 [facility] Weight 2015-09-13 14:30:00 [facility] Height 2015-09-13 14:30:00 [facility] Temperature Oral (F) 2015-09-13 14:30:00 98.6 F [facility] Heart Rate 2015-09-13 14:30:00 [facility] Diastolic (mm Hg) 2015-09-13 14:30:00 [facility] Systolic (mm Hg) 2015-09-13 14:30:00 [facility] Procedures Procedure Date / Time Performed Performing Clinician Michelle kingsley CV CARDIAC EVENT MONITOR 2019-10-04 00:00:00 Elpidio Chakraborty Computed tomography of brain without radiopaque contrast 201 07-19-11 00:00:00 WILI OROZCO [facility] Computed tomography of cervical spine without contrast 09[facility]18 [facility] X-ray of chest, two views 2019-09-18 00:00:00 WILI OROZCO CH I [facility] VA AND PARASITES, STOOL, CONC/PERM SMEAR, 2 SPEC 2019-09-13 15:01:00 Chad Jordan OVA & PARASITES, CONCENTRATED EXAMINATION 2019-09-13 15:01:0 0 Chad Jordan TEST IN QUESTION - NO TEST FOR CONTAINER 2019-09-13 15:01:0 0 Chad Jordan ECG 12-LEAD 2019-09-04 10:12:46 Cathy Chakraborty on [employer] BENZENE, BLOOD 2019-08-28 11:28:00 Chad Jordan FLUBLOK QUAD PF (0.5ML SYRINGE) 2019-07-20 16:40:00 Brenda Jordan URINALYSIS, COMPLETE, WITH REFLEX TO CULTURE 2019-07-06 15:2 3:00 Chad Jordan LIPID PANEL WITH REFLEX TO DIRECT LDL 2019-07-06 15:09:00 Chad Warren ch COMPREHENSIVE METABOLIC PANEL 2019-07-06 15:09:00 Meg Jordan CBC WITH PLATELET AND DIFFERENTIAL 2019-07-06 15:09:00 Chad Jordan THYROID STIMULATING HORMONE 2019-07-06 15:09:00 Chda Jordan ZZFL UGI W KUB 2019-06-21 08:45:39 Dmitri Lopez Computed tomography of brain without radiopaque contrast 201 07-15-13 00:00:00 SWEET, LAIRD A [facility] Tubal ligation 1980-11-08 00:00:00 [facility]<sup>1</sup> Nicholas Hanna Esophagogastroduodenoscopy Bibiana crane Surendra Plan of Care Planned Activity Planned Date Details Comments Source Future Scheduled Test 2024-11-08 00:00:00 COLONOSCOPY SCREEN ING [code = COLONOSCOPY SCREENING] [facility] Scheduled Test 2020-08-17 00:00:00 BREAST CANCER SCRE ENING [code = BREAST CANCER SCREENING] [facility] Future Scheduled Test 2020-06-08 00:00:00 INFLUENZA VACCINE [code = INFLUENZA VACCINE] [facility] Future Scheduled Test 2020-03-24 00:00:00 65+ PNEUMOCOCCAL V ACCINE (2 of 2 - PPSV23) [code = 65+ PNEUMOCOCCAL VACCINE (2 of 2 - PPSV23)] [facility] Scheduled Test 2003 00:00:00 SHINGLES VACCINES (#1) [code = SHINGLES VACCINES (#1)] [facility] Encounters Start Date/Time End Date/Time Encounter Type Admission Type Attendi [facility] Care Department Encounter ID Source 2020-02-13 00:00:00 2020-02-13 00:00:00 Outpatient AMY JORDAN [facility] [id number] [facility] 2019-09-18 18:57:00 2019-09-18 21:17:00 Departed Emergency Room 1 CORTEZ JOSIAS [facility] [id number] [facility] 2019-05-20 16:32:00 2019-05-20 18:52:00 Departed Emergency Room 1 JACKIELAZARO [facility] [id number] [facility] 2018-10-13 10:09:00 2018-10-13 11:16:00 Outpatient Kaden Mercado i MHSE MHSE [id number] 2018-06-15 09:00:00 2018-06-15 09:00:00 Outpatient Wilmer mcpherson, Non Associated MHSE MHSE [id number] 2018-02-11 15:49:00 2018-02-12 12:07:00 Outpatient Bobo Talavera MHSE MHSE [id number] 2018-02-05 01:43:00 2018-02-05 02:35:00 Departed Emergency Room [facility] [id number] [facility] 2017-09-22 08:31:00 2017-09-22 08:31:00 Outpatient [facility] [id number] eClinicalWo [facility] 2017-09-21 11:15:00 2017-09-21 11:15:00 Outpatient [facility] [id number] eClinicalWo rks 2017-09-17 15:19:00 2017-09-17 23:59:00 Outpatient Colton Landeros MHSE MHSE [id number] 2017-09-11 01:08:00 2017-09-11 16:32:00 Discharged Inpatient (obs) ER KATHY ALAN [facility] [id number] [facility] 2017-08-10 14:30:00 2017-08-10 14:30:00 Outpatient [facility] [id number] eClinicalWo [facility] 2017-07-28 11:45:00 2017-07-28 11:45:00 Outpatient [facility] [id number] eClinicalWo [facility] 2017-07-28 08:12:00 2017-07-28 11:18:00 Departed Emergency Room ER HANNAH HUANG [facility] [id number] [facility] 2017-07-13 13:45:00 2017-07-13 13:45:00 Outpatient [facility] [id number] eClinicalWo [facility] 2017-05-21 13:30:00 2017-05-21 13:30:00 Outpatient [facility] [id number] eClinicalWo rks 2017-03-02 13:15:00 2017-03-02 13:15:00 Outpatient [facility] [id number] eClinicalWo rks 2017-02-01 13:33:00 2017-02-01 23:59:00 Outpatient Stevan KnutsonHOIP MHHOIP [id number] 2017-01-13 13:15:00 2017-01-13 13:15:00 Outpatient [facility] [id number] eClinicalWorks 2017-01-11 17:55:00 2017-01-11 17:55:00 Outpatient [facility] [id number] eClinicalWorks 2017-01-08 14:15:00 2017-01-08 14:15:00 Outpatient [facility] [id number] [facility] 2017-01-02 01:14:00 2017-01-02 04:31:00 Outpatient Sivan Briggs MHSE MHSE [id number] 2016-12-25 14:57:00 2016-12-25 23:59:00 Outpatient Stevan Knutson MHHOIP MHHOIP [id number] 2016-11-26 11:26:00 2016-11-26 23:59:00 Outpatient Stevan Knutson MHHOIP MHHOIP [id number] 2016-10-29 12:43:00 2016-10-29 23:59:00 Outpatient Stevan Knutson MHHOIP MHHOIP [id number] 2016-10-21 12:01:00 2016-10-21 23:59:00 Outpatient Colton Landeros MHHOIP MHHOIP [id number] 2016-10-21 09:45:00 2016-10-21 09:45:00 Outpatient [facility] [id number] [facility] 2016-08-31 12:56:00 2016-08-31 12:56:00 Outpatient [facility] [id number] eClinicalWorks 2016-07-10 09:30:00 2016-07-10 09:30:00 Outpatient [facility] [id number] eClinicalWorks 2016-06-18 15:10:00 2016-06-18 23:59:00 Outpatient Stevan Knutson MHHOIP MHHOIP [id number] 2016-05-19 15:56:00 2016-05-19 15:56:00 Outpatient [facility] [id number] [facility] 2016-05-12 09:00:00 2016-05-12 09:00:00 Outpatient [facility] [id number] eClinicalWorks 2016-03-09 08:45:00 2016-03-09 08:45:00 Outpatient [facility] [id number] eClinicalWorks 2016-02-07 12:26:00 2016-02-07 23:59:00 Outpatient Stevan Knutson HOIP HOIP [id number] 2016-01-23 07:38:00 2016-01-23 23:59:00 Outpatient Stevan Knutson HOIP HOIP [id number] 2016-01-13 08:30:00 2016-01-13 08:30:00 Outpatient [facility] [id number] eClinicalWorks 2016-01-08 08:30:00 2016-01-08 08:30:00 Outpatient [facility] [id number] eClinicalWorks 2015-09-13 08:30:00 2015-09-13 08:30:00 Outpatient [facility] [id number] eClinicalWorks 2015-08-16 15:17:00 2015-08-16 23:59:00 Outpatient Colton Landeros Javad HOIP HOIP [id number] Results Test Description Test Time Test Comments Results Result Comments Source CHEST 2 VIEWS 2019-09-18 20:34:00 [place] [address] Patient Name: JULIO CONTRERAS MR #: [id number] : 1955 Age/Sex: 64/F Req #: [id number] Adm Physician: Ordered by: WILI OROZCO DO Report #: [id number] Location: ER Room/Bed: Procedure: [id number] DX/CHEST 2 VIEWS Exam Date: 09/18/19 Exam Time: 2014 REPORT STATUS: Signed EXAMINATION: PA and lateral views of the chest. COMPARISON: None CLINICAL HISTORY: Fall DISCUSSION: Lines/tubes: None. Lungs: The lungs are well inflated and clear. No pneumonia or pulmonary edema. Pleura: No pleural effusion or pneumothorax. Heart and mediastinum: The cardiomediastinal silhouette is normal. Bones and soft tissues: No acute bony abnormalities. IMPRESSION: No acute cardiopulmonary abnormalities. Signed by: Dr. Jorge Garcia M.D. on 09/18/2019 8:34 PM Dictated By: JORGE GARCIA MD 33 Transcribed By: LOY on 09/18/192033 COPY TO: WILI OROZCO DO CT CERVICAL SPINE WO 2019-09-18 20:32:00 [place] [address] Patient Name: JULIO CONTRERAS MR #: [id number] : 1955 Age/Sex: 64/F Req #: [id number] Adm Physician: Ordered by: WILI OROZCO DO Report #: [id number] Location: ER Room/Bed: Procedure: [id number] CT/CT CERVICAL SPINE WO Exam Date: 09/18/19 Exam Time: 2014 REPORT STATUS: Signed CT CERVICAL SPINE WO HISTORY: Fall COMPARISON: Concurrent head CT TECHNIQUE: CT of the cervical spine without contrast. Sagittal and coronal reformations were created. One or more of the following dose reduction techniques were used: Automated exposure control, adjustment of the mA and/or kV according to patient size, and/or utilization of iterative reconstruction technique. FINDINGS: Cervical lordosis is straightened. There is no significant scoliosis or subluxation. No fractures, compression deformity, or destructive osseous lesions are seen. The craniocervical junction is intact. No gross spinal canal masses are seen. The paravertebral and paraspinal soft tissues are unremarkable. Mild to moderate multilevel spondylotic changes are most prominent at C5-C6 and C6-C7. There is at least mild canal stenosis at C5-C6 due to posterior disc osteophyte complex. Multilevel bilateral e foraminal stenoses due to uncovertebral and facet arthrosis are present - moderate on the right at C4-C5, C5-C6, and C6-C7. IMPRESSION: 1. No acute osseous abnormalities. 2. Mild to moderate multilevel spondylosis, most prominent at C5-C6 and C6-C7. Signed by: Dr. Tony Will M.D. on 09/18/2019 8:38 PM Dictated By: TONY WILL MD 37 Transcribed By: LOY on 09/18/192037 COPY TO: WILI OROZCO DO CT BRAIN WO 2019-09-18 20:29:00 [place] [address] Patient Name: JULIO CONTRERAS MR #: [id number] : 1955 Age/Sex: 64/F Req #: [id number] Adm Physician: Ordered by: WILI OROZCO DO Report #: [id number] Location: ER Room/Bed: Procedure: [id number] CT/CT BRAIN WO Exam Date: 09/18/19 Exam Time: 2014 REPORT STATUS: Signed CT BRAIN WO HISTORY: Fall COMPARISON: Head CT 05/20/2019 Technique: Noncontrast axial scans were obtained from skull base to the vertex. Coronal and sagittal reconstructions obtained from the axial data. One or more of the following dose reduction techniques were used: Automated exposure control, adjustment of the mA and/or kV according to patient size, and/or utilization of iterative reconstruction technique. DISCUSSION: Scalp/Skull: Unremarkable. Brain sulci: Mildly prominent. Ventricles: Compensatory dilatation. Extra-axial spaces: No masses or fluid collections. Carotid siphon calcifications are present. Parenchyma: No abnormal densities. No masses, hemorrhage, or large vascular territory acute infarct. Dural sinuses: No abnormal densities. Sellar/Suprasellar region: Intact. Skull base: Intact. Incidental findings: None. IMPRESSION: 1. No acute intracranial abnormalities. 2. Mild generalized cerebral volume loss. Signed by: Dr. Tony Will M.D. on 09/18/2019 8:32 PM Dictated By: TONY WILL MD 31 Transcribed By: LOY on 09/18/192031 COPY TO: WILI OROZCO DO Creatine Kinase MB 2019-09-18 20:06:00 Test Item Creatine Kinase MB (test code = 48690-4) 1.80 0-5.0 [facility] Z5220-16-26 20:06:00* Test Item Value Reference Range Interpretation Comments Troponin I (test code = HCL9548) < 0.001 0-0.300 [facility] Utnko8090-28-24 20:00:00* Test Item Value Reference Range Interpretation Comments Sodium Level (test code = 2951-2) 140 136-145 [facility]Potassium Mqupo3263-44-90 20:00:00* Test Item Value Reference Range Interpretation Comments Potassium Level (test code = 2823-3) 3.5 3.5-5.1 [facility] HospitalChloride Dzsfg6976-58-22 20:00:00* Test Item Value Reference Range Interpretation Comments Chloride Level (test code = 2075-0) 106 98-107 [facility] HospitalCarbon Dioxide Aihrb9744-99-26 20:00:00* Test Item Value Reference Range Interpretation Comments Carbon Dioxide Level (test code = 2028-9) 27 22-29 [facility] HospitalAnion Dju3243-65-17 20:00:00* Test Item Value Reference Range Interpretation Comments Anion Gap (test code = 53705-2) 10.5 8-16 [facility] HospitalBlood Urea Zujligno8875-38-77 20:00:00* Test Item Value Reference Range Interpretation Comments Blood Urea Nitrogen (test code = 3094-0) 9 7-26 [facility] HospitalCreatinine2019-11-11 20:00:00* Test Item Value Reference Range Interpretation Comments Creatinine (test code = 2160-0) 0.73 0.57-1.11 [facility] HospitalBUN/Creatinine Bffkc3057-12-38 20:00:00* Test Item Value Reference Range Interpretation Comments BUN/Creatinine Ratio (test code = 3097-3) 12 - [facility] HospitalEstimat Glomerular Filtration Rate 2019-09-18 20:00:00* Test Item Value Reference Range Interpretation Comments Estimat Glomerular Filtration Rate (test code = 212194685) > 60 >60 Ranges were taken from the National Kidney Disease Education Program and the [facility] Kid[facility] Foundation literature.Reference ranges:60 or greater: [place]31-90 ( for 3 consecutive months): Chronic kidney disease 15 or less: Kidney failureHouston Methodist Willowbrook HospitalGlucose Ajdsh6305-84-93 20:00:00* Test Item Value Reference Range Interpretation Comments Glucose Level (test code = AQB4468) 127 74-118 H [facility] HospitalCalcium Oenhs3666-10-80 20:00:00* Test Item Value Reference Range Interpretation Comments Calcium Level (test code = 93740-5) 9.1 8.4-10.2 [facility] HospitalTotal Lfyjmaefj3237-83-91 20:00:00* Test Item Value Reference Range Interpretation Comments Total Bilirubin (test code = 1975-2) 0.2 0.2-1.2 [facility] HospitalAspartate Amino Transf (AST/SGOT) 2019-09-18 20:00:00* Test Item Value Reference Range Interpretation Comments Aspartate Amino Transf (AST/SGOT) (test code = Aspartate Amino Transf (AST/SGOT)) 18 5-34 [facility] HospitalAlanine Aminotransferase (ALT/SGPT) 2019-09-18 20:00:00* Test Item Value Reference Range Interpretation Comments Alanine Aminotransferase (ALT/SGPT) (test code = 1742-6) 17 0-55 [facility] HospitalTotal Ulapvxe4387-01-99 20:00:00* Test Item Value Reference Range Interpretation Comments Total Protein (test code = 2885-2) 6.7 6.5-8.1 [facility] HospitalAlbumin2019-11-11 20:00:00* Test Item Value Reference Range Interpretation Comments Albumin (test code = 1751-7) 3.6 3.5-5.0 [facility] HospitalGlobulin2019-11-11 20:00:00* Test Item Value Reference Range Interpretation Comments Globulin (test code = 25059-2) 3.1 2.3-3.5 [facility] HospitalAlbumin/Globulin Vejcy1114-43-47 20:00:00 * Test Item Value Reference Range Interpretation Comments Albumin/Globulin Ratio (test code = 1759-0) 1.2 0.8-2.0 [facility] HospitalAlkaline Wnktjltlzez4836-30-00 20:00:00* Test Item Value Reference Range Interpretation Comments Alkaline Phosphatase (test code = 6768-6) 92 40-150 [facility] HospitalCreatine Dvoeon8769-96-61 20:00:00* Test Item Value Reference Range Interpretation Comments Creatine Kinase (test code = 2157-6) 162 29-168 [facility] HospitalWhite Blood Tvgvg5239-57-66 19:49:00* Test Item Value Reference Range Interpretation Comments White Blood Count (test code = 6690-2) 6.66 4.8-10.8 [facility] HospitalRed Blood Bzrhn7759-72-48 19:49:00* Test Item Value Reference Range Interpretation Comments Red Blood Count (test code = 789-8) 4.43 3.6-5.1 [facility] HospitalHemoglobin2019-11-11 19:49:00* Test Item Value Reference Range Interpretation Comments Hemoglobin (test code = 73372-6) 14.1 12.0-16.0 [facility] HospitalHematocrit2019-11-11 19:49:00* Test Item Value Reference Range Interpretation Comments Hematocrit (test code = 4544-3) 41.4 34.2-44.1 [facility] HospitalMean Corpuscular Fmwyjg4263-90-30 19:49:00* Test Item Value Reference Range Interpretation Comments Mean Corpuscular Volume (test code = 787-2) 93.5 81-99 [facility] HospitalMean Corpuscular Fqawfxvzfk9927-04-03 19:49:00* Test Item Value Reference Range Interpretation Comments Mean Corpuscular Hemoglobin (test code = 785-6) 31.8 28-32 [facility] HospitalMean Corpuscular Hemoglobin Concent 2019-09-18 19:49:00* Test Item Value Reference Range Interpretation Comments Mean Corpuscular Hemoglobin Concent (test code = 786-4) 34.1 31-35 [facility] HospitalRed Cell Distribution Rgwoi3488-71-82 19:49:00* Test Item Value Reference Range Interpretation Comments Red Cell Distribution Width (test code = 86118-1) 12.4 11.7 -14.4 [facility] HospitalPlatelet Pjmfx9085-84-29 19:49:00* Test Item Value Reference Range Interpretation Comments Platelet Count (test code = 777-3) 234 140-360 [facility] HospitalNeutrophils (%) (Auto)2019-09-18 19:49:00 * Test Item Value Reference Range Interpretation Comments Neutrophils (%) (Auto) (test code = 53297-0) 63.6 38.7-80.0 [facility] HospitalLymphocytes (%) (Auto)2019-09-18 19:49:00 * Test Item Value Reference Range Interpretation Comments Lymphocytes (%) (Auto) (test code = 736-9) 27.6 18.0-39.1 [facility] HospitalMonocytes (%) (Auto)2019-09-18 19:49:00* Test Item Value Reference Range Interpretation Comments Monocytes (%) (Auto) (test code = 5905-5) 4.7 4.4-11.3 [facility] HospitalEosinophils (%) (Auto)2019-09-18 19:49:00 * Test Item Value Reference Range Interpretation Comments Eosinophils (%) (Auto) (test code = 713-8) 3.5 0.0-6.0 [facility] (%) (Auto)2019-09-18 19:49:00* Test Item Value Reference Range Interpretation Comments Basophils (%) (Auto) (test code = 706-2) 0.3 0.0-1.0 [facility] HospitalIM GRANULOCYTES %2019-09-18 19:49:00* Test Item Value Reference Range Interpretation Comments IM GRANULOCYTES % (test code = IM GRANULOCYTES %) 0.3 0.0- 1.0 [facility] HospitalNeutrophils # (Auto)2019-09-18 19:49:00* Test Item Value Reference Range Interpretation Comments Neutrophils # (Auto) (test code = 751-8) 4.2 2.1-6.9 [facility] HospitalLymphocytes # (Auto)2019-09-18 19:49:00* Test Item Value Reference Range Interpretation Comments Lymphocytes # (Auto) (test code = 34457-3) 1.8 1.0-3.2 [facility] HospitalMonocytes # (Auto)2019-09-18 19:49:00* Test Item Value Reference Range Interpretation Comments Monocytes # (Auto) (test code = 742-7) 0.3 0.2-0.8 [facility] HospitalEosinophils # (Auto)2019-09-18 19:49:00* Test Item Value Reference Range Interpretation Comments Eosinophils # (Auto) (test code = 711-2) 0.2 0.0-0.4 [facility] HospitalBasophils # (Auto)2019-09-18 19:49:00* Test Item Value Reference Range Interpretation Comments Basophils # (Auto) (test code = 704-7) 0.0 0.0-0.1 [facility] HospitalAbsolute Immature Granulocyte (auto 2019-09-18 19:49:00* Test Item Value Reference Range Interpretation Comments Absolute Immature Granulocyte (auto (sergio t code = Absolute Immature Granulocyte (auto) 0.02 0-0.1 [facility] HospitalOva & parasites, concentrated examination 2019-09-13 15:01:00* Test Item Value Reference Range Interpretation Comments Ova & parasites concentrated exam (test code = 41194-5) SEE NOTE OVA AND PARASITES, CONC AND PERM SMEAR MICRO NUMBER: [id number] TEST STATUS: FINAL SPECIMEN SOURCE: STOOL SPECIMEN QUALITY: ADEQUATE CONCENTRATION 1: No ova or parasites seen TRICHROME 1: No ova or parasites seen Routine Ova and Parasite exam may not detect some parasites that occasionally cause diarrheal illness. Test code(s) 07379 (Cryptosporidium Ag., DFA) and/or 79967 (Cyclospora and Isospora Exam) may be ordered to detect these parasites. One negative sample does not necessarily rule out the presence of a parasitic infection. For additional information, please refer to https://education.[employer]/faq/FJK019 (This link is being provided for informational/ educational purposes only.) NO COLLECTION DATE RECEIVED. WE HAVE USEDTHE DATE THE SPECIMEN WAS RECEIVED BY [facility] THE COLLECTION DATE. IF THISIS INCORRECT, PLEASE CONTACT CLIENT SERVICES.PHONE NUMBER: [phone] WILBERT (test code = WILBERT) Performing Organization Info rmation: Site ID: RGA Name: [facility] Address: [address] [place] [phone] Director: Cirilo Eddy Valle MethodistTEST IN QUESTION - NO TEST FOR TPBUOFPXD8022-31-66 15:01:00* Test Item Value Reference Range Interpretation Comments TEST IN QUESTION - NO TEST FOR CONTAINER (test code = 3341) NO TEST(S) ARE INDICATED ON THE REQUISITION FOR THEFOLLOWING SPECIMEN(S). SPECIMEN(S) RECEIVED: (test code = 3337) 1 TOTAL FIX STOOL Comment (test code = 5746874) To prevent further delays in testing, please completeinformation above and fax to [phone] to resolvethis order. RAC (test code = RAC) Performing Organization Info rmation: Site ID: RGA Name: [facility] Address: [address] [place], [place] [id number] Director: Cirilo MustafaOVA AND PARASITES, STOOL CONC/PERM SMEAR, 2 [id number] 15:01:00Ova & parasites concentrated examComment: OVA AND PARASITES, CONC/PERM SMEAR, 2 SPEC MICRO NUMBER: [id number] TEST STATUS: FINAL SPECIMEN SOURCE: STOOL SPECIMEN QUALITY: INADEQUATE CONCENTRATION 1: Test not performed. No suitable specimen received. TRICHROME 1: Test not performed. CONCENTRATION 2: Test not performed. TRICHROME 2: Test not performed. Routine Ova and Parasite exam may not detect some parasites that occasionally cause diarrheal illness. Test code(s) 49623 (Cryptosporidium Ag., DFA) and/or 45060 (Cyclospora and Isospora Exam) may be ordered to detect these parasites. For additional information, please refer to https://education.[employer]/faq/DYN177 (This link is being provided for informational/ educational purposes only.) [email or web address] MOOREFIELDPerforming Organization Information: Site ID: RGA Name: [facility] Address: [address] [place] [phone] Director: Cirilo Mustafa BENZENE, KTNQH6334-06-23 06:35:00* Test Item Value Reference Range Interpretation Comments BENZENE, BLOOD (test code = 9330-2) None Detected mcg/mL Reporting Limit: 0.050 mcg/mL Following exposure to 25 ppm in air for 2 hours:Approximately 0.2 mcg/mL.Analysis by Headspace Gas Chromatography (GC) TONIE (test code = TONIE) COLLECTION KIT GIVEN TO [facility]. PATIENT ADVISED TO RETURN. RAC (test code = RAC) Performing Organization Info rmation: Site ID: [id number] Name: [facility] Labs Address: [address] [place] [address] [place] [address] Director: Cirilo Ross PH.D, [facility] 12 xklo2570-47-18 11:46:28* Test Item Value Reference Range Interpretation Comments Ventricular rate (test code = 253) 65 Atrial rate (test code = 255) 65 TN interval (test code = 266) 166 QRSD interval (test code = 260) 74 QT interval (test code = 264) 404 QTC interval (test code = 265) 420 P axis 1 (test code = 267) 80 QRS axis 1 (test code = 268) 74 T wave axis (test code = 270) 66 EKG impression (test code = 273) Normal sinus rhythm-L ow voltage QRS-Borderline ECG-In automated comparison with ECG of 29-DEC-2018 14:47,-No significant change was found- Leslie MethodistURINALYSIS, COMPLETE, WITH REFLEX TO [id number] 06:57:00 * Test Item Value Reference Range Interpretation Comments Color, UA (test code = 5778-6) YELLOW YELLOW Appearance (test code = 5767-9) CLEAR CLEAR Specific gravity, urine (test code = 5811-5) 1.017 1.001-1.0 35 pH, urine (test code = 5803-2) 5.5 5.0-8.0 Glucose, urine (test code = 71481-4) NEGATIVE NEGATIVE Bilirubin, UA (test code = 5770-3) NEGATIVE NEGATIVE Ketones, UA (test code = 2514-8) NEGATIVE NEGATIVE Occult blood, urine (test code = 5794-3) NEGATIVE NEGATIVE Protein, UA (test code = 57849-0) NEGATIVE NEGATIVE Nitrite, UA (test code = 5802-4) NEGATIVE NEGATIVE Leukocyte esterase, UA (test code = 5799-2) NEGATIVE NEGATIVE WBC, UA (test code = 5821-4) NONE SEEN < OR = 5 /HPF RBC, UA (test code = 26680-7) NONE SEEN < OR = 2 /HPF Squamous epithelial cells, UA (test code = 40694-6) NONE SEEN < OR = 5 /HPF Bacteria, UA (test code = 5769-5) NONE SEEN NONE SEEN /HPF Hyaline casts, UA (test code = 5796-8) NONE SEEN NONE SEEN /LPF Reflex (test code = 630-4) NO CULTURE INDICATED RAC (test code = RAC) Performing Organization Info rmation: Site ID: RGA Name: [facility] Address: [address] [place] [phone] Director: Cirilo Eddy Leslie MethodistComprehensive metabolic ocqqh7430-72-54 04:36:00* Test Item Value Reference Range Interpretation Comments Glucose (test code = 2345-7) 77 mg/dL 65-139 Non-fasting reference interval BUN (test code = 3094-0) 11 mg/dL 7-25 Creatinine (test code = 2160-0) 0.59 mg/dL 0.5-0.99 For patients >49 years of age, the reference limitfor Creatinine is approximately 13% higher for peopleidentified as -Mongolian. EGFR Non-Afr. Mongolian (test code = 2775) 96 > OR = 60 mL /min/1.73m2 EGFR (test code = 41886-8) 111 > OR = 60 mL/min/1.73m2 BUN/creatinine ratio (test code = 3097-3) NOT APPLICABLE 6- 22 (oly c) Sodium (test code = 2951-2) 142 mmol/L 135-146 Potassium (test code = 2823-3) 4.8 mmol/L 3.5-5.3 Chloride (test code = 2074-0) 107 mmol/L 98-110 CO2 (test code = 2027-9) 28 mmol/L 20-32 Calcium (test code = 95364-9) 9.1 mg/dL 8.6-10.4 Protein (test code = 2885-2) 6.8 g/dL 6.1-8.1 Albumin, S (test code = 1751-7) 4.0 g/dL 3.6-5.1 Globulin, total (test code = 41514-8) 2.8 1.9- 3.7 g/dL (c alc) Albumin/globulin ratio (test code = 1759-0) 1.4 1.0- 2.5 ( calc) Total bilirubin (test code = 1974-) 0.3 mg/dL 0.2-1.2 Alkaline phosphatase (test code = 6768-6) 99 U/L 33-130 AST (test code = 1920-8) 17 U/L 10-35 ALT (test code = 1742-6) 18 U/L 6-29 TONIE (test code = TONIE) FASTING:NOFASTING: NO RAC (test code = RAC) Performing Organization Info rmation: Site ID: RGA Name: [facility] Address: [address] [place] [phone] Director: Cirilo Valle MethodistThyroid stimulating oeubjva6470-29-45 04:36:00* Test Item Value Reference Range Interpretation Comments TSH (test code = 3016-3) 1.63 0.40- 4.50 mIU/L TONIE (test code = TONIE) FASTING:NOFASTING: NO RAC (test code = RAC) Performing Organization Info rmation: Site ID: LISA Name: [facility] Address: [address] [place] [phone] Director: Cirilo Eddy Leslie MethodistCBC with platelet and sdjwuredhxqe3040-51-74 04:36:00* Test Item Value Reference Range Interpretation Comments WBC (test code = 6690-2) 5.4 3.8- 10.8 Thousand/uL RBC (test code = 789-8) 4.49 3.80- 5.10 Million/uL HGB (test code = 718-7) 13.9 g/dL 11.7-15.5 HCT (test code = 4544-3) 41.2 % 35-45 MCV (test code = 787-2) 91.8 fL 80-100 MCH (test code = 785-6) 31.0 pg 27-33 MCHC (test code = 786-4) 33.7 g/dL 32-36 RDW (test code = 788-0) 11.9 % 11-15 Platelet count (test code = 777-3) 218 140- 400 Thousand/u L MPV (test code = 776-5) 11.3 fL 7.5-12.5 Neutrophils, absolute (test code = 751-8) 2943 1,500 - 7,80 0 cells/uL Lymphocytes, absolute (test code = 731-0) 1868 850- 3,900 c ells/uL Monocytes, absolute (test code = 742-7) 362 200- 950 cells /uL Eosinophils, absolute (test code = 711-2) 194 15- 500 cell s/uL Basophils, absolute (test code = 704-7) 32 0- 200 cells/u L Neutrophils (test code = 770-8) 54.5 % Lymphocytes (test code = 736-9) 34.6 % Monocytes (test code = 5905-5) 6.7 % Eosinophils (test code = 713-8) 3.6 % Basophils + RC (test code = 706-2) 0.6 % TONIE (test code = TONIE) FASTING:NOFASTING: NO RAC (test code = RAC) Performing Organization Info rmation: Site ID: RGA Name: [facility] Address: [address] [place] [phone] Director: Cirilo Eddy Leslie MethodistLIPID PANEL WITH REFLEX TO DIRECT [id number] 04:36:00* Test Item Value Reference Range Interpretation Comments Cholesterol, total (test code = 2093-3) 171 mg/dL <200 HDL cholesterol (test code = 2085-9) 55 mg/dL >50 Triglycerides (test code = 2571-8) 152 mg/dL <150 H LDL cholesterol calculated (test code = 92598-9) 91 mg/dL (calc) Reference range: <100 Desirable range <100 mg/dL for primary prevention; <70 mg/dL for patients with CHD or diabetic patients with > or = 2 CHD risk factors. LDL-C is now calculated using the Jered-Holden calculation, which is a validated novel method providing better accuracy than the Friedewald equation in the estimation of LDL-C. Jered SS et al. BLANCA. 2013;310(19): 5321-8779 (http:/ /education.[employer]/faq/UBO955) Cholesterol/HDL ratio (test code = 9830-1) 3.1 <5.0 (calc) Non-HDL cholesterol (test code = 82807-3) 116 <130 mg/dL ( calc) For patients with diabetes plus 1 major ASCVD risk factor, treating to a non-HDL-C goal of <100 mg/dL (LDL-C of <70 mg/dL) is considered a therapeutic option. TONIE (test code = TONIE) FASTING:NOFASTING: NO RAC (test code = RAC) Performing Organization Info rmation: Site ID: RGA Name: [facility] Address: [address] [place] [phone] Director: Cirilo Eddy Lab Interpretation (test code = 76660-4) Abnormal [facility] ROMINA SINGLETONPZK2630-80-58 11:12:41Hm Interface, Radiology Results - 06/21/2019 11:15 AM CDTEXAMINATION: FL UGI W KUBCLINICAL HISTORY: K21.0 Gastro-esophageal reflux disease with esophagitis, Esophageal refluxCOMPARISON: March 21, 2019FINDINGS:Barium was given barium now to swallow and the esophagus, stomach, and duodenum evaluated under fluoroscopy.The Linx device is in stable position at the level of the GE junction. The esophagus dilates to normal without diverticula, obvious ulcerations, or suspicious filling defects. The GE junction is in normal position. Since the prior exam, there is improved in transit time of contrast through the GE junction with c omplete emptying of the contrast from the esophagus 4.5 minutes. The risks minim al greater tertiary nonpropulsive contractions of the esophagus before 4 minutes . No gastroesophageal reflux.The stomach is without obvious stricture or diverti cula. There is normal passage of contrast from the stomach into the duodenum.IMP RESSION:Improved transit time of contrast from the esophagus into the stomach no w only 4.5 minutes. No gastroesophageal reflux.Fluoroscopy time 3 minutes 52 sec onds, 11 images obtained.[id number] [facility] BRAIN [id number] 18:32:00 [place] [address] Patient Name: JULIO CONTRERAS MR #: [id number] : 1955 Age/Sex: 63/F Req #: [id number] Adm Physician: Ordered by: LAZARO MEJIA MD Report #: [id number] Location: ER Room/Bed: Procedure: CT/CT BRAIN WO Exam Date: 05/20/19 Exam Time: 1804 REPORT STATUS: Signed CT BRAIN WO HISTORY: Headaches COMPARISON: Report from MRI brain 09/11/[address] 09/10/2017 TECHNIQUE: Noncontrast axial scans were obtained from skull base to the vertex. Coronal and sagittal reconstructions obtained from the ax ial data. One or more of the following dose reduction techniques were used: A utomated exposure control, adjustment of the mA and/or kV according to patient size, and/or utilization of iterative reconstruction technique. DISCUSSI ON: Scalp/Skull: Unremarkable. Brain sulci: Appropriate for patient's age . Ventricles: Normal in size and configuration. No hydrocephalus. Extra-axi al spaces: No masses or fluid collections. Parenchyma: Mild carotid siphon calcifications are present. No mass, hemorrhage, or large vascular ter ritory acute infarct. Dural sinuses: No abnormal densities. Sellar/Supra sellar region: Intact. Skull base: Intact. Incidental findings: None. I MPRESSION: No acute intracranial abnormalities. Signed by: Dr. Gale Will M.D. on 05/20/2019 6:34 PM Dictated By: TONY WILL MD 33 Transcribed By: LOY on 05/20/191833 COPY TO: LAZARO MEJIA MD DRUG SCREEN 2018-02-11 23:23:00Negative *NA*(02/11/18 6:23 PM)[facility] 2018-02-11 23:23:00See Note *NA*(02/11/18 6:23 PM)[facility] 2018-02-11 23:23:00Negative *NA*(02/11/18 6:23 PM)[facility] 2018-02-11 23:23:00Negative *NA*(02/11/18 6:23 PM)[facility] 2018-02-11 23:23:00Negative *NA*(02/11/18 6:23 PM)[facility] 2018-02-11 23:23:00Negative *NA*(02/11/18 6:23 PM)[facility] 2018-02-11 23:23:00Negative *NA*(02/11/18 6:23 PM)[facility] 2018-02-11 23:23:00Negative *NA*(02/11/18 6:23 PM)[facility] STOOL 2018-02-11 23:23:00Negative (02/11/18 6:23 PM)[facility] ST[facility]OL 2018-02-11 23:23:00* Test Item Value Reference Range Interpretation Comments UA pH (test code = UA pH) 6.0 1 5.0-8.0 [facility] TJAAS2596-19-97 23:23:00* Test Item Value Reference Range Interpretation Comments UA Spec Grav (test code = UA Spec Grav) 1.001 1 [facility] FORHN5317-11-36 23:23:00<1[facility] QSHGC7881-35-74 23:23:002[facility] SZDJX5460-25-81 23:23:00Clear (02/11/18 6:23 PM)[facility] LLEGQ6914-54-88 23:23:00Negative *NA*(02/11/18 6:23 PM)[facility] EWYWJ1074-17-61 23:23:00Trace *ABN*(02/11/18 6:23 PM)[facility] SKPIH6604-70-33 23:23:00Negative (02/11/18 6:23 PM)[facility] NwtrkddGAFNDMPWFMAX3865-08-86 22:32:006.6[facility] WsplivlWRXZYKPITLGU2786-49-84 22:32:003.9[facility] YbhxyseFSPZENBQSUWI6143-34-65 22:32:00* Test Item Value Reference Range Interpretation Comments B/C Ratio (test code = B/C Ratio) 11 1 6-25 [facility] XimbmtwYKFRZTBJFGQO9841-15-48 22:32:00* Test Item Value Reference Range Interpretation Comments A/G Ratio (test code = A/G Ratio) 0.9 1 0.7-1.6 [facility] WhtpvsxZRKEUJWFHIFN9622-43-40 22:32:0099[facility] HermannELECTROLYTES 2018-02-11 22:32:0016[facility] CzsygtjFPMQZNGCWDAO3394-88-75 22:32:000.3[facility] MdghetlPKLPQKNHCXBA9502-46-24 22:32:88653Nmxqpxho JurlngiQHYUQHZYUFAF8520-82-48 22:32:003.7[facility] CpbqaowWKZPQPVTJBNG7323-27-85 22:32:0026[facility] VQKHVVJWTGZI4925-24-83 22:32:007.6[facility] YzltciaPAFMYSVAATRY8127-87-08 22:32:009.1[facility] CatjnmtZOWWYMEQUQQZ9742-67-55 22:32:0029[facility] RRKIAGSQHVPB1399-33-17 22:32:14407Subgvkzl StglcryIQOESUIBAZXS0807-49-73 22:32:23240Ozhlgalx GmruwqnQBDEKIWQZSGU4816-25-72 22:32:003.6[facility] PEBDVXVHAMAB2180-20-36 22:32:000.57[facility] UjtvuznZFKZQDGPMOEC1695-76-55 22:32:0083[facility] UuwtdxpTUTLTTPBXEDG8720-16-87 22:32:006[facility] QCVQQIPRKN8506-24-02 22:32:009.0[facility] CmfwyqzIIEHXLAQAU1088-46-75 22:32:00 12.9[facility] VmrtuouWLCCRHVRGY3663-64-99 22:32:41050Cdgmgcyd HermannHEMATOLOGY 2018-02-11 22:32:00* Test Item Value Reference Range Interpretation Comments MCH (test code = MCH) 31.2 pg 27.0-31.0 [facility] VuwttmkSVFMUXPTPD4825-12-23 22:32:0034.2[facility]annHEMATOLOGY 2018-02-11 22:32:0014.8[facility] JcvwcvnTUYLKDCACA7958-83-58 22:32:0043.2[facility] AzrujpeBHLRKRZLHF2017-74-50 22:32:006.4[facility] MeyepltHTXEDTWPAM1821-52-99 22:32:004.75[facility] FyadgspPYOSIKTHBA4139-24-53 22:32:0091.1[facility] KBLTNZRQYH0481-09-24 22:32:0030.3[facility] BfeaonjZRRNWJBHNE3093-78-11 22:32:00 61.9[facility] QrbmhliYIEORXZHFJ1527-00-46 22:32:004.8[facility]annHEMATOLOGY 2018-02-11 22:32:002.4[facility] CgikkllXXABZOYEII2805-48-09 22:32:001.9[facility] DoeuqcdSQRUMNTQUH2352-90-77 22:32:000.6[facility] RbqbegeBNBBPHYJIO1893-38-23 22:32:004.0[facility] KodvvbpVONAGXZRLZ8598-87-44 22:32:000.3[facility] JYHOIBUDOB8648-97-70 22:32:000.2[facility] UieoxqrREUJTHVIED0514-11-66 22:32:005 [facility] RrzdsmlAPSBEZPBSO7335-55-46 22:32:00<3[facility] HermannTOXICOLOGY 2018-02-11 22:32:00<0.003[facility] IvogrbdJYQPYPOMXB3354-16-95 22:32:00<1.7 [facility] HermannCreatine Kinase PQ5694-34-28 10:24:00* Test Item Value Reference Range Interpretation Comments Creatine Kinase MB (test code = 52643-7) 1.40 0.00-5.00 [facility] HospitalTroponin H6851-60-57 10:24:00* Test Item Value Reference Range Interpretation Comments Troponin I (test code = HOE3728) 0.023 0-0.300 [facility] HospitalCreatine Hmzsdb1377-95-46 10:17:00* Test Item Value Reference Range Interpretation Comments Creatine Kinase (test code = 2157-6) 176 29-168 H [facility] HospitalUrine INN6532-12-47 23:09:00* Test Item Value Reference Range Interpretation Comments Urine WBC (test code = 5821-4) 11-20 0-5 H [facility] HospitalUrine CKC9879-42-31 23:09:00* Test Item Value Reference Range Interpretation Comments Urine RBC (test code = 68450-6) 0-5 0-5 [facility] HospitalUrine Bejyvaeq0594-93-31 23:09:00* Test Item Value Reference Range Interpretation Comments Urine Bacteria (test code = 79197-0) FEW NONE [facility] HospitalUrine Epithelial Nanfn0147-34-36 23:09:00 * Test Item Value Reference Range Interpretation Comments Urine Epithelial Cells (test code = 76119-3) RARE NONE [facility] HospitalUrine Amlop9010-84-64 23:03:00* Test Item Value Reference Range Interpretation Comments Urine Color (test code = 5778-6) YELLOW YELLOW [facility] HospitalUrine Yevxfii9746-89-62 23:03:00* Test Item Value Reference Range Interpretation Comments Urine Clarity (test code = 92272-8) CLEAR CLEAR [facility] Specific Mbsiymg0074-29-14 23:03:00 * Test Item Value Reference Range Interpretation Comments Urine Specific [place] (test code = 5811-5) 1.010 1.010-1.02 5 [facility] HospitalUrine sT0795-77-92 23:03:00* Test Item Value Reference Range Interpretation Comments Urine pH (test code = 53782-6) 8 5-7 H [facility] Leukocyte Zlninfoa8490-13-47 23:03:00* Test Item Value Reference Range Interpretation Comments Urine Leukocyte Esterase (test code = 5799-2) 2+ NEGATIVE H [facility] HospitalUrine Xhxblky6031-19-86 23:03:00* Test Item Value Reference Range Interpretation Comments Urine Nitrite (test code = 63017-4) NEGATIVE NEGATIVE [facility] HospitalUrine Gfudggo5402-56-68 23:03:00* Test Item Value Reference Range Interpretation Comments Urine Protein (test code = 5804-0) NEGATIVE NEGATIVE [facility] HospitalUrine Glucose (UA)2017-09-10 23:03:00* Test Item Value Reference Range Interpretation Comments Urine Glucose (UA) (test code = 2349-9) NEGATIVE NEGATIVE [facility] HospitalUrine Sspwzet5508-48-67 23:03:00* Test Item Value Reference Range Interpretation Comments Urine Ketones (test code = 67391-7) NEGATIVE NEGATIVE [facility] HospitalUrine Wcxnwzvweaqa8282-90-78 23:03:00* Test Item Value Reference Range Interpretation Comments Urine Urobilinogen (test code = 24291-3) 0.2 0.2-1 [facility] HospitalUrine Fezojewfe9361-64-00 23:03:00* Test Item Value Reference Range Interpretation Comments Urine Bilirubin (test code = 1978-6) NEGATIVE NEGATIVE [facility] HospitalUrine Qxemo6866-22-32 23:03:00* Test Item Value Reference Range Interpretation Comments Urine Blood (test code = 56295-0) NEGATIVE NEGATIVE [facility] Jvfld4876-15-36 21:24:00* Test Item Value Reference Range Interpretation Comments Sodium Level (test code = 2951-2) 141 136-145 [facility] HospitalPotassium Uszty4047-49-74 21:24:00* Test Item Value Reference Range Interpretation Comments Potassium Level (test code = 2823-3) 4.6 3.5-5.1 [facility] HospitalChloride Celbl0532-49-50 21:24:00* Test Item Value Reference Range Interpretation Comments Chloride Level (test code = 2075-0) 107 98-107 [facility] HospitalCarbon Dioxide Liqqd2556-96-38 21:24:00* Test Item Value Reference Range Interpretation Comments Carbon Dioxide Level (test code = 2028-9) 23 22-29 [facility] HospitalAnion Rkr6773-17-18 21:24:00* Test Item Value Reference Range Interpretation Comments Anion Gap (test code = 50135-2) 15.6 8-16 [facility] HospitalBlood Urea Hvphxhnv4567-53-21 21:24:00* Test Item Value Reference Range Interpretation Comments Blood Urea Nitrogen (test code = 3094-0) 12 7-26 [facility] HospitalCreatinine2017-11-03 21:24:00* Test Item Value Reference Range Interpretation Comments Creatinine (test code = 2160-0) 0.78 0.57-1.11 [facility] HospitalBUN/Creatinine Uzzub1688-31-52 21:24:00* Test Item Value Reference Range Interpretation Comments BUN/Creatinine Ratio (test code = 3097-3) 15 6-25 [facility] HospitalEstimat Glomerular Filtration Rate 2017-09-10 21:24:00* Test Item Value Reference Range Interpretation Comments Estimat Glomerular Filtration Rate (test code = 02163-1) 60- >60 Ranges were taken from the National Kidney Disease Education Program and the [facility] Foundation literature.Reference ranges:60 or greater: Rqvnnk21-34 ( for 3 consecutive months): Chronic kidney disease 15 or less: Kidney failureHouston Methodist Willowbrook HospitalGlucose Mcpfy5645-62-91 21:24:00* Test Item Value Reference Range Interpretation Comments Glucose Level (test code = YRC2184) 91 74-118 [facility] HospitalCalcium Gkwvx4480-90-70 21:24:00* Test Item Value Reference Range Interpretation Comments Calcium Level (test code = 57467-2) 9.0 8.4-10.2 [facility] HospitalTotal Rrfzgovhc0015-79-16 21:24:00* Test Item Value Reference Range Interpretation Comments Total Bilirubin (test code = 1975-2) 0.3 0.2-1.2 [facility] HospitalAspartate Amino Transf (AST/SGOT) 2017-09-10 21:24:00* Test Item Value Reference Range Interpretation Comments Aspartate Amino Transf (AST/SGOT) (test code = Aspartate Amino Transf (AST/SGOT)) 32 5-34 [facility] HospitalAlanine Aminotransferase (ALT/SGPT) 2017-09-10 21:24:00* Test Item Value Reference Range Interpretation Comments Alanine Aminotransferase (ALT/SGPT) (test code = 1742-6) 31 0-55 [facility] HospitalTotal Qenpiuk8367-47-13 21:24:00* Test Item Value Reference Range Interpretation Comments Total Protein (test code = 2885-2) 7.9 6.5-8.1 [facility] HospitalAlbumin2017-11-03 21:24:00* Test Item Value Reference Range Interpretation Comments Albumin (test code = 1751-7) 3.8 3.5-5.0 [facility] HospitalGlobulin2017-11-03 21:24:00* Test Item Value Reference Range Interpretation Comments Globulin (test code = 05889-3) 4.1 2.3-3.5 H [facility] HospitalAlbumin/Globulin Lpbnu4835-59-77 21:24:00 * Test Item Value Reference Range Interpretation Comments Albumin/Globulin Ratio (test code = 1759-0) 0.9 0.8-2.0 [facility] HospitalAlkaline Ulqmifvbdnk0756-86-52 21:24:00* Test Item Value Reference Range Interpretation Comments Alkaline Phosphatase (test code = 6768-6) 91 40-150 [facility] HospitalWhite Blood Cevox4457-80-21 21:06:00* Test Item Value Reference Range Interpretation Comments White Blood Count (test code = 6690-2) 7.99 4.8-10.8 [facility] HospitalRed Blood Ayhlc6370-23-31 21:06:00* Test Item Value Reference Range Interpretation Comments Red Blood Count (test code = 789-8) 4.47 3.6-5.1 [facility] HospitalHemoglobin2017-11-03 21:06:00* Test Item Value Reference Range Interpretation Comments Hemoglobin (test code = 59288-9) 14.3 12.0-16.0 [facility] HospitalHematocrit2017-11-03 21:06:00* Test Item Value Reference Range Interpretation Comments Hematocrit (test code = 4544-3) 41.3 34.2-44.1 [facility] HospitalMean Corpuscular Kxnbil5246-48-84 21:06:00* Test Item Value Reference Range Interpretation Comments Mean Corpuscular Volume (test code = 787-2) 92.4 81-99 [facility] HospitalMean Corpuscular Lvwfgcackb3534-21-65 21:06:00* Test Item Value Reference Range Interpretation Comments Mean Corpuscular Hemoglobin (test code = 785-6) 32.0 28-32 [facility] HospitalMean Corpuscular Hemoglobin Concent 2017-09-10 21:06:00* Test Item Value Reference Range Interpretation Comments Mean Corpuscular Hemoglobin Concent (test code = 786-4) 34.6 31-35 [facility] HospitalRed Cell Distribution Btcwx1857-32-21 21:06:00* Test Item Value Reference Range Interpretation Comments Red Cell Distribution Width (test code = 14479-6) 12.9 11.7 -14.4 [facility] HospitalPlatelet Zczvd9495-49-41 21:06:00* Test Item Value Reference Range Interpretation Comments Platelet Count (test code = 777-3) 231 140-360 [facility] HospitalNeutrophils (%) (Auto)2017-09-10 21:06:00 * Test Item Value Reference Range Interpretation Comments Neutrophils (%) (Auto) (test code = 05817-1) 62.9 38.7-80.0 [facility] HospitalLymphocytes (%) (Auto)2017-09-10 21:06:00 * Test Item Value Reference Range Interpretation Comments Lymphocytes (%) (Auto) (test code = 736-9) 28.3 18.0-39.1 [facility] HospitalMonocytes (%) (Auto)2017-09-10 21:06:00* Test Item Value Reference Range Interpretation Comments Monocytes (%) (Auto) (test code = 5905-5) 5.9 4.4-11.3 [facility] HospitalEosinophils (%) (Auto)2017-09-10 21:06:00 * Test Item Value Reference Range Interpretation Comments Eosinophils (%) (Auto) (test code = 713-8) 2.4 0.0-6.0 [facility] HospitalBasophils (%) (Auto)2017-09-10 21:06:00* Test Item Value Reference Range Interpretation Comments Basophils (%) (Auto) (test code = 706-2) 0.4 0.0-1.0 [facility] HospitalIM GRANULOCYTES %2017-09-10 21:06:00* Test Item Value Reference Range Interpretation Comments IM GRANULOCYTES % (test code = IM GRANULOCYTES %) 0.1 0.0- 1.0 [facility] HospitalNeutrophils # (Auto)2017-09-10 21:06:00* Test Item Value Reference Range Interpretation Comments Neutrophils # (Auto) (test code = 751-8) 5.0 2.1-6.9 [facility] HospitalLymphocytes # (Auto)2017-09-10 21:06:00* Test Item Value Reference Range Interpretation Comments Lymphocytes # (Auto) (test code = 40767-1) 2.3 1.0-3.2 [facility] HospitalMonocytes # (Auto)2017-09-10 21:06:00* Test Item Value Reference Range Interpretation Comments Monocytes # (Auto) (test code = 742-7) 0.5 0.2-0.8 [facility] HospitalEosinophils # (Auto)2017-09-10 21:06:00* Test Item Value Reference Range Interpretation Comments Eosinophils # (Auto) (test code = 711-2) 0.2 0.0-0.4 [facility] HospitalBasophils # (Auto)2017-09-10 21:06:00* Test Item Value Reference Range Interpretation Comments Basophils # (Auto) (test code = 704-7) 0.0 0.0-0.1 [facility] HospitalAbsolute Immature Granulocyte (auto 2017-09-10 21:06:00* Test Item Value Reference Range Interpretation Comments Absolute Immature Granulocyte (auto (sergio t code = Absolute Immature Granulocyte (auto) 0.01 0-0.1 [facility] HospitalB-Type Natriuretic Enfllmo6690-92-43 10:46:00* Test Item Value Reference Range Interpretation Comments B-Type Natriuretic Peptide (test code = 16849-2) 15.7 0-100 [facility] HospitalProthrombin Egnd5976-42-27 09:33:00* Test Item Value Reference Range Interpretation Comments Prothrombin Time (test code = 5902-2) 12.3 11.9-14.5 [facility] HospitalProthromb Time International Ratio 2017-07-28 09:33:00* Test Item Value Reference Range Interpretation Comments Prothromb Time International Ratio (test code = 6301-6) 0.87 Oral Anticoagulant Therapy INR Values:1. Low Intensity Therapy 1.5 - 2.02 . Moderate Intensity Therapy 2.0 - 3.03. High Intensity Therapy(1) 2.5 - 3. 54. High Intensity Therapy(2) 3.0 - 4.05. Panic Value INR > 5.0 [facility] HospitalActivated Partial Thromboplast Time 2017-07-28 09:33:00* Test Item Value Reference Range Interpretation Comments Activated Partial Thromboplast Time (test code = 41651-6) 28.7 23.8-35.5 [facility] HospitalCARDIAC PLCEFQE4405-02-03 09:10:000.5 [facility] HermannCARDIAC LDIAJHR1973-75-89 09:10:17964Odidobda HermannCARDIAC ZJDUPSK5521-63-98 09:10:000.03[facility] HermannCARDIAC CKWALRL5228-72-97 09:10:00 1.6[facility] MjftkjaLCYDFVFMCXQE8012-11-29 09:10:0025[facility] HermannELECTROLYTES 2017-01-02 09:10:008.9[facility] KkyecjbVUFHYWIBUUQM3811-84-86 09:10:0013.7 [facility] HmqmerwTDOXUNRSRHCZ1222-49-83 09:10:68982Wvjopgfs HermannELECTROLYTES 2017-01-02 09:10:000.55[facility] WitvqsvXPDPSBTLXNZC4501-82-38 09:10:0012[facility] AymsypgZZIOYAEHIXVK0950-14-42 09:10:0088[facility] EyywieiQPHGHCZRRTET2921-90-43 09:10:65851Yzsdtoga MqsojekFMRGKVYPUEUW7871-88-57 09:10:003.7[facility] PVVPQCIFWQQG8361-44-14 09:10:38517Hpedplhj YqcmasoBBTZSMUJPN9260-58-80 09:10:00 * Test Item Value Reference Range Interpretation Comments PTT (test code = PTT) 29.0 s 22.9-35.8 [facility] GroczfmEMSXOIVAJG8309-65-21 09:10:000.96[facility] HermannHEMATOLOGY 2017-01-02 09:10:00* Test Item Value Reference Range Interpretation Comments PT (test code = PT) 13.0 s 12.0-14.7 [facility] FhxhdscUPMYESJQKT2527-23-80 09:10:0041.4[facility] HermannHEMATOLOGY 2017-01-02 09:10:0014.2[facility] UsxkeqnYPAKOQBDOU1329-30-32 09:10:004.50[facility] OdfzapqSSRUCDRVES4553-28-58 09:10:007.3[facility] EgifbxbSORZXPVWMH5391-34-73 09:10:009.6[facility] TnwrzkoNGCBXLYGKB8882-60-32 09:10:27552Fumtbzry Surendra PXCBHWRMST5991-84-72 09:10:0034.4[facility] IzuodpjDVRMGHSEVU6179-41-89 09:10:00 13.2[facility] GsplwsuKKUWLGKCFD4180-28-37 09:10:00* Test Item Value Reference Range Interpretation Comments MCH (test code = MCH) 31.6 pg 27.0-31.0 [facility] JledrpmFISNDHIKGN1305-32-53 09:10:0092.0[facility] HermannHEMATOLOGY 2017-01-02 09:10:0031.9[facility] BigdeinMOKTKGHPIL9976-79-05 09:10:0057.4[facility] KcpjkmdLDJPPKMJBR8461-13-57 09:10:000.5[facility] KukdtokHDTFVCSTDJ9653-20-66 09:10:000.2[facility] ImnlxryCLEVNQHMXO7005-76-51 09:10:004.2[facility] XDNXOIDSRO6524-02-71 09:10:006.9[facility] WtwreftHWLMGYKEQW0351-29-19 09:10:000.5 [facility] GuvvsemVEILKOEZMD9689-11-19 09:10:002.3[facility] HermannHEMATOLOGY 2017-01-02 09:10:003.3[facility] HermannMRI BRAIN WO [place] [address] Patient Name: JULIO CONTRERAS MR #: [id number] : 1955 Age/Sex: 62/F Req #: [id number] Adm Physician: KATHY ALAN MD Ordered by: JAMES MENA MD Report #: [id number] Location: MED/SURG Room/Bed: [facility] Procedure: [id number] M RI/MRI BRAIN WO Exam Date: 09/11/17 Exam Time: 0955 REPORT STATUS: Signed Examination: MRI BRAIN WITHOUT CONTRAST History: Syncope Comparison studies: Head CT performed September 10, 2017. Techniq ue: Sagittal T2; axial DWI, FLAIR, GRE or SWI, T1, Coronal FLAIR. Intraveno us contrast: None Findings: Scalp: No abnormal signal. No masses. B one marrow: Normal in signal intensity. Brain volume: Adequate for age. No volume loss. Ventricles: Normal in size and configuration. No hydrocephalus. Extra-axial spaces: No abnormalities. Parenchyma: No masses, h emorrhage, or acute or chronic vascular insults. Suprasellar and sellar reg ion: No abnormalities. Craniocervical junction: No abnormalities. The foramen magnum is patent. No Chiari malformations. Vessels: Normal flow-voids in the arteries and sinuses. Additional findings:Mild inflammatory mucosal thicke maria d of the left ethmoid air cells. IMPRESSION: No acute intracrania l abnormalities. No change from prior head CT performed September 10, 2017 when accounting for differences in technique. Signed by: Ophelia Hay on 09/11/2017 11:22 AM Dictated By: SHENA LAWTON MD Elect ronically Signed By: SHENA LAWTON MD on 09/11/17 112 Transcribed B y: LOY on 09/11/171121 COPY TO: JAMES MENA MD [facility] (PORTABLE) [place] [address] Patient Name: JULIO CONTRERAS MR #: [id number] : 1955 Age/Sex: 62/F Req #: [id number] Adm Physician: Ordered by: JAMES MENA MD Report #: [id number] Location: ER Room/Bed: Procedure: [id number] DX/CHEST SINGLE (PORTABLE) Exam Date: 09/10/17 Exam Time: 2199 REPORT STA TUS: Signed CHEST SINGLE (PORTABLE), 09/10/2017 9:58 PM Technique: CHEST SINGLE (PORTABLE) Comparison: 07/28/2017. Clinical history: Syncope Find ings: Unremarkable appearance of the heart, mediastinum, lungs and pleural spa niya. Impression: 1. Lines/Tubes: None 2. No acute abnormality. Sig hamlet by: Dr Ya Baker MD on 09/10/2017 10:27 PM Dictated By: YA PATEL MD 26 Transc ribed By: LOY on 09/10/172226 COPY TO: JAMES MENA MD CT BRAIN [place] [address] Patient Name: JULIO CONTRERAS MR #: [id number] : 1955 Age/Sex: 62/F Req #: [id number] Adm Physician: Ordered by: JAMES MENA MD Report #: [id number] Location: ER Room/Bed: Procedure: [id number] CT/CT BRAIN WO Exam Date: Exam Time: REPORT STATUS: Signed EXAMINATI ON: Head CT without contrast. HISTORY:Syncope. COMPARISON:None. TECHNIQUE: Multidetector axial images were obtained from the foramen magnum to the vertex without contrast. The images were reconstructed using brain and bone algorithms. Thin section brain images were reformatted into coronal and s agittal planes. Intravenous contrast: None IMAGE QUALITY: Acceptable. FINDINGS: Skull/scalp: No abnormality. Parenchyma: No abnormal density. No acute hemorrhage, mass or acute major vascular territorial infarc t. Arteries: No density suggestive of thrombosis. Dural sinuses: No abnormal density suggestive of thrombosis. Ventricles: No hydrocephalu s or displacement. Extra-axial spaces: No abnormal density. Brain volume: Normal for age. Craniocervical junction: No mass, Chiari malformat ion, or basilar invagination. Sella: No mass. Paranasal/mastoid s inuses: Imaged portions unremarkable. IMPRESSION: No intracranial abnorma lity. Signed by: Dr. Todd Amador M.D. on 09/10/2017 9:43 PM Dict ated By: TODD AMADOR MD 42 COPY TO: JAMES MENA MD CT ABDOMEN/PELVIS [place] [address] Patient Name: JULIO CONTRERAS MR #: [id number] : 1955 Age/Sex: 62/F Req #: [id number] Adm Physician: Ordered by: JAMES MENA MD Report #: [id number] Location: ER Room/Bed: Procedure: [id number] CT/CT ABDOMEN/PELVIS W Exa m Date: 09/10/17 Exam Time: 2100 REPORT STATUS: Signed EXAM: CT ABDOMEN/PELVIS W DATE: 09/10/2017 8:57 PM INDICATION: Syncope, pain in esophagus, prior EGD and biopsy COMPARISON: None TECHNIQU E: The abdomen and pelvis were scanned using a multidetector helical scanner. Coronal and sagittal reformations were obtained. Routine protocol performed. IV Contrast: 100 ml Isovue 370 FINDINGS: LOWER THORAX: No consolidations LIVER/BILIARY: Hepatic steatosis with peripheral wedge-shaped enhancement in segment 7 which may be perfusional.. No ductal dilatation. GALLBLADD ER: Unremarkable SPLEEN: Unremarkable PANCREAS: Unremarkable ADRENALS: No nodules KIDNEYS: Symmetric perfusion. No enhancing masses. No hydronephrosi s. GI TRACT: There is slight irregular thickening and enhancement of the ga stric cardia (image 11). No evidence of bowel obstruction. Normal appendix. VESSELS: Unremarkable PERITONEUM/RETROPERITONEUM: No free air or fluid LY MPH NODES: No lymphadenopathy REPRODUCTIVE ORGANS/BLADDER: Unremarkable BONES: Moderate L4-S1 facet arthrosis. IMPRESSION: 1. Mild thickening/e nhancement of the gastric cardia. Correlate with recent EGD. 2. No acute abn ormality in the abdomen or pelvis. Signed by: Dr Ya Baker MD on 2016 10:03 PM Dictated By: YA BAKER MD 02 Transcribed By: LOY on 09/10/172202 COPY TO: JAMES MENA MD CHEST SINGLE (PORTABLE) [place] [address] Patient Name: JULIO CONTRERAS MR #: [id number] : 1955 Age/Sex: 62/F Req #: [id number] Adm Physician: Ordered by: HANNAH HUANG MD Report #: [id number] Location: ER Room/Bed: Procedure: [id number] DX/CHEST SINGLE (PORTABLE) Exam Date: 07/28/17 Exam Time: 904 REPORT STATUS: Signed PROCEDURE: CHEST SINGLE (PORTABLE) COMPARISON: None. INDICATIONS: CHEST PAIN MID STERNUM TODAY FINDINGS: LUNGS: No consolidations or edema. PLEURA: No effusions or pneumothorax. HEART T MEDIAS TINUM: The heart is within normal size-limits. BONES T SOFT TISSUES: No acute findings. CONCLUSION: No acute thoracic abnormality. Dictated by: Tom Raines M.D. on 07/28/2017 at 10:04 Electronical ly approved by: Tom Raines M.D. on 07/28/2017 at 10:04 Dictated By: TOM RAINES MD 100 4 Transcribed By: EMILI on 07/28/17 1004 COPY TO: HANNAH HUANG MD
--- NOTE | 2020-04-13 07:48 | Emergency Department Note ---
History of Present Illnes History of Present Illness Chief Complaint: Eye, Ear, Nose, Throat, Dental History of Present Illness This is a 64 year old female, with history of hypertension, who presents with right ear pain and itching and intermittent past 1.5 weeks. Patient has a cerumen scoop at home that she received at urgent care that she has been using to scratch the inside of her right ear, and she feels that she may have caused a sore in the right ear. She denies any drainage from the ear. She denies any cough, nasal congestion, fever, chills, or other upper respiratory symptoms. She states she has had some decreased hearing in the right ear, and she is concerned that she may need to have the right ear "cleaned." She also mentions that a "flea from her dog may have jumped into her ear," and caused the itching. Historian: Patient Arrival Mode: Car Composite Technician Required: No Onset (how long ago): week(s) (1.5) Location: right ear Quality: itching, intermittent, sharp pain Radiation: non-radiation Severity: mild Onset quality: gradual Duration (how long): week(s) (1.5) Timing of current episode: intermittent Progression: unchanged Chronicity: new Relieving factors: none Exacerbating factors: none Associated symptoms: denies other symptoms Treatments prior to arrival: none Past Medical/Family History Physician Review I have reviewed the patient's past medical and family history. Any updates have been documented here. Past Medical History Recent Fever: No Clinical Suspicion of Infectio: No New/Unexplained Change in Ment: No Past Medical History: Hypertension Other Medical History: GERD Past Surgical History: Hernia Repair Other Surgery: tonsilectomy Social History Smoking Cessation: Never Smoker Counseling Performed: No Alcohol Use: None Any Illegal Drug Use: No TB Exposure/Symptoms: No Physically hurt or threatened: No Family History Family history of heart diseas: No Other Last Tetanus: UNKNOWN Any Pre-Existing Lines (PICC,: No Is patient up to date on immun: Yes Last Flu: NONE Last Pneumovax: NONE Review of Systems Review of Systems Constitutional: no symptoms EENTM: ear pain (right) Cardiovascular: no symptoms Respiratory: no symptoms Gastrointestinal: no symptoms Musculoskeletal: no symptoms Neurological: no symptoms Psychological: no symptoms Review of other systems All other systems reviewed and negative. Physical Exam Related Data Allergies: Coded Allergies: Penicillins (Verified Allergy, Mild, HIVES, 07/28/17) peanut (Verified Allergy, Unknown, 09/18/19) Triage Vital Signs Vital Signs Date Time Temp Pulse Resp B/P (MAP) Pulse Ox O2 Delivery O2 Flow Rate FiO2 04/13/20 07:21 98.3 64 18 115/69 98 Vital signs reviewed: Yes Physical Exam CONSTITUTIONAL Constitutional: well-developed, well-nourished HENT HENT: normocephalic, atraumatic, oropharynx clear/moist, nose normal HENT L/R: left TM normal, right TM normal (edema of right external auditory canal, as well as the tragus, with ttp; no erythema , warmth or drainage.), left canal normal EYES Eyes: PERRL, conjunctivae normal NECK Neck: ROM normal PULMONARY Pulmonary: effort normal, breath sounds normal CARDIOVASCULAR Cardiovascular: regular rhythm, heart sounds normal, capillary refill normal, normal rate GASTROINTESTINAL Abdominal: soft, nontender, bowel sounds normal GENITOURINARY SKIN Skin: warm, dry MUSCULOSKELETAL Musculoskeletal: edema NEUROLOGICAL Neurological: alert, oriented x 3, no gross motor or sensory deficits PSYCHOLOGICAL Psychological: mood/affect normal, judgement normal Critical Care Time Subsequent provider I assumed direction of critical care for this patient from another provider of my specialty. Assessment & Plan Assessment & Plan Final Impression: (1) Otitis externa (2) Cellulitis of right ear (3) Hypertension Assessment & Plan - Even though no external redness or warmth, plan to treat the swelling of the right external ear (tragus) as if it is a cellulitis, as she also has right OE. - Pt to keep right ear clean and dry, while treating, preventing water from sitting in the ear. - No fleas or other foreign bodies seen in the the right ear. - Pt advised to get rid of the cerumen scoop and not to use it inside her ear. - Pt to f/u with PCP in 1 week, to re-check the right ear, to ensure that infection has cleared. She may return here, if symptoms worsen (fever, worsening pain, swelling or redness of right ear); Depart Disposition: HOME, SELF-CARE Last Vital Signs Date Time Temp Pulse Resp B/P (MAP) Pulse Ox O2 Delivery O2 Flow Rate FiO2 04/13/20 07:21 98.3 64 18 115/69 98 Home Meds Active Scripts Doxycycline Hyclate (DOXYCYCLINE HYCLATE) 100 Mg Capsule, 100 MG PO BID for infection for 10 Days, #20 TAB 0 Refills Prov:MARJ OHARA MD 04/13/20 Neomy Sulf/Colist Sul/Hc/Thonz (CORTISPORIN-TC EAR SUSP) 10 Ml Drops.susp, 2 DROP RIGHT EAR TID for infection for 7 Days, #10 ML 0 Refills Prov:MARJ OHARA MD 04/13/20 Reported Medications Sertraline Hcl (SERTRALINE HCL) 50 Mg Tablet, 25 MG PO HS 05/20/19 Ezetimibe (ZETIA) 10 Mg Tablet, 10 MG PO DAILY 05/20/19 Amlodipine Besylate (AMLODIPINE BESYLATE) 5 Mg Tablet, 5 MG PO DAILY 05/20/19 MARJ OHARA MD Apr 13, 2020 07:48
[2020-04-13] MEDS ORDERED: CORTISPORIN-TC10 ML RIGHT EAR (07:49)
[2020-04-13] MEDS ORDERED: DOXYCYCLINE HY100 MG PO (07:50)
== END 2020-04-13 08:20 | disposition home or self-care (01) ==
LOC: FSED 06:53
DX: H60.11 Cellulitis of right external ear (principal); I10 Essential (primary) hypertension; K21.9 Gastro-esophageal reflux disease without esophagitis
CPT/HCPCS: 99282

== ENCOUNTER 2020-07-18 01:10 | Emergency (ER) | payer MEDICARE, OTHER ==
[~2020-07-18] VITALS: Ht 149.9 cm; Wt 56.7 kg
[~2020-07-18 01:10] MED LIST changes: +CORTISPORIN-TC10 ML RIGHT EAR; +DOXYCYCLINE HY100 MG PO
[2020-07-18] MEDS ORDERED: FAMOTIDINE 20 MG TAB PO ONE (02:30)
[2020-07-18] MEDS ORDERED: METHYLPREDNISOLONE SOD SUCC 125 MG/2ML VIAL IM ONE (02:30)
--- OUTSIDE RECORDS SUMMARY | 2020-07-18 02:52 | XMS REPORT | Continuity of Care Document ---
Author Author Rosibel Agosto Wappwolf Pako, JULIO Reynolds Organization [employer] Address Unknown Phone Unavailable Care Team Providers Care Dispatch Specialist Name Role Phone Crowdery Information SpeedDate Unavailable Un available Problems Problem Status Onset Date Classification Date Reported Comments Source Gastro-esophageal reflux disease without esophagitis 11/17/2018 05/02/2019 [facility] UNK Active 1 [facility] Poisoning by other antipsychotics and ne uroleptics, intentional self-harm, initial encounter 02/25/2018 05/21/2018 [facility] INTENTIONAL OVERDOSE Active 02/11/2018 [facility] SCREENING MAMMOGRAM Active 08/23/2017 [facility] Z12.31 - ENCNTR SCREEN MAMMOGRAM FOR MA Active 02/24/2017 [facility] Discharge Diagnosis: SOB (shortness of breath) 01/02/2017 01/05/2017 [facility] SLURRED SPEECH Active 01/01/2017 [facility] M25.571 - PAIN IN RIGHT ANKLE AND JOINTS Active 10/23/2016 [facility] Gigi M25.561 - PAIN IN RIGHT KNEE A ctive 01/13/2016 [facility] Bipolar disorder (disorder) Ac tive 11/08/2015 Problem 05/02/2019 [facility] Right knee pain Active Problem 09/23/2017 [facility] Acute right ankle pain Active Problem 09/23/2017 [facility] Chronic meniscal tear of knee Active Problem [facility] Anxiety disorder, unspecified Active Problem [facility] Other chest pain Active Problem 09/23/2017 [facility] Depression with anxiety Active Problem 09/23/2017 [facility] Anxiety Active Problem 09/23/2017 [facility] Obesity (BMI 30-39.9) Active Problem 09/23/2017 [facility] Gastroesophageal reflux disease without esophagitis Active Problem 09/23/2017 [facility] Short-term memory loss Active Problem 09/23/2017 [facility] Obesity Active Problem 09/23/2017 [facility] Hyperlipidemia Active Problem 09/23/2017 [facility] Low vitamin D level Active Problem 09/23/2017 [facility] BMI 30.0-30.9,adult Active Problem 09/23/2017 [facility] Atrophic vaginitis Active Problem 09/23/2017 [facility] Hormone disturbance Active Diagnosis 05/22/2017 [facility] Osteoporosis screening Active Diagnosis 08/11/2017 [facility] Breast cancer screening Active Diagnosis 08/11/2017 [facility] Breast cancer screening Active Diagnosis 01/09/2017 [facility] Dysphagia (disorder) Resolved Problem 05/02/2019 [facility] Gastroesophageal reflux disease (disorder) Resolved Problem 05/02/2019 [facility] Hiatal hernia (disorder) Resol devyn Problem [facility] Hypertensive disorder, systemic arterial (disorder) Active Problem 05/02/2019 [facility] Dysphagia, unspecified 05/02/2019 [facility] Diaphragmatic hernia without obstruction or gangrene 05/02/2019 [facility] Chest pain, unspecified 05/02/2019 [facility] Heartburn 05/02/2019 [facility] Obesity, unspecified 05/02/2019 [facility] Body mass index (BMI) 32.0-32.9, adult 05/02/2019 [facility] Allergy status to penicillin 05/02/2019 [facility] Slurred speech 05/21/2018 [facility] Bipolar disorder, unspecified 05/21/2018 [facility] Underdosing of other antipsychotics and neuroleptics, initial encounter 05/21/2018 [facility] Essential (primary) hypertension 05/21/2018 [facility] Patient's intentional underdosing of med ication regimen for other reason 05/21/2018 [facility] Medications Medication Details Route Status Patient Instructions Ordering Provider Order Date Source Unknown Home Medication 10 mg =, PO, Daily, Refill(s) 0 Active 10/13/2018 [facility] Vitamin B6 PO, Daily, 0 Refill (s) Active 10/13/2018 [facility] Gingko Biloba oral tablet 60 m g =, PO, Daily, 0 Refill(s) Active 10/13/2018 [facility] Vitamin B12 PO, Daily, 0 Refil l(s) Active 10/13/2018 [facility] Multiple Vitamins oral tablet 1 tab, PO, Daily, # 30 tab, 0 Refill(s) Active 10/13/2018 [facility] Unknown Home Medication 500 mg =, PO, Daily, Refill(s) 0 Active 10/13/2018 [facility] perphenazine 4 mg oral tablet 8 mg = 2 tab, PO, QPM, 0 Refill(s) Active 10/13/2018 [facility] Esomeprazole 40 mg, PO, Daily, 0 Refill(s) No Longer Active 09/20/2018 [facility] perphenazine 4 mg oral tablet 4 mg = 1 tab, PO, Daily, 0 Refill(s) Active 09/20/2018 [facility] benztropine mesylate 2 MG Oral Tablet 2 mg = 1 tab, PO, Bedtime, 0 Refill(s) Active 09/20/2018 [facility] Amlodipine 5 mg, PO, Daily, 0 Refill(s) Active 02/12/2018 [facility] Ergocalciferol 1 capsule Orally Active 72041 UNIT Orally once a week [facility] 09/22/2017 [facility] Sucralfate 10 ml Orally Active 1 GM/10ML Orally once a day as needed [facility] 07/28/2017 [facility] Sucralfate 10 ml Orally Active 1 GM/10ML Orally once a day as needed [facility] 07/28/2017 [facility] Pantoprazole Sodium 1 tablet Orally Active 40 MG Orally Once a day [facility] 07/13/2017 [facility] Omeprazole 1 capsule Orally Active 40 MG Orally Once a day [facility] 03/02/2017 [facility] Ergocalciferol 1 capsule Orally Active 13148 UNIT Orally Once a week [facility] 01/11/2017 [facility] Meloxicam 1 tablet Orally Active 15 MG Orally Once a day [facility] 10/21/2016 [facility] Ergocalciferol 1 capsule Orally Active 10463 UNIT Orally Once a week [facility] 07/10/2016 [facility] Ergocalciferol 1 capsule Orally Active 43955 UNIT Orally Once a week [facility] 05/19/2016 [facility] Meloxicam 1 tablet Orally Active 15 MG Orally Once a day [facility] 01/13/2016 [facility] Ergocalciferol 1 capsule Orally Active 23038 UNIT Orally once a week [facility] 09/13/2015 [facility] Atorvastatin Calcium 1 tablet Orally Active 40 mg Orally Once a day [facility] 09/13/2015 [facility] Atorvastatin Calcium 1 tablet Orally Active 40 mg Orally Once a day [facility] Seroquel 1 tablet at bedtime Orally Active 25 MG Orally Once a day [facility] Ergocalciferol 1 capsule Orally Active 98618 UNIT Orally Once a week [facility] Omeprazole 1 capsule Orally Active 40 MG Orally Once a day [facility] Escitalopram Oxalate 1 tablet Orally Active 5 MG Orally Once a day [facility] Atorvastatin Calcium 1 tablet Orally Active 40 mg Orally Once a day [facility] Levsin 1 tablet before meals a s needed Orally Active 0.125 MG Orally [facility] Pantoprazole Sodium 1 tablet Orally Active 40 MG Orally Once a day [facility] Pantoprazole Sodium 1 tablet Orally Active 40 MG Orally Once a day [facility] Levsin 1 tablet before meals a s needed Orally Active 0.125 MG Orally [facility] Escitalopram Oxalate 1 tablet Orally Active 5 MG Orally Once a day [facility] Benztropine Mesylate 1 tablet Orally Active 0.5 MG Orally twice a day (bid) [facility] Risperidone 1 tablet Orally Active 2 MG Orally twice a day (bid) [facility] Resperal 1 tablet Orally Active 5-1.25-5-5 MG/5ML Orall y daily [facility] Allergies, Adverse Reactions, Alerts Substance Category Reaction Severity Reaction type Status Date Reported Comments Source N.K.D.A. Adverse Reaction Info Not Available Adverse Reaction Active 05/12/2016 [facility] penicillin Adverse Reaction rash Adverse Reaction Active 09/21/2017 [facility] penicillins Assertion Drug allergy Active [facility] Ranitidine Hydrochloride<sup>1</sup> Assertion Drug aller gy Active rash [facility] Bandaids Assertion Drug allergy Active [facility] Immunizations No Data Provided for This Section Results Order Name Results Value Reference Range Date Interpretation Comments Source DRUG SCREEN U Opiate Scr Nega tive *NA* (02/11/18 6:23 PM) Negative 02/11/2018 [facility] DRUG SCREEN UDS Note See Note *NA* (02/11/18 6:23 PM) 02/11/2018 [facility] DRUG SCREEN U Phencyc Scr Nega tive *NA* (02/11/18 6:23 PM) Negative 02/11/2018 [facility] DRUG SCREEN U Cocaine Scr Nega tive *NA* (02/11/18 6:23 PM) Negative 02/11/2018 [facility] DRUG SCREEN U Cannab Scr Nega tive *NA* (02/11/18 6:23 PM) Negative 02/11/2018 [facility] DRUG SCREEN U Benzodia Scr Nega tive *NA* (02/11/18 6:23 PM) Negative 02/11/2018 [facility] DRUG SCREEN U Amph Scr Nega tive *NA* (02/11/18 6:23 PM) Negative 02/11/2018 [facility] DRUG SCREEN U Ramona Scr Nega tive *NA* (02/11/18 6:23 PM) Negative 02/11/2018 [facility] URINE AND STOOL UA Urobilinogen <=1.0 mg/dL 0.1 - 1.0 02/11/2018 [facility] URINE AND STOOL UA Color Colorless 02/11/2018 [facility] URINE AND STOOL UA Blood Negative (02/11/18 6:23 PM) Negative 02/11/2018 [facility] URINE AND STOOL UA Sq Epi Occasional /LPF Few /LPF 02/11/2018 [facility] URINE AND STOOL UA Protein Negative mg/dL Negative mg/dL 02/11/2018 [facility] URINE AND STOOL UA pH 6.0 5.0 - 8.0 02/11/2018 [facility] URINE AND STOOL UA Spec Grav 1.001 <=1.030 02/11/2018 [facility] URINE AND STOOL UA Glucose Negative mg/dL Negative mg/dL 02/11/2018 [facility] URINE AND STOOL UA Ketones Negative mg/dL Negative mg/dL 02/11/2018 [facility] URINE AND STOOL UA WBC <1 0 - 5 02/11/2018 [facility] URINE AND STOOL UA RBC 2 0 - 2 02/11/2018 [facility] URINE AND STOOL UA Turbidity Clear (02/11/18 6:23 PM) Clear 02/11/2018 [facility] URINE AND STOOL UA Bili Negative *NA* (02/11/18 6:23 PM) Negative 02/11/2018 [facility] URINE AND STOOL UA Leuk Est Trace *ABN* (02/11/18 6:23 PM) Negative 02/11/2018 [facility] URINE AND STOOL UA Nitrite Negative (02/11/18 6:23 PM) Negative 02/11/2018 [facility] Culture: Urine <10,000 CFU/mL Skin Shani 02/11/2018 [facility] ELECTROLYTES AGAP 6.6 10.0 - 20.0 02/11/2018 [facility] ELECTROLYTES Globulin 3.9 2.7 - 4.2 02/11/2018 [facility] ELECTROLYTES B/C Ratio 11 6 - 25 02/11/2018 [facility] ELECTROLYTES A/G Ratio 0.9 0.7 - 1.6 02/11/2018 [facility] ELECTROLYTES eGFR 99 02/11/2018 Result Comment: The [...] should be multiplied by the estimated BMI. [facility] ELECTROLYTES AST 16 0 - 37 02/11/2018 [facility] ELECTROLYTES Bili Total 0.3 0.2 - 1.3 02/11/2018 [facility] ELECTROLYTES Alk Phos 100 39 - 136 02/11/2018 [facility] ELECTROLYTES Albumin Lvl 3.7 3.5 - 5.0 02/11/2018 [facility] ELECTROLYTES ALT 26 0 - 65 02/11/2018 [facility] ELECTROLYTES Total Protein 7.6 6.4 - 8.4 02/11/2018 [facility] ELECTROLYTES Calcium Lvl 9.1 8.5 - 10.5 02/11/2018 [facility] ELECTROLYTES CO2 29 24 - 32 02/11/2018 [facility] ELECTROLYTES Sodium Lvl 139 135 - 145 02/11/2018 [facility] ELECTROLYTES Chloride Lvl 107 95 - 109 02/11/2018 [facility] ELECTROLYTES Potassium Lvl 3.6 3.5 - 5.1 02/11/2018 [facility] ELECTROLYTES Creatinine Lvl 0.5 7 0.50 - 1.40 02/11/2018 [facility] ELECTROLYTES Glucose Lvl 83 70 - 99 02/11/2018 [facility] BUN 6 7 - 22 02/11/2018 [facility] HEMATOLOGY MPV 9.0 7.4 - 10.4 02/11/2018 [facility] HEMATOLOGY RDW 12.9 11.5 - 14.5 02/11/2018 [facility] HEMATOLOGY Platelet 215 133 - 450 02/11/2018 [facility] HEMATOLOGY MCH 31.2 27.0 - 31.0 02/11/2018 [facility] HEMATOLOGY MCHC 34.2 32.0 - 36.0 02/11/2018 [facility] HEMATOLOGY Hgb 14.8 12.0 - 16.0 02/11/2018 [facility] HEMATOLOGY Hct 43.2 36.0 - 48.0 02/11/2018 [facility] HEMATOLOGY WBC 6.4 3.7 - 10.4 02/11/2018 [facility] HEMATOLOGY RBC 4.75 4.20 - 5.40 02/11/2018 [facility] HEMATOLOGY MCV 91.1 80.0 - 98.0 02/11/2018 [facility] HEMATOLOGY Lymphocytes 30.3 20.0 - 40.0 02/11/2018 [facility] HEMATOLOGY Segs 61.9 45.0 - 75.0 02/11/2018 [facility] HEMATOLOGY Monocytes 4.8 2.0 - 12.0 02/11/2018 [facility] HEMATOLOGY Eosinophils 2.4 0.0 - 4.0 02/11/2018 [facility] HEMATOLOGY Lymphocytes # 1.9 1.0 - 5.5 02/11/2018 [facility] HEMATOLOGY Basophils 0.6 0.0 - 1.0 02/11/2018 [facility] HEMATOLOGY Segs-Bands # 4.0 1.5 - 8.1 02/11/2018 [facility] HEMATOLOGY Monocytes # 0.3 0.0 - 0.8 02/11/2018 [facility] HEMATOLOGY Eosinophils # 0.2 0.0 - 0.5 02/11/2018 [facility] TOXICOLOGY Acetaminoph Lvl 5 10 - 20 02/11/2018 [facility] TOXICOLOGY Ethanol Lvl <3 02/11/2018 [facility] TOXICOLOGY Etoh (%) <0.003 02/11/2018 [facility] TOXICOLOGY Salicylate Lvl <1.7 0.0 - 30.0 02/11/2018 [facility] CARDIAC ENZYMES CK MB Index 0.5 0.0 - 2.5 01/02/2017 [facility] CARDIAC ENZYMES Total CK 343 12 - 191 01/02/2017 [facility] CARDIAC ENZYMES Troponin-I 0.03 0.00 - 0.40 01/02/2017 [facility] CARDIAC ENZYMES CK MB 1.6 0.5 - 3.6 01/02/2017 [facility] ELECTROLYTES CO2 25 24 - 32 01/02/2017 [facility] ELECTROLYTES Calcium Lvl 8.9 8.5 - 10.5 01/02/2017 [facility] ELECTROLYTES AGAP 13.7 10.0 - 20.0 01/02/2017 [facility] ELECTROLYTES eGFR 100 01/02/2017 Result Comment: The [...] should be multiplied by the estimated BMI. [facility] ELECTROLYTES Creatinine Lvl 0.5 5 0.50 - 1.40 01/02/2017 [facility] ELECTROLYTES BUN 12 7 - 22 01/02/2017 [facility] ELECTROLYTES Glucose Lvl 88 70 - 99 01/02/2017 [facility] ELECTROLYTES Chloride Lvl 108 95 - 109 01/02/2017 [facility] ELECTROLYTES Potassium Lvl 3.7 3.5 - 5.1 01/02/2017 [facility] ELECTROLYTES Sodium Lvl 143 135 - 145 01/02/2017 [facility] PTT 29.0 22.9 - 35.8 01/02/2017 [facility] INR 0.96 0.85 - 1.17 01/02/2017 [facility] MCH 31.6 27.0 - 31.0 01/02/2017 [facility] HEMATOLOGY MCV 92.0 80.0 - 98.0 01/02/2017 [facility] Lymphocytes 31.9 20.0 - 40.0 01/02/2017 [facility] Segs 57.4 45.0 - 75.0 01/02/2017 [facility] Monocytes # 0.5 0.0 - 0.8 01/02/2017 [facility] Eosinophils # 0.2 0.0 - 0.5 01/02/2017 [facility] Segs-Bands # 4.2 1.5 - 8.1 01/02/2017 [facility] Monocytes 6.9 2.0 - 12.0 01/02/2017 [facility] Basophils 0.5 0.0 - 1.0 01/02/2017 [facility] Lymphocytes # 2.3 1.0 - 5.5 01/02/2017 [facility] Eosinophils 3.3 0.0 - 4.0 01/02/2017 [facility] Pathology Reports No Data Provided for This Section Diagnostic Reports Report Value Date Source Breast Mammo Scrn CHASE incl CAD MA BILATERAL DIGITAL SCREENING MAMMOGRAM WITH CAD: 09/17/2017 CLINICAL: /Routine. Current study was evaluated with a Computer Aided Detection (CAD) system. COMPARISON:Comparison is made to exams dated: 06/19/2014 mammogram, 04/26/2013 mammogram, and 07/09/2011 mammogram - [facility]. TECHNIQUE: Mammographic views were obtained using digital acquisition. Emergent [employer] Version 1.3 was utilized for computer aided [...] is recommended.(09/18/2018) This exam was interpreted at [id number] for [facility]. Coretz conde/gold:09/17/2017 15:56:37 Director Of Business Development(s): Vonda Wilson [facility] letter sent: BI-RADS 1/2 Mammogram BI-RADS: 2 Benign 09/17/2017 [facility] Ankle 3 views DX EXAM: Ankle 3 [...] of acute cardiopulmonary disease. SL: 82 01/02/2017 [facility] Ankle 3 views DX EXAMINATION: Right ankle [...] mammogram, 04/26/2013 mammogram and 06/19/2014 mammogram - [facility]. The tissue of both breasts is heterogeneously [...] screening mammogram is recommended. Rolo talavera/gold:08/23/2015 07:24:33 Director Of Business Development: Genet Chan [facility] This exam was dictated and interpreted by [id number] for Aakash Fiore. letter sent: Normal exam Mammogram BI-RADS: 2 Benign 08/16/2015 [facility] Consultation Notes No Data Provided for This Section Discharge Summaries No Data Provided for This Section History and Physicals No Data Provided for This Section Vital Signs Vital Sign Value Date Comments Source Systolic (mm Hg) 129 10/13/2018 [facility] Diastolic (mm Hg) 85 10/13/2018 [facility] Temperature Oral (F) 97.6 F 10/13/2018 [facility] Heart Rate 72 10/13/2018 [facility] Respitory Rate 17 10/13/2018 [facility] BMI Calculated 32.38 10/12/2018 [facility] Weight 72.727 10/12/2018 [facility] Height 149.86 cm 10/12/2018 [facility] Height 152.4 cm 06/10/2018 [facility] BMI Calculated 29.36 06/10/2018 [facility] Weight 68.182 06/10/2018 [facility] Temperature Oral (F) 98.1 F 02/12/2018 [facility] Systolic (mm Hg) 112 02/12/2018 [facility] Diastolic (mm Hg) 74 02/12/2018 [facility] Heart Rate 85 02/12/2018 [facility] Respitory Rate 18 02/12/2018 [facility] Respitory Rate 16 02/12/2018 [facility] Systolic (mm Hg) 99 02/12/2018 [facility] Diastolic (mm Hg) 50 02/12/2018 [facility] Heart Rate 68 02/12/2018 [facility] Temperature Oral (F) 98.4 F 02/12/2018 [facility] Systolic (mm Hg) 100 02/12/2018 [facility] Diastolic (mm Hg) 67 02/12/2018 [facility] Temperature Oral (F) 98 F 02/12/2018 [facility] Heart Rate 75 02/12/2018 [facility] Respitory Rate 14 02/12/2018 [facility] BMI Calculated 28.38 02/11/2018 [facility] Weight 65.909 02/11/2018 [facility] Height 152.4 cm 02/11/2018 [facility] Weight 149.7 09/21/2017 [facility] Height 60 1 11/21/2016 [facility] Temperature Oral (F) 97.7 F 09/21/2017 [facility] Heart Rate 66 09/21/2017 [facility] Diastolic (mm Hg) 92 09/21/2017 [facility] Systolic (mm Hg) 144 09/21/2017 [facility] Weight 150.0 08/10/2017 [facility] Height 60 1 [facility] Temperature Oral (F) 98.1 F 08/10/2017 [facility] Heart Rate 80 08/10/2017 [facility] Diastolic (mm Hg) 76 08/10/2017 [facility] Systolic (mm Hg) 107 08/10/2017 [facility] Weight 149.5 07/28/2017 [facility] Height 60 0 07/28/2017 [facility] Temperature Oral (F) 98.6 F 07/28/2017 [facility] Heart Rate 61 07/28/2017 [facility] Diastolic (mm Hg) 88 07/28/2017 [facility] Systolic (mm Hg) 144 07/28/2017 [facility] Weight 152.7 07/13/2017 [facility] Height 60 0 07/13/2017 [facility] Temperature Oral (F) 97.8 F 07/13/2017 [facility] Heart Rate 73 07/13/2017 [facility] Diastolic (mm Hg) 85 07/13/2017 [facility] Systolic (mm Hg) 125 07/13/2017 [facility] Weight 153.9 05/21/2017 [facility] Height 60 0 05/21/2017 [facility] Temperature Oral (F) 98.5 F 05/21/2017 [facility] Heart Rate 83 05/21/2017 [facility] Diastolic (mm Hg) 87 05/21/2017 [facility] Systolic (mm Hg) 146 05/21/2017 [facility] Weight 155.9 03/02/2017 [facility] Height 60 0 03/02/2017 [facility] Temperature Oral (F) 98.1 F 03/02/2017 [facility] Heart Rate 61 03/02/2017 [facility] Diastolic (mm Hg) 82 03/02/2017 [facility] Systolic (mm Hg) 128 03/02/2017 [facility] Weight 159.2 01/13/2017 [facility] Height 60 0 01/13/2017 [facility] Temperature Oral (F) 98.0 F 01/13/2017 [facility] Heart Rate 66 01/13/2017 [facility] Diastolic (mm Hg) 76 01/13/2017 [facility] Systolic (mm Hg) 109 01/13/2017 [facility] Weight 160.1 01/08/2017 [facility] Height 60 0 01/08/2017 [facility] Temperature Oral (F) 97.8 F 01/08/2017 [facility] Heart Rate 66 01/08/2017 [facility] Diastolic (mm Hg) 81 01/08/2017 [facility] Systolic (mm Hg) 128 01/08/2017 [facility] Temperature Oral (F) 97.9 F 01/02/2017 [facility] Heart Rate 66 01/02/2017 [facility] Respitory Rate 14 01/02/2017 [facility] Systolic (mm Hg) 122 01/02/2017 [facility] Diastolic (mm Hg) 89 01/02/2017 [facility] Systolic (mm Hg) 130 01/02/2017 [facility] Diastolic (mm Hg) 73 01/02/2017 [facility] Height 149.86 cm 01/02/2017 [facility] Heart Rate 64 01/02/2017 [facility] Respitory Rate 18 01/02/2017 [facility] Systolic (mm Hg) 137 01/02/2017 [facility] Diastolic (mm Hg) 79 01/02/2017 [facility] Temperature Oral (F) 97.6 F 01/02/2017 [facility] BMI Calculated 32.38 01/02/2017 [facility] Weight 72.727 01/02/2017 [facility] Weight 165.3 10/21/2016 [facility] Height 60 1 12/22/2015 [facility] Temperature Oral (F) 98.1 F 10/21/2016 [facility] Heart Rate 84 10/21/2016 [facility] Diastolic (mm Hg) 84 10/21/2016 [facility] Systolic (mm Hg) 121 10/21/2016 [facility] Weight 163.2 07/10/2016 [facility] Height 60 0 07/10/2016 [facility] Temperature Oral (F) 98.1 F 07/10/2016 [facility] Heart Rate 76 07/10/2016 [facility] Diastolic (mm Hg) 82 07/10/2016 [facility] Systolic (mm Hg) 144 07/10/2016 [facility] Weight 163.1 05/12/2016 [facility] Height 60 0 05/12/2016 [facility] Temperature Oral (F) 98.0 F 05/12/2016 [facility] Heart Rate 80 05/12/2016 [facility] Diastolic (mm Hg) 85 05/12/2016 [facility] Systolic (mm Hg) 129 05/12/2016 [facility] Weight 164.2 03/09/2016 [facility] Height 60 0 03/09/2016 [facility] Temperature Oral (F) 98.6 F 03/09/2016 [facility] Heart Rate 77 03/09/2016 [facility] Diastolic (mm Hg) 90 03/09/2016 [facility] Systolic (mm Hg) 130 03/09/2016 [facility] Weight 164.3 01/13/2016 [facility] Height 60 0 01/13/2016 [facility] Temperature Oral (F) 98.4 F 01/13/2016 [facility] Heart Rate 76 01/13/2016 [facility] Diastolic (mm Hg) 84 01/13/2016 [facility] Systolic (mm Hg) 129 01/13/2016 [facility] Weight 165.4 01/08/2016 [facility] Height 60 0 01/08/2016 [facility] Temperature Oral (F) 98.6 F 01/08/2016 [facility] Heart Rate 76 01/08/2016 [facility] Diastolic (mm Hg) 84 01/08/2016 [facility] Systolic (mm Hg) 137 01/08/2016 [facility] Weight 158.6 09/13/2015 [facility] Height 60 1 11/13/2014 [facility] Temperature Oral (F) 98.6 F 09/13/2015 [facility] Heart Rate 85 09/13/2015 [facility] Diastolic (mm Hg) 83 09/13/2015 [facility] Primary Systolic (mm Hg) 119 09/13/2015 [facility] Primary Encounters Location Location Details Encounter Type Encounter Number Reason For Visit Attending Provider ADM Date DC Date Status Source [facility] Primary Care New patient here for WWE [id number] 08/14/2015 08/14/2015 [facility] Primary Care New patient here for WWE [id number] 08/14/2015 08/14/2015 [facility] Primary Care New patient here for WWE [id number] 08/14/2015 08/14/2015 [facility] Primary Care New patient here for WWE [id number] 08/14/2015 08/14/2015 [facility] Primary Care New patient here for WWE [id number] 08/14/2015 08/14/2015 [facility] Primary Care New patient here for WWE [id number] 08/14/2015 08/14/2015 [facility] Primary Care New patient here for WWE [id number] 08/14/2015 08/14/2015 [facility] Primary Care New patient here for WWE [id number] 08/14/2015 08/14/2015 [facility] Primary Care New patient here for WWE [id number] 08/14/2015 08/14/2015 [facility] Primary Care New patient here for WWE [id number] 08/14/2015 08/14/2015 [facility] Primary Care New patient here for WWE [id number] 08/14/2015 08/14/2015 [facility] Primary Care New patient here for WWE [id number] 08/14/2015 08/14/2015 [facility] [id number] Marybel Landeros 08/16/2015 08/17/2015 [facility] Primary Care patient to follow up on labs [id number] 09/13/2015 09/13/2015 [facility] Primary Care patient to follow up on labs [id number] 09/13/2015 09/13/2015 [facility] Primary Care patient to follow up on labs [id number] 09/13/2015 09/13/2015 [facility] Primary Care patient to follow up on labs [id number] 09/13/2015 09/13/2015 [facility] Primary Care patient to follow up on labs [id number] 09/13/2015 09/13/2015 [facility] Primary Care patient to follow up on labs [id number] 09/13/2015 09/13/2015 [facility] Primary Care patient to follow up on labs [id number] 09/13/2015 09/13/2015 [facility] Primary Care patient to follow up on labs [id number] 09/13/2015 09/13/2015 [facility] Primary Care patient to follow up on labs [id number] 09/13/2015 09/13/2015 [facility] Primary Care patient to follow up on labs [id number] 09/13/2015 09/13/2015 [facility] Primary Care patient to follow up on labs [id number] 09/13/2015 09/13/2015 [facility] Primary Care patient to follow up on labs [id number] 09/13/2015 09/13/2015 [facility] Primary Care patient here to follow up on medication [id number] 01/08/2016 01/08/2016 [facility] Primary Care patient here to follow up on medication [id number] 01/08/2016 01/08/2016 [facility] Primary Care patient here to follow up on medication [id number] 01/08/2016 01/08/2016 [facility] Primary Care patient here to follow up on medication [id number] 01/08/2016 01/08/2016 [facility] Primary Care patient here to follow up on medication [id number] 01/08/2016 01/08/2016 [facility] Primary Care patient here to follow up on medication [id number] 01/08/2016 01/08/2016 [facility] Primary Care patient here to follow up on medication [id number] 01/08/2016 01/08/2016 [facility] Primary Care patient here to follow up on medication [id number] 01/08/2016 01/08/2016 [facility] Primary Care patient here to follow up on medication [id number] 01/08/2016 01/08/2016 [facility] Primary Care patient here to follow up on medication [id number] 01/08/2016 01/08/2016 [facility] Primary Care patient here to follow up on medication [id number] 01/08/2016 01/08/2016 [facility] Primary Care Patient here with Right knee pain [id number] 01/13/2016 01/13/2016 [facility] Primary Care Patient here with Right knee pain [id number] 01/13/2016 01/13/2016 [facility] Primary Care Patient here with Right knee pain [id number] 01/13/2016 01/13/2016 [facility] Primary Care Patient here with Right knee pain [id number] 01/13/2016 01/13/2016 [facility] Primary Care Patient here with Right knee pain [id number] 01/13/2016 01/13/2016 [facility] Primary Care Patient here with Right knee pain [id number] 01/13/2016 01/13/2016 [facility] Primary Care Patient here with Right knee pain [id number] 01/13/2016 01/13/2016 [facility] Primary Care Patient here with Right knee pain [id number] 01/13/2016 01/13/2016 [facility] Primary Care Patient here with Right knee pain [id number] 01/13/2016 01/13/2016 [facility] Primary Care Patient here with Right knee pain [id number] 01/13/2016 01/13/2016 [facility] [id number] Stevan Knutson 01/23/2016 01/24/[address] [facility] [id number] Stevan Knutson 02/07/2016 02/08/2016 [facility] OPIDan[facility] Salgado [facility] Primary Care patient here to follow up [id number] 03/09/2016 03/09/2016 [facility] Primary Care patient here to follow up [id number] 03/09/2016 03/09/2016 [facility] Primary Care patient here to follow up [id number] 03/09/2016 03/09/2016 [facility] Primary Care patient here to follow up [id number] 03/09/2016 03/09/2016 [facility] Primary Care patient here to follow up [id number] 03/09/2016 03/09/2016 [facility] Primary Care patient here to follow up [id number] 03/09/2016 03/09/2016 [facility] Primary Care patient here to follow up [id number] 03/09/2016 03/09/2016 [facility] Primary Care patient here to follow up [id number] 03/09/2016 03/09/2016 [facility] Primary Care patient here to follow up [id number] 03/09/2016 03/09/2016 [facility] Primary Care patient here to follow up with cholesterol; and vit d [id number] 05/12/2016 05/12/2016 [facility] Primary Care patient here to follow up with cholesterol; and vit d [id number] 05/12/2016 05/12/2016 [facility] Primary Care patient here to follow up with cholesterol; and vit d [id number] 05/12/2016 05/12/2016 [facility] Primary Care patient here to follow up with cholesterol; and vit d [id number] 05/12/2016 05/12/2016 [facility] Primary Care patient here to follow up with cholesterol; and vit d [id number] 05/12/2016 05/12/2016 [facility] Primary Care patient here to follow up with cholesterol; and vit d [id number] 05/12/2016 05/12/2016 [facility] Primary Care patient here to follow up with cholesterol; and vit d [id number] 05/12/2016 05/12/2016 [facility] Primary Care patient here to follow up with cholesterol; and vit d [id number] 05/12/2016 05/12/2016 [facility] Care Unknown [id number] 05/19/20 16 05/19/2016 [facility] Care Unknown [id number] 05/19/20 16 05/19/2016 [facility] Care Unknown [id number] 05/19/20 16 05/19/2016 [facility] Care Unknown [id number] 05/19/20 16 05/19/2016 [facility] Care Unknown [id number] 05/19/20 16 05/19/2016 [facility] Care Unknown [id number] 05/19/20 16 05/19/2016 [facility] Care Unknown [id number] 05/19/20 16 05/19/2016 [facility] [id number] Stevan Zenia 06/18/2016 06/19/2016 [facility] Primary Care patient here to go over medications [id number] 07/10/2016 07/10/2016 [facility] Primary Care patient here to go over medications [id number] 07/10/2016 07/10/2016 [facility] Primary Care patient here to go over medications [id number] 07/10/2016 07/10/2016 [facility] Primary Care patient here to go over medications [id number] 07/10/2016 07/10/2016 [facility] Primary Care patient here to go over medications [id number] 07/10/2016 07/10/2016 [facility] Primary Care patient here to go over medications [id number] 07/10/2016 07/10/2016 [facility] Care update flu vaccination [id number] 08/31/2016 08/31/2016 [facility] Care update flu vaccination [id number] 08/31/2016 08/31/2016 [facility] Care update flu vaccination [id number] 08/31/2016 08/31/2016 [facility] Care update flu vaccination [id number] 08/31/2016 08/31/2016 [facility] Primary Care update flu vaccination [id number] 08/31/2016 08/31/2016 [facility] Primary Care Patient here with right ankle pain [id number] 10/21/2016 10/21/2016 [facility] Primary Care Patient here with right ankle pain [id number] 10/21/2016 10/21/2016 [facility] Primary Care Patient here with right ankle pain [id number] 10/21/2016 10/21/2016 [facility] Primary Care Patient here with right ankle pain [id number] 10/21/2016 10/21/2016 [facility] [id number] 04 Marybel Tigre 10/21/2016 10/22/[address] [facility] [id number] Stevan Knutson 10/29/2016 10/30/[address] [id number] 07 Stevan Knutson 11/26/2016 11/27/[address] [id number] Stevan Knutson 12/25/2016 12/26/2016 [facility] [id number] Sivan Friedman 01/02/2017 01/02/2017 [facility] Primary Care physical and labs [id number] 01/08/2017 01/08/2017 [facility] Primary Care physical and labs [id number] 01/08/2017 01/08/2017 [facility] Primary Care physical and labs [id number] 01/08/2017 01/08/2017 [facility] Primary Care Unknown [id number] 01/12/2001/11/2017 [facility] Care Unknown [id number] 01/12/2001/11/2017 [facility] Primary Care patient here for a follow up [id number] 01/13/2017 01/13/2017 [facility] [id number] 09 Stevan Knutson 02/01/2017 02/02/2017 [facility] Outpatient [id number] Marybel Daviesmar 09/17/2017 09/18/2017 [facility] Emergency [id number] Enrique Talavera 02/11/2018 02/12/2018 [facility] Bed[facility] Outpatient [id number] Dmitri Lopez 06/15/2018 06/15/2018 [facility] Bed[facility] Outpatient [id number] Kaden Irvin 10/13/2018 10/13/2018 [facility] Procedures Procedure Code Date Perfomer Comments Source Tubal ligation [id number] 11/08/1980 [facility] Colonoscopy [id number] [facility] Delivery care<sup>1</sup> [phone] vaginal de livery x, 1976, 1977, 1981 [facility] Esophagogastroduodenoscopy [phone] [facility] Assessment and Plan No Data Provided for This Section Plan of Care No Data Provided for This Section Social History Social History Date Source Social History TypeResponse Substance Abuse Use: None. Alcohol Never Smoking Status Never smoker; Exposure to Tobacco Smoke None; Cigarette Smoking Last 365 Days No; Reg Smoking Cessation Counseling No entered on: 10/13/18 10/12/2018 [facility] Social History ElementQualifiersDate Rep orted Tobacco Use: [...] . Status: No January 13, 2017 01/13/2017 [facility] Social History TypeResponse Smoking Status Never smoker; [...] Comment not available January 13, 2017 01/14/2017 [facility] Primary QualifierDescriptionCommentDate Reported Maternal Grandmother Comment not [...] Comment not available Jul 10, 2016 07/11/2016 [facility] Primary Advance Directives No Data Provided for This Section Functional Status No Data Provided for This Section
--- OUTSIDE RECORDS SUMMARY | 2020-07-18 02:52 | XMS REPORT | Clinical Summary ---
Author Author [facility] Organization [facility] Address Unknown Phone Unavailable Care Team Providers Care Creosoting Engineer Name Role Phone Jayne Mendoza MD PCP [phone] Allergies Comments Active Allergy Reactions Severity Noted Date Latex, Natural Rubber Esomeprazole Magnesium Rash High 019 Cefdinir Rash High 07/25/2018 Other reaction(s): rash Penicillin 09/21/2017 Rash Rash Penicillins Hives High 06/10/2012 Ranitidine Mood disorder Ranitidine Hcl Palpitations Low 04/01/2018 Sertraline Rash Low 12/29/2018 Medications End Date Status Medication Sig Dispensed Refills Start Date Active ginkgo biloba 120 mg Take by mouth 0 tablet daily. Active multivitamin with Take by 0 minerals (HAIR,SKIN AND mouth. NAILS ORAL) 07/22/2020 Active lisinopriL (PRINIVIL) 10 Take 1 tablet 7 tablet 0 mg tabletIndications: (10 mg total) 0 Essential hypertension by mouth daily for 7 days. 10/09/2019 Discontinued ergocalciferol (VITAMIN Take 1 12 capsule 3 D2) 50,000 unit capsule capsule 9 (50,000 Units total) by mouth once a week. 08/11/2019 Discontinued (Reorder) ezetimibe (ZETIA) 10 mg Take 1 tablet 30 tablet 11 tabletIndications: Mixed (10 mg total) 9 hyperlipidemia by mouth daily. 02/13/2020 Discontinued (Reorder) amLODIPine (NORVASC) 5 mg TAKE 1 TABLET 3 tablet BY MOUTH 9 EVERY DAY FOR 90 DAYS 09/04/2019 Discontinued atorvastatin (LIPITOR) 40 atorvastatin 0 [...] 10 mg by 0 tablet mouth daily. 07/02/2020 Discontinued (Med List Clean up) multivit-min/ferrous Take by 0 fumarate (MULTI VITAMIN mouth. ORAL) 04/25/2020 Discontinued (Med List Clean up) niacin 500 MG tablet Take 500 mg 0 by mouth daily with breakfast. 07/01/2020 Discontinued amLODIPine (NORVASC) 5 mg Take 1 tablet 90 tablet 1 tabletIndications: (5 mg total) 0 Essential hypertension by mouth daily. 07/01/2020 Discontinued doxycycline (VIBRAMYCIN) TAKE 1 0 04/13 100 MG capsule CAPSULE BY 0 MOUTH TWICE A DAY FOR INFECTION FOR 10 DAYS 07/01/2020 Discontinued [id number] INSTILL 2 0 04/13/20 2 (CORTISPORIN) DROPS TO 0 3.5-10,000-1 RIGHT EAR 3 mg/mL-unit/mL-% otic TIMES A DAY suspension FOR INFECTION FOR 7 DAYS 07/01/2020 Discontinued mometasone (ELOCON) 0.1 % Apply 60 mL 0 lotionIndications: topically 0 Impacted cerumen of right daily. ear 07/02/2020 Discontinued amLODIPine (NORVASC) 5 mg Take 5 mg by 0 tablet mouth daily. 07/02/2020 Discontinued (Med List Clean up) 5hydroxytryptophan,oxitri Take by 0 ptan, 200 mg capsule mouth. 07/11/2020 Discontinued chlorthalidone (HYGROTEN) Take 1 tablet 90 tablet 3 25 MG tablet (25 mg total) 0 by mouth daily. 07/17/2020 Discontinued (Therapy comple milly) sulfamethoxazole-trimetho Take 1 tablet 14 tablet 0 prim (Bactrim DS) 800-160 by mouth 2 0 mg per tabletIndications: (two) times a Phlebitis of left arm day for 7 days. 07/11/2020 Discontinued (Reorder) bisoprolol (ZEBETA) 5 MG Take 0.5 45 tablet 3 0 tablet tablets (2.5 0 mg total) by mouth daily. 07/17/2020 Discontinued (Alternate ther apy) bisoprolol (ZEBETA) 5 MG Take 0.5 45 tablet 3 0 tablet tablets (2.5 0 mg total) by mouth daily. Active Problems Problem Noted Date History of repair of hiatal hernia 10/09/2019 Hernia, hiatal 12/14/2018 Overview: Added automatically from request for miller [email or web address] [id number] Acute intractable headache 12/13/2018 Nasal congestion 11/16/2018 [...] Encounters Care Team Description Date Type Specialty Faith Franco MA Medication Reaction 07/17/2020 Telephone Cardiology Talon Martin MD Insomnia; Allergic Reaction (Possibly dr mac-related) 07/15/2020 Telephone Cardiology Darline Morales MA f/u how she is doing c/o chest pain 07/11/2020 Telephone Cardiology Darline Morales MA c/o chest pain; stop chlorthalidone- sualo e effects per patietn 07/11/2020 Telephone Cardiology Darline Morales MA Med Refill 07/11/2020 Refill Cardiology Jayne Mendoza MD Localized swelling, mass and lump, left upper limb ; Localized swelling, mass and lump, left upper limb 07/10/2020 [facility] Procedural Cardiolo gy Encounter Jayne Mendoza MD Localized swelling, mass and lump, left upper limb (Primary Dx); Phlebitis of left arm 07/10/2020 Office Visit Internal Medicine Ammy Omalley MA 07/10/2020 Telephone Internal Medicine 07/10/2020 Travel Jayne Mendoza MD Right hand pain 07/04/2020 Hospital Radiology Encounter Jayne Mendoza MD 07/04/2020 Telephone Internal Medicine 07/04/2020 Travel Jayne Mendoza MD Right hand pain (Primary Dx) 07/04/2020 Orders Only Internal Medicine Jayne Mendoza MD Right hand pain (Primary Dx) 07/04/2020 Orders Only Internal Medicine Chad Wagner MD Breast cancer screening 07/02/2020 Hospital Radiology Encounter Jayne Mendoza MD Atypical chest pain (Primary Dx); Essential hypertension; Hospital discharge follow-up; Upper back pain; Gastroesophageal reflux disease with esophagitis; History of repair of hiatal hernia; Discomfort of right ear; Bipolar affective disorder, remission status unspecified (HCC); Post-menopausal; Need for 23-polyvalent pneumococcal polysaccharide vaccine 07/02/2020 Office Visit Internal Medicine Darline Morales MA telephone visit 07/01 orders 07/02/2020 Telephone Cardiology Darline Morales MA stop norvasc 07/02/2020 Telephone Cardiology 07/02/2020 Travel Cathy Chakrabotry MD Chest pain with low risk for cardiac christel ology (Primary Dx); Essential hypertension; Pure hypercholesterolemia; Acute intractable tension-type headache 07/01/2020 Telephone Cardiology Consult 06/27/2020 Travel Elizabeth Vivas MA Gastroesophageal reflux disease, esophag itis presence not specified (Primary Dx) 06/24/2020 Orders Only General Surgery Elizabeth Vivas MA Gastroesophageal reflux disease, esophag itis presence not specified (Primary Dx); Hx of hiatal hernia 06/21/2020 Orders Only General Surgery Harrison Dangelo MA 06/20/2020 Telephone General Surgery 06/20/2020 Travel Huma Castaneda MD Chest pain, unspecified type (Primary Dx ); Anxiety 06/14/2020 Emergency Emergency Medicine Jayne Mendoza MD 05/30/2020 Telephone Internal Medicine 05/30/2020 Travel Doreen Wiggins MA 05/08/2020 Telephone Family Medicine 05/08/2020 Travel Chad Wagner MD 05/02/2020 Telephone Family Medicine Elizabeth Patel 04/26/2020 Patient Quality Outreach Chad Wagner MD Acute intractable tension-type headache (Primary Dx); Paranoid schizophrenia (HCC); Bipolar 1 disorder (HCC); Breast cancer screening; Impacted cerumen of right ear 04/25/2020 Office Visit Family Medicine 04/25/2020 Travel Elizabeth Patel 04/25/2020 Patient Quality Outreach Elizabeth Patel 04/25/2020 Patient Quality Outreach Chad Wagner MD 04/22/2020 Telephone Family Medicine 04/22/2020 Travel Carmen Mera MD Drainage from left ear (Primary Dx) 04/20/2020 Emergency Emergency Medicine Kingsley Beal MD Concussion without loss of consciousness , initial encounter (Primary Dx); Injury of head, initial encounter; Vision changes 04/19/2020 Emergency Emergency Medicine - 04/20/2020 04/19/2020 Travel Kenzie Woodward MA Suicidal ideation (Primary Dx); [...] for immunization 07/20/2019 Office Visit Family Medicine after 07/18/2019 Immunizations Name Administration Dates Next Due FLUBLOK QUAD PF 07/20/2019 Pneumococcal Conjugate 03/24/2019 13-Valent Pneumococcal 07/02/2020 Polysaccharide Tdap 08/14/2013 Family History Medical History Relation Name Comments [...] Travel Start No recent travel history available. Date Recorded COVID-19 Exposure Response 07/10/2020 10:47 AM CDT In the last month, have you been in contact with No / Unsure someone who was confirmed or suspected to have Coronavirus / COVID-19? Last Filed Vital Signs Reading Time Taken Comments Vital Sign 122/79 07/10/2020 11:05 AM CDT Blood Pressure 70 07/10/2020 11:05 AM CDT Pulse 36.6 C (97.8 F) 07/10/2020 11:05 AM CDT Temperature 16 07/10/2020 11:05 AM CDT Respiratory Rate 98% 07/10/2020 11:05 AM CDT Oxygen Saturation - - Inhaled Oxygen Concentration 57.2 kg (126 lb 3.2 oz) 07/10/2020 11:05 AM CDT Weight 149.9 cm (4' 11") 07/10/2020 11:05 AM CDT Height 25.49 07/10/2020 11:05 AM CDT Body Mass Index Plan of Treatment Care Team Description Date Type Specialty Jayne Mendoza MD [address] [facility] [address] [place] [address] 07/18/2020 Office Visit Internal Medicine Cathy Chakraborty MD [address] [facility] [address] [place], [place] [id number] 07/19/2020 Appointment Procedural Cardiolo gy Cathy Chakraborty MD [address] [facility] [address] [place], [place] [id number] 08/05/2020 Telephone Cardiology Consult Health Maintenance Due Date Last Done Comments SHINGLES VACCINES (#2) 07/26/2016 05/25/2016 INFLUENZA VACCINE 08/08/2020 07/20/2019, 09/08/2017 BREAST CANCER SCREENING 07/02/2022 07/02/2020, 08/17/2018, 08/17/2018, Additional history exists COLONOSCOPY SCREENING 11/08/2024 11/08/2014 65+ PNEUMOCOCCAL VACCINE Completed 07/02/2020, 07/02/2020, 03/24/2019 Implants Device Identifier Shelf Expiration Date Model / Serial / L ot Implanted Type Area Manufactur er 02/22/2019 FGS 0312 / / [id number] Capsule Ph W/ Ds Sexton - [id number] Surgical N/A: N/A GIVEN Implanted: Qty: 1 on 08/24/2018 by Implants; GIRMA Kaden Lara MD at [facility]; Surgical Wires 05/30/2022 [id number] / / [id number] Linx Reflux Mangmt System 14 Bead - Surgical N/A: N/A TORAX [id number] Implants; MEDICAL Implanted: 01/06/2019 at [facility] Expanders; [facility] (Quantity not on file) Extenders; Surgical Wires Procedures Comments Procedure Name Priority Date/Time Associated Diag nosis US DUPLEX VENOUS UPPER STAT 07/10/2020 Localiz ed swelling, mass EXTREMITY LEFT 1:07 PM CDT and lump, left uppe r limb XR HAND 3+ VW RIGHT Routine 07/04/2020 Right hand pain 10:57 AM CDT MAMMO BREAST SCREEN Routine 07/02/2020 Breast can cer screening TOMOSYNTHESIS BILATERAL 10:12 AM CDT TROPONIN Timed 06/14/2020 5:33 PM CDT XR CHEST 1 VW PORTABLE STAT 06/14/2020 3:19 PM CDT ESTIMATED GFR STAT 06/14/2020 2:45 PM CDT B NATRIURETIC PEPTIDE STAT 06/14/2020 2:45 PM CDT TROPONIN STAT 06/14/2020 2:45 PM CDT CREATINE KINASE, TOTAL STAT 06/14/2020 (CPK) 2:45 PM CDT COMPREHENSIVE METABOLIC STAT 06/14/2020 PANEL 2:45 PM CDT HC COMPLETE BLD COUNT STAT 06/14/2020 W/AUTO DIFF 2:45 PM CDT ECG ED PRELIMINARY Routine 06/14/2020 INTERPRETATION 2:41 PM CDT ECG 12-LEAD STAT 06/14/2020 2:[address] HEAD WO CONTRAST STAT 04/19/2020 11:22 PM CDT CV CARDIAC EVENT MONITOR Routine 10/04/2019 TEST IN QUESTION - NO Routine 09/13/2019 TEST FOR CONTAINER 3:01 PM WATERWORKS CHIEF ENGINEER OVA & PARASITES, Routine 09/13/2019 CONCENTRATED EXAMINATION 3:01 PM WATERWORKS CHIEF ENGINEER VA AND PARASITES, STOOL, Routine 09/13/2019 Worm infestation CONC/PERM SMEAR, 2 SPEC 3:01 PM WATERWORKS CHIEF ENGINEER ECG 12-LEAD Routine 09/04/2019 Family history of early 10:12 AM CDT CAD BENZENE, BLOOD Routine 08/28/2019 Suspected expos ure to 11:28 AM CDT benzene FLUBLOK QUAD PF (0.5ML Routine 07/20/2019 Encount er for SYRINGE) 4:40 PM CDT immunization after 07/18/2019 Results * Us duplex venous upper extremity (07/10/2020 1:07 PM CDT) Specimen Narrative Performed At [facility] Left upper extremity and neck venous du plex ultrasound shows evidence of a focal superficial venous thrombosis of what appears to be a tributary of the left cephalic vein. Performing Organization Address [facility] one Number [facility] [address] [place] [address] * XR Hand 3+ Vw Right (07/04/2020 10:57 AM CDT) Specimen Narrative Performed At EXAMINATION: XR HAND 3 VW RIGHT [facility] CLINICAL HISTORY: M79.641 Pain in rig ht hand, R hand pain COMPARISON: None. IMPRESSION: There is no evidence of acute right ferrara d fracture or dislocation. However, persistent flexion is noted the DIP dipesh nt of the fifth digit with associated extension of the PIP joint as can be as sociated with a swan-neck deformity from underlying ligamentous injury. Recommend clinical correlation. There are no radiopaque foreign bodies. [id number] Procedure Note Interface, Radiology Results Incoming - 07/04/2020 11:06 AM CDT EXAMINATION: XR HAND 3 VW RIGHT CLINICAL HISTORY: M79.641 Pain in right hand, R hand pain COMPARISON: None. IMPRESSION: There is no evidence of acute right hand fracture or dislocation. However, persistent flexion is noted the DIP joint of the fifth digit with associated extension of the PIP joint as can be associated with a swan-neck deformity from underlying ligamentous injury. Recommend clinical correlation. There are no radiopaque foreign bodies. [id number] Performing Organization Address [facility] Ph one Number [facility] [address] [place] [address] * Mammo Breast Screen Tomosynthesis Bilateral (07/02/2020 10:12 AM CDT) Specimen Impressions Performed At There is no mammographic evidence of malignancy. [facility] Continued monitoring of the clinical ex amination and annual mammography in 1 year is recommended. BI-RADS Category 2: Benign Finding(s) Workstation Name: [id number] A NEGATIVE X-RAY REPORT SHOULD NOT ASHLI Y BIOPSY IF A DOMINANT OR CLINICALLY SUSPICIOUS MASS IS PRESENT. NOT ALL CAN CERS ARE IDENTIFIED BY X-RAY. Narrative Performed At PROCEDURE: [facility] Bilateral Tomosynthesis Screening HISTORY: Patient is 64 years old and is seen for screening. The patient has no family history of breast cancer. The patient h as no current palpable breast complaints. FILMS COMPARED: The present examination has been compar ed to prior imaging studies dated 08/16/2015, 09/17/2017 and 08/17/2018. MAMMOGRAM FINDINGS: There are scattered areas of fibrogland ular densities. There are multiple oval masses of varyi ng size in both breasts. Bilateral benign coarse calcifications are also n oted in both breast. No significant interval change is identified in either breast. Procedure Note [facility], Radiology Results Incoming - 07/02/2020 11:10 AM CDT PROCEDURE: Bilateral Tomosynthesis Screening HISTORY: Patient is 64 years old and is seen for screening. The patient has no family history of breast cancer. The patient has no current palpable breast complaints. FILMS COMPARED: The present examination has been compared to prior imaging studies dated 08/16/2015, 09/17/2017 and 08/17/2018. MAMMOGRAM FINDINGS: There are scattered areas of fibroglandular densities. There are multiple oval masses of varying size in both breasts. Bilateral benign coarse calcifications are also noted in both breast. No significant interval change is identified in either breast. IMPRESSION: There is no mammographic evidence of malignancy. Continued monitoring of the clinical examination and annual mammography in 1 year is recommended. BI-RADS Category 2: Benign Finding(s) Workstation Name: [id number] A NEGATIVE X-RAY REPORT SHOULD NOT DELAY BIOPSY IF A DOMINANT OR CLINICALLY SUSPICIOUS MASS IS PRESENT. NOT ALL CANCERS ARE IDENTIFIED BY X-RAY. Performing Organization Address City/State/Zipcode Ph one Number [facility] [address] [place] [address] * Troponin (06/14/2020 5:33 PM CDT) Only the most recent of 2 results within the time period is included. Troponin <0.006 0.000 - 0.040 ng/mL [place] Comment: SERGE ABAR[facility] In patients suspected of [facility] having a myocardial infarction, along with all other appropriate clinical measures and actions including ECG and other diagnostics as appropriate, measure Ultra TnI at 0 hrs and at 3 hrs. Myocardial infarction VERY LIKELY The 0 hr TnI level is > 0.10 ng/mL Myocardial infarction LIKELY The 0 hr TnI level is > 0.04 ng/mL and 3 hr level is increased or decreased by at least 0.020 ng/mL Myocardial infarction VERY UNLIKELY Both the 0 hr and 3 hr TnI levels <= 0.04 ng/mL(within normal limits) OR 0 hr is > 0.04 ng/mL and 3 hr is increased OR decreased by less than 0.020 ng/mL Specimen Blood Performing Organization Address City/State/Zipcode Ph one Number [facility] [place] [address] [place], [place] [address] PATHOLOGY AND GENOMIC MEDICINE [place] [address] [place] [address] [facility] * XR Chest 1 Vw Portable (06/14/2020 3:19 PM CDT) Specimen Narrative Performed At SINGLE VIEW CHEST, 06/14/2020 [facility] Clinical History: Chest pain. Technique: Single, portable AP view [facility] st. Comparison: 11/28/2018 Impression: 1.Lungs are clear and symmetrically inf lated. 2.No pleural effusions or pneumothorax. 3.Normal heart size and mediastinal con tour for technique. 4.Normal pulmonary vasculature. 5.There is a Lynx device at the gastroe sophageal junction. 6.Intact skeleton. Mild scoliosis. Procedure Note Interface, Radiology Results Incoming - 06/14/2020 3:52 PM CDT SINGLE VIEW CHEST, 06/14/2020 Clinical History: Chest pain. Technique: Single, portable AP view chest. Comparison: 11/28/2018 Impression: 1.Lungs are clear and symmetrically infl ated. 2.No pleural effusions or pneumothorax. 3.Normal heart size and mediastinal cont our for technique. 4.Normal pulmonary vasculature. 5.There is a Lynx device at the gastroes ophageal junction. 6.Intact skeleton. Mild scoliosis. Performing Organization Address City/[facility] one Number [facility] [address] [place] [address] * Estimated GFR (06/14/2020 2:45 PM CDT) Pathologist [facility] Estimated GFR >=90 mL/min/1.73 m2 [place] Comment: [facility] Interpretation G1 >=90 Normal or high G2 60-89 Mildly decreased G3a 45-59 Mildly to moderately decreased G3b 30-44 Moderately to severely decreased G4 15-29 Severely decreased G5 <15 Kidney failure The eGFR was calculated using the Chronic Kidney Disease Epidemiology Collaboration (CKD-EPI) equation. Interpretation is based on recommendations of the National Kidney Foundation-Kidney Disease Outcomes Quality Initiative (NKF-KDOQI) published in 2014. Specimen Performing Organization Address City/[facility] [place] [address] [address] [place], [place] [address] PATHOLOGY AND GENOMIC MEDICINE [facility] [address] [place] [address] [facility] * CBC with platelet and differential (06/14/2020 2:45 PM CDT) WBC 5.41 4.50 - 11.00 k/uL [facility] RBC 4.49 4.20 - 5.50 m/uL [facility] HGB 14.2 12.0 - 16.0 g/dL [facility] HCT 42.4 37.0 - 47.0 % [facility] MCV 94.4 82.0 - 100.0 fL [facility] MCH 31.6 27.0 - 34.0 pg [facility] MCHC 33.5 31.0 - 37.0 g/dL [facility] RDW - SD 43.6 37.0 - 55.0 fL [facility] MPV 10.7 8.8 - 13.2 fL [facility] Platelet count 226 150 - 400 k/uL [facility] Nucleated RBC 0.00 /100 WBC [facility] Neutrophils 61.0 39.0 - 69.0 % [facility] Lymphocytes 27.7 25.0 - 45.0 % [facility] Monocytes 7.0 0.0 - 10.0 % [facility] Eosinophils 3.7 0.0 - 5.0 % [facility] Basophils 0.6 0.0 - 1.0 % [facility] Specimen Blood Performing Organization Address City/[facility] Ph one Number [facility] DEPARTMENT [address] [place], [place] [address] PATHOLOGY AND GENOMIC MEDICINE [address] * B natriuretic peptide (06/14/2020 2:45 PM CDT) BNP 11 0 - 100 pg/mL [facility] Specimen Blood Performing Organization Address City/[facility] Ph one Number [facility] DEPARTMENT [address] [place], [place] [address] PATHOLOGY AND GENOMIC MEDICINE [address] * Creatine kinase, total (CPK) (06/14/2020 2:45 PM CDT) Creatine kinase 173 26 - 192 U/L [facility] Specimen Blood Performing Organization Address City/[facility] Ph one Number [facility] DEPARTMENT [address] [place], [place] [address] PATHOLOGY AND GENOMIC MEDICINE [address] * Comprehensive metabolic panel (06/14/2020 2:45 PM CDT) Sodium 140 135 - 148 mEq/L [facility] Potassium 4.5 3.5 - 5.0 mEq/L [facility] Chloride 106 98 - 112 mEq/L [facility] CO2 24 24 - 31 mEq/L [facility] Anion gap 10@ANIO 7 - 15 mEq/L [facility] BUN 10 8 - 23 mg/dL [facility] Creatinine 0.50 0.50 - 0.90 mg/dL [facility] Glucose 77 65 - 99 mg/dL [facility] Calcium 9.4 8.8 - 10.2 mg/dL [facility] Protein 7.5 6.3 - 8.3 g/dL [place] Comment: [facility] 4.6-7.0 g/dL 1 week 4.4-7.6 g/dL 7 months-1year 5.1-7.3 g/dL 1-2 years 5.6-7.5 g/dL >3 years 6.0-8.0 g/dL 18-150 6.3-8.3 g/dL Albumin 4.3 3.5 - 5.0 g/dL [facility] A/G ratio 1.3 0.7 - 3.8 [facility] Alkaline 93 35 - 104 U/L [place] phosphatase [facility] AST 31 10 - 35 U/L [facility] ALT 27 5 - 50 U/L [facility] Total bilirubin 0.3 0.0 - 1.2 mg/dL [facility] Specimen Blood Performing Organization Address City/State[facility] [place] Ph one Number [facility] [place] [address] [address] [place], [place] [address] PATHOLOGY AND GENOMIC MEDICINE [facility] [address] [place] [address] [facility] * ECG ED Preliminary Interpretation - Not an Order (06/14/2020 2:41 PM CDT) Narrative Performed At Huma Castaneda MD 020 9:41 PM ECG ED Preliminary Interpretation - Not an Order Performed by: Huma Castaneda MD Authorized by: Huma Castaneda MD ECG reviewed by ED Physician in the abs ence of a emergency management consultant: yes Interpretation: Interpretation: normal Rate: ECG rate: 67 ECG rate assessment: normal Rhythm: Rhythm: sinus rhythm Ectopy: Ectopy: none QRS: QRS axis: Normal QRS intervals: Normal Conduction: Conduction: normal ST segments: ST segments: Normal T waves: T waves: normal * ECG 12 lead (06/14/2020 2:37 PM CDT) Only the most recent of 2 results within the time period is included. Ventricular 67 [facility] rate Atrial rate 67 [facility] FL interval 156 [facility] QRSD interval 74 [facility] QT interval 410 [facility] QTC interval 433 [facility] P axis 1 78 [facility] QRS axis 1 71 [facility] T wave axis 67 [facility] EKG impression Normal sinus rhythm-Normal [facility] ECG-In automated comparison with ECG of 04-SEP-2019 10:12,-No significant change was found- Specimen Narrative Performed At This result has an attachment that is n ot available. Performing Organization Address City/State/Zipcode Ph one Number [facility] [address] [place] [address] * CT Head Wo Contrast (04/19/2020 11:22 PM CDT) Specimen Narrative Performed At EXAMINATION: CT HEAD WO CONTRAST [facility] CLINICAL HISTORY: visual changes he ad injury COMPARISON: MRI brain 12/21/2018 TECHNIQUE: Noncontrast head CT performe d using radiation dose reduction techniques. Technical factors are sherry luated and adjusted to ensure appropriate moderation of exposure. Automated dos e management technology is applied to adjust radiation exposure while achieving a diagnostic quality im age. FINDINGS: No evidence of acute intracranial hemor rhage, mass, mass effect, midline shift, or acute infarct. Ventricles and sulci are normal in appe arance for patient's age. Basal cisterns are clear. Calvarium is intact . Orbits are normal in appearance. No sig nificant paranasal sinus mucosal thickening. Mastoid air cells are clear . IMPRESSION: 1. No CT evidence of acute intracranial abnormality. [facility]-[id number] Procedure Note Hm Interface, Radiology Results Incoming - 04/19/2020 11:31 PM CDT EXAMINATION: CT HEAD WO CONTRAST CLINICAL HISTORY: visual changes head injury COMPARISON: MRI brain 12/21/2018 TECHNIQUE: Noncontrast head CT performed using radiation dose reduction techniques. Technical factors are evaluated and adjusted to ensure appropriate moderation of exposure. Automated dose management technology is applied to adjust radiation exposure while achieving a diagnostic quality image. FINDINGS: No evidence of acute intracranial hemorrhage, mass, mass effect, midline shift, or acute infarct. Ventricles and sulci are normal in appearance for patient's age. Basal cisterns are clear. Calvarium is intact. Orbits are normal in appearance. No significant paranasal sinus mucosal thickening. Mastoid air cells are clear. IMPRESSION: 1. No CT evidence of acute intracranial abnormality. [facility]-[id number] Performing Organization Address [facility] one Number [employer] [address] [place] [address] * CV Cardiac event monitor (10/04/2019) Narrative Performed At This result has an attachment that is n ot available. * OVA AND PARASITES, STOOL CONC/PERM SMEAR, 2 SPEC (09/13/2019 3:01 PM WATERWORKS CHIEF ENGINEER) Ova & parasites Comment: Klypper concentrated OVA AND PARASITES, DIAGNOSTICS exam CONC/PERM SMEAR, 2 SPEC [place] MICRO NUMBER: [id number] TEST STATUS: FINAL SPECIMEN SOURCE: STOOL SPECIMEN QUALITY: INADEQUATE CONCENTRATION 1: Test not performed. No suitable specimen received. TRICHROME 1: Test not performed. CONCENTRATION 2: Test not performed. TRICHROME 2: Test not performed. Routine Ova and Parasite exam may not detect some parasites that occasionally cause diarrheal illness. Test code(s) 15582 (Cryptosporidium Ag., DFA) and/or 13298 (Cyclospora and Isospora Exam) may be ordered to detect these parasites. For additional information, please refer to https://education.[employer]/faq/BHH709 (This link is being provided for informational/ educational purposes only.) Specimen Stool Resulting Agency Comment Performing Organization Information: Site ID: [id number] Name: [facility] Address: [address] [place] [address] Director: Cirilo Eddy Performing Organization Address [facility] one Number Intean [place] [address] [address] [phone] * TEST IN QUESTION - NO TEST FOR CONTAINER (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 SPECIMEN(S) 1 TOTAL FIX STOOL [facility] RECEIVED: DIAGNOSTICS [facility] Comment Comment: [facility] To prevent further delays in DIAGNOSTICS testing, please complete [facility] information above and fax to [phone] to resolve this order. 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 Test code(s) 58774 (Cryptosporidium Ag., DFA) and/or 32563 (Cyclospora and Isospora Exam) may be ordered to detect these parasites. One negative sample does not necessarily rule out the presence of a parasitic infection. For additional information, please refer to https://education.[employer]/faq/DCB155 (This link is being provided for informational/ educational purposes only.) NO COLLECTION DATE RECEIVED. WE HAVE USED THE DATE THE SPECIMEN WAS RECEIVED BY THIS LABORATORY THE COLLECTION DATE. IF THIS IS INCORRECT, PLEASE CONTACT CLIENT SERVICES. PHONE NUMBER: [phone] Specimen Resulting Agency Comment Performing Organization Information: Site ID: [id number] Name: [facility] Address: [address] [place] [id number] Director: Cirilo Eddy Performing Organization Address [facility] Ph one Number [facility] [employer] [place] [address] [place] [phone] * BENZENE, BLOOD (08/28/2019 11:28 AM CDT) BENZENE, BLOOD None Detected mcg/mL [facility] Comment: Reporting Limit: 0.050 mcg/mL Following exposure to 25 ppm in air for 2 hours: Approximately 0.2 mcg/mL. Analysis by Headspace Gas Chromatography (GC) Specimen Blood Narrative Performed At COLLECTION KIT GIVEN TO PATIENT. PATIENT ADVISED TO Gera SONI Resulting Agency Comment Performing Organization Information: Site ID: [id number] Name: [facility] Address: [address] [place] [address] [place] [id number] Director: Cirilo Ross PH.D, F-ABFT Performing Organization Address City/State/Zipcode Ph one Number [facility] * Flublok Quad PF (0.5mL Syringe) (07/20/2019 4:40 PM CDT) after 07/18/2019 Insurance Type Payer Benefit Subscriber ID Effective Phone Address Plan / Dates Group Medicare MEDICARE MEDICARE xxxxxxxxxxx 2015-P [place], PART A [place] resent [place] Commercial [employer] [place] xxxxxxxxxx 2017- LIFE Present INSURANCE Advance Directives For more information, please contact: [phone] Patient Supervising Librarian Explanation Type Date Recorded Advance Directives, 11/11/2017 9:12 AM Living Will and Medical Power of Commercial Account Officer Date Inactivated Comments Code Status Date Activated 01/06/2019 5:56 PM Full Code 01/05/2019 4:08 PM Code Status decision reached by: Patient
--- OUTSIDE RECORDS SUMMARY | 2020-07-18 02:53 | XMS REPORT | Continuity of Care Document ---
Author Author [facility] t Organization [facility] Address [address] [place] [address] Phone Unavailable Care Team Providers Care Bioinformatics Analyst Name Role Phone NONSTAFF PCP Unavailable Faith Franco MA Attphys Unavailable Mario SHAVER, Marcus Hanley Attphys Andrew BENNETT, Darline Attphys Unavailable Kelly SHAVER, Hema Godoy Attphys [phone] Ammy Toro MA Attphys Unavailable Kristy SHAVER, Javad Bonilla Attphys Mylene SHAVER, Cathy Attphys [phone] Ryan Peterson Attphys Unavailable Nicholas Ayala Attphys Unavailable Gale Vivas MA Elizabeth Attphys Unavailable Harrison Dangelo MA Attphys Unavailable Tonya SHAVER, Real Finn Attphys [phone] Gera Wiggins MA Doreen Attphys Unavailable Celio Patel Elizabeth Attphys Unavailable Ede SHAVER, iLz Morales Attphys Tree Beal MD Attphys Kenzie Woodward MA Attphys Unavailable Jessica SHAVER, Claudio Rizvi Attphys JOSIAS TORO Attphys Unavailable Luba SHAVER, Daron Attphys Layne SOUSA, Emily Attphys Unavailable Gera Rao MA Attphys Unavailable Gale MEJIA Attphys Unavailable Benita Irvinjose Alfonso Attphys Physician, Associated Non Attphys Unavailable Julian Talavera Attphys Javad Landeros Attphys KATHY ALAN Attphys Unavailable Beatriz HUANG Attphys Unavailable Gale Knutson Attphys Swetha Friedman Attphys [phone] Ryan Peterson Admphys Unavailable Caroline Gaspar Admphys Unavailable KATHY ALAN Admphys Unavailable Payers Payer Name Policy Type Policy Number Effective Date Expiration Date S fidel MEDICAREMEDICARE PART A [place] Bxxxxxxxx[place] 2015 00:00:00 [facility] LIFE INSURANCERAMSEUR LIFE [id number] xxxxxxxxxx 2 00:00:00 [facility] Medicare A & B [id number] 2015 00:00:00 [facility] Miscellaneous Hmo [id number] [facility] Other Medicare Replacement [id number] [facility] [place] [id number] 2017 00:00:00 [facility] Problems Condition Name Condition Details Condition Category Status Onset Date Resolution Date Last Treatment Date Treating Clinician Comments Source History of repair of hiatal hernia History of repair of hiatal h ernia Disease Active 2019-10-09 00:00:00 Ana Luisa carlin [facility] Acute intractable headache Acute intractable headache Disease Active 2018-12-13 00:00:[address] Nasal congestion Nasal congestion Disease Active 2018-11-16 00:00:00 Leonard Mustafa UNK UNK Active 08/10/2018 [facility] Active 2018-08-10 00:00:00 2018-10-17 13:58:00 M [...] INTENTIONAL OVERDOSE INTE NTIONAL OVERDOSE Active 02/11/2018 [facility] Active 2018-02-11 00:00:00 2018-03-22 11:13:00 Rosibel Agosto Dyspepsia Dyspepsia Disease Active 2018-01-11 00:00:00 Leonard Mustafa Oropharyngeal dysphagia Oropharyngeal dysphagia Disease Active 2018-01-11 00:00:[address] Atypical chest pain Atypical chest pain Disease [...] SCREEN MAMMOGRAM FOR MA Active 02/24/2017 [facility] Active 2017-02-24 00:01:00 2017-05-11 15:27:00 M dmitryijean pierre Surendra SLURRED SPEECH SLUR RED SPEECH Active 01/01/2017 [facility] Active 2017-01-01 00:00:00 2017-01-02 03:07:00 Rosibel Surendra M25.571 - PAIN IN RIGHT ANKLE AND JOINTS M25.571 - PAIN IN RIGHT ANKLE AND JOINTS Active 10/23/2016 [facility] Active 2016-10-23 00:01:00 2016-11-28 15:58:00 M ariawanderjean pierre Surendra M25.561 - PAIN IN RIGHT KNEE M 25.561 - PAIN IN RIGHT KNEE Active 01/13/2016 [facility] Active 2016-01-13 00:0 1:00 2016-01-23 07:46:00 Rosibel Agosto Bipolar disorder (disorder) Bi polar disorder (disorder) Active 11/08/2015 Problem 05/02/2019 [facility] Problem Active 2015-11-08 00:00:00 2019-05-02 14:05:09 [facility] [address] Syncope Syncope Problem Active [facility] Urinary tract infection UTI (urinary tract infection) Problem Active [facility] Dysphagia, unspecified Dysp hagia, unspecified 05/02/2019 [facility] Problem 2019-05-02 14:05:09 [facility] [address] Diaphragmatic hernia without obstruction or gangrene Diaphragmatic hernia without obstruction or gangrene 05/02/2019 [facility] Problem 2019-05-02 14:05:09 [facility] [address] Chest pain, unspecified Ches t pain, unspecified 05/02/2019 [facility] Problem 2019-05-02 14:05:09 [facility] Heartburn Hear tburn 05/02/2019 [facility] Problem 2019-05-02 14:05:09 [facility] Her devi Obesity, unspecified Obes ity, unspecified 05/02/2019 [facility] Problem 2019-05-02 14:05:09 Ri main Agosto Body mass index (BMI) 32.0-32.9, adult Body mass index (BMI) 32.0-32.9, adult 05/02/2019 [facility] Problem 2019-05-02 14:05:09 [facility] [address] Allergy status to penicillin A llergy status to penicillin 05/02/2019 [facility] Problem 2019-05-02 14 :05:09 Rosibel Agosto Slurred speech Slur red speech 05/21/2018 [facility] Problem 2018-05-21 12:17:37 Rosibel Agosto Bipolar disorder, unspecified Bipolar disorder, unspecified 05/21/2018 [facility] Problem 2018-05-21 1 2:17:37 Rosibel Agosto Underdosing of other antipsychotics and neuroleptics, initial encounter Underdosing of other antipsychotics and neuroleptics, initial encounter 05/21/2018 [facility] Problem 2018-05-21 12: 17:37 Rosibel Agosto Essential (primary) hypertension Essential (primary) hypertension 05/21/2018 [facility] Problem 2018-05-21 12:17:37 Rosibel Agosto Patient's intentional underdosing of medication regime n for other reason Patient's intentional underdosing of medication regimen for other reason 05/21/2018 [facility] Problem 2018-05-21 12:17:37 Rosibel Agosto Dysphagia (disorder) Dysp hagia (disorder) Resolved Problem 05/02/2019 [facility] Problem Resolved 2019-05-02 14:05: 09 Rosibel Agosto Gastroesophageal reflux disease (disorder) Gastroesophageal reflux disease (disorder) Resolved Problem 05/02/2019 [facility] Problem Resolved 2019-05-02 14:05:09 Ophelia Agosto Hiatal hernia (disorder) Hiat al hernia (disorder) Resolved Problem 05/02/2019 [facility] Problem Resolved 2019-05-02 14: 05:09 Rosibel Agosto Right knee pain Righ t knee pain Active Problem 09/23/2017 [facility] Primary Problem Active 2017-09-23 03:45:07 Rosibel Agosto Acute right ankle pain Acut e right ankle pain Active Problem 09/23/2017 [facility] Primary Problem Active 2017-09-23 03: 45:07 Rosibel Agosto Chronic meniscal tear of knee Chronic meniscal tear of knee Active Problem 09/23/2017 [facility] Primary Problem Active 2017-09-23 03:45:07 Rosibel Agosto Anxiety disorder, unspecified Anxiety disorder, unspecified Active Problem 09/23/2017 [facility] Primary Problem Active 2017-09-23 03:45:07 Rosibel Agosto Other chest pain Othe r chest pain Active Problem 09/23/2017 [facility] Primary Problem Active 2017-09-23 03:45:07 Rosibel Agosto Depression with anxiety Depr ession with anxiety Active Problem 09/23/2017 [facility] Primary Problem Active 2017-09-23 03: 45:07 [facility] Short-term memory loss Shor t-term memory loss Active Problem 09/23/2017 [facility] Primary Problem Active 2017-09-23 03: 45:07 [facility] Hyperlipidemia Hype rlipidemia Active Problem 09/23/2017 [facility] Primary Problem Active 2017-09-23 03:45:07 Rosibel Agosto Low vitamin D level Low vitamin D level Active Problem 09/23/2017 [facility] Primary Problem Active 2017-09-23 03:45:07 Rosibel Agosto BMI 30.0-30.9,adult BMI 30.0-30.9,adult Active Problem 09/23/2017 [facility] Primary Problem Active 2017-09-23 03:45:07 Rosibel Agosto Atrophic vaginitis Atro phic vaginitis Active Problem 09/23/2017 [facility] Primary Problem Active 2017-09-23 03:45:07 Rosibel Agosto Hormone disturbance Horm one disturbance Active Diagnosis 05/22/2017 [facility] Primary Diagnosis Active 2017-05-22 02:45:4 0 [facility] Osteoporosis screening Oste oporosis screening Active Diagnosis 08/11/2017 [facility] Primary Diagnosis Active 2017-08-11 0 2:45:58 [facility] Breast cancer screening [facility] cancer screening Active Diagnosis 08/11/2017 [facility] Primary Diagnosis Active 2017-08-11 02:45:58 [facility] Breast cancer screening [facility] cancer screening Active Diagnosis 01/09/2017 [facility] Primary Diagnosis Active 2017-01-09 03:56:16 Rosibel Agosto Hypertensive disorder, systemic arterial (disorder) Hypertensive disorder, systemic arterial (disorder) Active Problem 05/02/2019 [facility] Problem Active 2019-05-02 14:05:09 [facility] Gastro-esophageal reflux disease without esophagitis Gastro-esophageal reflux disease without esophagitis 11/17/2018 05/02/2019 [facility] Problem 2018-11-17 04:25:08 2019-05-02 14:05:09 2019-04 14:05:09 Rosibel Agosto Poisoning by other antipsychotics and ne uroleptics, intentional self-harm, initial encounter Poisoning by oth er antipsychotics and neuroleptics, intentional self-harm, initial encounter 02/25/2018 05/21/2018 [facility] Problem 2018-02-25 03:14:33 2018-05-21 12:17:37 2018-05 12:17:[address] [facility] Discharge Diagnosis: SOB (shortness of breath) Discharge Diagnosis: SOB (shortness of breath) 01/02/2017 01/05/2017 [facility] Problem 2017-01-02 06:00:00 2017-01-05 03:41:55 2017-01-05 03:41:[address] [facility] Allergies, Adverse Reactions, Alerts Allergy Name Allergy Type Status Severity Reaction(s) Onset Date Inacti ve Date Treating Clinician Comments Source Penicillins DA Active U 2020-07-07 00:00:00 [facility] Penicillins DA Active U 2020-04-17 00:00:00 [facility] Peanuts Allergy to substance Active 2019-09-18 00:00:00 [facility] Sertraline Propensity to adverse reactions to drug Active Rash 2018-12-29 00:00:00 [facility] Esomeprazole Magnesium Propensity to adverse reactions to drug Active Rash 2018-11-18 00:00:00 [facility] Cefdinir Propensity to adverse reactions to drug Active Rash 2018-07-25 00:00:00 [facility] Reymundois [facility] Ranitidine Hcl Propensity to adverse reactions to drug Active Palpitations 2018-04-01 00:00:00 Mood disorder [facility] Penicillin Propensity to adverse reactions to drug Active 2017-09-21 00:00:00 Other reaction(s): rash [facility] penicillin penicillin Active rash 2017-09-21 00:00:[address] [facility] Penicillin Allergy to substance Active Mild HIVES 2017-07-28 00:00:00 [facility] N.K.D.A. N.K.D.A. Active Info Not Available 2016-05-12 00:00:00 [facility] Penicillins Propensity to adverse reactions to drug Active Hives 2012-06-10 00:00:00 Rash Rash [facility] Penicillins DA Active U 2012-05-08 00:00:00 [facility] Latex, Natural Rubber Propensity to adverse reactions to drug Active [facility] Ranitidine Propensity to adverse reactions to drug Active [facility] penicillins penicillins Active [facility] Ranitidine Hydrochloride<sup>1</sup> Ranitidine Hydrochlorid e<sup>1</sup> [facility] Banda[facility] Active [facility] Family History Family Member Diagnosis Comments Start Date Stop Date Source Natural father Hypertension Leonard Mustafa Maternal grandmother Heart disease H stefanie Mustafa Natural mother Heart disease Leonard Mustafa Natural mother Hypertension [facility] Natural mother Kidney disease [facility] shen [facility] Natural sister No Known Problems Gasper Mustafa Unknown Family Member Family History 2016-07-11 02:54:31 2 02:54:[address] [facility] Social History Social Habit Start Date Stop Date Quantity Comments Source Exposure to SARS-CoV-2 (event) Not sure Leonard Mustafa Alcohol intake 2020-07-10 00:00:00 2020-07-10 00:00:00 Current non-drinker of alcohol (finding) Leonard Mustafa Social History 2018-10-12 21:09:29 2018-10-12 21:09:29 [facility] TobaccoUse: 2017-01-13 00:00:00 2017-01-13 00:00:00 Rosibel Surendra Sex Ass[birth year] At 1955 00:00:00 1955 00:00:00 Female [facility] Smoking Status Start Date Stop Date Source Social History [facility] Medications Ordered Medication Name Filled Medication Name Start Date Stop Da te Current Medication? Ordering Clinician Indication Dosage Frequency Signature (SIG) Comments Components Source lisinopriL (PRINIVIL) 10 mg tablet 2020-07-15 00:00:00 2020-07-22 23:59:00 Yes Essential hypertension 10mg QD Take 1 tablet (10 mg total) by mouth daily for 7 days. Leonard Mustafa bisoprolol (ZEBETA) 5 MG tablet 2020-07-11 00:00:00 00:00:00 No 2.5mg QD Take 0.5 tablets (2.5 mg total) by mouth daily. Leonard Mustafa bisoprolol (ZEBETA) 5 MG tablet 2020-07-11 00:00:00 00:00:00 No 2.5mg QD Take 0.5 tablets (2.5 mg total) by mouth daily. Leonard Mustafa ginkgo biloba 120 mg tablet 2020-07-10 11:05:39 Yes QD Take by mouth daily. Leonard Mustafa multivitamin with minerals (HAIR,SKIN AND NAILS ORAL) 2020-07-10 11:05:39 Yes Take by mouth. Leonard ibarra sulfamethoxazole-trimethoprim (Bactrim DS) 800-160 mg per ta blet 2020-07-10 00:00:00 2020-07-17 00:00:00 No Phlebitis of left arm 1{tbl} Q.5D Take 1 tablet by mouth 2 (two) times a day for 7 days. Leonard Mustafa 5hydroxytryptophan,oxitriptan, 200 mg capsule 20 27-06-25 16:31:10 2020-07-02 00:00:00 No Take by mouth. Leonard Mustafa amLODIPine (NORVASC) 5 mg tablet 2020-07-02 15:36:12 2020-06 00:00:00 No 5mg QD Take 5 mg by mouth daily. Leonard Mustafa multivit-min/ferrous fumarate (MULTI VITAMIN ORAL) 2020-07-02 08:11:17 2020-07-02 00:00:00 No Take by mouth. Leonard Mustafa chlorthalidone (HYGROTEN) 25 MG tablet 2020-06-09 5 00:00:00 2020-07-11 00:00:00 No 25mg QD Take 1 tablet (25 mg total) by m outh daily. Leonard Mustafa niacin 500 MG tablet 2020-04-25 11:18:08 2020-04-25 00:00:00 No 500mg QD Take 500 mg by mouth daily with breakfast. Leonard Mustafa mometasone (ELOCON) 0.1 % lotion 2020-04-25 00:00:00 2020-06 00:00:00 No Impacted cerumen of right ear QD Apply topically daily. Leonard Mustafa Doxycycline Hyclate Doxycycline Hyclate 2020-04-13 07:50:00 Yes 100 Twice A Day for Infection [facility] Neomy Sulf/Colist Sul/Hc/Thonz (Cortisporin-Tc Ear Annette p) 10 Ml DROPS.SUSP Neomy Sulf/Colist Sul/Hc/Thonz (Cortisporin-Tc Ear Susp) 10 Ml DROPS.SUSP 2020-04-13 07:49:00 Yes 2 Three Times A Day for Infecti on [facility] doxycycline (VIBRAMYCIN) 100 MG capsule 00:00:00 2020-07-01 00:00:00 No TAKE 1 CAPSULE BY MOUTH TWICE A DAY FOR INFECTION FOR 10 DAYS Leonard Mustafa eoododgh-vqdfkrhcv-QK (CORTISPORIN) 3.5- 10,000-1 mg/mL-unit/mL-% otic suspension 2020-04-13 00:00:00 2020-07-01 00:00:00 No INSTILL 2 DROPS TO RIGHT EAR 3 TIMES A DAY FOR INFECTION FOR 7 DAYS Leonard Mustafa ezetimibe (ZETIA) 10 mg tablet 2020-02-13 11:18:41 2020-02-13 00 :00:00 No 10mg QD Take 10 mg by mouth daily. Caroline Mustafa amLODIPine (NORVASC) 5 mg tablet 2020-02-13 00:00:00 2020-06 00:00:00 No Essential hypertension 5mg QD Take 1 tablet [...] 2019-07-18 00:00:00 2018 00:00:00 No Leonard Perkins thquinten SUMAtriptan (IMITREX) 25 MG tablet 2019-07-06 00:00:00 201 07-18-28 00:00:00 No Intractable migraine without aura and with status migrainosus 25 mg Take 1 tablet (25 mg total) by mouth once as needed for migraine for up to 1 dose. Leonard Mustafa amLODIPine (NORVASC) 5 mg tablet 2019-05-08 00:00:00 2020-02 00:00:00 No TAKE 1 TABLET BY MOUTH EVERY DAY FOR 90 DAYS Leonard Mustafa ezetimibe (ZETIA) 10 mg tablet 2018-12-14 00:00:00 4 00:00:00 No Mixed hyperlipidemia 10mg QD Take 1 tablet (10 mg total) by mouth daily. Leonard Mustafa ergocalciferol (VITAMIN D2) 50,000 unit capsule 2018-12-13 00:00:00 2019-10-09 00:00:00 No 01810A Q7D Take 1 capsule (50,000 Units total) by mouth once a week. Leonard Mustafa Unknown Home Medication 2018-10-13 17:54:00 Yes 10 mg =, PO, Daily, Refill(s) [address] [facility] Vitamin B6 2018-10-13 17:53:00 Yes PO, Daily , 0 Refill(s) [facility] Gingko Biloba oral tablet 2018-10-13 17:53:00 Yes 60 mg =, PO, Daily, 0 Refill(s) [facility] Vitamin B12 2018-10-13 17:52:00 Yes PO, Reuben y, 0 Refill(s) [facility] Multiple Vitamins oral tablet 2018-10-13 17:52:00 Yes 1 tab, PO, Daily, # 30 tab, 0 [facility] Med[facility] 2018-10-13 17:51:00 Yes 500 mg =, PO, Daily, Refill(s) 0 [facility] perphenazine 4 mg oral tablet 2018-10-13 17:48:00 Yes 8 mg = 2 tab, PO, QPM, 0 Refill(s) [facility] Esomeprazole 2018-09-20 20:36:00 No 40 mg, PO, Daily, 0 Refill(s) [facility] perphenazine 4 mg oral tablet 2018-09-20 20:35:00 Yes 4 mg = 1 tab, PO, Daily, 0 Refill(s) [facility] benztropine mesylate 2 MG Oral Tablet 2018-09-20 20:34:00 Y es 2 mg = 1 tab, PO, Bedtime, 0 Refill(s) [facility] Amlodipine 2018-02-12 16:24:00 Yes 5 mg, PO, Daily, 0 Refill(s) [facility] Escitalopram Oxalate 2017-09-22 03:45:37 Yes Marybel Tigre 1 tablet [facility] Atorvastatin Calcium 2017-09-22 03:45:37 Yes Marybel Tigre 1 tablet [facility] Levsin 2017-09-22 03:45:37 Yes Marybel Tigre 1 tablet before meals as needed [facility] Pantoprazole Sodium 2017-09-22 03:45:37 Yes Marybel Tigre [address] [facility] Ergocalciferol 2017-09-22 00:00:00 Yes Marybel Tigre [address] [facility] Atorvastatin Calcium 2017-07-29 02:45:39 Yes Marybel Tigre 1 tablet [facility] Seroquel 2017-07-29 02:45:39 Yes Marybel Tigre [address] t ablet at bedtime [facility] Pantoprazole Sodium 2017-07-29 02:45:39 Yes Marybel Tigre 1 tablet [facility] Levsin 2017-07-29 02:45:39 Yes Marybel Tigre 1 tablet before meals as needed [facility] Escitalopram Oxalate 2017-07-29 02:45:39 Yes Marybel Tigre [address] [facility] Sucralfate 2017-07-28 00:00:00 Yes Marbyel Tigre 1 0 ml [facility] Sucralfate 2017-07-28 00:00:00 Yes Marybel Tigre [address] [facility] Ergocalciferol 2017-07-14 02:45:40 Yes Marybel Tigre [address] [facility] Omeprazole 2017-07-14 02:45:40 Yes Marybel Tigre [address] [facility] Pantoprazole Sodium 2017-07-13 00:00:00 Yes Marybel Tigre [address] [facility] Omeprazole 2017-03-02 00:00:00 Yes Marybel Tigre [address] [facility] Ergocalciferol 2017-01-11 00:00:00 Yes Marybel Tigre [address] [facility] Benztropine Mesylate 2017-01-09 03:56:16 Yes Marybel Tigre [address] [facility] Risperidone 2017-01-09 03:56:16 Yes Marybel Tigre [address] [facility] Meloxicam 2016-10-21 00:00:00 Yes Marybel Tigre [address] [facility] Ergocalciferol 2016-07-10 00:00:00 Yes Marybel Tigre [address] [facility] Ergocalciferol 2016-05-19 00:00:00 Yes Marybel Tigre [address] [facility] Resperal 2016-05-13 02:48:50 Yes Marybel Tigre [address] [facility] Meloxicam 2016-01-13 00:00:00 Yes Marybel Tigre [address] [facility] Ergocalciferol 2015-09-13 00:00:00 Yes Marybel Tigre [address] [facility] Atorvastatin Calcium 2015-09-13 00:00:00 Yes Marybel Tigre [address] [facility] Amlodipine Besylate Amlodipine Besylate Yes 5 Daily [facility] Ezetimibe (Zetia) 10 Mg TABLET Ezetimibe (Zetia) 10 Mg TABLET Yes 10 Daily [facility] Sertraline Hcl Sertraline Hcl Yes 25 Bedtime [facility] Dexlansoprazole (Dexilant) 60 Mg CAP. Dexlansopra zole (Dexilant) 60 Mg CAP. 2019-05-20 00:00:00 No 60 Daily [facility] Immunizations Ordered Immunization Name Filled Immunization Name Date Status Comments Source Pneumococcal Polysaccharide 2020-07-02 00:00:00 Completed Leonard Mustafa FLUBLOK QUAD PF 2019-07-20 00:00:00 Completed Leonard Mustafa Pneumococcal Conjugate 13-Valent 2019-03-24 00:00:00 Compl eted Leonard Mustafa Tdap 2013-08-14 00:00:00 Completed Ana Luisa Mustafa Vital Signs Vital Name Observation Time Observation Value Comments Source Systolic blood pressure 2020-07-10 11:05:00 122 mm[Hg] Leonard Mustafa Diastolic blood pressure 2020-07-10 11:05:00 79 mm[Hg] Leonard Mustafa Heart rate 2020-07-10 11:05:00 70 /min Leonard Mustafa Body temperature 2020-07-10 11:05:00 36.56 Kristen Angel Mustafa Respiratory rate 2020-07-10 11:05:00 16 /min Angel Mustafa Body height 2020-07-10 11:05:00 149.9 cm Leonard Mustafa Body weight 2020-07-10 11:05:00 57.244 kg Leonard Mustafa BMI 2020-07-10 11:05:00 25.49 kg/m2 Leonard Mustafa Oxygen saturation in Arterial blood by Pulse oximetry 07-10 11:05:00 98 /min Leonard Mustafa Weight 2020-04-13 07:21:00 125 [lb_av] [facility] BMI (Body Mass Index) 2020-04-13 07:21:00 25.2 kg/m2 [facility] Body Temperature 2019-09-18 20:15:00 98.4 [degF] [facility] Systolic (mm Hg) 2018-10-13 16:21:00 Jelani rial Surendra Diastolic (mm Hg) 2018-10-13 16:21:00 [facility] [place] Temperature Oral (F) 2018-10-13 16:21:00 97.6 F [facility] [place] Heart Rate 2018-10-13 16:21:00 [facility] Respitory Rate 2018-10-13 16:21:00 [facility] [place] BMI Calculated 2018-10-12 21:02:00 [facility] [place] Weight 2018-10-12 21:02:00 [facility] Height 2018-10-12 21:02:00 149.86 cm [facility] Height 2018-06-10 19:01:00 152.4 cm [facility] BMI Calculated 2018-06-10 19:01:00 Memori al Su[facility]ra Weight 2018-06-10 19:01:00 [facility] [place] Temperature Oral (F) 2018-02-12 16:35:00 98.1 F [facility] Systolic (mm Hg) 2018-02-12 16:35:00 Jelani rial Surendra Diastolic (mm Hg) 2018-02-12 16:35:00 Mem orial [facility] Heart Rate 2018-02-12 16:35:00 [facility] Respitory Rate 2018-02-12 16:35:00 [facility] [place] Respitory Rate 2018-02-12 12:20:00 [facility] [place] Systolic (mm Hg) 2018-02-12 12:20:00 Jelani rial Surendra Diastolic (mm Hg) 2018-02-12 12:20:00 Mem orial [facility] Heart Rate 2018-02-12 12:20:00 [facility] [place] Temperature Oral (F) 2018-02-12 12:20:00 98.4 F [facility] Systolic (mm Hg) 2018-02-12 08:52:00 Jelani rial [place] Diastolic (mm Hg) 2018-02-12 08:52:00 [facility] [place] Temperature Oral (F) 2018-02-12 08:52:00 98 F [facility] Heart Rate 2018-02-12 08:52:00 [facility] Respitory Rate 2018-02-12 08:52:00 [facility] [place] BMI Calculated 2018-02-11 21:00:00 Memori al Su[facility]ra Weight 2018-02-11 21:00:00 [facility] [place] Height 2018-02-11 21:00:00 152.4 cm [facility] [place] Weight 2017-09-21 17:15:00 [facility] Height 2017-09-21 17:15:00 [facility] [place] Temperature Oral (F) 2017-09-21 17:15:00 97.7 F [facility] [place] Heart Rate 2017-09-21 17:15:00 [facility] [place] Diastolic (mm Hg) 2017-09-21 17:15:00 Mem orial Surendra Systolic (mm Hg) 2017-09-21 17:15:00 Jelani rial [place] Weight 2017-08-10 19:30:00 [facility] [place] Height 2017-08-10 19:30:00 [facility] [place] Temperature Oral (F) 2017-08-10 19:30:00 98.1 F [facility] [place] Heart Rate 2017-08-10 19:30:00 [facility] Diastolic (mm Hg) 2017-08-10 19:30:00 [facility] [place] Systolic (mm Hg) 2017-08-10 19:30:00 Jelani rial Surendra Weight 2017-07-28 16:45:00 [facility] Height 2017-07-28 16:45:00 [facility] Temperature Oral (F) 2017-07-28 16:45:00 98.6 F [facility] Heart Rate 2017-07-28 16:45:00 [facility] Diastolic (mm Hg) 2017-07-28 16:45:00 [facility] [place] Systolic (mm Hg) 2017-07-28 16:45:00 [facility] [place] Weight 2017-07-13 18:45:00 [facility] [place] Height 2017-07-13 18:45:00 [facility] [place] Temperature Oral (F) 2017-07-13 18:45:00 97.8 F [facility] Heart Rate 2017-07-13 18:45:00 [facility] Diastolic (mm Hg) 2017-07-13 18:45:00 [facility] Systolic (mm Hg) 2017-07-13 18:45:00 [facility] [place] Weight 2017-05-21 18:30:00 [facility] [place] Height 2017-05-21 18:30:00 [facility] [place] Temperature Oral (F) 2017-05-21 18:30:00 98.5 F [facility] Heart Rate 2017-05-21 18:30:00 [facility] Diastolic (mm Hg) 2017-05-21 18:30:00 [facility] [place] Systolic (mm Hg) 2017-05-21 18:30:00 [facility] Weight 2017-03-02 18:15:00 [facility] Height 2017-03-02 18:15:00 [facility] Temperature Oral (F) 2017-03-02 18:15:00 98.1 F [facility] [place] Heart Rate 2017-03-02 18:15:00 [facility] [place] Diastolic (mm Hg) 2017-03-02 18:15:00 [facility] Systolic (mm Hg) 2017-03-02 18:15:00 [facility] Weight 2017-01-13 19:15:00 [facility] [place] Height 2017-01-13 19:15:00 [facility] Temperature Oral (F) 2017-01-13 19:15:00 98.0 F [facility] Heart Rate 2017-01-13 19:15:00 [facility] Diastolic (mm Hg) 2017-01-13 19:15:00 [facility] Systolic (mm Hg) 2017-01-13 19:15:00 [facility] Weight 2017-01-08 20:15:00 [facility] Height 2017-01-08 20:15:00 [facility] Temperature Oral (F) 2017-01-08 20:15:00 97.8 F [facility] [place] Heart Rate 2017-01-08 20:15:00 [facility] [place] Diastolic (mm Hg) 2017-01-08 20:15:00 [facility] Systolic (mm Hg) 2017-01-08 20:15:00 [facility] [place] Temperature Oral (F) 2017-01-02 10:22:00 97.9 F [facility] Heart Rate 2017-01-02 10:22:00 [facility] [place] Respitory Rate 2017-01-02 10:22:00 [facility] [place] Systolic (mm Hg) 2017-01-02 10:22:00 [facility] [place] Diastolic (mm Hg) 2017-01-02 10:22:00 [facility] Systolic (mm Hg) 2017-01-02 08:07:00 [facility] Diastolic (mm Hg) 2017-01-02 08:07:00 [facility] [place] Height 2017-01-02 07:23:00 149.86 cm [facility] Heart Rate 2017-01-02 07:23:00 [facility] Respitory Rate 2017-01-02 07:23:00 [facility] [place] Systolic (mm Hg) 2017-01-02 07:23:00 [facility] [place] Diastolic (mm Hg) 2017-01-02 07:23:00 [facility] [place] Temperature Oral (F) 2017-01-02 07:23:00 97.6 F [facility] BMI Calculated 2017-01-02 07:23:00 [facility] Weight 2017-01-02 07:23:00 [facility] Weight 2016-10-21 15:45:00 [facility] [place] Height 2016-10-21 15:45:00 [facility] [place] Temperature Oral (F) 2016-10-21 15:45:00 98.1 F [facility] [place] Heart Rate 2016-10-21 15:45:00 [facility] [place] Diastolic (mm Hg) 2016-10-21 15:45:00 [facility] Systolic (mm Hg) 2016-10-21 15:45:00 [facility] [place] Weight 2016-07-10 14:30:00 [facility] Height 2016-07-10 14:30:00 [facility] [place] Temperature Oral (F) 2016-07-10 14:30:00 98.1 F [facility] [place] Heart Rate 2016-07-10 14:30:00 [facility] Diastolic (mm Hg) 2016-07-10 14:30:00 [facility] Systolic (mm Hg) 2016-07-10 14:30:00 [facility]elani dakotal [place] Weight 2016-05-12 14:00:00 [facility] Height 2016-05-12 14:00:00 [facility] [place] Temperature Oral (F) 2016-05-12 14:00:00 98.0 F [facility] [place] Heart Rate 2016-05-12 14:00:00 [facility] Diastolic (mm Hg) 2016-05-12 14:00:00 [facility] Systolic (mm Hg) 2016-05-12 14:00:00 [facility]elani natividad [facility] Weight 2016-03-09 13:45:00 [facility] Height 2016-03-09 13:45:00 [facility] Temperature Oral (F) 2016-03-09 13:45:00 98.6 F [facility] Heart Rate 2016-03-09 13:45:00 [facility] [place] Diastolic (mm Hg) 2016-03-09 13:45:00 [facility] [place] Systolic (mm Hg) 2016-03-09 13:45:00 Jelani natividad [facility] Weight 2016-01-13 14:30:00 [facility] Height 2016-01-13 14:30:00 [facility] Temperature Oral (F) 2016-01-13 14:30:00 98.4 F [facility] Heart Rate 2016-01-13 14:30:00 [facility] [place] Diastolic (mm Hg) 2016-01-13 14:30:00 [facility] [place] Systolic (mm Hg) 2016-01-13 14:30:00 Jelani natividad [facility] Weight 2016-01-08 14:30:00 [facility] Height 2016-01-08 14:30:00 [facility] Temperature Oral (F) 2016-01-08 14:30:00 98.6 F [facility] [place] Heart Rate 2016-01-08 14:30:00 [facility] Diastolic (mm Hg) 2016-01-08 14:30:00 [facility] Systolic (mm Hg) 2016-01-08 14:30:00 [facility] Weight 2015-09-13 14:30:00 [facility] Height 2015-09-13 14:30:00 [facility] [place] Temperature Oral (F) 2015-09-13 14:30:00 98.6 F [facility] [place] Heart Rate 2015-09-13 14:30:00 [facility] Diastolic (mm Hg) 2015-09-13 14:30:00 [facility] [place] Systolic (mm Hg) 2015-09-13 14:30:00 [facility] [place] Procedures Procedure Date / Time Performed Performing Clinician [facility] e US DUPLEX VENOUS UPPER EXTREMITY LEFT 2020-07-10 13:07:05 Jayne Scruggs XR HAND 3+ VW RIGHT 2020-07-04 10:57:52 Jayne Waller MAMMO BREAST SCREEN TOMOSYNTHESIS BILATERAL 2020-07-02 10:12 :38 Chad Wagner TROPONIN 2020-06-14 17:33:00 Huma Castaneda XR CHEST 1 VW PORTABLE 2020-06-14 15:19:22 Huma Castaneda HC COMPLETE BLD COUNT W/AUTO DIFF 2020-06-14 14:45:00 Sol Castaneda COMPREHENSIVE METABOLIC PANEL 2020-06-14 14:45:00 Angelica Castaneda CREATINE KINASE, TOTAL (CPK) 2020-06-14 14:45:00 Jarad Castaneda TROPONIN 2020-06-14 14:45:00 Huma Castaneda B NATRIURETIC PEPTIDE 2020-06-14 14:45:00 Huma Castaneda ESTIMATED GFR 2020-06-14 14:45:00 Huma Castaneda ECG ED PRELIMINARY INTERPRETATION 2020-06-14 14:41:08 Sol Castaneda ECG 12-LEAD 2020-06-14 14:37:16 [address] HEAD WO CONTRAST 2020-04-19 23:22:25 Kingsley Beal CV CARDIAC EVENT MONITOR 2019-10-04 00:00:00 Elpidio Chakraborty Computed tomography of brain without radiopaque contrast 201 07-19-11 00:00:[address] [facility] Computed tomography of cervical spine without contrast 09-18 00:00:[address] [facility] X-ray of chest, two views 2019-09-18 00:00:00 [facility] VA AND PARASITES, STOOL, CONC/PERM SMEAR, 2 SPEC 2019-09-13 15:01:00 Chad Wagner OVA & PARASITES, CONCENTRATED EXAMINATION 2019-09-13 15:01:0 0 Chad Wagner TEST IN QUESTION - NO TEST FOR CONTAINER 2019-09-13 15:01:0 0 Chad Wagner ECG 12-LEAD 2019-09-04 10:12:46 Cathy Chakraborty on Hinduism BENZENE, BLOOD 2019-08-28 11:28:00 Chad Wagner FLUBLOK QUAD PF (0.5ML SYRINGE) 2019-07-20 16:40:00 Brenda Wagner Tubal ligation 1980-11-08 00:00:00 [facility] Colonoscopy [facility]<sup>1</sup> [facility] [place] [facility] [place] Plan of Care Planned Activity Planned Date Details Comments Source Future Scheduled Test 2024-11-08 00:00:00 COLONOSCOPY SCREEN ING [code = COLONOSCOPY SCREENING] Leonard Mustafa Future Scheduled Test 2022-07-02 00:00:00 BREAST CANCER SCRE ENING [code = BREAST CANCER SCREENING] Leonard Mustafa Future Scheduled Test 2020-08-08 00:00:00 INFLUENZA VACCINE [code = INFLUENZA VACCINE] Leonard Mustafa Future Scheduled Test 2016-07-26 00:00:00 SHINGLES VACCINES (#2) [code = SHINGLES VACCINES (#2)] Jolo [facility] Instructions Otitis Externa - Adult [facility] Encounters Start Date/Time End Date/Time Encounter Type Admission Type Attendi [facility] Care Department Encounter ID Source 2020-07-10 00:00:00 2020-07-10 00:00:00 Outpatient MISHEL WALLER [facility] [id number] [facility] 2020-07-10 00:00:00 2020-07-10 00:00:00 Outpatient MISHEL WALLER [facility] [id number] [facility] 2020-07-04 00:00:00 2020-07-04 00:00:00 Outpatient MISHEL WALLER [facility] [id number] [facility] 2020-07-02 00:00:00 2020-07-02 00:00:00 Outpatient MISHEL WALLER [facility] [id number] [facility] 2020-07-02 00:00:00 2020-07-02 00:00:00 Outpatient KARYNINDERAMY DAVID [facility] [id number] [facility] 2020-06-24 07:57:00 2020-06-25 20:05:00 Inpatient 1 Ryan Melgar [facility] [id number] [facility] 2020-06-24 07:57:00 2020-06-24 07:57:00 Inpatient 1 Nicholas Ayala [facility] [id number] [facility] 2020-06-14 00:00:00 2020-06-14 00:00:00 Emergency Sol CASTANEDA-GUCCI [facility] [id number] [facility] 2020-04-25 00:00:00 2020-04-25 00:00:00 Outpatient KARYNJORGEAMY ANNE DAVID [facility] [id number] [facility] 2020-04-20 00:00:00 2020-04-20 00:00:00 Emergency CORNELIUS MASON [facility] [id number] [facility] 2020-04-19 00:00:00 2020-04-20 00:00:00 Emergency KINGSLEY BEAL [facility] [id number] [facility] 2020-04-13 06:53:00 2020-04-13 08:20:[address] [facility] [id number] [facility]. kes - Patients [facility] 2020-02-13 00:00:00 2020-02-13 00:00:00 Outpatient AMY WAGNER [facility] [id number] [facility] 2019-09-18 17:57:00 2019-09-18 20:17:00 Departed Emergency Room [facility] [id number] [facility] . [facility] 2019-05-20 16:32:00 2019-05-20 18:52:00 Departed Emergency Room 1 LAZARO MEJIA [facility] [id number] [facility] 2018-10-13 10:09:00 2018-10-13 11:16:00 Outpatient Kaden Mercado i [facility] [id number] 2018-06-15 09:00:00 2018-06-15 09:00:00 Outpatient Physici an, Non Associated [facility] [id number] 2018-02-11 15:49:00 2018-02-12 12:07:00 Outpatient Bobo Talavera [facility] [id number] 2018-02-05 01:43:00 2018-02-05 02:35:00 Departed Emergency Room [facility] [id number] [facility] 2017-09-22 08:31:00 2017-09-22 08:31:00 Outpatient [facility] [id number] eClinicalWo rks 2017-09-21 11:15:00 2017-09-21 11:15:00 Outpatient [facility] [id number] eClinicalWo s 2017-09-17 15:19:00 2017-09-17 23:59:00 Outpatient Colton Landeros [facility]SE [id number] 2017-09-11 01:08:00 2017-09-11 16:32:00 Discharged Inpatient (obs) ER KATHY ALAN [facility] [id number] [facility] 2017-08-10 14:30:00 2017-08-10 14:30:00 Outpatient [facility] [id number] [facility] 2017-07-28 11:45:00 2017-07-28 11:45:00 Outpatient [facility] [id number] [facility] 2017-07-28 08:12:00 2017-07-28 11:18:00 Departed Emergency Room ER HANNAH HUANG [facility] [id number] [facility] 2017-07-13 13:45:00 2017-07-13 13:45:00 Outpatient [facility] [id number] [facility] 2017-05-21 13:30:00 2017-05-21 13:30:00 Outpatient [facility] [id number] [facility] 2017-03-02 13:15:00 2017-03-02 13:15:00 Outpatient [facility] [id number] [facility] 2017-02-01 13:33:00 2017-02-01 23:59:00 Outpatient Stevan Knutson [facility] M[facility] [id number] 2017-01-13 13:15:00 2017-01-13 13:15:00 Outpatient [facility] [id number] eClinicalWorks 2017-01-11 17:55:00 2017-01-11 17:55:00 Outpatient [facility] Primary [facility] [id number] eClinicalWorks 2017-01-08 14:15:00 2017-01-08 14:15:00 Outpatient [facility] [id number] eClinicalWorks 2017-01-02 01:14:00 2017-01-02 04:31:00 Outpatient F Sivan fontaine SE [facility]SE [id number] 2016-12-25 14:57:00 2016-12-25 23:59:00 Outpatient Stevan Knutson [facility] M[facility] [id number] 2016-11-26 11:26:00 2016-11-26 23:59:00 Outpatient Stevan Knutson [facility] M[facility] [id number] 2016-10-29 12:43:00 2016-10-29 23:59:00 Outpatient Stevan Knutson [facility] M[facility] [id number] 2016-10-21 12:01:00 2016-10-21 23:59:00 Outpatient Colton Landeros [facility] M[facility] [id number] 2016-10-21 09:45:00 2016-10-21 09:45:00 Outpatient [facility] [id number] eClinicalWorks 2016-08-31 12:56:00 2016-08-31 12:56:00 Outpatient [facility] [id number] eClinicalWorks 2016-07-10 09:30:00 2016-07-10 09:30:00 Outpatient [facility] [id number] eClinicalWorks 2016-06-18 15:10:00 2016-06-18 23:59:00 Outpatient Stevan Knutson [facility] M[facility] [id number] 2016-05-19 15:56:00 2016-05-19 15:56:00 Outpatient [facility] [id number] eClinicalWorks 2016-05-12 09:00:00 2016-05-12 09:00:00 Outpatient [facility] [id number] eClinicalWorks 2016-03-09 08:45:00 2016-03-09 08:45:00 Outpatient [facility] [id number] eClinicalWorks 2016-02-07 12:26:00 2016-02-07 23:59:00 Outpatient Stevan Knutson [facility] M[facility] [id number] 2016-01-23 07:38:00 2016-01-23 23:59:00 Outpatient Stevan Knutson [facility] M[facility] [id number] 2016-01-13 08:30:00 2016-01-13 08:30:00 Outpatient [facility] [id number] eClinicalWorks 2016-01-08 08:30:00 2016-01-08 08:30:00 Outpatient [facility] [id number] eClinicalWorks 2015-09-13 08:30:00 2015-09-13 08:30:00 Outpatient [facility] [id number] eClinicalWorks 2015-08-16 15:17:00 2015-08-16 23:59:00 [id number] Results Test Description Test Time Test Comments Results Result Comments Source Us duplex venous upper extremity 2020-07-10 14:02:29 Left upper extremity and neck venous duplex ultrasound shows evidence of a focal superficial venous thrombosis of what appears to be a tributary of the left cephalic vein. Leonard Mustafa GLUBED 2020-07-09 06:58:00 Test Item GLUBED (test code = GLUBED) 91 MG/DL 70-110 N Performed by certified woodyard operator at [facility] [id number] 23:57:00* Test Item Value Reference Range Interpretation Comments GLUBED (test code = GLUBED) 87 MG/DL 70-110 N Performed by certified woodyard operator at [facility] [id number] 18:37:00* Test Item Value Reference Range Interpretation Comments GLUBED (test code = GLUBED) 123 MG/DL 70-110 H Performed by certified woodyard operator at [facility] [id number] 14:54:00* Test Item Value Reference Range Interpretation Comments GLUBED (test code = GLUBED) 162 MG/DL 70-110 H Performed by certified woodyard operator at [facility] RAPID PLASMA [id number] 10:54:00* Test Item Value Reference Range Interpretation Comments RAPID PLASMA REAGIN (test code = RPR) NONREACTIVE NONREACTIVE CBC W/AUTO [id number] 09:16:00* Test Item Value Reference Range Interpretation Comments WHITE BLOOD CELL (test code = WBC) 4.37 x10 3/uL 4.5-11.0 L RED BLOOD CELL (test code = RBC) 4.49 x10 6/uL 3.54-5.02 N HEMOGLOBIN (test code = HGB) 14.1 g/dL 11.0-15.0 N HEMATOCRIT (test code = HCT) 43.0 % 33.0-45.0 N MEAN CELL VOLUME (test code = MCV) 95.8 fL 81.0-99.0 MEAN CELL HGB (test code = MCH) 31.4 pg 27.0-33.0 N MEAN CELL HGB CONCETRATION (test code = MCHC) 32.8 g/dL 33.0-37. 0 L RED CELL DISTRIBUTION WIDTH CV (test code = RDW) 12.7 % 11.5- 14.5 N RED CELL DISTRIBUTION WIDTH SD (test code = RDW-SD) 44.9 fL 37 .0-54.0 N PLATELET COUNT (test code = PLT) 253 x10 3/uL 150-400 N MEAN PLATELET VOLUME (test code = MPV) 10.9 fL 7.0-9.0 H NEUTROPHIL % (test code = NT%) 56.6 % 56.0-77.0 N IMMATURE GRANULOCYTE % (test code = IG%) 0.2 % 0.0-2.0 N LYMPHOCYTE % (test code = LY%) 32.7 % 14.0-32.0 H MONOCYTE % (test code = MO%) 6.4 % 4.8-9.0 N EOSINOPHIL % (test code = EO%) 3.4 % 0.3-3.7 N BASOPHIL % (test code = BA%) 0.7 % 0.0-2.0 N NUCLEATED RBC % (test code = NRBC%) 0.0 % 0-0 N NEUTROPHIL # (test code = NT#) 2.47 x10 3/uL 2.0-7.6 N IMMATURE GRANULOCYTE # (test code = IG#) 0.01 x10 3/uL 0.00-0.03 N LYMPHOCYTE # (test code = LY#) 1.43 x10 3/uL 1.0-3.8 N MONOCYTE # (test code = MO#) 0.28 x10 3/uL 0.1-0.8 N EOSINOPHIL # (test code = EO#) 0.15 x10 3/uL 0.0-0.2 N BASOPHIL # (test code = BA#) 0.03 x10 3/uL 0.0-0.2 N NUCLEATED RBC # (test code = NRBC#) 0.00 x10 3/uL 0.0-0.1 N MANUAL DIFF REQUIRED (test code = MDIFF) NO SED RATE [id number] 09:16:00* Test Item Value Reference Range Interpretation Comments SED RATE CLYDE (test code = SEDW) 26 mm/hr 0-20 H HGBA1C%2020 08:54:00* Test Item Value Reference Range Interpretation Comments HGBA1C% (test code = HGBA1C%) 4.4 %A1C 4.8-6.0 L VITAMIN [id number] 08:41:00* Test Item Value Reference Range Interpretation Comments VITAMIN B12 (test code = VITB12) 458 pg/mL 193-986 N COMPREHENSIVE METABOLIC [id number] 08:41:00* Test Item Value Reference Range Interpretation Comments SODIUM (test code = NA) 139 mEq/L 134-147 N POTASSIUM (test code = K) 3.5 mEq/L 3.4-5.0 N CHLORIDE (test code = CL) 108 mEq/L 100-108 N CARBON DIOXIDE (test code = CO2) 22 mEq/L 21-33 N ANION GAP (test code = GAP) 12 0-20 N GLUCOSE (test code = GLU) 90 mg/dL 70-110 N BLOOD UREA NITROGEN (test code = BUN) 9 mg/dL 7-18 GLOMERULAR FILTRATION RATE (test code = GFR) 99.7 80-90 H Units of measure = ml/min/1.73 m2 CREATININE (test code = CREAT) 0.6 mg/dL 0.6-1.3 N TOTAL PROTEIN (test code = PROT) 6.6 g/dL 6.4-8.2 N ALBUMIN (test code = ALB) 3.90 g/dL 3.4-5.0 N CALCIUM (test code = CA) 8.8 mg/dL 8.0-10.5 N BILIRUBIN TOTAL (test code = BILT) 0.70 mg/dL 0.0-1.0 N SGOT/AST (test code = AST) 18 IUnit/L 15-37 N SGPT/ALT (test code = ALT) 20 IUnit/L 30-65 L ALKALINE PHOSPHATASE TOTAL (test code = ALKP) 78 IUnit/L 20-125 N COMMENTS: Fasting in AMLIPID PROFILE (CORONARY RISK)2020 08:41:00* Test Item Value Reference Range Interpretation Comments TRIGLYCERIDES (test code = TRIG) 88 mg/dL 40-150 N CHOLESTEROL (test code = CHOL) 199 mg/dL <200 CHOLESTEROL/HDL RATIO (test code = CHOLHDL) 3.13 RATIO 3.27-4.44 L RISK ASSOCIATED WITH CHOL/HDL RATIOS: RISK MALE FEMALE1/2 AVERAGE 3.43 3.27AVERAGE 4.97 4.442X AVERAGE 9.55 7.053X AVERAGE 23.39 11.04 NOTE THAT THE REFERENCE VALUE IS RELATEDTO RISK LEVELS RECOMMENDED BY THE NATL.HEART, LUNG, AND BLOOD INST. HDL CHOLESTEROL (test code = HDL) 63.5 mg/dL 39-96 N LIPOPROTEIN LDL (test code = LDL) 130.2 mg/dL 0-100 H <100 [id number] NEAR OPTIMAL/ABOVE [id number] HIGH>SP=207 VERY HIGH*Guidelines provided by the National Cholesterol EducationProgram Adult Treatment Panel III COMMENTS: Fasting in [facility] W/AUTO [id number] 07:56:00* Test Item Value Reference Range Interpretation Comments WHITE BLOOD CELL (test code = WBC) 4.37 x10 3/uL 4.5-11.0 L RED BLOOD CELL (test code = RBC) 4.49 x10 6/uL 3.54-5.02 N HEMOGLOBIN (test code = HGB) 14.1 g/dL 11.0-15.0 N HEMATOCRIT (test code = HCT) 43.0 % 33.0-45.0 N MEAN CELL VOLUME (test code = MCV) 95.8 fL 81.0-99.0 MEAN CELL HGB (test code = MCH) 31.4 pg 27.0-33.0 N MEAN CELL HGB CONCETRATION (test code = MCHC) 32.8 g/dL 33.0-37. 0 L RED CELL DISTRIBUTION WIDTH CV (test code = RDW) 12.7 % 11.5- 14.5 N RED CELL DISTRIBUTION WIDTH SD (test code = RDW-SD) 44.9 fL 37 .0-54.0 N PLATELET COUNT (test code = PLT) 253 x10 3/uL 150-400 N MEAN PLATELET VOLUME (test code = MPV) 10.9 fL 7.0-9.0 H NEUTROPHIL % (test code = NT%) 56.6 % 56.0-77.0 N IMMATURE GRANULOCYTE % (test code = IG%) 0.2 % 0.0-2.0 N LYMPHOCYTE % (test code = LY%) 32.7 % 14.0-32.0 H MONOCYTE % (test code = MO%) 6.4 % 4.8-9.0 N EOSINOPHIL % (test code = EO%) 3.4 % 0.3-3.7 N BASOPHIL % (test code = BA%) 0.7 % 0.0-2.0 N NUCLEATED RBC % (test code = NRBC%) 0.0 % 0-0 N NEUTROPHIL # (test code = NT#) 2.47 x10 3/uL 2.0-7.6 N IMMATURE GRANULOCYTE # (test code = IG#) 0.01 x10 3/uL 0.00-0.03 N LYMPHOCYTE # (test code = LY#) 1.43 x10 3/uL 1.0-3.8 N MONOCYTE # (test code = MO#) 0.28 x10 3/uL 0.1-0.8 N EOSINOPHIL # (test code = EO#) 0.15 x10 3/uL 0.0-0.2 N BASOPHIL # (test code = BA#) 0.03 x10 3/uL 0.0-0.2 N NUCLEATED RBC # (test code = NRBC#) 0.00 x10 3/uL 0.0-0.1 N MANUAL DIFF REQUIRED (test code = MDIFF) NO SED RATE [id number] 07:56:00* Test Item Value Reference Range Interpretation Comments [facility] (test code = SEDW) mm/hr 0-20 DRUGS OF ABUSE SCREEN [id number] 05:56:00* Test Item Value Reference Range Interpretation Comments URN COCAINE (test code = COCAURN) NEGATIVE NEGATIVE URN CANNABINOIDS (test code = CANNABURN) NEGATIVE NEGATIVE URN AMPHETAMINE (test code = AMPHETURN) NEGATIVE NEGATIVE URN BARBITURATE (test code = BARBITURN) NEGATIVE NEGATIVE URN BENZODIAZEPINE (test code = BENZOURN) NEGATIVE NEGATIVE Cut-off value:200 ng/mL URN OPIATES (test code = OPIATURN) NEGATIVE NEGATIVE Cut-off value:2000 ng/mL URN PHENCYCLIDINE (PCP) (test code = PHENCURN) NEGATIVE NEGATIV E Cutoffs:Barbiturates 200 ng/mLBenzodiazepines 200 ng/mLTHC Cannabinoids 50 ng/mLOpiates(Morphine) 2000 ng/mLAmphetamine 1000 ng/mLCocaine 300 ng/mLPCP phencyclidine 25 ng/mL Unconfirmed screening results shouldnot be used for non-medical purposes. URINALYSIS [id number] 05:44:00* Test Item Value Reference Range Interpretation Comments UA COLOR (test code = COLU) YELLOW YEL/STRAW UA APPEARANCE (test code = APPU) CLEAR CLEAR UA GLUCOSE DIPSTICK (test code = DGLUU) NEGATIVE NEGATIVE UA BILIRUBIN DIPSTICK (test code = BILU) NEGATIVE NEGATIVE UA KETONE DIPSTICK (test code = KETU) NEGATIVE NEGATIVE UA SPECIFIC GRAVITY (test code = SGU) 1.014 1.005-1.030 N UA BLOOD DIPSTICK (test code = HERMANN) NEGATIVE NEGATIVE UA PH DIPSTICK (test code = WILLIE) 6.0 5.0-7.0 N UA PROTEIN DIPSTICK (test code = PROU) NEGATIVE NEGATIVE UA UROBILINIOGEN DIPSTICK (test code = URO) 0.2 mg/dL 0.2-1.0 UA NITRITE DIPSTICK (test code = LUDY) NEGATIVE NEGATIVE UA LEUKOCYTE ESTERASE DIPSTICK (test code = LEUU) NEGATIVE NEGA TIVE UA RBC (test code = RBCU) 0-3 RBC/HPF 0-3 UA WBC NO REFLEX (test code = WBCUCL) 0-3 WBC/HPF 0-3 UA BACTERIA (test code = BACU) TRACE /HPF NONE SEEN UA SQUAMOUS CELLS (test code = SQU) 0-5 /HPF NONE SEEN [id number] 00:51:00* Test Item Value Reference Range Interpretation Comments GLUBED (test code = GLUBED) 94 MG/DL 70-110 N Performed by certified woodyard operator at [facility] [id number] 22:53:00* Test Item Value Reference Range Interpretation Comments TROPONIN-I (test code = TROPI) < 0.006 ng/mL 0.000-0.045 N Negative: <= 0.045 Positive: >= 0.046 Correlation with serial results, other cardiac markers andclinical findings is necessary to determine the clinicalsignificance of this result. Results using different methodologies should not be comparedto one another as quantitative results may vary by method. [id number] 18:11:00* Test Item Value Reference Range Interpretation Comments GLUBED (test code = GLUBED) 150 MG/DL 70-110 H Performed by certified woodyard operator at [facility] - MRA NECK W/O [id number] 15:28:00 FAX: Colton Dobson Jr [phone] Dolph: St: ADM FAX: Lynn Robbins NP [phone] FAX: Carla Martin Resendiz Belle [phone] Name: JULIO PEOPLES [facility] : 1955 Age/S: 64/F [address] [place] [address] Unit #: [id number] Loc: [address] [address] Phys: Lynn Robbins NP Acct: [id number] Dis Date: Status: ADM IN PH ONE #: [phone] Exam Date: 07/07/2020 1444 FAX #: [phone] Reason: Ischemic Stroke EXAMS: CPT CODE: [id number] MR A NECK W/O CONT 07488 INDICATION: Is chemic stroke COMPARISON: Perfusion CT and CTA 07/07/2020 TECHNIQUE: -Brain: Multiplanar non-contrast MRI images of the brain. -Brain MRA: Three-dimensional time of flight brain MR angiography of intracranial vessels is performed, and maximum intensity projection re formatted images are presented in multiple three-dimensional rotational pr ojections. -Neck MRA: Two-dimensional time of flight neck MR angiography o f extracranial arterial system was performed and reformatted images are presented in three-dimensional maximum intensity rotational projection s. Three-dimensional euec-ba-arizpq MR angiography centered at the carotid bifurcations was included. IV contrast: None. FINDI NGS: SCALP AND CALVARIUM: No abnormalities. VENTRICLES AND SULCI: Normal size and configuration for age. EXTR A-AXIAL SPACES: No abnormal signal or mass effect. BRAIN PARENCHYM A: There is no abnormal restricted diffusion. Overall, there is no abnorma l signal or volume loss in the brainstem, cerebellar hemispheres and cereb ral hemispheres. There is no mass effect or midline shift. BRAIN MRA: ANTERIOR CIRCULATION: Right: Internal carotid artery: Normal caliber. PAGE 1 Signed Report (CONTINUED) FAX: Carla Flores JrColton Isabel [phone] Dolph: St: ADM FAX: Lynn Robbins NP [phone] FAX: Carla Martin Resendiz Belle ------- Name: JLUIO PEOPLES [facility] : 1955 Age/S: 64/F [address] [place] [address] Unit #: [id number] Loc: G.648 [place] [address] Phys: Lynn Mccurdy NP Acct: [id number] Dis Date: Status: ADM IN PHON E #: [phone] Exam Date: 07/07/2020 1444 FAX # : [phone] Reason: Ischemic Stroke EX AMS: CPT CODE: [id number] MRA NECK W/O CONT 45612 <Continued> Anterior cerebral artery: Normal caliber. Middle cerebral artery: Normal caliber. Left: Internal carotid artery: Normal caliber. Anterior cerebral artery: Small caliber A1 segment, variant of normal. Otherwise, no occlusion. Middle cerebral artery: Normal caliber. Communicating arteries: Anterior: Patent. Posterior: Not well-visualized. POSTERIOR CIRCULAT ION: Right vertebral artery: Normal caliber. Left ve rtebral artery: Normal caliber. Basilar artery: Normal caliber. Right posterior cerebral artery: Normal caliber. Left posterior cerebral artery: Normal caliber. There is no aneurysm, v ascular malformation, or significant atherosclerotic disease. Neck MRA: RIGHT-SIDED EXTRACRANIAL SYSTEM: Common carotid artery: No hemodynamically significant stenosis. I nternal carotid artery: No hemodynamically significant stenosis. R ight vertebral artery: Patent. PAGE 2 Signed Report (CONTINUED) FAX: Colton Dobson Jr Dolph: St: [facility] FAX: Lynn Robbins NP [phone] F AX: Martin Leyva I [phone] Name: JULIO PEOPLES [facility] : 1955 Age/S: 64/F [address] [place], [place] [address]vd Unit #: [id number] Loc: G.648 [place] [address] Phys: Lynn Robbins NP Acct: [id number] Dis Date: Status: ADM IN PHONE #: [phone] Exam Date: 1444 FAX #: [phone] Reason: Ischemic Stro ke EXAMS: CPT CODE: [id number] MRA NECK W/O CONT 7 0596 <Continued> LEFT-SIDED EXTRACRANIAL SYSTEM: Common carotid artery: No hemodynamically significant stenosis. Internal carotid artery: No hemodynamically significant stenosis. Left vertebral artery: Patent. Comment: Any carotid artery stenosis measurements provided in the above report utilized a normal caliber distal carotid artery as the denominator according to NASCET criteria/recommendations. IMPRESSION: BRAIN: No acute infarction. Overall normal appearance of the brain. BRAIN MRA: No aneurysm, high-grade stenosis or occlusion. NECK MRA: No hemodynamically significant stenosis of the internal carotid arteries and vertebral arteries. SL: [id number] at 1528 Reported and signed by: Rodríguez Giles M.D. CC: Colton Flores Jr, MD; Lynn Robbins NP; Martin Aburto MD Technologist: Maia Patel RT(MR)(CT) [place] Date/Time/By: 07/07/2020 (1528) : By: [email or web address] Orig Print D/T: S: 07/07/2020 (0032) PAGE 3 Signed Report - MRA HEAD W/O CONTRAST 2020-07-07 15:28:00 FAX: Carla Flores JrColton [phone] Dolph: St: ADM FAX: Lynn Robbins NP [phone] FAX: Carla Martin Resendiz Belle [phone] Name: JULIO PEOPLES [facility] : 1955 Age/S: 64/F [address] [place] [address] Unit #: [id number] Loc: G.648 [place] [address] Phys: Lynn Robbins NP Acct: [id number] Dis Date: Status: ADM IN ONE #: [phone] Exam Date: 07/07/2020 1444 FAX #: [phone] Reason: Ischemic Stroke EXAMS: CPT CODE: [id number] MR A HEAD W/O CONTRAST 83273 INDICATION: Is chemic stroke COMPARISON: Perfusion CT and CTA 07/07/2020 TECHNIQUE: -Brain: Multiplanar non-contrast MRI images of the brain. -Brain MRA: Three-dimensional time of flight brain MR angiography of intracranial vessels is performed, and maximum intensity projection re formatted images are presented in multiple three-dimensional rotational pr ojections. -Neck MRA: Two-dimensional time of flight neck MR angiography o f extracranial arterial system was performed and reformatted images are presented in three-dimensional maximum intensity rotational projection s. Three-dimensional djiv-ay-evvevw MR angiography centered at the carotid bifurcations was included. IV contrast: None. FINDI NGS: SCALP AND CALVARIUM: No abnormalities. VENTRICLES AND SULCI: Normal size and configuration for age. EXTR A-AXIAL SPACES: No abnormal signal or mass effect. BRAIN PARENCHYM A: There is no abnormal restricted diffusion. Overall, there is no abnorma l signal or volume loss in the brainstem, cerebellar hemispheres and cereb ral hemispheres. There is no mass effect or midline shift. BRAIN MRA: ANTERIOR CIRCULATION: Right: Internal carotid artery: Normal caliber. PAGE 1 Signed Report (CONTINUED) FAX: Carla Flores JrColton Isabel [phone] Dolph: St: ADM FAX: Lynn Robbins NP [phone] FAX: Carla AburtoMartin Belle ------- Name: JULIO PEOPLES [facility] : 1955 Age/S: 64/F [address] [place], [place] [address] Unit #: [id number] Loc: G.648 [place] [address] Phys: Lynn Mccurdy NP Acct: [id number] Dis Date: Status: ADM IN [facility] E #: [phone] Exam Date: 07/07/2020 1444 FAX # : [phone] Reason: Ischemic Stroke EX AMS: CPT CODE: [id number] MRA HEAD W/O CONTRAST 63760 <Continued> Anterior cerebral artery: Normal caliber. Middle cerebral artery: Normal caliber. Left: Internal carotid artery: Normal caliber. Anterior cerebral artery: Small caliber A1 segment, variant of normal. Otherwise, no occlusion. Middle cerebral artery: Normal caliber. Communicating arteries: Anterior: Patent. Posterior: Not well-visualized. POSTERIOR CIRCULAT ION: Right vertebral artery: Normal caliber. Left ve rtebral artery: Normal caliber. Basilar artery: Normal caliber. Right posterior cerebral artery: Normal caliber. Left posterior cerebral artery: Normal caliber. There is no aneurysm, v ascular malformation, or significant atherosclerotic disease. Neck MRA: RIGHT-SIDED EXTRACRANIAL SYSTEM: Common carotid artery: No hemodynamically significant stenosis. I nternal carotid artery: No hemodynamically significant stenosis. R ight vertebral artery: Patent. PAGE 2 Signed Report (CONTINUED) FAX: Colton Dobson Jr Dolph: St: [facility] FAX: Lynn Robbins NP [phone] F AX: Martin Leyva I [phone] Name: JULIO PEOPLES [facility] : 1955 Age/S: 64/F [address] [place] [address] Unit #: [id number] Loc: G.648 [place] [address] Phys: Lynn Robbins NP Acct: [id number] Dis Date: Status: ADM IN PHONE #: [phone] Exam Date: 1444 FAX #: [phone] Reason: Ischemic Stro ke EXAMS: CPT CODE: [id number] MRA HEAD W/O CONTRAST 7 0544 <Continued> LEFT-SIDED EXTRACRANIAL SYSTEM: Common carotid artery: No hemodynamically significant stenosis. Internal carotid artery: No hemodynamically significant stenosis. Left vertebral artery: Patent. Comment: Any carotid artery stenosis measurements provided in the above report utilized a normal caliber distal carotid artery as the denominator according to NASCET criteria/recommendations. IMPRESSION: BRAIN: No acute infarction. Overall normal appearance of the brain. BRAIN MRA: No aneurysm, high-grade stenosis or occlusion. NECK MRA: No hemodynamically significant stenosis of the internal carotid arteries and vertebral arteries. SL: [id number] at 1528 Reported and signed by: Rodríguez Giles M.D. CC: Colton Flores Jr, MD; Lynn Robbins NP; Martin Aburto MD Technologist: Maia Patel, RT(MR)(CT) [facility] Date/Time/By: 07/07/2020 (1528) : By: [email or web address] Orig Print D/T: S: 07/07/2020 (2358) PAGE 3 Signed Report - MRI BRAIN W/O CONT 2020-07-07 15:28:00 FAX: Carla Flores JrColton [phone] Dolph: St: ADM FAX: Lynn Robbins NP [phone] FAX: Carla AburtoMartin Belle [phone] Name: JULIO PEOPLES [facility] : 1955 Age/S: 64/F [address] [place], [place] [address] Unit #: [id number] Loc: G.648 [place] [address] Phys: Lynn Robbins NP Acct: [id number] Dis Date: Status: ADM IN ONE #: [phone] Exam Date: 07/07/2020 1444 FAX #: [phone] Reason: Ischemic Stroke EXAMS: CPT CODE: [id number] MR I BRAIN W/O CONT 14459 INDICATION: Is chemic stroke COMPARISON: Perfusion CT and CTA 07/07/2020 TECHNIQUE: -Brain: Multiplanar non-contrast MRI images of the brain. -Brain MRA: Three-dimensional time of flight brain MR angiography of intracranial vessels is performed, and maximum intensity projection re formatted images are presented in multiple three-dimensional rotational pr ojections. -Neck MRA: Two-dimensional time of flight neck MR angiography o f extracranial arterial system was performed and reformatted images are presented in three-dimensional maximum intensity rotational projection s. Three-dimensional elra-eb-iqqpjf MR angiography centered at the carotid bifurcations was included. IV contrast: None. FINDI NGS: SCALP AND CALVARIUM: No abnormalities. VENTRICLES AND SULCI: Normal size and configuration for age. EXTR A-AXIAL SPACES: No abnormal signal or mass effect. BRAIN PARENCHYM A: There is no abnormal restricted diffusion. Overall, there is no abnorma l signal or volume loss in the brainstem, cerebellar hemispheres and cereb ral hemispheres. There is no mass effect or midline shift. BRAIN MRA: ANTERIOR CIRCULATION: Right: Internal carotid artery: Normal caliber. PAGE 1 Signed Report (CONTINUED) FAX: Colton Dobson Jr [phone] Dolph: St: ADM FAX: Lynn Robbins NP [phone] FAX: Carla Tony AburtoMartin figueroa Belle [phone] ------- Name: JULIO PEOPLES [facility] : 1955 Age/S: 64/F [address] [place] [address] Blvd Unit #: [id number] Loc: G.648 [place] [address] Phys: Lynn Mccurdy NP Acct: [id number] Dis Date: Status: ADM IN PHON E #: [phone] Exam Date: 07/07/2020 1444 FAX # : [phone] Reason: Ischemic Stroke EX AMS: CPT CODE: [id number] MRI BRAIN W/O CONT 37421 <Continued> Anterior cerebral artery: Normal caliber. Middle cerebral artery: Normal caliber. Left: Internal carotid artery: Normal caliber. Anterior cerebral artery: Small caliber A1 segment, variant of normal. Otherwise, no occlusion. Middle cerebral artery: Normal caliber. Communicating arteries: Anterior: Patent. Posterior: Not well-visualized. POSTERIOR CIRCULAT ION: Right vertebral artery: Normal caliber. Left ve rtebral artery: Normal caliber. Basilar artery: Normal caliber. Right posterior cerebral artery: Normal caliber. Left posterior cerebral artery: Normal caliber. There is no aneurysm, v ascular malformation, or significant atherosclerotic disease. Neck MRA: RIGHT-SIDED EXTRACRANIAL SYSTEM: Common carotid artery: No hemodynamically significant stenosis. I nternal carotid artery: No hemodynamically significant stenosis. R ight vertebral artery: Patent. PAGE 2 Signed Report (CONTINUED) FAX: Colton Dobson Jr Dolph: St: ADM FAX: Lynn Robbins NP [phone] F AX: Martin Leyva I [phone] Name: JULIO PEOPLES [facility] : 1955 Age/S: 64/F [address] [place] [address] Unit #: [id number] Loc: G.[address] [place] [address] Phys: Lynn Robbins NP Acct: [id number] Dis Date: Status: ADM IN PHONE #: [phone] Exam Date: 1444 FAX #: [phone] Reason: Ischemic Str bernie EXAMS: CPT CODE: [id number] MRI BRAIN W/O CONT 7 0551 <Continued> LEFT-SIDED EXTRACRANIAL SYSTEM: Common carotid artery: No hemodynamically significant stenosis. Internal carotid artery: No hemodynamically significant stenosis. Left vertebral artery: Patent. Comment: Any carotid artery stenosis measurements provided in the above report utilized a normal caliber distal carotid artery as the denominator according to NASCET criteria/recommendations. IMPRESSION: BRAIN: No acute infarction. Overall normal appearance of the brain. BRAIN MRA: No aneurysm, high-grade stenosis or occlusion. NECK MRA: No hemodynamically significant stenosis of the internal carotid arteries and vertebral arteries. SL: [id number] at 1528 Reported and signed by: Rodríguez Giles M.D. CC: Colton Flores Jr, MD; Lynn Robbins NP; Martin Aburto MD Technologist: Maia Patel, RT(MR)(CT) [facility] Date/Time/By: 07/07/2020 (1528) : By: [email or web address] Orig Print D/T: S: 07/07/2020 (7645) PAGE 3 Signed Report [id number] 11:46:00* Test Item Value Reference Range Interpretation Comments TROPONIN-I (test code = TROPI) < 0.006 ng/mL 0.000-0.045 N Negative: <= 0.045 Positive: >= 0.046 Correlation with serial results, other cardiac markers andclinical findings is necessary to determine the clinicalsignificance of this result. Results using different methodologies should not be comparedto one another as quantitative results may vary by method. [id number] 06:20:00* Test Item Value Reference Range Interpretation Comments MAGNESIUM (test code = MAG) 2.39 mg/dL 1.8-2.4 N - CT ANGIO [id number] 05:56:00 Name: JULIO PEOPLES [facility] : 1955 Age/S: 64 / F [address] [place] [address] Unit #: [id number] Loc: [place] [address] Phys: Daron Marie MD Acct: [id number] Dis Date: Status: REG ER PHONE #: [phone] Exam Date: 07/07/2020456 FAX #: [phone] Reason: L NUMBESS EXAMS: CPT CODE: [id number] CT ANGIO NECK 63368 Clinical Indication: Left-sided numbness. Comparison: Noncontrast CT head performed 07/07/2020. TECHNIQUE: Sequential trans-axial images are obtained from the thoracic inlet to the vertex with a multi-detector helical CT after intravenous contrast administration. Coronal and sagittal MIP reconstructions are obtained. Perfusion parametric maps were also generated. Region of interest were placed for arterial input function and venous input function. IV Contrast: Administered. However, amount and type of contrast not provided at the time of interpretation. All CT scans at this location are performed using dose optimization techniques as appropriate to a performed exam including the following: ? Automated exposure control ? Adjustment of the mA and/or kV according to patient size (this includes techniques or standardized protocols for targeted exams where dose is matched to indication / reason for exam; i.e. extremities or head ) ? Use of iterative reconstruction technique CT Radiation Dose DLP: 2987.62 mGy-cm FINDINGS: CTA NECK: The visualized portion of the aortic arch and the great vessel origins are normal in appearance. The common carotid arteries, carotid bulbs and cervical internal and external carotid arteries bilaterally are widely patent. Mild atherosclerotic calcifications of the right carotid bulb. Distal right internal carotid artery measures 4 mm in diameter. Distal left internal carotid artery measures 4 mm in diameter. The vertebral arteries are normal throughout their visualized courses. There is no evide nce for stenosis, occlusion, dissection or other vascular irregularity. If there is further concern, recommend conventional angiography for complete assessment. Any reported ICA stenosis directly refe rences the distal internal carotid diameter as the denominator for stenosi s measurement. PAGE 1 Signed Report (CONTINUED) Name: JULIO PEOPLES [facility] : 1955 Age/S: 64 / F [address] [place] [address] Blvd Unit #: [id number] Loc: [place] [address] Ph ys: Daron Marie MD Acct: [id number] Dis Date: Status: REG ER PHONE #: [phone] Exam Date: 07/07/2020 0457 FAX #: [phone] Reason: L NUMBESS EXAMS: CPT CODE: [id number] CT ANGIO NECK 07811 <Continued> NON-VASCULAR STRUCTURES: Mild degenerative changes of the cervical spine. CTA HEAD: The distal cervical, petrous, cavernous and supraclinoid segments of the internal carotid arteries, as well as anterior and middle cerebral artery branches bilaterally are un remarkable. The anterior communicating artery is patent. The left and right posterior communicating arteries are patent. The d istal vertebral arteries are codominant and normal in appearance. The basi lar and bilateral posterior cerebral and superior cerebellar arteries are unremarkable. If there is further concern, recommend conventional angiography for complete assessment. CONTRAST ENHANCED BRAIN IMAGES: The contrast-enhanced images of the brain demonstrate no patholo gic enhancement. CT PERFUSION: Mean transit time: N o evidence of elevated mean transit time. Cerebral blood flow: No evidence of decreased relative cerebral blood flow. Cereb ral blood volume: No evidence of decreased relative cerebral blood volume . IMPRESSION: No significant stenosis by NASCET criteri a. Mild atherosclerotic calcifications of the right carotid bulb. No significant vertebral artery stenosis. No high- grade stenosis, large vessel occlusion or large saccular aneurysm of int racranial internal carotid or vertebrobasilar circulation. Negative CT perfusion study. PAGE 2 Signed Report (CONTINUED) Name: JULIO PEOPLES : 1955 Age/S: 64 / F [address] [place] [address] Unit #: [id number] Loc: [facility] [place] [address] Phys: Daron Marie MD Acct: [id number] Dis Date: Status: REG ER PHONE #: [phone] Exam Date: 07/07/2020456 FAX #: [phone] Reason: L NUMBESS EXAMS: CPT CODE: [id number] CT ANGIO NECK 84010 < Continued> Findings discussed with Dr. Albrecht via telephone on 07/07/2020 at 5:38 AM central time. Please note small basal ganglia lacunar infarct, posterior fossa and brainstem infarcts cannot be excluded from CT perfusion examination. MRI examination with diffusion-weighted imaging provides higher sensitivity. SL: [id number] at 0556 Reported and signed by: King Cherry M.D. CC: Colton Flores Jr, MD; Daron Marie MD Technologist:Marbella Cruz, (R) CTDI: DLP: Trnscb Date/Time: 07/07/2020 (0556) [email or web address] Orig Print D/T: S: 07/07/2020 (0559) PAGE 3 Signed Report - CT CEREBRAL PERF [id number] 05:56:00 Name: JULIO PEOPLES : 1955 Age/S: 64 / F [address] [place] [address] Unit #: [id number] Loc: [facility] [address] Phys: Daron Marie MD Acct: [id number] Di s Date: Status: REG ER PHONE #: Exam Date: 07/07/2020456 FAX #: Reason: L NUMBESS EXAMS: CPT CODE: [id number] CT CEREBRAL P ERF ANAL 72756 Clinical Indication: Left -sided numbness. Comparison: Noncontrast CT head performed 07/07/2020. TECHNIQUE: Sequential trans-axial images are obtained from the t horacic inlet to the vertex with a multi-detector helical CT after intrave nous contrast administration. Coronal and sagittal MIP reconstructions are obtained. Perfusion parametric maps were also generated. Region of interest were placed for arterial input function and venous input func tion. IV Contrast: Administered. However, amount and type of contr ast not provided at the time of interpretation. All CT scans at this location are performed using dose optimization techniques as appropriate to a performed exam including the following: ? Automated exposure control ? Adjustment of the mA and/or kV according to patient size (this in cludes techniques or standardized protocols for targeted exams where dose is matched to indication / reason for exam; i.e. extremities or head ) ? Use of iterative reconstruction technique CT Radiation Dose DLP: 298 7.62 mGy-cm FINDINGS: CTA NECK: The visualize d portion of the aortic arch and the great vessel origins are normal in ap pearance. The common carotid arteries, carotid bulbs and cervical internal and external carotid arteries bilaterally are widely patent. Mild atherosclerotic calcifications of the right carotid bulb. Distal right internal carotid artery measures 4 mm in diameter. Distal left internal carotid artery measures 4 mm in diameter. The vertebral arteries are normal throughout their visualized courses. There is no evide nce for stenosis, occlusion, dissection or other vascular irregularity. If there is further concern, recommend conventional angiography for complete assessment. Any reported ICA stenosis directly refe rences the distal internal carotid diameter as the denominator for stenosi s measurement. PAGE 1 Signed Report (CONTINUED) Name: JULIO PEOPLES [facility] : 1955 Age/S: 64 / F [address] [place] [address] Blvd Unit #: [id number] Loc: [place] [address] Ph ys: Daron Marie MD Acct: [id number] Dis Date: Status: REG ER PHONE #: [phone] Exam Date: 07/07/2020 0762 FAX #: [phone] Reason: L NUMBESS EXAMS: CPT CODE: [id number] CT CEREBRAL PERF ANAL 88050 <Continued> NON-VASCULAR STRUCTURES: Mild degenerative changes of the cervical spine. CTA HEAD: The distal cervical, petrous, cavernous and supraclinoid segments of the internal carotid arteries, as well as anterior and middle cerebral artery branches bilaterally are un remarkable. The anterior communicating artery is patent. The left and right posterior communicating arteries are patent. The d istal vertebral arteries are codominant and normal in appearance. The basi lar and bilateral posterior cerebral and superior cerebellar arteries are unremarkable. If there is further concern, recommend conventional angiography for complete assessment. CONTRAST ENHANCED BRAIN IMAGES: The contrast-enhanced images of the brain demonstrate no patholo gic enhancement. CT PERFUSION: Mean transit time: N o evidence of elevated mean transit time. Cerebral blood flow: No evidence of decreased relative cerebral blood flow. Cereb ral blood volume: No evidence of decreased relative cerebral blood volume . IMPRESSION: No significant stenosis by NASCET criteri a. Mild atherosclerotic calcifications of the right carotid bulb. No significant vertebral artery stenosis. No high- grade stenosis, large vessel occlusion or large saccular aneurysm of int racranial internal carotid or vertebrobasilar circulation. Negative CT perfusion study. PAGE 2 Signed Report (CONTINUED) Name: JULIO PEOPLES [facility] : 1955 Age/S: 64 / F [address] [place] [address] Blvd Unit #: [id number] Loc: [facility] [address] Phys: Daron Marie MD Acct: [id number] Dis Date: Status: REG ER PHONE #: [phone] Exam Date: 07/07/2020 045 FAX #: [phone] Reason: L NUMBESS EXAMS: CPT CODE: [id number] CT CEREBRAL PERF ANAL 35021 < Continued> Findings discussed with Dr. Albrecht via telephone on 07/07/2020 at 5:38 AM central time. Please note small basal ganglia lacunar infarct, posterior fossa and brainstem infarcts cannot be excluded from CT perfusion examination. MRI examination with diffusion-weighted imaging provides higher sensitivity. SL: KPATEL-H at 0556 Reported and signed by: King Cherry M.D. CC: Colton Flores Jr, MD; Daron Marie MD Technologist:Marbella Cruz, RT(R) CTDI: DLP: Trnscb Date/Time: 07/07/2020 (0556) [email or web address] Orig Print D/T: S: 07/07/2020 (0559) PAGE 3 Signed Report - XR CHEST 1 [id number] 05:33:00 FAX: Colton Dobson Jr [phone] Dolph: St: REG FAX: Daron Plascencia MD [phone] Name: JULIO PEOPLES [facility] : 1955 Age/S: 64/F [address] [place] [address] Blvd Unit #: [id number] Loc: [address] [place] [address] Phys: Daron Marie MD Acct: [id number] Dis Date: Status: REG ER PHONE #: [phone] Exam Date: 07/07/2020527 FAX #: [phone] Reason: stroke EXAMS: CPT CODE: [id number] XR CHEST 1 V 75406 EXAM: CR, XR chest one view: 07/07/2020, 0520 hours HISTORY: stroke TECHNIQUE: 1 view of the chest. CO MPARISON: None available. FINDINGS: Trachea is midline. He art is normal in size. Pulmonary vascularity is unremarkable. Calcified plaques are noted in the aortic arch. There is no airspace consolidation, pleural effusion or pneumothorax. No significant osseous abnormalities are seen. Radiodensity in the left epigastric region. IMPRESS ION: No acute cardiopulmonary disease seen. SL: [JSY ED-H] at 0500 Reported and signed by: Roberth Jacobson M.D. CC: Colton Flores Jr, MD; Daron Marie MD Technologist: Gail Keller RT(R) Trnscrd Date/Time/By: 06/10 (0539) : By: [email or web address] Orig Print D/T: S: 07/07/2020 (0536) PAGE 1 Signed Report - CT HEAD/BRAIN W/O [id number] 05:17:00 Name: JULIO PEOPLES [facility] Kenn Oswald : 1955 Age/S: 64 / F [address] [place] [address] Unit #: [id number] Loc: [place] [address] Phys: Daron Marie MD Acct: [id number] Dis Date: Status: REG ER PHONE #: [phone] Exam Date: 07/07/2020 045 FAX #: [phone] Reason: L NUMBESS EXAMS: CPT CODE: [id number] CT HEAD/BRAIN W/O CONT 87369 Study: - CT HEAD/BRAIN W/O CONT Clinical Indication: Left-sided numbness. Comparison: None TECHNIQUE: CT images are obtained from the foramen magnum to the vertex on a multidetector CT. Sagittal and coronal reformats are acquired. All CT scans at this location are performed using dose optimization techniques as appropriate to a performed exam including the following: ? Automated exposure control ? Adjustment of the mA and/or kV according to patient size (this includes techniques or standardized protocols for targeted exams where dose is matched to indication / reason for exam; i.e. extremities or head ) ? Use of iterative reconstruction technique CT Radiation Dose DLP: 601.53 mGy-cm FINDINGS: The ventricles and cortical sulci are appropriate for the patient's stated age. There is no acute intracranial hemorrhage, abnormal extra-axial f luid collection, midline shift or other significant mass effect. The quintanilla -white differentiation is preserved without CT evidence of acute territori al infarction. The visualized paranasal sinuses are well aerated. The visualized mastoid air cells are clear. The visualized orbits are un remarkable. The calvarium is intact. Mild atherosclerotic c alcifications of the cavernous segments of the internal carotid arteries a re identified. If there is further concern for intracranial pathol ogy or acute stroke, MRI of the brain may be performed for complete assess ment. IMPRESSION: No evidence of acute intracr anial hemorrhage or mass effect. No CT evidence of acute territorial in farction. Findings discussed with Dr. Marie via telephone on 07/07/2020 at 5:04 AM central time. SL: KIMBERLY PAGE 1 Signed Report (CONTINUED) Name: JULIO PEOPLES [facility] Kenn Oswald : 1955 Age/S: 64 / F [address] [place] [address] Unit #: [id number] Loc: [place] [address] Phys: [place] Marie MD Acct: [id number] Dis Date: Status: REG ER PHONE #: Exam Date: 07/07/2020456 FAX #: Reason: L NUMBESS EXAMS: CPT CODE: [id number] CT HEAD/BRAIN W /O CONT [id number] <Continued> at 0517 Reported and signed by: King Cherry M.D. CC: Colton Flores Jr, MD; Daron Marie MD Faina hnologist:Marbella Cruz RT(R) CTDI: DLP: Trnscb Date/T ralph: 07/07/2020 (05) [email or web address] Orig Print D/T: S: 07/07 (05) PAGE 2 Signed Report BASIC METABOLIC [id number] 05:13:00* Test Item Value Reference Range Interpretation Comments SODIUM (test code = NA) 137 mEq/L 134-147 N POTASSIUM (test code = K) 3.0 mEq/L 3.4-5.0 L CHLORIDE (test code = CL) 104 mEq/L 100-108 N CARBON DIOXIDE (test code = CO2) 27 mEq/L 21-33 N ANION GAP (test code = GAP) 9 0-20 N GLUCOSE (test code = GLU) 106 mg/dL 70-110 N BLOOD UREA NITROGEN (test code = BUN) 15 mg/dL 7-18 N GLOMERULAR FILTRATION RATE (test code = GFR) 83.7 80-90 N Units of measure = ml/min/1.73 m2 CREATININE (test code = CREAT) 0.7 mg/dL 0.6-1.3 N CALCIUM (test code = CA) 9.6 mg/dL 8.0-10.5 N [id number] 05:13:00* Test Item Value Reference Range Interpretation Comments TROPONIN-I (test code = TROPI) < 0.006 ng/mL 0.000-0.045 N Negative: <= 0.045 Positive: >= 0.046 Correlation with serial results, other cardiac markers andclinical findings is necessary to determine the clinicalsignificance of this result. Results using different methodologies should not be comparedto one another as quantitative results may vary by method. PROTHROMBIN [id number] 05:06:00* Test Item Value Reference Range Interpretation Comments PROTHROMBIN TIME PATIENT (test code = PTP) 11.7 SECONDS 9.3-12.9 N INTERNATIONAL NORMAL RATIO (test code = INR) 1.1 0.8-1.2 N TARGET INR BY INDICATION Indication INR1. Prophylaxis of venous thrombosis 2.0 - 3.0 (orthopedic surgery), Prophylaxis of venous thrombosis (other than high-risk surgery), Treatment of Deep Vein Thrombosis/Pulmonary Embolism, Prevention of systemic embolism - Tissue heart valves, Acute Myocardial Infarction (to prevent systemic embolism), Valvular heart disease, Atrial Fibrillation, Bileaflet mechanical valve in aortic position.2. Mechanical prosthetic valves (high risk), 2.5 - 3.5 Presence of Lupus Anticoagulant or Antiphospholipid Antibodies, Prevention of systemic embolism - Acute Myocardial Infarction (to prevent recurrent infarct). THROMBOPLASTIN TIME [id number] 05:06:00* Test Item Value Reference Range Interpretation Comments THROMBOPLASTIN TIME PARTIAL (test code = PTT) Seconds 25.0-39. 5 PROTHROMBIN [id number] 05:06:00* Test Item Value Reference Range Interpretation Comments PROTHROMBIN TIME PATIENT (test code = PTP) 11.7 SECONDS 9.3-12.9 N INTERNATIONAL NORMAL RATIO (test code = INR) 1.1 0.8-1.2 N TARGET INR BY INDICATION Indication INR1. Prophylaxis of venous thrombosis 2.0 - 3.0 (orthopedic surgery), Prophylaxis of venous thrombosis (other than high-risk surgery), Treatment of Deep Vein Thrombosis/Pulmonary Embolism, Prevention of systemic embolism - Tissue heart valves, Acute Myocardial Infarction (to prevent systemic embolism), Valvular heart disease, Atrial Fibrillation, Bileaflet mechanical valve in aortic position.2. Mechanical prosthetic valves (high risk), 2.5 - 3.5 Presence of Lupus Anticoagulant or Antiphospholipid Antibodies, Prevention of systemic embolism - Acute Myocardial Infarction (to prevent recurrent infarct). THROMBOPLASTIN TIME [id number] 05:06:00* Test Item Value Reference Range Interpretation Comments THROMBOPLASTIN TIME PARTIAL (test code = PTT) 30.9 Seconds 25.0-39. 5 N Therapeutic Range: 50.4 - 88.3 Seconds Effective 02/21/2019 CBC W/O [id number] 05:01:00* Test Item Value Reference Range Interpretation Comments WHITE BLOOD CELL (test code = WBC) 5.33 x10 3/uL 4.5-11.0 N RED BLOOD CELL (test code = RBC) 4.43 x10 6/uL 3.54-5.02 N HEMOGLOBIN (test code = HGB) 14.1 g/dL 11.0-15.0 N HEMATOCRIT (test code = HCT) 40.9 % 33.0-45.0 N MEAN CELL VOLUME (test code = MCV) 92.3 fL 81.0-99.0 N MEAN CELL HGB (test code = MCH) 31.8 pg 27.0-33.0 N MEAN CELL HGB CONCETRATION (test code = MCHC) 34.5 g/dL 33.0-37. 0 N RED CELL DISTRIBUTION WIDTH CV (test code = RDW) 12.0 % 11.5- 14.5 N RED CELL DISTRIBUTION WIDTH SD (test code = RDW-SD) 41.1 fL 37 .0-54.0 N PLATELET COUNT (test code = PLT) 248 x10 3/uL 150-400 N MEAN PLATELET VOLUME (test code = MPV) 10.4 fL 7.0-9.0 H XR Hand 3+ Vw [id number] 11:02:57Hm Interface, Radiology Results - 07/04/2020 11:06 AM CDTEXAMINATION: XR HAND 3 VW RIGHTCLINICAL HISTORY: M79.641 Pain in right hand, R hand painCOMPARISON: None.IMPRESSION:There is no evidence of acute right hand fracture or dislocation. However, persistent flexion is noted the DIP joint of the fifth digit with associated extension of the PIP joint as can be associated with a swan-neck deformity from underlying ligamentous injury. Recommend clinical correlation. There are no radiopaque foreign bodies.[id number] Tomosynthesis [id number] 11:10:26There is no mammographic evidence of malignancy. Continued monitoring of the clinical examination and annual mammography in 1 year is recommended. BI-RADS Category 2:Benign Finding(s) Workstation Name: [id number] A NEGATIVE X-RAY REPORT SHOULD NOT DELAY BIOPSY IF A DOMINANT OR CLINICALLY SUSPICIOUS MASS IS PRESENT. NOT ALL CANCERS ARE IDENTIFIED BY X-RAY. Interface, Radiology Results Incoming - 07/02/2020 11:10 AM CDTPROCEDURE:Bilateral Tomosynthesis Screening HISTORY:Patient is 64 years old and is seen for screening. The patient has no family history of breast cancer. The patient has no current palpable breast complaints. FILMS COMPARED:The present examination has been compared to prior imaging studies dated 08/16/2015, 09/17/2017 and 08/17/2018. MAMMOGRAM FINDINGS:There are scattered areas of fibroglandular densities. There are multiple oval masses of varying size in both breasts. Bilateral benign coarse calcifications are also noted in both breast. No significant interval change is identified in either breast. IMPRESSION:There is no mammographic evidence of malignancy. Continued monitoring of the clinical examination and annual mammography in 1 year is recommended. BI-RADS Category 2:Benign Finding(s) Workstation Name: [id number] A NEGATIVE X-RAY REPORT SHOULD NOT DELAY BIOPSY IF A DOMINANT OR CLINICALLY SUSPICIOUS MASS IS PRESENT. NOT ALL CANCERS ARE IDENTIFIED BY X-RAY. [facility] MethodistLip[facility] [id number] 07:19:39* Test Item Value Reference Range Interpretation Comments Cholesterol Total (test code = Cholesterol Total) 190 mg/dL N Low-risk level (desirable) - <200 mg/dlModerate-risk level (borderline) - 200-239 mg/dlHigh- risk level - ?240 mg/dl Triglycerides (test code = Triglycerides) 103 mg/dL N Normal - <150 mg/dlBorderline high - 150-199 mg/dlHigh - 200-499 mg/dlVery high - ?500 mg/dl HDL (test code = HDL) 62.90 mg/dL N Low-ri sk level (desirable) - ?60 mg/dlHigh-risk level (undesirable) - <40 mg/dl LDL (test code = LDL) 106 mg/dL N The eq uation being used in this calculation is LDL = (Chol - HDL) - (Trig / 5) VLDL (test code = VLDL) 21 mg/dL 5-40 The equation being used in this calculation is VLDL = Trig / 5 Chol/HDL (test code = Chol/HDL) 3.0 ratio <=5.0 LDL/HDL Ratio (test code = LDL/HDL Ratio) 3 N The equation being used in this calculation is LDL/HDL Ratio=LDL Calc/HDL Chol Comprehensive Metabolic [id number] 07:19:38* Test Item Value Reference Range Interpretation Comments Sodium Level (test code = Sodium Level) 144.0 mmol/L 136.0-145.0 Potassium Level (test code = Potassium Level) 3.70 mmol/L 3.50-5.1 0 Chloride Level (test code = Chloride Level) 106.0 mmol/L 98.0-107.0 CO2 (test code = CO2) 30 mmol/L 20-31 Anion Gap (test code = Anion Gap) 7.8 mmol/L 5.0-15.0 BUN (test code = BUN) 10 mg/dL 9-23 Creatinine Level (test code = Creatinine Level) 0.58 mg/dL 0.55-1 .02 BUN/Creat Ratio (test code = BUN/Creat Ratio) 17.2 ratio 10.0-20. 0 Glucose Level (test code = Glucose Level) 82 mg/dL 74-106 Calcium Level (test code = Calcium Level) 9.3 mg/dL 8.3-10.6 Alk Phos (test code = Alk Phos) 93 U/L 46-116 Bilirubin Total (test code = Bilirubin Total) 0.6 mg/dL 0.2-1.1 Albumin Level (test code = Albumin Level) 4.2 g/dL 3.2-4.8 Protein Total (test code = Protein Total) 6.7 g/dL 5.7-8.2 ALT (test code = ALT) 26 U/L 10-49 AST (test code = AST) 21 U/L <=34 Globulin (test code = Globulin) 2.5 g/dL 2.3-3.5 A/G Ratio (test code = A/G Ratio) 1.7 g/dL 0.8-2.0 Hemolysis (test code = Hemolysis) 0 g/dL 1-2 Icterus (test code = Icterus) 0 g/dL 1-2 Lipemia (test code = Lipemia) 0 g/dL 1-2 Comprehensive Metabolic [id number] 07:19:38* Test Item Value Reference Range Interpretation Comments Sodium Level (test code = Sodium Level) 144.0 mmol/L 136.0-145.0 Potassium Level (test code = Potassium Level) 3.70 mmol/L 3.50-5.1 0 Chloride Level (test code = Chloride Level) 106.0 mmol/L 98.0-107.0 CO2 (test code = CO2) 30 mmol/L 20-31 Anion Gap (test code = Anion Gap) 7.8 mmol/L 5.0-15.0 BUN (test code = BUN) 10 mg/dL 9-23 Creatinine Level (test code = Creatinine Level) 0.58 mg/dL 0.55-1 .02 BUN/Creat Ratio (test code = BUN/Creat Ratio) 17.2 ratio 10.0-20. 0 Glucose Level (test code = Glucose Level) 82 mg/dL 74-106 Calcium Level (test code = Calcium Level) 9.3 mg/dL 8.3-10.6 Alk Phos (test code = Alk Phos) 93 U/L 46-116 Bilirubin Total (test code = Bilirubin Total) 0.6 mg/dL 0.2-1.1 Albumin Level (test code = Albumin Level) 4.2 g/dL 3.2-4.8 Protein Total (test code = Protein Total) 6.7 g/dL 5.7-8.2 ALT (test code = ALT) 26 U/L 10-49 AST (test code = AST) 21 U/L <=34 Globulin (test code = Globulin) 2.5 g/dL 2.3-3.5 A/G Ratio (test code = A/G Ratio) 1.7 g/dL 0.8-2.0 eGFR AA (test code = eGFR AA) >60 mL/min/1.73 m2 >=60 eGFR (estimated Glomerular Filtration Rate) is an estimated value, calculated from the patient's serum creatinine using the MDRD equation. It is NOT the patient's actual GFR. The eGFR provides a more clinically useful measure of kidney disease than serum creatinine alone.This calculation takes sex and race into account, if the information is provided. If the race is not provided, and the patient is -[place], multiply by 1.212. If sex is not provided, and the patient is female, multiply by 0.742. Results for patients <18 years of age have not been validated by the MDRD study and should be interpreted with caution. eGFR Result Interpretation:eGFR > or = 60 is in the Normal RangeeGFR < 60 may mean kidney diseaseeGFR < 15 may mean kidney failure Ranges recommended by the National Kidney Foundation, http://nkdep.nih.gov Hemolysis (test code = Hemolysis) 0 g/dL 1-2 Icterus (test code = Icterus) 0 g/dL 1-2 Lipemia (test code = Lipemia) 0 g/dL 1-2 Comprehensive Metabolic [id number] 07:19:38* Test Item Value Reference Range Interpretation Comments Sodium Level (test code = Sodium Level) 144.0 mmol/L 136.0-145.0 Potassium Level (test code = Potassium Level) 3.70 mmol/L 3.50-5.1 0 Chloride Level (test code = Chloride Level) 106.0 mmol/L 98.0-107.0 CO2 (test code = CO2) 30 mmol/L 20-31 Anion Gap (test code = Anion Gap) 7.8 mmol/L 5.0-15.0 BUN (test code = BUN) 10 mg/dL 9-23 Creatinine Level (test code = Creatinine Level) 0.58 mg/dL 0.55-1 .02 BUN/Creat Ratio (test code = BUN/Creat Ratio) 17.2 ratio 10.0-20. 0 Glucose Level (test code = Glucose Level) 82 mg/dL 74-106 Calcium Level (test code = Calcium Level) 9.3 mg/dL 8.3-10.6 Alk Phos (test code = Alk Phos) 93 U/L 46-116 Bilirubin Total (test code = Bilirubin Total) 0.6 mg/dL 0.2-1.1 Albumin Level (test code = Albumin Level) 4.2 g/dL 3.2-4.8 Protein Total (test code = Protein Total) 6.7 g/dL 5.7-8.2 ALT (test code = ALT) 26 U/L 10-49 AST (test code = AST) 21 U/L <=34 Globulin (test code = Globulin) 2.5 g/dL 2.3-3.5 A/G Ratio (test code = A/G Ratio) 1.7 g/dL 0.8-2.0 eGFR AA (test code = eGFR AA) >60 mL/min/1.73 m2 >=60 eGFR (estimated Glomerular Filtration Rate) is an estimated value, calculated from the patient's serum creatinine using the MDRD equation. It is NOT the patient's actual GFR. The eGFR provides a more clinically useful measure of kidney disease than serum creatinine alone.This calculation takes sex and race into account, if the information is provided. If the race is not provided, and the patient is -[place], multiply by 1.212. If sex is not provided, and the patient is female, multiply by 0.742. Results for patients <18 years of age have not been validated by the MDRD study and should be interpreted with caution. eGFR Result Interpretation:eGFR > or = 60 is in the Normal RangeeGFR < 60 may mean kidney diseaseeGFR < 15 may mean kidney failure Ranges recommended by the National Kidney Foundation, http://nkdep.nih.gov eGFR Non-AA (test code = eGFR Non-AA) >60.00 mL/min/1.73 m2 >=60.00 eGFR (estimated Glomerular Filtration Rate) is an estimated value, calculated from the patient's serum creatinine using the MDRD equation. It is NOT the patient's actual GFR. The eGFR provides a more clinically useful measure of kidney disease than serum creatinine alone.This calculation takes sex and race into account, if the information is provided. If the race is not provided, and the patient is -[place], multiply by 1.212. If sex is not provided, and the patient is female, multiply by 0.742. Results for patients <18 years of age have not been validated by the MDRD study and should be interpreted with caution. eGFR Result Interpretation:eGFR > or = 60 is in the Normal RangeeGFR < 60 may mean kidney diseaseeGFR < 15 may mean kidney failure Ranges recommended by the National Kidney Foundation, http://nkdep.nih.gov Hemolysis (test code = Hemolysis) 0 g/dL 1-2 Icterus (test code = Icterus) 0 g/dL 1-2 Lipemia (test code = Lipemia) 0 g/dL 1-2 Automated [id number] 06:51:58* Test Item Value Reference Range Interpretation Comments Neutro Auto (test code = Neutro Auto) 59.9 % 36.0-70.0 Lymph Auto (test code = Lymph Auto) 30.0 % 12.0-44.0 [place] Auto (test code = [place] Auto) 5.5 % 0.0-11.0 Eos, Auto (test code = Eos, Auto) 3.7 % 0.0-7.0 Basophil Auto (test code = Basophil Auto) 0.7 % 0.0-2.0 Neutro Absolute (test code = Neutro Absolute) 3.3 x10 1.6-7.4 Lymph Absolute (test code = Lymph Absolute) 1.64 x10 .50-4.60 [place] Absolute (test code = [place] Absolute) .30 x10 .00-1.20 Eos Absolute (test code = Eos Absolute) 0.20 x10 0.00-0.74 Baso Absolute (test code = Baso Absolute) 0.04 x10 0.00-0.21 IG [id number] 06:51:58* Test Item Value Reference Range Interpretation Comments IG (test code = IG) 0.2 % 0.0-5.0 IG Abs (test code = IG Abs) 0 x10 N Complete Blood Count with [id number] 06:51:57* Test Item Value Reference Range Interpretation Comments WBC (test code = WBC) 5.5 x10 4.4-10.5 RBC (test code = RBC) 4.57 x10 3.75-5.20 Hgb (test code = Hgb) 14.6 g/dL 12.2-14.8 MCV (test code = MCV) 95.80 fL 80.00-100.00 Hct (test code = Hct) 43.8 % 36.5-44.4 MCHC (test code = MCHC) 33.30 g/dL 32.00-37.50 RDW CV (test code = RDW CV) 12.5 % 11.5-14.5 MCH (test code = MCH) 31.9 pg 27.0-32.5 Platelets (test code = Platelets) 218.0 x10 140.0-440.0 MPV (test code = MPV) 11.2 fL N Slide Review (test code = Slide Review) Auto Auto Result created by [id number] nRBC (test code = nRBC) 0 N NRBC Abs (test code = NRBC Abs) 0.00 x10 N IPF (test code = IPF) 0 % N Troponin [id number] 17:55:52* Test Item Value Reference Range Interpretation Comments Troponin-I (test code = Troponin-I) 7 pg/mL <=45 The 99th percentile URL for the assay is <45 pg/ml. A rise and fall in Troponin I with at least one value above the 99th percentile with clinical evidence of myocardial ischemia would support a diagnosis of AMI. A delta of at least 20% is recommended to assess acute changes in results above the 99th percentile in serial measurements. Serial cardiac troponin measurements are recommended at 0, 3, 6 hours. Urinalysis [id number] 10:27:56* Test Item Value Reference Range Interpretation Comments UA WBC (test code = UA WBC) 0-5 0-5 UA RBC (test code = UA RBC) 0-5 0-5 UA Bacteria (test code = UA Bacteria) None Seen UA Squam Epithelial (test code = UA Squam Epithelial) 0-5 Urinalysis with Microscopic if [id number] 10:06:36* Test Item Value Reference Range Interpretation Comments UA Color (test code = UA Color) YELLO Yellow UA Appear (test code = UA Appear) CLEAR Clear UA pH (test code = UA pH) 7.0 UA Spec Grav (test code = UA Spec Grav) 1.015 1.001-1.035 UA Glucose (test code = UA Glucose) NEG Negative UA Ketones (test code = UA Ketones) NEG Negative UA Blood (test code = UA Blood) NEG Negative UA Protein (test code = UA Protein) NEG Negative UA Bili (test code = UA Bili) NEG Negative UA Urobilinogen (test code = UA Urobilinogen) .2 mg/dL >0.2 UA Nitrite (test code = UA Nitrite) NEG Negative UA Leuk Est (test code = UA Leuk Est) trace cells/mcL N UA Micro Ind? (test code = UA Micro Ind?) Indicated Not Indicate d A Prothrombin Time and [id number] 10:00:14* Test Item Value Reference Range Interpretation Comments Prothrombin Time (test code = Prothrombin Time) 12.1 seconds 9.8-13 .4 INR (test code = INR) 1.0 ratio 0.6-1.2 Partial Thromboplastin [id number] 10:00:14* Test Item Value Reference Range Interpretation Comments Partial Thromboplastin Time (test code = Partial Throm boplastin Time) 32.10 seconds 24.39-37.25 Urine DOA [id number] 09:58:44* Test Item Value Reference Range Interpretation Comments Amphetamine Screen Ur (test code = Amphetamine Screen Ur) Negative Negative The specimen is presumptive positive if the analyte concentration is equal to or greater than 1000 ng/ml.If confirmation of positive result is desired, please order Amphetamine Confirmation, Urine within 7 days. Barbiturate Screen Ur (test code = Barbiturate Screen Ur) Negative Negative The specimen is presumptive positive if the analyte concentration is equal to or greater than 200 ng/ml.If confirmation of positive result is desired, please order Barbiturate Confirmation, Urine within 7 days. Benzodiazepines Ur (test code = Benzodiazepines Ur) Negative Ne gative The specimen is presumptive positive if the analyte concentration is equal to or greater than 200 ng/ml.If confirmation of positive result is desired, please order Benzodiazephine Confirmation, Urine within 7 days. Cocaine Screen Ur (test code = Cocaine Screen Ur) Negative Nega tive The specimen is presumptive positive if the analyte concentration is equal to or greater than 300 ng/ml.If confirmation of positive result is desired, please order Cocaine Metabolite Confirmation, Urine within 7 days. Opiate Screen Ur (test code = Opiate Screen Ur) Negative Negati ve The specimen is presumptive positive if the analyte concentration is equal to or greater than 2000 ng/ml.If confirmation of positive result is desired, please order Opiate Confirmation, Urine within 7 days. U PCP Scrn (test code = U PCP Scrn) Negative Negative The specimen is presumptive positive if the analyte concentration is equal to or greater than 25 ng/ml.If confirmation of positive result is desired, please order Phencyclidine Confirmation, Urine within 7 days. Cannabinoid Screen Ur (test code = Cannabinoid Screen Ur) Negative Negative The specimen is presumptive positive if the analyte concentration is equal to or greater than 50 ng/ml.If confirmation of positive result is desired, please order Cannabinoid (THC) Confirmation, Urine within 7 days. U Methadone Scr (test code = U Methadone Scr) Negative Negative The specimen is presumptive positive if the analyte concentration is equal to or greater than 300 ng/ml.If confirmation of positive result is desired, please order Methadone Confirmation, Urine within 7 days. U Propoxyphene (test code = U Propoxyphene) Negative Negative The specimen is presumptive positive if the analyte concentration is equal to or greater than 300 ng/ml.If confirmation of positive result is desired, please order Propoxyphene Confirmation within 7 days. B Type Natriuretic [id number] 09:04:21* Test Item Value Reference Range Interpretation Comments BNP (test code = BNP) 14 pg/mL <=100 XR Chest 1 View [id number] 08:57:40Patient: JULIO PEOPLES Date/Time06/24/2020 08:44 CDTReason for ExamCHF (Congestive Heart Failure), knownReportEXAM: XR Chest 1 View FrontalHISTORY: CHFLocation code: [id number]: None available time of interpretation.FINDINGS:Single AP view of the chest is provided.Heart size within normal limits. Aortic calcifications are present. Mild pulmonary congestive changes are present.The lungs are clear of focal consolidation. No effusion, pneumothorax, or acute osseous abnormality.High density endos copically placed structure at the EG junction.IMPRESSION:1. Mild pulmonary montse estion. No effusion. Otherwise, no radiographic evidence of acute cardiopulmonar y process. Final Dictated by: MD Jorge KimberlyDictated DT /TM: 06/24/2020 8:53 amSigned by: MD Jorge KimberlySigned (Electronic Signature): 06/24/2020 8:57 amComplete Blood Count with Xyxjmzsdkqpk6767-19-35 08:39:51* Test Item Value Reference Range Interpretation Comments WBC (test code = WBC) 5.5 x10 4.4-10.5 RBC (test code = RBC) 4.34 x10 3.75-5.20 Hgb (test code = Hgb) 13.5 g/dL 12.2-14.8 Hct (test code = Hct) 41.8 % 36.5-44.4 MCV (test code = MCV) 96.30 fL 80.00-100.00 MCHC (test code = MCHC) 32.30 g/dL 32.00-37.50 MCH (test code = MCH) 31.1 pg 27.0-32.5 RDW CV (test code = RDW CV) 12.2 % 11.5-14.5 Platelets (test code = Platelets) 210.0 x10 140.0-440.0 MPV (test code = MPV) 11.0 fL N Slide Review (test code = Slide Review) Auto Auto Result created by GL_SJM_SLIDE_REV_AUTO nRBC (test code = nRBC) 0 N NRBC Abs (test code = NRBC Abs) 0.00 x10 N IPF (test code = IPF) 0 % N Automated [id number] 08:39:51* Test Item Value Reference Range Interpretation Comments Neutro Auto (test code = Neutro Auto) 60.3 % 36.0-70.0 Lymph Auto (test code = Lymph Auto) 29.6 % 12.0-44.0 Woodford Auto (test code = Woodford Auto) 5.9 % 0.0-11.0 Eos, Auto (test code = Eos, Auto) 3.3 % 0.0-7.0 Basophil Auto (test code = Basophil Auto) 0.7 % 0.0-2.0 Neutro Absolute (test code = Neutro Absolute) 3.3 x10 1.6-7.4 Lymph Absolute (test code = Lymph Absolute) 1.62 x10 .50-4.60 Woodford Absolute (test code = Woodford Absolute) .32 x10 .00-1.20 Eos Absolute (test code = Eos Absolute) 0.18 x10 0.00-0.74 Baso Absolute (test code = Baso Absolute) 0.04 x10 0.00-0.21 IG [id number] 08:39:51* Test Item Value Reference Range Interpretation Comments IG (test code = IG) 0.2 % 0.0-5.0 IG Abs (test code = IG Abs) 0 x10 N Comprehensive Metabolic [id number] 08:37:19* Test Item Value Reference Range Interpretation Comments Sodium Level (test code = Sodium Level) 144.0 mmol/L 136.0-145.0 Potassium Level (test code = Potassium Level) 4.10 mmol/L 3.50-5.1 0 Chloride Level (test code = Chloride Level) 110.0 mmol/L 98.0-107.0 H CO2 (test code = CO2) 26 mmol/L 20-31 Anion Gap (test code = Anion Gap) 8.4 mmol/L 5.0-15.0 BUN (test code = BUN) 12 mg/dL 9-23 Creatinine Level (test code = Creatinine Level) 0.52 mg/dL 0.55-1 .02 L BUN/Creat Ratio (test code = BUN/Creat Ratio) 23.1 ratio 10.0-20. 0 H Glucose Level (test code = Glucose Level) 92 mg/dL 74-106 Calcium Level (test code = Calcium Level) 9.2 mg/dL 8.3-10.6 Alk Phos (test code = Alk Phos) 85 U/L 46-116 Bilirubin Total (test code = Bilirubin Total) 0.4 mg/dL 0.2-1.1 Albumin Level (test code = Albumin Level) 4.2 g/dL 3.2-4.8 Protein Total (test code = Protein Total) 6.8 g/dL 5.7-8.2 ALT (test code = ALT) 28 U/L 10-49 AST (test code = AST) 37 U/L <=34 H Globulin (test code = Globulin) 2.6 g/dL 2.3-3.5 A/G Ratio (test code = A/G Ratio) 1.6 g/dL 0.8-2.0 Hemolysis (test code = Hemolysis) 0 g/dL 1-2 Icterus (test code = Icterus) 0 g/dL 1-2 Lipemia (test code = Lipemia) 0 g/dL 1-2 Comprehensive Metabolic [id number] 08:37:19* Test Item Value Reference Range Interpretation Comments Sodium Level (test code = Sodium Level) 144.0 mmol/L 136.0-145.0 Potassium Level (test code = Potassium Level) 4.10 mmol/L 3.50-5.1 0 Chloride Level (test code = Chloride Level) 110.0 mmol/L 98.0-107.0 H CO2 (test code = CO2) 26 mmol/L 20-31 Anion Gap (test code = Anion Gap) 8.4 mmol/L 5.0-15.0 BUN (test code = BUN) 12 mg/dL 9-23 Creatinine Level (test code = Creatinine Level) 0.52 mg/dL 0.55-1 .02 L BUN/Creat Ratio (test code = BUN/Creat Ratio) 23.1 ratio 10.0-20. 0 H Glucose Level (test code = Glucose Level) 92 mg/dL 74-106 Calcium Level (test code = Calcium Level) 9.2 mg/dL 8.3-10.6 Alk Phos (test code = Alk Phos) 85 U/L 46-116 Bilirubin Total (test code = Bilirubin Total) 0.4 mg/dL 0.2-1.1 Albumin Level (test code = Albumin Level) 4.2 g/dL 3.2-4.8 Protein Total (test code = Protein Total) 6.8 g/dL 5.7-8.2 ALT (test code = ALT) 28 U/L 10-49 AST (test code = AST) 37 U/L <=34 H Globulin (test code = Globulin) 2.6 g/dL 2.3-3.5 A/G Ratio (test code = A/G Ratio) 1.6 g/dL 0.8-2.0 eGFR AA (test code = eGFR AA) >60 mL/min/1.73 m2 >=60 eGFR (estimated Glomerular Filtration Rate) is an estimated value, calculated from the patient's serum creatinine using the MDRD equation. It is NOT the patient's actual GFR. The eGFR provides a more clinically useful measure of kidney disease than serum creatinine alone.This calculation takes sex and race into account, if the information is provided. If the race is not provided, and the patient is -[place], multiply by 1.212. If sex is not provided, and the patient is female, multiply by 0.742. Results for patients <18 years of age have not been validated by the MDRD study and should be interpreted with caution. eGFR Result Interpretation:eGFR > or = 60 is in the Normal RangeeGFR < 60 may mean kidney diseaseeGFR < 15 may mean kidney failure Ranges recommended by the National Kidney Foundation, http://nkdep.nih.gov Hemolysis (test code = Hemolysis) 0 g/dL 1-2 Icterus (test code = Icterus) 0 g/dL 1-2 Lipemia (test code = Lipemia) 0 g/dL 1-2 Troponin [id number] 08:37:19* Test Item Value Reference Range Interpretation Comments Troponin-I (test code = Troponin-I) 7 pg/mL <=45 The 99th percentile URL for the assay is <45 pg/ml. A rise and fall in Troponin I with at least one value above the 99th percentile with clinical evidence of myocardial ischemia would support a diagnosis of AMI. A delta of at least 20% is recommended to assess acute changes in results above the 99th percentile in serial measurements. Serial cardiac troponin measurements are recommended at 0, 3, 6 hours. Comprehensive Metabolic [id number] 08:37:19* Test Item Value Reference Range Interpretation Comments Sodium Level (test code = Sodium Level) 144.0 mmol/L 136.0-145.0 Potassium Level (test code = Potassium Level) 4.10 mmol/L 3.50-5.1 0 Chloride Level (test code = Chloride Level) 110.0 mmol/L 98.0-107.0 H CO2 (test code = CO2) 26 mmol/L 20-31 Anion Gap (test code = Anion Gap) 8.4 mmol/L 5.0-15.0 BUN (test code = BUN) 12 mg/dL 9-23 Creatinine Level (test code = Creatinine Level) 0.52 mg/dL 0.55-1 .02 L BUN/Creat Ratio (test code = BUN/Creat Ratio) 23.1 ratio 10.0-20. 0 H Glucose Level (test code = Glucose Level) 92 mg/dL 74-106 Calcium Level (test code = Calcium Level) 9.2 mg/dL 8.3-10.6 Alk Phos (test code = Alk Phos) 85 U/L 46-116 Bilirubin Total (test code = Bilirubin Total) 0.4 mg/dL 0.2-1.1 Albumin Level (test code = Albumin Level) 4.2 g/dL 3.2-4.8 Protein Total (test code = Protein Total) 6.8 g/dL 5.7-8.2 ALT (test code = ALT) 28 U/L 10-49 AST (test code = AST) 37 U/L <=34 H Globulin (test code = Globulin) 2.6 g/dL 2.3-3.5 A/G Ratio (test code = A/G Ratio) 1.6 g/dL 0.8-2.0 eGFR AA (test code = eGFR AA) >60 mL/min/1.73 m2 >=60 eGFR (estimated Glomerular Filtration Rate) is an estimated value, calculated from the patient's serum creatinine using the MDRD equation. It is NOT the patient's actual GFR. The eGFR provides a more clinically useful measure of kidney disease than serum creatinine alone.This calculation takes sex and race into account, if the information is provided. If the race is not provided, and the patient is -[place], multiply by 1.212. If sex is not provided, and the patient is female, multiply by 0.742. Results for patients <18 years of age have not been validated by the MDRD study and should be interpreted with caution. eGFR Result Interpretation:eGFR > or = 60 is in the Normal RangeeGFR < 60 may mean kidney diseaseeGFR < 15 may mean kidney failure Ranges recommended by the National Kidney Foundation, http://nkdep.nih.gov eGFR Non-AA (test code = eGFR Non-AA) >60.00 mL/min/1.73 m2 >=60.00 eGFR (estimated Glomerular Filtration Rate) is an estimated value, calculated from the patient's serum creatinine using the MDRD equation. It is NOT the patient's actual GFR. The eGFR provides a more clinically useful measure of kidney disease than serum creatinine alone.This calculation takes sex and race into account, if the information is provided. If the race is not provided, and the patient is -[place], multiply by 1.212. If sex is not provided, and the patient is female, multiply by 0.742. Results for patients <18 years of age have not been validated by the MDRD study and should be interpreted with caution. eGFR Result Interpretation:eGFR > or = 60 is in the Normal RangeeGFR < 60 may mean kidney diseaseeGFR < 15 may mean kidney failure Ranges recommended by the National Kidney Foundation, http://nkdep.nih.gov Hemolysis (test code = Hemolysis) 0 g/dL 1-2 Icterus (test code = Icterus) 0 g/dL 1-2 Lipemia (test code = Lipemia) 0 g/dL 1-2 ECG 12 [id number] 07:05:34* Test Item Value Reference Range Interpretation Comments Ventricular rate (test code = 253) 67 Atrial rate (test code = 255) 67 [place] interval (test code = 266) 156 QRSD interval (test code = 260) 74 QT interval (test code = 264) 410 QTC interval (test code = 265) 433 P axis 1 (test code = 267) 78 QRS axis 1 (test code = 268) 71 T wave axis (test code = 270) 67 EKG impression (test code = 273) Normal sinus rhythm-N ormal ECG-In automated comparison with ECG of 04-SEP-2019 10:12,-No significant change was found- Leonard MustafaWznsmespsIyjxqkhf4195-21-51 18:03:59* Test Item Value Reference Range Interpretation Comments Troponin (test code = 85392-5) <0.006 0-0.04 In patients suspected of having a myocardial infarction, along with all other appropriate clinical measures and actions including ECG and other diagnostics as appropriate, measure Ultra TnI at 0 hrs and at 3 hrs.Myocardial infarction VERY LIKELYThe 0 hr TnI level is > 0.10 ng/mL Juan cardial infarction LIKELYThe 0 hr TnI level is > 0.04 ng/mL and 3 hr level is increased or decreased by at least 0.020 ng/mL Myocardi al infarction VERY UNLIKELYBoth the 0 hr and 3 hr TnI levels <= 0.04 ng/mL(within normal limits) OR 0 hr is > 0.04 ng/mL and 3 hr is increased OR decreased by less than 0.020 ng/mL Leonard Mustafa Chest 1 Vw [id number] 15:49:36 Interface, Radiology Results Incoming - 06/14/2020 3:52 PM CDTSINGLE VIEW CHEST, 06/14/2020Clinical History: Chest pain.Technique: Single, portable AP view ch est.Comparison: 11/28/2018Impression:1.Lungs are clear and symmetrically inflated .2.No pleural effusions or pneumothorax.3.Normal heart size and mediastinal cont our for technique.4.Normal pulmonary vasculature.5.There is a Lynx device at the gastroesophageal junction.6.Intact skeleton. Mild scoliosis.[facility] Comprehensive metabolic [id number] 15:21:38* Test Item Value Reference Range Interpretation Comments Sodium (test code = 2951-2) 140 135- 148 mEq/L Potassium (test code = 2823-3) 4.5 3.5- 5.0 mEq/L Chloride (test code = 2075-0) 106 98- 112 mEq/L CO2 (test code = 2027-9) 24 24- 31 mEq/L Anion gap (test code = 82017-5) 10@ANIO 7- 15 mEq/L BUN (test code = 3094-0) 10 mg/dL 8-23 Creatinine (test code = 2160-0) 0.50 mg/dL 0.5-0.9 Glucose (test code = 2345-7) 77 mg/dL 65-99 Calcium (test code = 24816-1) 9.4 mg/dL 8.8-10.2 Protein (test code = 2885-2) 7.5 g/dL 6.3-8.3 -Lutsen 4.6- 7.0 g/dL1 week 4.4-7.6 g/dL7 months-1year 5.1-7.3 g/dL1-2 years 5.6-7.5 g/dL>3 years 6.0-8.0 g/jP38-086 6.3-8.3 g/dL Albumin (test code = 1751-7) 4.3 g/dL 3.5-5 A/G ratio (test code = 1759-0) 1.3 0.7-3.8 Alkaline phosphatase (test code = 6768-6) 93 U/L 35-104 AST (test code = 1920-8) 31 U/L 10-35 ALT (test code = 1742-6) 27 U/L 5-50 Total bilirubin (test code = 1975-2) 0.3 mg/dL 0-1.2 Jolo MethodistCreatine kinase, total (CPK)2020-06-14 15:21:37* Test Item Value Reference Range Interpretation Comments Creatine kinase (test code = 2157-6) 173 U/L 26-192 Jolo MethodistEstimated [id number] 15:21:37* Test Item Value Reference Range Interpretation Comments Estimated GFR (test code = 5488) >=90 mL/min/1.73 m2 Catergory Units InterpretationG1 >=90 Normal or highG2 60-89 Mildly enreerbhdJ0j 45-59 Mildly to moderately eblhklalzR2w 30-44 Moderately to severely decreasedG4 15-29 Severely decreasedG5 <15 Kidney failureThe eGFR was calculated using the Chronic Kidney Disease Epidemiology Collaboration (CKD-EPI) equation. Interpretation is based on recommendations of the National Kidney Foundation-Kidney Disease Outcomes Quality Initiative (NKF-KDOQI) published in 2014. Jolo MethodistB natriuretic [id number] 15:20:42* Test Item Value Reference Range Interpretation Comments BNP (test code = 30698-4) 11 pg/mL 0-100 Jolo MethodistCBC with platelet and uvfrzbyaukok5306-75-81 15:03:52* Test Item Value Reference Range Interpretation Comments WBC (test code = 99838-5) 5.41 4.50- 11.00 k/uL RBC (test code = 60799-7) 4.49 m/uL 4.2-5.5 HGB (test code = 718-7) 14.2 g/dL 12-16 HCT (test code = 4544-3) 42.4 % 37-47 MCV (test code = 787-2) 94.4 fL 82-100 MCH (test code = 785-6) 31.6 pg 27-34 MCHC (test code = 786-4) 33.5 g/dL 31-37 RDW - SD (test code = 90339-8) 43.6 fL 37-55 MPV (test code = 43335-1) 10.7 fL 8.8-13.2 Platelet count (test code = 63261-9) 226 150- 400 k/uL Nucleated RBC (test code = 97008-8) 0.00 /100 WBC Neutrophils (test code = 64085-9) 61.0 % 39-69 Lymphocytes (test code = 93808-6) 27.7 % 25-45 Monocytes (test code = 25951-1) 7.0 % 0-10 Eosinophils (test code = 19658-1) 3.7 % 0-5 Basophils (test code = 95073-7) 0.6 % 0-1 Jolo MethodistEC ED Preliminary Interpretation - Not an [id number] 14:41:08WinHuma caro MD 06/15/2020 9:41 [facility] Preliminary Interpretation - Not an OrderPerformed by: Huma Castaneda MDAuthorized by: Huma Castaneda MD ECG reviewed by ED Physician in the absence of a veneer repairer machine: yes Interpretation: Interpretation: normal Rate: ECG rate: 67 ECG rate assessment: normal Rhythm: Rhythm: sinus rhythm Ectopy: Ectopy: none QRS: QRS axis: Normal QRS intervals: NormalConduction: Conduction: normal ST segments: ST segments: NormalT waves: T waves: normal Jolo MethodistCT Head Wo [id number] 23:28:00Hm Interface, Radiology Results 04/19/2020 11:31 PM CDTEXAMINATION: CT HEAD WO CONTRASTCLINICAL HISTORY: visual changes head injuryCOMPARISON: MRI brain 12/21/2018TECHNIQUE: Noncontrast head CT performed using radiation dose reduction techniques. Technical factors are evaluated and adjusted to ensure appropriate moderation of exposure. Automated dose management technology is applied to adjust radiation exposure while achieving a diagnostic quality image. FIND INGS:No evidence of acute intracranial hemorrhage, mass, mass effect, midline sh ift, or acute infarct. Ventricles and sulci are normal in appearance for patient 's age. Basal cisterns are clear. Calvarium is intact.Orbits are normal in appe arance. No significant paranasal sinus mucosal thickening. Mastoid air cells are clear. IMPRESSION:1. No CT evidence of acute intracranial abnormality.[facility]-2UA70 412S8Qnnhzft MethodistURINALYSIS [id number] 09:21:00* Test Item Value Reference Range Interpretation Comments UA COLOR (test code = COLU) COLORLESS YELLOW A UA APPEARANCE (test code = APPU) CLEAR CLEAR UA GLUCOSE DIPSTICK (test code = DGLUU) NEGATIVE mg/dL NEGATIVE UA BILIRUBIN DIPSTICK (test code = BILU) NEGATIVE mg/dL NEGATIVE UA KETONE DIPSTICK (test code = KETU) NEGATIVE mg/dL NEGATIVE UA SPECIFIC GRAVITY (test code = SGU) 1.005 1.001-1.035 UA BLOOD DIPSTICK (test code = HERMANN) Negative mg/dL NEGATIVE UA PH DIPSTICK (test code = WILLIE) 6.5 5.0-8.0 UA PROTEIN DIPSTICK (test code = PROU) NEGATIVE mg/dL NEGATIVE UA UROBILINIOGEN DIPSTICK (test code = URO) Normal mg/dL NEGATIVE UA NITRITE DIPSTICK (test code = LUDY) NEGATIVE NEGATIVE UA LEUKOCYTE ESTERASE W REFLEX (test code = LEUUR) NEGATIVE Dana/uL NEGATIVE UA WBC (test code = WBCU) 0-1 per HPF 0-5 UA RBC (test code = RBCU) NONE SEEN per HPF 0-5 UA EPITHELIAL CELLS (test code = EPIU) None seen per HPF Few UA BACTERIA (test code = BACU) NONE SEEN per HPF NONE Urine Source? Clean CatchURINALYSIS [id number] 08:48:00* Test Item Value Reference Range Interpretation Comments UA COLOR (test code = COLU) COLORLESS YELLOW A UA APPEARANCE (test code = APPU) CLEAR CLEAR UA GLUCOSE DIPSTICK (test code = DGLUU) NEGATIVE mg/dL NEGATIVE UA BILIRUBIN DIPSTICK (test code = BILU) NEGATIVE mg/dL NEGATIVE UA KETONE DIPSTICK (test code = KETU) NEGATIVE mg/dL NEGATIVE UA SPECIFIC GRAVITY (test code = SGU) 1.005 1.001-1.035 UA BLOOD DIPSTICK (test code = HERMANN) Negative mg/dL NEGATIVE UA PH DIPSTICK (test code = WILLIE) 6.5 5.0-8.0 UA PROTEIN DIPSTICK (test code = PROU) NEGATIVE mg/dL NEGATIVE UA UROBILINIOGEN DIPSTICK (test code = URO) Normal mg/dL NEGATIVE UA NITRITE DIPSTICK (test code = LUDY) NEGATIVE NEGATIVE UA LEUKOCYTE ESTERASE W REFLEX (test code = LEUUR) NEGATIVE Dana/uL NEGATIVE UA WBC (test code = WBCU) per HPF 0-5 UA RBC (test code = RBCU) per HPF 0-5 UA EPITHELIAL CELLS (test code = EPIU) per HPF Few UA BACTERIA (test code = BACU) per HPF NONE Urine Source? Clean CatchHEPATIC FUNCTION [id number] 06:34:00* Test Item Value Reference Range Interpretation Comments TOTAL PROTEIN (test code = PROT) 7.6 gram/dL 6.4-8.2 N ALBUMIN (test code = ALB) 3.7 g/dL 3.4-5.0 N GLOBULIN (test code = GLOB) 3.9 gram/dL 2.7-4.2 N ALBUMIN/GLOBULIN RATIO (test code = A/G) 0.9 0.75-1.50 N BILIRUBIN TOTAL (test code = BILT) 0.40 mg/dL 0.0-1.0 N BILIRUBIN DIRECT (test code = BILD) 0.14 mg/dL 0.0-0.20 N SGOT/AST (test code = AST) 19 IUnit/L 15-37 N SGPT/ALT (test code = ALT) 27 IUnit/L 12-78 N ALKALINE PHOSPHATASE TOTAL (test code = ALKP) 102 IUnit/L 45-117 N Note change in reference range due to change in reagent. [id number] 06:34:00* Test Item Value Reference Range Interpretation Comments LIPASE (test code = LIP) 125 U/L 73.0-393.0 N [id number] 06:34:00* Test Item Value Reference Range Interpretation Comments TROPONIN-I (test code = TROPI) <0.015 ng/mL 0-0.045 N BASIC METABOLIC [id number] 06:32:00* Test Item Value Reference Range Interpretation Comments SODIUM (test code = NA) 143 mmol/L 136-145 N POTASSIUM (test code = K) 3.8 mmol/L 3.5-5.1 N CHLORIDE (test code = CL) 109.0 mmol/L 98-107 H CARBON DIOXIDE (test code = CO2) 28.0 mmol/L 21-32 N ANION GAP (test code = GAP) 9.8 10-20 L GLUCOSE (test code = GLU) 93 mg/dL 74-106 N BLOOD UREA NITROGEN (test code = BUN) 8 mg/dL 7-18 N GLOMERULAR FILTRATION RATE (test code = GFR) > 60 mL/min >=60 Estimated GFR by using Modified MDRD formula.Chronic kidney disease is defined as either kidney damageor GFR <60 mL/min/1.73 m2 for >3 months. CREATININE (test code = CREAT) 0.60 mg/dL 0.55-1.02 N Note change in reference range due to change in reagent. BUN/CREATININE RATIO (test code = BUN/CREA) 13.8 10-20 N CALCIUM (test code = CA) 9.1 mg/dL 8.5-10.1 N CBC W/O [id number] 05:54:00* Test Item Value Reference Range Interpretation Comments WHITE BLOOD CELL (test code = WBC) 5.0 K/mm3 4.5-12.5 N RED BLOOD CELL (test code = RBC) 4.60 mill/mm3 3.7-5.2 N HEMOGLOBIN (test code = HGB) 14.6 gram/dL 11.5-15.5 N HEMATOCRIT (test code = HCT) 42.6 % 36.0-46.0 N MEAN CELL VOLUME (test code = MCV) 92.6 fL 80-98 N MEAN CELL HGB (test code = MCH) 31.7 picogram 27.0-33.0 N MEAN CELL HGB CONCETRATION (test code = MCHC) 34.3 gram/dL 33.0-36. 0 N RED CELL DISTRIBUTION WIDTH (test code = RDW) 12.3 % 11.6-16. 2 N PLATELET COUNT (test code = PLT) 249 K/mm3 150-450 N MEAN PLATELET VOLUME (test code = MPV) 10.4 fL 6.7-11.0 N - US ABDOMEN [id number] 05:39:00 Name: JULIO PEOPLES [facility] : 1955 Age/S: 64 / F [address] [facility] Unit #: [id number] Loc: [place] [address] Phys: Gretchen Bello DO Acct: [id number] Dis Date: Status: REG ER PHONE #: [phone] Exam Date: 04/17/2020 0522 FAX #: [phone] Reason: Abdominal Pain EXAMS: CPT CODE: [id number] US ABDOMEN LTD 00409 AFTER HOURS SERVICE ON: 04/17/2020 5:38 AM Abdominal Ultrasound, Right Upper Quadrant Location Code M12 History: Abdominal Pain Technique: Real-time quintanilla scale, Doppler spectral analysis and Doppler color flow evaluation was performed using a dedicated transducer. Findings: The liver is homogeneous. There is no surface nodularity. No ascites in the abdomen. The pancreas is limited. The gallbladder is not thickened and there is no pericholecystic fluid. There is mild gallbladder sludge. There are no gallstones. There is no biliary dilatation. Common bile duct measures 2 mm. Right kidney measures 10 x 5 x 5 cm. No hydronephrosis or calculi are seen. Margins of the right kidney are suboptimally visualized. Adequate arterial inflow and venous outflow noted in the kidney. Aorta and IVC as visualized are within normal limits. Impression: Mild gallbladder sludge. No evidence of cholecystitis. at 0539 Reported and signed by: Cristino Greene M.D. CC: Colton Flores Jr, MD; Marybel Landeros MD; Gretchen Bello DO Faina hnologist: EDSON MOYA RDMS [facility] Date/Ti me: 04/17/2020 (0539) SheritaMA50 Orig Print D/T: S: 2019 (0542) Probe: PAGE 1 Kary d Report CHEST 2 [id number] 20:34:00 [place] [address] Patient Name: JULIO PEOPLES MR #: [id number] : 1955 Age/Sex: 64/F Req #: [id number] Adm Physician: Ordered by: WILI OROZCO DO Report #: [id number] Location: ER Room/Bed: Procedure: [id number] DX /CHEST 2 VIEWS Exam Date: 09/18/19 Exam Time: 2014 REPORT STATUS: Signed EXAMINAT ION: PA and lateral views of the chest. COMPARISON: None CLINICAL HIST ORY: Fall DISCUSSION: Lines/tubes: None. Lungs: The lungs are well inflated and clear. No pneumonia or pulmonary edema. Pleura: No pleural effusion or pneumothorax. Heart and mediastinum: The cardiomediast inal silhouette is normal. Bones and soft tissues: No acute bony abnormali ties. IMPRESSION: No acute cardiopulmonary abnormalities. Signed by: Dr. Jorge Garcia M.D. on 09/18/2019 8:34 PM Dictated B y: JORGE GARCIA MD 33 COPY TO: GREGORY OROZCO DO CT CERVICAL SPINE [id number] 20:32:00 [place] [address] Patient Name: JULIO PEOPLES MR #: [id number] : 1955 Age/Sex: 64/F Req #: [id number] Adm Physician: Ordered by: WILI OROZCO DO Report #: [id number] Location: ER Room/Bed: Procedure: [id number] CT /CT CERVICAL SPINE WO Exam Date: 09/18/19 Exam Time: 2014 REPORT STATUS: Signed CT C ERVICAL SPINE WO HISTORY: Fall COMPARISON: Concurrent head CT TE CHNIQUE: CT of the cervical spine without contrast. Sagittal and coronal refo rmations were created. One or more of the following dose reduction techniques were used: Automated exposure control, adjustment of the mA and/or kV accordi ng to patient size, and/or utilization of iterative reconstruction technique. FINDINGS: Cervical lordosis is straightened. There is no signif icant scoliosis or subluxation. No fractures, compression deformity, or destru ctive osseous lesions are seen. The craniocervical junction is intact. No gross spinal canal masses are seen. The paravertebral and paraspinal soft ti ssues are unremarkable. Mild to moderate multilevel spondylotic changes ar e most prominent at C5-C6 and C6-C7. There is at least mild canal stenosis at C5-C6 due to posterior disc osteophyte complex. Multilevel bilateral e foramin al stenoses due to uncovertebral and facet arthrosis are present - moderate on the right at C4-C5, C5-C6, and C6-C7. IMPRESSION: 1. No acute os seous abnormalities. 2. Mild to moderate multilevel spondylosis, most promin ent at C5-C6 and C6-C7. Signed by: Dr. Tony Will M.D. on 09/18/2019 8 :38 PM Dictated By: TONY WILL MD 37 Transcribed By: LOY on 09/18/192037 C OPY TO: WILI OROZCO DO CT BRAIN [id number] 20:29:00 [place] [address] Patient Name: JULIO PEOPLES MR #: [id number] : 1955 Age/Sex: 64/F Req #: [id number] Adm Physician: Ordered by: WILI OROZCO DO Report #: [id number] Location: ER Room/Bed: Procedure: [id number] CT /CT BRAIN WO Exam Date: 09/18/19 Exam Time: 2014 REPORT STATUS: Signed CT BRAIN WO HISTORY: Fall COMPARISON: Head CT 05/20/2019 Technique: Noncont rast axial scans were obtained from skull base to the vertex. Coronal and sag ittal reconstructions obtained from the axial data. One or more of the follow ing dose reduction techniques were used: Automated exposure control, adjustmen t of the mA and/or kV according to patient size, and/or utilization of iterati ve reconstruction technique. DISCUSSION: Scalp/Skull: Unremarkable. Brain sulci: Mildly prominent. Ventricles: Compensatory dilatation. Extra-ax ial spaces: No masses or fluid collections. Carotid siphon calcifications are present. Parenchyma: No abnormal densities. No masses, hemorrhage, or large vascular territory acute infarct. Dural sinuses: No abnormal densiti es. Sellar/Suprasellar region: Intact. Skull base: Intact. Incidental find ings: None. IMPRESSION: 1. No acute intracranial abnormalities. 2. Mi ld generalized cerebral volume loss. Signed by: Dr. Tony Will M.D. on 09/18/2019 8:32 PM Dictated By: TONY WILL MD Electronically S igned By: TONY WILL MD on 09/18/192031 Transcribed By: LOY on 09/18 COPY TO: WILI OROZCO DO Creatine Kinase MB 2019-09-18 20:06:00* Test Item Value Reference Range Interpretation Comments Creatine Kinase MB (test code = 99928-6) 1.80 0-5.0 [facility] CenterTroponin D9309-45-95 20:06:00* Test Item Value Reference Range Interpretation Comments Troponin I (test code = PWW1465) < 0.001 0-0.300 [facility] Gzrvg0011-11-19 20:00:00* Test Item Value Reference Range Interpretation Comments Sodium Level (test code = 2951-2) 140 136-145 [facility] CenterPotassium Tbdiy3686-08-60 20:00:00* Test Item Value Reference Range Interpretation Comments Potassium Level (test code = 2823-3) 3.5 3.5-5.1 [facility] CenterChloride Xuuou9430-81-03 20:00:00* Test Item Value Reference Range Interpretation Comments Chloride Level (test code = 2075-0) 106 98-107 [facility] CenterCarbon Dioxide Czaea6562-38-30 20:00:00* Test Item Value Reference Range Interpretation Comments Carbon Dioxide Level (test code = 2028-9) 27 22-29 [facility] CenterAnion Elr2647-85-11 20:00:00* Test Item Value Reference Range Interpretation Comments Anion Gap (test code = 19383-7) 10.5 8-16 [facility] CenterBlood Urea Uxqezque0307-09-98 20:00:00* Test Item Value Reference Range Interpretation Comments Blood Urea Nitrogen (test code = 3094-0) 9 7-26 [facility] CenterCreatinine2019-11-11 20:00:00* Test Item Value Reference Range Interpretation Comments Creatinine (test code = 2160-0) 0.73 0.57-1.11 [facility] CenterBUN/Creatinine Czvau7231-37-50 20:00:00* Test Item Value Reference Range Interpretation Comments BUN/Creatinine Ratio (test code = 3097-3) 12 6-25 [facility] CenterEstimat Glomerular Filtration Rate 2019-09-18 20:00:00* Test Item Value Reference Range Interpretation Comments Estimat Glomerular Filtration Rate (test code = 913510500) > 60 >60 Ranges were taken from the National Kidney Disease Education Program and the [facility] Foundation literature.Reference ranges:60 or greater: Kohgnl50-18 ( for 3 consecutive months): Chronic kidney disease 15 or less: Kidney failureParis Regional Medical CenterGlucose Uqqqd1803-64-22 20:00:00* Test Item Value Reference Range Interpretation Comments Glucose Level (test code = TWN0598) 127 74-118 H [facility] CenterCalcium Ehpet3330-77-32 20:00:00* Test Item Value Reference Range Interpretation Comments Calcium Level (test code = 14735-8) 9.1 8.4-10.2 [facility] CenterTotal Stugmcmtt7642-21-54 20:00:00* Test Item Value Reference Range Interpretation Comments Total Bilirubin (test code = 1975-2) 0.2 0.2-1.2 [facility] CenterAspartate Amino Transf (AST/SGOT) 2019-09-18 20:00:00* Test Item Value Reference Range Interpretation Comments Aspartate Amino Transf (AST/SGOT) (test code = Aspartate Amino Transf (AST/SGOT)) 18 5-34 [facility] CenterAlanine Aminotransferase (ALT/SGPT) 2019-09-18 20:00:00* Test Item Value Reference Range Interpretation Comments Alanine Aminotransferase (ALT/SGPT) (test code = 1742-6) 17 0-55 [facility] CenterTotal Aewlqtf7618-41-23 20:00:00* Test Item Value Reference Range Interpretation Comments Total Protein (test code = 2885-2) 6.7 6.5-8.1 [facility] CenterAlbumin2019-11-11 20:00:00* Test Item Value Reference Range Interpretation Comments Albumin (test code = 1751-7) 3.6 3.5-5.0 [facility] CenterGlobulin2019-11-11 20:00:00* Test Item Value Reference Range Interpretation Comments Globulin (test code = 00813-9) 3.1 2.3-3.5 [facility] CenterAlbumin/Globulin Myjoc0886-30-43 20:00:00 * Test Item Value Reference Range Interpretation Comments Albumin/Globulin Ratio (test code = 1759-0) 1.2 0.8-2.0 [facility] CenterAlkaline Jwlgcqjvygq8948-38-73 20:00:00* Test Item Value Reference Range Interpretation Comments Alkaline Phosphatase (test code = 6768-6) 92 40-150 [facility] CenterCreatine Qeboed5521-58-98 20:00:00* Test Item Value Reference Range Interpretation Comments Creatine Kinase (test code = 2157-6) 162 29-168 [facility] CenterWhite Blood Gxmup7561-02-63 19:49:00* Test Item Value Reference Range Interpretation Comments White Blood Count (test code = 6690-2) 6.66 4.8-10.8 [facility] CenterRed Blood Dpvmf9362-59-25 19:49:00* Test Item Value Reference Range Interpretation Comments Red Blood Count (test code = 789-8) 4.43 3.6-5.1 [facility] CenterHemoglobin2019-11-11 19:49:00* Test Item Value Reference Range Interpretation Comments Hemoglobin (test code = 71237-7) 14.1 12.0-16.0 [facility] CenterHematocrit2019-11-11 19:49:00* Test Item Value Reference Range Interpretation Comments Hematocrit (test code = 4544-3) 41.4 34.2-44.1 [facility] CenterMean Corpuscular Sbjgax2039-03-62 19:49:00* Test Item Value Reference Range Interpretation Comments Mean Corpuscular Volume (test code = 787-2) 93.5 81-99 [facility] CenterMean Corpuscular Slhscsohhi5559-71-09 19:49:00* Test Item Value Reference Range Interpretation Comments Mean Corpuscular Hemoglobin (test code = 785-6) 31.8 28-32 [facility] CenterMean Corpuscular Hemoglobin Concent 2019-09-18 19:49:00* Test Item Value Reference Range Interpretation Comments Mean Corpuscular Hemoglobin Concent (test code = 786-4) 34.1 31-35 [facility] CenterRed Cell Distribution Iejra4395-68-30 19:49:00* Test Item Value Reference Range Interpretation Comments Red Cell Distribution Width (test code = 69094-2) 12.4 11.7 -14.4 [facility] CenterPlatelet Pwayv2307-51-47 19:49:00* Test Item Value Reference Range Interpretation Comments Platelet Count (test code = 777-3) 234 140-360 [facility] CenterNeutrophils (%) (Auto)2019-09-18 19:49:00 * Test Item Value Reference Range Interpretation Comments Neutrophils (%) (Auto) (test code = 62301-0) 63.6 38.7-80.0 [facility] CenterLymphocytes (%) (Auto)2019-09-18 19:49:00 * Test Item Value Reference Range Interpretation Comments Lymphocytes (%) (Auto) (test code = 736-9) 27.6 18.0-39.1 [facility] CenterMonocytes (%) (Auto)2019-09-18 19:49:00* Test Item Value Reference Range Interpretation Comments Monocytes (%) (Auto) (test code = 5905-5) 4.7 4.4-11.3 [facility] CenterEosinophils (%) (Auto)2019-09-18 19:49:00 * Test Item Value Reference Range Interpretation Comments Eosinophils (%) (Auto) (test code = 713-8) 3.5 0.0-6.0 [facility] CenterBasophils (%) (Auto)2019-09-18 19:49:00* Test Item Value Reference Range Interpretation Comments Basophils (%) (Auto) (test code = 706-2) 0.3 0.0-1.0 [facility] CenterIM GRANULOCYTES %2019-09-18 19:49:00* Test Item Value Reference Range Interpretation Comments IM GRANULOCYTES % (test code = IM GRANULOCYTES %) 0.3 0.0- 1.0 [facility] CenterNeutrophils # (Auto)2019-09-18 19:49:00* Test Item Value Reference Range Interpretation Comments Neutrophils # (Auto) (test code = 751-8) 4.2 2.1-6.9 [facility] CenterLymphocytes # (Auto)2019-09-18 19:49:00* Test Item Value Reference Range Interpretation Comments Lymphocytes # (Auto) (test code = 54521-6) 1.8 1.0-3.2 [facility] CenterMonocytes # (Auto)2019-09-18 19:49:00* Test Item Value Reference Range Interpretation Comments Monocytes # (Auto) (test code = 742-7) 0.3 0.2-0.8 [facility] CenterEosinophils # (Auto)2019-09-18 19:49:00* Test Item Value Reference Range Interpretation Comments Eosinophils # (Auto) (test code = 711-2) 0.2 0.0-0.4 [facility] CenterBasophils # (Auto)2019-09-18 19:49:00* Test Item Value Reference Range Interpretation Comments Basophils # (Auto) (test code = 704-7) 0.0 0.0-0.1 [facility] CenterAbsolute Immature Granulocyte (auto 2019-09-18 19:49:00* Test Item Value Reference Range Interpretation Comments Absolute Immature Granulocyte (auto (sergio t code = Absolute Immature Granulocyte (auto) 0.02 0-0.1 [facility] CenterBlood leukocytes automated count (number/volume)2019-09-18 18:15:00* Test Item Value Reference Range Interpretation Comments White Blood Count (test code = 6690-2) 6.66 4.8-10.8 [facility] CenterBlood erythrocytes automated count (number/volume)2019-09-18 18:15:00* Test Item Value Reference Range Interpretation Comments Red Blood Count (test code = 789-8) 4.43 3.6-5.1 [facility] CenterBlood hemoglobin measurement (moles/volume)2019-09-18 18:15:00* Test Item Value Reference Range Interpretation Comments Hemoglobin (test code = 19351-3) 14.1 12.0-16.0 [facility] CenterAutomated blood hematocrit (volume fraction)2019-09-18 18:15:00* Test Item Value Reference Range Interpretation Comments Hematocrit (test code = 4544-3) 41.4 34.2-44.1 [facility] CenterAutomated erythrocyte mean corpuscular xaswmk6652-81-38 18:15:00* Test Item Value Reference Range Interpretation Comments Mean Corpuscular Volume (test code = 787-2) 93.5 81-99 [facility] CenterAutomated erythrocyte mean corpuscular hemoglobin (mass per erythrocyte)2019-09-18 18:15:00* Test Item Value Reference Range Interpretation Comments Mean Corpuscular Hemoglobin (test code = 785-6) 31.8 28-32 [facility] CenterAutomated erythrocyte mean corpuscular hemoglobin concentration measurement (mass/volume)2019-09-18 18:15:00* Test Item Value Reference Range Interpretation Comments Mean Corpuscular Hemoglobin Concent (test code = 786-4) 34.1 31-35 [facility] CenterRDW VbwGt-Hrb3238-24-11 18:15:00* Test Item Value Reference Range Interpretation Comments Red Cell Distribution Width (test code = 45549-4) 12.4 11.7 -14.4 [facility] CenterAutomated blood platelet count (count/volume)2019-09-18 18:15:00* Test Item Value Reference Range Interpretation Comments Platelet Count (test code = 777-3) 234 140-360 [facility] CenterAutomated blood segmented neutrophil count as percentage of total qahlcrlimx8134-64-35 18:15:00* Test Item Value Reference Range Interpretation Comments Neutrophils (%) (Auto) (test code = 48339-9) 63.6 38.7-80.0 [facility] CenterAutomated blood lymphocyte count as percentage ot total rmuukdifwg2619-95-64 18:15:00* Test Item Value Reference Range Interpretation Comments Lymphocytes (%) (Auto) (test code = 736-9) 27.6 18.0-39.1 [facility] CenterAutomated blood monocyte count as percentage of total ibxonzddeq7589-95-22 18:15:00* Test Item Value Reference Range Interpretation Comments Monocytes (%) (Auto) (test code = 5905-5) 4.7 4.4-11.3 [facility] CenterAutomated blood eosinophil count as percentage of total wlsryovdmi7115-90-54 18:15:00* Test Item Value Reference Range Interpretation Comments Eosinophils (%) (Auto) (test code = 713-8) 3.5 0.0-6.0 [facility] CenterAutomated blood basophil count as percentage of total njubdvbuny0034-57-10 18:15:00* Test Item Value Reference Range Interpretation Comments Basophils (%) (Auto) (test code = 706-2) 0.3 0.0-1.0 [facility] CenterFluoroscopic procedure less than one hour qazpqrnb7350-83-52 18:15:00* Test Item Value Reference Range Interpretation Comments IM GRANULOCYTES % (test code = IM GRANULOCYTES %) 0.3 0.0- 1.0 [facility] CenterAutomated blood neutrophil count 2019-09-18 18:15:00* Test Item Value Reference Range Interpretation Comments Neutrophils # (Auto) (test code = 751-8) 4.2 2.1-6.9 [facility] CenterBlood lymphocytes count (number/volume) 2019-09-18 18:15:00* Test Item Value Reference Range Interpretation Comments Lymphocytes # (Auto) (test code = 41770-1) 1.8 1.0-3.2 [facility] CenterBlood monocytes automated count (number/volume)2019-09-18 18:15:00* Test Item Value Reference Range Interpretation Comments Monocytes # (Auto) (test code = 742-7) 0.3 0.2-0.8 [facility] CenterAutomated blood eosinophil count 2019-09-18 18:15:00* Test Item Value Reference Range Interpretation Comments Eosinophils # (Auto) (test code = 711-2) 0.2 0.0-0.4 [facility] CenterAutomated blood basophil count (count/volume)2019-09-18 18:15:00* Test Item Value Reference Range Interpretation Comments Basophils # (Auto) (test code = 704-7) 0.0 0.0-0.1 [facility] CenterFluoroscopic procedure less than one hour nkgqdwfi8123-82-83 18:15:00* Test Item Value Reference Range Interpretation Comments Absolute Immature Granulocyte (auto (sergio t code = Absolute Immature Granulocyte (auto) 0.02 0-0.1 [facility] Hospitalerum or plasma sodium measurement (moles/volume)2019-09-18 18:15:00* Test Item Value Reference Range Interpretation Comments Sodium Level (test code = 2951-2) 140 136-145 [facility] Hospitalerum or plasma potassium measurement (moles/volume)2019-09-18 18:15:00* Test Item Value Reference Range Interpretation Comments Potassium Level (test code = 2823-3) 3.5 3.5-5.1 [facility] Hospitalerum or plasma chloride measurement (moles/volume)2019-09-18 18:15:00* Test Item Value Reference Range Interpretation Comments Chloride Level (test code = 2075-0) 106 98-107 [facility] Hospitalerum or plasma carbon dioxide, total measurement (moles/volume)2019-09-18 18:15:00* Test Item Value Reference Range Interpretation Comments Carbon Dioxide Level (test code = 2028-9) 27 22-29 [facility] Hospitalerum or plasma anion uvh0558-77-62 18:15:00* Test Item Value Reference Range Interpretation Comments Anion Gap (test code = 34006-7) 10.5 8-16 [facility] Hospitalerum or plasma urea nitrogen measurement (mass/volume)2019-09-18 18:15:00* Test Item Value Reference Range Interpretation Comments Blood Urea Nitrogen (test code = 3094-0) 9 7-26 [facility] Hospitalerum or plasma creatinine measurement (mass/volume)2019-09-18 18:15:00* Test Item Value Reference Range Interpretation Comments Creatinine (test code = 2160-0) 0.73 0.57-1.11 [facility] Hospitalerum or plasma urea nitrogen/creatinine mass hdhtj4387-40-55 18:15:00* Test Item Value Reference Range Interpretation Comments BUN/Creatinine Ratio (test code = 3097-3) 12 6-25 [facility] CenterEstimated glomerular filtration rate (GFR) vtghwkisjozju2273-38-76 18:15:00* Test Item Value Reference Range Interpretation Comments Estimat Glomerular Filtration Rate (test code = 368762186) > 60 >60 Ranges were taken from the National Kidney Disease Education Program and the [facility] Kid[facility] Foundation literature.Reference ranges:60 or greater: Olicut13-53 ( for 3 consecutive months): Chronic kidney disease 15 or less: Kidney failureParis [facility] Medical CenterGlucose xfbatgollzh4553-67-99 18:15:00* Test Item Value Reference Range Interpretation Comments Glucose Level (test code = SQB0333) 127 74-118 [facility] Hospitalerum or plasma calcium measurement (mass/volume)2019-09-18 18:15:00* Test Item Value Reference Range Interpretation Comments Calcium Level (test code = 47362-4) 9.1 8.4-10.2 [facility] Hospitalerum or plasma total bilirubin measurement (mass/volume)2019-09-18 18:15:00* Test Item Value Reference Range Interpretation Comments Total Bilirubin (test code = 1975-2) 0.2 0.2-1.2 [facility] CenterFluoroscopic procedure less than one hour swbfnicz6454-12-51 18:15:00* Test Item Value Reference Range Interpretation Comments Aspartate Amino Transf (AST/SGOT) (test code = Aspartate Amino Transf (AST/SGOT)) 18 5-34 [facility] Hospitalerum or plasma alanine aminotransferase measurement (enzymatic activity/volume)2019-09-18 18:15:00* Test Item Value Reference Range Interpretation Comments Alanine Aminotransferase (ALT/SGPT) (test code = 1742-6) 17 0-55 [facility] Hospitalerum or plasma protein measurement (mass/volume)2019-09-18 18:15:00* Test Item Value Reference Range Interpretation Comments Total Protein (test code = 2885-2) 6.7 6.5-8.1 [facility] Hospitalerum or plasma albumin measurement (mass/volume)2019-09-18 18:15:00* Test Item Value Reference Range Interpretation Comments Albumin (test code = 1751-7) 3.6 3.5-5.0 [facility] CenterPlasma globulin measurement (mass/volume) 2019-09-18 18:15:00* Test Item Value Reference Range Interpretation Comments Globulin (test code = 69112-3) 3.1 2.3-3.5 [facility] Hospitalerum or plasma albumin/globulin mass yugta5992-59-39 18:15:00* Test Item Value Reference Range Interpretation Comments Albumin/Globulin Ratio (test code = 1759-0) 1.2 0.8-2.0 [facility] Hospitalerum or plasma alkaline phosphatase measurement (enzymatic activity/volume)2019-09-18 18:15:00* Test Item Value Reference Range Interpretation Comments Alkaline Phosphatase (test code = 6768-6) 92 40-150 [facility] Hospitalerum or plasma creatine kinase measurement (enzymatic activity/volume)2019-09-18 18:15:00* Test Item Value Reference Range Interpretation Comments Creatine Kinase (test code = 2157-6) 162 29-168 [facility] Hospitalerum or plasma creatine kinase MB measurement (mass/volume)2019-09-18 18:15:00* Test Item Value Reference Range Interpretation Comments Creatine Kinase MB (test code = 01265-6) 1.80 0-5.0 [facility] CenterTroponin I measurement by highly sensitive enzyme xojpiefjweo4212-31-15 18:15:00* Test Item Value Reference Range Interpretation Comments Troponin I (test code = 16456-3) < 0.001 0-0.300 [facility] CenterOva & parasites, concentrated examination 2019-09-13 15:01:00* Test Item Value Reference Range Interpretation Comments Ova & parasites concentrated exam (test code = 04005-8) SEE NOTE OVA AND PARASITES, CONC AND PERM SMEAR MICRO NUMBER: [id number] TEST STATUS: FINAL SPECIMEN SOURCE: STOOL SPECIMEN QUALITY: ADEQUATE CONCENTRATION 1: No ova or parasites seen TRICHROME 1: No ova or parasites seen Routine Ova and Parasite exam may not detect some parasites that occasionally cause diarrheal illness. Test code(s) 35721 (Cryptosporidium Ag., DFA) and/or 62094 (Cyclospora and Isospora Exam) may be ordered to detect these parasites. One negative sample does not necessarily rule out the presence of a parasitic infection. For additional information, please refer to https://education.[employer].Runfaces/faq/ANV441 (This link is being provided for informational/ educational purposes only.) NO COLLECTION DATE RECEIVED. WE HAVE USEDTHE DATE THE SPECIMEN WAS [facility] THE COLLECTION DATE. IF THISIS INCORRECT, PLEASE CONTACT CLIENT SERVICES.PHONE NUMBER: [phone] WILBERT (test code = WILBERT) Performing Organization Info rmation: Site ID: [id number] Name: [facility] Address: [address] [place] [id number] Director: Cirilo MustafaTEST IN QUESTION - NO TEST FOR YQSZFUWSB0172-08-73 15:01:00* Test Item Value Reference Range Interpretation Comments TEST IN QUESTION - NO TEST FOR CONTAINER (test code = 3341) NO TEST(S) ARE INDICATED ON THE REQUISITION FOR THEFOLLOWING SPECIMEN(S). SPECIMEN(S) RECEIVED: (test code = 3337) 1 TOTAL FIX STOOL Comment (test code = 5936180) To prevent further delays in testing, please completeinformation above and fax to [phone] to resolvethis order. RAC (test code = RAC) Performing Organization Info rmation: Site ID: RGA Name: [facility] Address: [address] [place] [id number] Director: Cirilo MustafaOVA AND PARASITES, STOOL CONC/PERM SMEAR, 2 TXUD8394-24-00 15:01:00Ova & parasites concentrated examComment: OVA AND PARASITES, CONC/PERM SMEAR, 2 SPEC MICRO NUMBER: [id number] TEST STATUS: FINAL SPECIMEN SOURCE: STOOL SPECIMEN QUALITY: INADEQUATE CONCENTRATION 1: Test not performed. No suitable specimen received. TRICHROME 1: Test not performed. CONCENTRATION 2: Test not performed. TRICHROME 2: Test not performed. Routine Ova and Parasite exam may not detect some parasites that occasionally cause diarrheal illness. Test code(s) 22135 (Cryptosporidium Ag., DFA) and/or 88011 (Cyclospora and Isospora Exam) may be ordered to detect these parasites. For additional information, please refer to https://education.[employer]/faq/EYS981 (This link is being provided for informational/ educational purposes only.) [employer] COFFEE CREEKPerforming Organization Information: Site ID: RGA Name: [facility] Address: [address] [place] [id number] Director: Cirilo Mustafa BENZENE, DGTYX9168-81-19 06:35:00* Test Item Value Reference Range Interpretation [...] Organization Info rmation: Site ID: [id number] Name: [facility] Address: [address] [place] [address] Director: Cirilo Ross PH.D, [facility] BRAIN MX9511-27-15 18:32:00 [place] [address] Patient Name: JULIO PEOPLES MR #: [id number] : 1955 Age/Sex: 63/F Req #: [id number] Adm Physician: Ordered by: LAZARO MEJIA MD Report #: [id number] Location: ER Room/Bed: Procedure: [id number] CT/CT BRAIN WO Exam Date: 05/20/19 Exam [...] pH) 6.0 1 5.0-8.0 [facility] ASGOG3331-06-13 23:23:00* Test Item Value Reference Range Interpretation Comments UA Spec Grav (test code = UA Spec Grav) 1.001 1 [facility] UYJXU8421-25-08 23:23:00<1[facility] RAACP9958-37-59 23:23:002[facility] FNDYG1983-93-26 23:23:00Clear (02/11/18 6:23 PM)[facility] WGHST6966-96-05 23:23:00Negative *NA*(02/11/18 6:23 PM)[facility] ALYHO7899-11-99 23:23:00Trace *ABN*(02/11/18 6:23 PM)[facility] RTIZR8123-27-06 23:23:00Negative (02/11/18 6:23 PM)[facility] YnbyzsaJCJOIPLSKMON4154-88-80 22:32:006.6[facility] ZrsenxeZDGCZYHIHTHX5784-39-59 22:32:003.9[facility] XgxsftnTQGJFZCOEATF4673-02-83 22:32:00* Test Item Value Reference Range Interpretation Comments B/C Ratio (test code = B/C Ratio) 11 1 6-25 [facility] OywrrdvEWBEGVBMOOZC5183-37-00 22:32:00* Test Item Value Reference Range Interpretation Comments A/G Ratio (test code = A/G Ratio) 0.9 1 0.7-1.6 [facility] OpfszzmGQFCYPEJCACN1209-82-54 22:32:0099[facility]annELECTROLYTES 2018-02-11 22:32:0016[facility] AddhfodCCJTEMLOZEEI0297-93-98 22:32:000.3[facility] OoonktzAHCDJKDDZCQV8208-68-77 22:32:05101Lkqutxtk NvcrrddYFKVUYTWSQRY6465-32-04 22:32:003.7[facility] WkjajiwYPRPYHPZZAKX2969-56-98 22:32:0026[facility] [place] KIJLLZBMCBGQ3847-14-34 22:32:007.6[facility] GlupudvYBNZMFIYSWAA8555-28-19 22:32:009.1[facility] MhiemwtTSJLCLEVNGZX0873-32-13 22:32:0029[facility] WBBDXNMVCSYF0544-76-85 22:32:74285Djffxeoz FwgfdgdXFFALUFCKCCD6351-52-66 22:32:16100Ewrcbuwp KivqzzuPQVOMLXRWGUT8404-72-19 22:32:003.6[facility] JORFIBTARPBM0053-16-75 22:32:000.57[facility] QtxmevaKBLEXHAUNDYU2308-07-56 22:32:0083[facility] JzcalwjRNMPKTSHZZVP6874-75-30 22:32:006[facility] [place] ROQGATBAYI8346-89-22 22:32:009.0[facility] DircqyzBMZJAIHZSM1208-80-60 22:32:00 12.9[facility] MtffhpfORLGPNTEUD0539-00-82 22:32:97702Kjkflxjv HermannHEMATOLOGY 2018-02-11 22:32:00* Test Item Value Reference Range Interpretation Comments MCH (test code = MCH) 31.2 pg 27.0-31.0 [facility] QcfpwvxLHAEHJZOCS9295-96-71 22:32:0034.2[facility]annHEMATOLOGY 2018-02-11 22:32:0014.8[facility] VaebcgdUGMYGSKWLV3495-11-86 22:32:0043.2[facility] OzkrmppDLMIJBNHNG2248-87-27 22:32:006.4[facility] JxnpgdwVJZHZSXSWT5367-99-87 22:32:004.75[facility] FahaxcwUXIOKROJAB8996-26-19 22:32:0091.1[facility] DELKTEQOCG1158-08-11 22:32:0030.3[facility] PoxzjplULSBGHFJLP6465-26-16 22:32:00 61.9[facility] GhdoogzJZAHXWTGPQ8490-96-44 22:32:004.8[facility]ann[facility]MATOLOGY 2018-02-11 22:32:002.4[facility] ZkdurqyKFDBBOYTFT5098-50-00 22:32:001.9[facility] FodeacbKELFHAWWJP6497-03-38 22:32:000.6[facility] NowzxsuKZSGCYHIRX8908-87-47 22:32:004.0[facility] UfnrxwtVCUKRBGPWL9690-11-99 22:32:000.3[facility] [place] BSCKGWBSSP1912-28-42 22:32:000.2[facility] PthyvtyXLTMIUCTWF0307-38-38 22:32:005 [facility] DtcmhtlNDWLNLZHYJ0915-13-67 22:32:00<3[facility] HermannTOXICOLOGY 2018-02-11 22:32:00<0.003[facility] TvjfvzoDKXSGLUNQK2536-99-68 22:32:00<1.7 [facility] HermannCreatine Kinase KG0615-07-40 10:24:00* Test Item Value Reference Range Interpretation Comments Creatine Kinase MB (test code = 98196-8) 1.40 0.00-5.00 [facility] B9904-50-32 10:24:00* Test Item Value Reference Range Interpretation Comments Troponin I (test code = VLZ7865) 0.023 0-0.300 [facility] CenterCreatine Uxqnkr7597-01-66 10:17:00* Test Item Value Reference Range Interpretation Comments Creatine Kinase (test code = 2157-6) 176 29-168 H [facility] CenterUrine FNC7184-79-60 23:09:00* Test Item Value Reference Range Interpretation Comments Urine WBC (test code = 5821-4) 11-20 0-5 H [facility] CenterU[facility] LNN0753-25-55 23:09:00* Test Item Value Reference Range Interpretation Comments Urine RBC (test code = 56347-5) 0-5 0-5 [facility] CenterU[facility] Ulfshmrz4200-72-05 23:09:00* Test Item Value Reference Range Interpretation Comments Urine Bacteria (test code = 52652-7) FEW NONE [facility] CenterU[facility] Epithelial Bnqsl9953-84-15 23:09:00 * Test Item Value Reference Range Interpretation Comments Urine Epithelial Cells (test code = 53642-0) RARE NONE [facility] CenterU[facility] Rllny8486-51-40 23:03:00* Test Item Value Reference Range Interpretation Comments Urine Color (test code = 5778-6) YELLOW YELLOW [facility] CenterU[facility] Fpevboo8977-86-16 23:03:00* Test Item Value Reference Range Interpretation Comments Urine Clarity (test code = 60933-6) CLEAR CLEAR [facility] CenterUrine Specific Rpuqfow8170-98-63 23:03:00 * Test Item Value Reference Range Interpretation Comments Urine Specific [place] (test code = 5811-5) 1.010 1.010-1.02 5 [facility] CenterUrine cO0755-42-88 23:03:00* Test Item Value Reference Range Interpretation Comments Urine pH (test code = 58944-7) 8 5-7 H [facility] Leukocyte Peqeaaxy4329-27-59 23:03:00* Test Item Value Reference Range Interpretation Comments Urine Leukocyte Esterase (test code = 5799-2) 2+ NEGATIVE H [facility] Xgmdyjc2356-01-40 23:03:00* Test Item Value Reference Range Interpretation Comments Urine Nitrite (test code = 22505-1) NEGATIVE NEGATIVE [facility] Suhqjnw2533-76-41 23:03:00* Test Item Value Reference Range Interpretation Comments Urine Protein (test code = 5804-0) NEGATIVE NEGATIVE [facility] Glucose (UA)2017-09-10 23:03:00* Test Item Value Reference Range Interpretation Comments Urine Glucose (UA) (test code = 2349-9) NEGATIVE NEGATIVE [facility] Kdknanz9041-55-25 23:03:00* Test Item Value Reference Range Interpretation Comments Urine Ketones (test code = 92177-7) NEGATIVE NEGATIVE [facility] Epgooduqfjvq1913-40-72 23:03:00* Test Item Value Reference Range Interpretation Comments Urine Urobilinogen (test code = 16126-2) 0.2 0.2-1 [facility] Lpuyttesx8931-53-46 23:03:00* Test Item Value Reference Range Interpretation Comments Urine Bilirubin (test code = 1978-6) NEGATIVE NEGATIVE [facility] Osfit5282-97-25 23:03:00* Test Item Value Reference Range Interpretation Comments Urine Blood (test code = 69082-5) NEGATIVE NEGATIVE [facility] Pfrng8967-90-29 21:24:00* Test Item Value Reference Range Interpretation Comments Sodium Level (test code = 2951-2) 141 136-145 [facility] CenterPotassium Miamb0607-82-19 21:24:00* Test Item Value Reference Range Interpretation Comments Potassium Level (test code = 2823-3) 4.6 3.5-5.1 [facility] CenterChloride Nafak8581-66-23 21:24:00* Test Item Value Reference Range Interpretation Comments Chloride Level (test code = 2075-0) 107 98-107 [facility] CenterCarbon Dioxide Oligj8407-69-01 21:24:00* Test Item Value Reference Range Interpretation Comments Carbon Dioxide Level (test code = 2028-9) 23 22-29 [facility] CenterAnion Cci0701-88-65 21:24:00* Test Item Value Reference Range Interpretation Comments Anion Gap (test code = 65535-5) 15.6 8-16 [facility] CenterBlood Urea Gnrbdgcm2820-72-50 21:24:00* Test Item Value Reference Range Interpretation Comments Blood Urea Nitrogen (test code = 3094-0) 12 7-26 [facility] CenterCreatinine2017-11-03 21:24:00* Test Item Value Reference Range Interpretation Comments Creatinine (test code = 2160-0) 0.78 0.57-1.11 [facility] CenterBUN/Creatinine Wdapy6892-24-08 21:24:00* Test Item Value Reference Range Interpretation Comments BUN/Creatinine Ratio (test code = 3097-3) 15 6-25 [facility] CenterEstimat Glomerular Filtration Rate 2017-09-10 21:24:00* Test Item Value Reference Range Interpretation Comments Estimat Glomerular Filtration Rate (test code = 24040-3) 60- >60 Ranges were taken from the National Kidney Disease Education Program and the [facility] literature.Reference ranges:60 or greater: Grrtgn70-63 ( for 3 consecutive months): Chronic kidney disease 15 or less: Kidney failureParis Regional Medical CenterGlucose Lsavd1117-37-06 21:24:00* Test Item Value Reference Range Interpretation Comments Glucose Level (test code = BFL0065) 91 74-118 [facility] CenterCalcium Bnnlz8052-59-02 21:24:00* Test Item Value Reference Range Interpretation Comments Calcium Level (test code = 48462-1) 9.0 8.4-10.2 [facility] CenterTotal Sctainvqd7284-56-67 21:24:00* Test Item Value Reference Range Interpretation Comments Total Bilirubin (test code = 1975-2) 0.3 0.2-1.2 [facility] CenterAspartate Amino Transf (AST/SGOT) 2017-09-10 21:24:00* Test Item Value Reference Range Interpretation Comments Aspartate Amino Transf (AST/SGOT) (test code = Aspartate Amino Transf (AST/SGOT)) 32 5-34 [facility] CenterAlanine Aminotransferase (ALT/SGPT) 2017-09-10 21:24:00* Test Item Value Reference Range Interpretation Comments Alanine Aminotransferase (ALT/SGPT) (test code = 1742-6) 31 0-55 [facility] CenterTotal Lbwwksh1652-91-00 21:24:00* Test Item Value Reference Range Interpretation Comments Total Protein (test code = 2885-2) 7.9 6.5-8.1 [facility] CenterAlbumin2017-11-03 21:24:00* Test Item Value Reference Range Interpretation Comments Albumin (test code = 1751-7) 3.8 3.5-5.0 [facility] CenterGlobulin2017-11-03 21:24:00* Test Item Value Reference Range Interpretation Comments Globulin (test code = 32216-5) 4.1 2.3-3.5 H [facility] CenterAlbumin/Globulin Pclij5866-79-18 21:24:00 * Test Item Value Reference Range Interpretation Comments Albumin/Globulin Ratio (test code = 1759-0) 0.9 0.8-2.0 [facility] CenterAlkaline Dnrqseasspj4151-11-54 21:24:00* Test Item Value Reference Range Interpretation Comments Alkaline Phosphatase (test code = 6768-6) 91 40-150 [facility] CenterWhite Blood Qudsf6347-93-71 21:06:00* Test Item Value Reference Range Interpretation Comments White Blood Count (test code = 6690-2) 7.99 4.8-10.8 [facility] CenterRed Blood Orjhv2318-45-07 21:06:00* Test Item Value Reference Range Interpretation Comments Red Blood Count (test code = 789-8) 4.47 3.6-5.1 [facility] CenterHemoglobin2017-11-03 21:06:00* Test Item Value Reference Range Interpretation Comments Hemoglobin (test code = 24045-5) 14.3 12.0-16.0 [facility] CenterHematocrit2017-11-03 21:06:00* Test Item Value Reference Range Interpretation Comments Hematocrit (test code = 4544-3) 41.3 34.2-44.1 [facility] CenterMean Corpuscular Lxavbk3674-10-17 21:06:00* Test Item Value Reference Range Interpretation Comments Mean Corpuscular Volume (test code = 787-2) 92.4 81-99 [facility] CenterMean Corpuscular Usbupqgfjy0447-55-85 21:06:00* Test Item Value Reference Range Interpretation Comments Mean Corpuscular Hemoglobin (test code = 785-6) 32.0 28-32 [facility] Hem[facility] Concent 2017-09-10 21:06:00* Test Item Value Reference Range Interpretation Comments Mean Corpuscular Hemoglobin Concent (test code = 786-4) 34.6 31-35 [facility] CenterRed Cell Distribution Emxen2464-02-51 21:06:00* Test Item Value Reference Range Interpretation Comments Red Cell Distribution Width (test code = 75970-3) 12.9 11.7 -14.4 [facility] CenterPlatelet Rsmht1960-24-47 21:06:00* Test Item Value Reference Range Interpretation Comments Platelet Count (test code = 777-3) 231 140-360 [facility] CenterNeutrophils (%) (Auto)2017-09-10 21:06:00 * Test Item Value Reference Range Interpretation Comments Neutrophils (%) (Auto) (test code = 43099-6) 62.9 38.7-80.0 [facility] CenterLymphocytes (%) (Auto)2017-09-10 21:06:00 * Test Item Value Reference Range Interpretation Comments Lymphocytes (%) (Auto) (test code = 736-9) 28.3 18.0-39.1 [facility] CenterMonocytes (%) (Auto)2017-09-10 21:06:00* Test Item Value Reference Range Interpretation Comments Monocytes (%) (Auto) (test code = 5905-5) 5.9 4.4-11.3 [facility] CenterEosinophils (%) (Auto)2017-09-10 21:06:00 * Test Item Value Reference Range Interpretation Comments Eosinophils (%) (Auto) (test code = 713-8) 2.4 0.0-6.0 [facility] CenterBasophils (%) (Auto)2017-09-10 21:06:00* Test Item Value Reference Range Interpretation Comments Basophils (%) (Auto) (test code = 706-2) 0.4 0.0-1.0 [facility] CenterIM GRANULOCYTES %2017-09-10 21:06:00* Test Item Value Reference Range Interpretation Comments IM GRANULOCYTES % (test code = IM GRANULOCYTES %) 0.1 0.0- 1.0 [facility] CenterNeutrophils # (Auto)2017-09-10 21:06:00* Test Item Value Reference Range Interpretation Comments Neutrophils # (Auto) (test code = 751-8) 5.0 2.1-6.9 [facility] CenterLymphocytes # (Auto)2017-09-10 21:06:00* Test Item Value Reference Range Interpretation Comments Lymphocytes # (Auto) (test code = 61548-4) 2.3 1.0-3.2 [facility] CenterMonocytes # (Auto)2017-09-10 21:06:00* Test Item Value Reference Range Interpretation Comments Monocytes # (Auto) (test code = 742-7) 0.5 0.2-0.8 [facility] CenterEosinophils # (Auto)2017-09-10 21:06:00* Test Item Value Reference Range Interpretation Comments Eosinophils # (Auto) (test code = 711-2) 0.2 0.0-0.4 [facility] CenterBasophils # (Auto)2017-09-10 21:06:00* Test Item Value Reference Range Interpretation Comments Basophils # (Auto) (test code = 704-7) 0.0 0.0-0.1 [facility] CenterAbsolute Immature Granulocyte (auto 2017-09-10 21:06:00* Test Item Value Reference Range Interpretation Comments Absolute Immature Granulocyte (auto (sergio t code = Absolute Immature Granulocyte (auto) 0.01 0-0.1 [facility] CenterB-Type Natriuretic Wytvzjk6733-33-58 10:46:00* Test Item Value Reference Range Interpretation Comments B-Type Natriuretic Peptide (test code = 49454-0) 15.7 0-100 [facility] CenterProthrombin Mkwa4935-47-86 09:33:00* Test Item Value Reference Range Interpretation Comments Prothrombin Time (test code = 5902-2) 12.3 11.9-14.5 [facility] CenterProthromb Time International Ratio 2017-07-28 09:33:00* Test Item Value Reference Range Interpretation Comments Prothromb Time International Ratio (test code = 6301-6) 0.87 Oral Anticoagulant Therapy INR Values:1. Low Intensity Therapy 1.5 - 2.02 . Moderate Intensity Therapy 2.0 - 3.03. High Intensity Therapy(1) 2.5 - 3. 54. High Intensity Therapy(2) 3.0 - 4.05. Panic Value INR > 5.0 [facility] CenterActivated Partial Thromboplast Time 2017-07-28 09:33:00* Test Item Value Reference Range Interpretation Comments Activated Partial Thromboplast Time (test code = 47140-1) 28.7 23.8-35.5 [facility] CenterCARDIAC EHAAUMW5351-49-04 09:10:000.5 [facility] HermannCARDIAC CPMJAQN4173-20-09 09:10:55747Copeeriy HermannCARDIAC WDYAEZR3567-97-13 09:10:000.03[facility] HermannCARDIAC GOOTJEG0867-31-59 09:10:00 1.6[facility] NfwhlcvMEYHBRGSEWDU3054-93-33 09:10:0025[facility] HermannELECTROLYTES 2017-01-02 09:10:008.9[facility] NnkihyySNLRGOEJFIVA3247-35-77 09:10:0013.7 [facility] DsivnomWKHUJNNBOYWG6823-72-54 09:10:86062Nqbojarx HermannELECTROLYTES 2017-01-02 09:10:000.55[facility] PymxevaMGZKNRRIKHUF4766-13-41 09:10:0012[facility] TncbymeZMTKKJKIQMZK1861-21-29 09:10:0088[facility] HukvqnsJSWMTVOLUWFW8616-16-37 09:10:62558Ivnmmtnh DzcpoivRLCJIRNZGAFC0091-56-20 09:10:003.7[facility] [place] WNAHDCQKDEZY8357-43-40 09:10:81198Bfnmmmtv TdkaollVVFPGZDYBH6814-06-74 09:10:00 * Test Item Value Reference Range Interpretation Comments PTT (test code = PTT) 29.0 s 22.9-35.8 [facility] JtqodslWMBEDHRJXL6439-38-78 09:10:000.96[facility]annHEMATOLOGY 2017-01-02 09:10:00* Test Item Value Reference Range Interpretation Comments PT (test code = PT) 13.0 s 12.0-14.7 [facility] FhjxiktVVVYRWBKIM4613-05-15 09:10:0041.4[facility]annHEMATOLOGY 2017-01-02 09:10:0014.2[facility] AhejhviHCQQFIUOEI4317-17-17 09:10:004.50[facility] DbsiuzfYXWUZMOQZV1580-34-43 09:10:007.3[facility] FctuuvhEOFMRUAZNH9238-62-85 09:10:009.6[facility] EijabpiECUPHMUOKN5159-74-73 09:10:65963Giyiioex Surendra JNXJJJLOFR2485-17-93 09:10:0034.4[facility] FqjttdtPKSDJVSRVH0676-10-65 09:10:00 13.2[facility] DtwrrqhZRQPRTAIIL9693-95-52 09:10:00* Test Item Value Reference Range Interpretation Comments MCH (test code = MCH) 31.6 pg 27.0-31.0 [facility] KrbuombEDUKGYIZEB5364-14-41 09:10:0092.0[facility]annHEMATOLOGY 2017-01-02 09:10:0031.9[facility] JegxmngCZLMJIAGTV1603-16-10 09:10:0057.4[facility] GkyyywxCPRHNLBNET5728-50-79 09:10:000.5[facility] UgbibcxZXFQNDPXCJ7265-25-22 09:10:000.2[facility] NuabdsvXGMDARBEUV9472-18-97 09:10:004.2[facility] Surendra NSRFIYQGSC0798-62-60 09:10:006.9[facility] LpihxwiDWFUGUJCWK9442-75-76 09:10:000.5 Memorial WcstlljQBSVQNSKZD9196-28-79 09:10:002.3[facility] HermannHEMATOLOGY 2017-01-02 09:10:003.3[facility] HermannMRI BRAIN WO [place] [address] Patient Name: JULIO PEOPLES MR #: [id number] : 1955 Age/Sex: 62/F Req #: [id number] Adm Physician: KATHY ALAN MD Ordered by: JAMES MENA MD Report #: [id number] Location: MED/SURG Room/Bed: [facility] Procedure: [id number] M RI/MRI BRAIN WO Exam Date: 09/11/17 [...] MD on 09/11/17 112 Transcribed B y: COMTRAN on 09/11/17 112 COPY TO: JAMES MENA MD [facility] [place] [address] Patient Name: JULIO PEOPLES MR #: [id number] : 1955 Age/Sex: 62/F Req #: [id number] Adm Physician: Ordered by: JAMES MENA MD Report #: [id number] Location: ER Room/Bed: Procedure: [id number] DX/CHEST SINGLE (PORTABLE) Exam Date: 09/10/17 Exam [...] TO: JAMES MENA MD CT BRAIN WO [place] [address] Patient Name: JULIO PEOPLES MR #: [id number] : 1955 Age/Sex: 62/F Req #: [id number] Adm Physician: Ordered by: JAMES MENA MD Report #: [id number] Location: ER Room/Bed: Procedure: [id number] CT/CT BRAIN WO Exam Date: Exam Time: [...] TO: JAMES MENA MD CT ABDOMEN/PELVIS W [place] [address] Patient Name: JULIO PEOPLES MR #: [id number] : 1955 Age/Sex: 62/F Req #: [id number] Adm Physician: Ordered by: JAMES MENA MD Report #: [id number] Location: ER Room/Bed: Procedure: [id number] CT/CT ABDOMEN/PELVIS W Exa m Date: 09/10/17 Exam Time: 2099 REPORT STATUS: [...] TO: JAMES MENA MD CHEST SINGLE (PORTABLE) [place] [address] Patient Name: JULIO PEOPLES MR #: [id number] : 1955 Age/Sex: 62/F Req #: [id number] Adm Physician: Ordered by: HANNAH HUANG MD Report #: [id number] Location: ER Room/Bed: Procedure: [id number] DX/CHEST SINGLE (PORTABLE) Exam Date: 07/28/17 Exam [...] Tom Freitas M.D. on 07/28/2017 at 10:04 Electronical ly approved by: Tom Freitas M.D. on 07/28/2017 at 10:04 Dictated By: TOM FREITAS MD 100 4 Transcribed By: EMILI on 07/28/17 1004 COPY TO: HANNAH HUANG MD
--- NOTE | 2020-07-18 03:22 | Emergency Department Note ---
History of Present Illnes History of Present Illness Chief Complaint: Eye, Ear, Nose, Throat, Dental History of Present Illness This is a 65 year old female PRESENTS TO ED WITH EDEMA TO TONGUE X6 HRS; PT RX'D LISINOPRIL X3 DAYS AGO; RESP ARE EVEN AND UNLABORED, O2 SAT RA 100%; NO AIRWAY OBSTRUCTION NOTED; . Historian: Patient Arrival Mode: Car Onset (how long ago): hour(s) (6) Location: TONGUE Quality: SWELLING Radiation: Reports non-radiation Severity: mild Onset quality: gradual Duration (how long): hour(s) (6) Timing of current episode: constant Progression: unchanged Chronicity: new Context: Reports new medications (LISINOPRIL); Denies recent illness, Denies recent surgery, Denies recent travel, Denies trauma/injury Relieving factors: none Exacerbating factors: none Associated symptoms: Reports denies other symptoms Past Medical/Family History Physician Review I have reviewed the patient's past medical and family history. Any updates have been documented here. Past Medical History Recent Fever: No Clinical Suspicion of Infectio: No New/Unexplained Change in Ment: No Past Medical History: Hypertension Other Medical History: GERD Past Surgical History: Hernia Repair Other Surgery: tonsilectomy Social History Smoking Cessation: Never Smoker Counseling Performed: No Alcohol Use: None Any Illegal Drug Use: No Other Last Tetanus: UNKNOWN Any Pre-Existing Lines (PICC,: No Review of Systems Review of Systems Constitutional: Reports no symptoms EENTM: Reports as per HPI Cardiovascular: Reports no symptoms Respiratory: Reports no symptoms Gastrointestinal: Reports no symptoms Genitourinary: Reports no symptoms Musculoskeletal: Reports no symptoms Integumentary: Reports no symptoms Neurological: Reports no symptoms Psychological: Reports no symptoms Endocrine: Reports no symptoms Hematological/Lymphatic: Reports no symptoms Physical Exam Related Data Allergies: Coded Allergies: lisinopril (Verified Allergy, Intermediate, 07/18/20) Penicillins (Verified Allergy, Mild, HIVES, 07/28/17) peanut (Verified Allergy, Unknown, 09/18/19) Triage Vital Signs Vital Signs Date Time Temp Pulse Resp B/P (MAP) Pulse Ox O2 Delivery O2 Flow Rate FiO2 07/18/20 01:17 97.2 65 17 110/72 99 Room Air Vital signs reviewed: Yes Physical Exam CONSTITUTIONAL Constitutional: Present well-developed, Present well-nourished; Absent distressed HENT HENT: Present normocephalic, Present atraumatic, Present oropharynx clear/moist, Present nose normal, Present other (TONGUE WITH QUESTIONABLE MILD SWELLING) HENT L/R: Present left ext ear normal, Present right ext ear normal EYES Eyes: Reports PERRL, Reports conjunctivae normal NECK Neck: Present ROM normal PULMONARY Pulmonary: Present effort normal, Present breath sounds normal CARDIOVASCULAR Cardiovascular: Present regular rhythm, Present heart sounds normal, Present capillary refill normal, Present normal rate GASTROINTESTINAL Abdominal: Present soft, Present nontender, Present bowel sounds normal GENITOURINARY Genitourinary: Present exam deferred SKIN Skin: Present warm, Present dry MUSCULOSKELETAL Musculoskeletal: Present ROM normal NEUROLOGICAL Neurological: Present alert, Present oriented x 3, Present no gross motor or sensory deficits PSYCHOLOGICAL Psychological: Present mood/affect normal, Present judgement normal Assessment & Plan Medical Decision Making MDM PT WITH SENSATION OF TONGUE SWELLING, STARTED LISINOPRIL 3 DAYS AGO SOLU MEDROL 125 MG IM ORDERED PEPCID 40 MG PO ORDERED Assessment & Plan Final Impression: (1) Angioedema due to angiotensin converting enzyme inhibitor (JESSI-I) Depart Disposition: HOME, SELF-CARE Last Vital Signs Date Time Temp Pulse Resp B/P (MAP) Pulse Ox O2 Delivery O2 Flow Rate FiO2 07/18/20 01:17 97.2 65 17 110/72 99 Room Air Home Meds Active Scripts Doxycycline Hyclate (DOXYCYCLINE HYCLATE) 100 Mg Capsule, 100 MG PO BID for infection for 10 Days, #20 TAB 0 Refills Prov:MARJ OHARA MD 04/13/20 Neomy Sulf/Colist Sul/Hc/Thonz (CORTISPORIN-TC EAR SUSP) 10 Ml Drops.susp, 2 DROP RIGHT EAR TID for infection for 7 Days, #10 ML 0 Refills Prov:MARJ OHARA MD 04/13/20 Reported Medications Sertraline Hcl (SERTRALINE HCL) 50 Mg Tablet, 25 MG PO HS 05/20/19 Ezetimibe (ZETIA) 10 Mg Tablet, 10 MG PO DAILY 05/20/19 Amlodipine Besylate (AMLODIPINE BESYLATE) 5 Mg Tablet, 5 MG PO DAILY 05/20/19 Medications in the ED Methylprednisolone Sodium Succinate 125 mg ONCE ONCE IM Last administered on 07/18/20at 02:31; Admin Dose 125 MG; Start 07/18/20 at 02:30; Stop 07/18/20 at 02:31; Status DC Famotidine 40 mg ONCE ONCE PO Last administered on 07/18/20at 02:31; Admin Dose 40 MG; Start 07/18/20 at 02:30; Stop 07/18/20 at 02:31; Status DC JAMES MENA MD Jul 18, 2020 03:22
== END 2020-07-18 03:50 | disposition home or self-care (01) ==
LOC: ER 02:04
DX: T78.3XXA Angioneurotic edema, initial encounter (principal); T46.4X5A Adverse effect of angiotensin-converting-enzyme inhibitors, initial encounter; I10 Essential (primary) hypertension; K21.9 Gastro-esophageal reflux disease without esophagitis
CPT/HCPCS: 99283; J2930

== ENCOUNTER 2021-08-10 09:15 | Emergency (ER) | payer MEDICARE, OTHER ==
[~2021-08-10] VITALS: Ht 149.9 cm; Wt 56.7 kg
[2021-08-10 10:07] LABS: BASOPHILS % 0.4 % (0.0-1.0); EOSINOPHILS # (AUTO) 0.2 (0.0-0.4); EOSINOPHILS % 2.9 % (0.0-6.0); HEMATOCRIT 45.2 % (34.2-44.1); HEMOGLOBIN 14.9 g/dL (12.0-16.0); LYMPHOCYTES # (AUTO) 1.3 (1.0-3.2); LYMPHOCYTES % 24.3 % (18.0-39.1); MEAN CORPUSCULAR HEMOGLOBIN 30.8 pg (28-32); MEAN CORPUSCULAR VOLUME 93.6 fL (81-99); MONOCYTES # (AUTO) 0.3 (0.2-0.8); MONOCYTES % 5.8 % (4.4-11.3); NEUTROPHILS # (AUTO) 3.4 (2.1-6.9); NEUTROPHILS % 66.2 % (38.7-80.0); PLATELET COUNT 244 x10e3/uL (140-360); RED BLOOD COUNT 4.83 x10e6/uL (3.6-5.1); RED CELL DISTRIBUTION WIDTH 12.7 % (11.7-14.4)
[2021-08-10 10:25] LABS: ALBUMIN/GLOBULIN RATIO 1.1 (0.8-2.0); ANION GAP 14.1 mmol/L (8-16); CALCIUM 8.9 mg/dL (8.4-10.2); CREATININE, SERUM 0.63 mg/dL (0.57-1.11); POTASSIUM 4.1 mmol/L (3.5-5.1)
[2021-08-10 10:29] LABS: INR 0.89; PROTHROMBIN TIME 12.2 seconds (11.9-14.5)
[2021-08-10 10:36] LABS: PARTIAL THROMBOPLASTIN TIME 29.9 seconds (23.8-35.5)
[2021-08-10 11:04] VITALS: BP 150/82
== END 2021-08-10 11:15 | disposition home or self-care (01) ==
LOC: ER 09:37
DX: H15.89 Other disorders of sclera (principal); I10 Essential (primary) hypertension; K21.9 Gastro-esophageal reflux disease without esophagitis
CPT/HCPCS: 36415; 80053; 80329; 83690; 85025; 85610; 85730; 99283